=== PATIENT | male | born 1945 | race Caucasian/White ===

== ENCOUNTER → 2017-05-19 | Outpatient (CLI) | payer MEDICARE, OTHER ==
--- NOTE | 2017-05-19 13:42 | US ---
EXAMINATION TYPE: US liver DATE OF EXAM: 05/19/2017 COMPARISON: US CLINICAL HISTORY: B18.1 Chronic viral Hepatitis B w/o delta agent. Chronic Hep B EXAM MEASUREMENTS: Liver Length: 15.3 cm Gallbladder Wall: 0.3 cm CBD: 0.2 cm Right Kidney: 10.1 x 4.9 x 4.2 cm Morbidly obese pt, difficult exam Pancreas: Body wnl, head and tail obscured by bowel gas Liver: Difficult to visualize, heterogeneous, difficult to penetrate no discrete masses are identif ied Gallbladder: wall thickness upper limits of normal Evidence for sonographic Jovel's sign: No CBD: wnl Right Kidney: wnl, lower pole gassed out Incidental finding AAA distal AO, largest transverse measurement= 4.4 cm IMPRESSION: 1. Abdominal aortic aneurysm with transverse dimension of 4.4 cm. AP dimension is 4.0 cm. 2. Mild to moderate fatty infiltration liver 3. Mild wall thickening of the gallbladder. Normal less than 0.3 cm. This may be partially due to con traction of the gallbladder.
== END | disposition home or self-care (01) ==
LOC: RADUSWWP 06:46
PROVIDERS: ATTEND Internal Medicine Gastroenterology
DX: K76.0 Fatty (change of) liver, not elsewhere classified (principal); I71.4 Abdominal aortic aneurysm, without rupture; K82.8 Other specified diseases of gallbladder
CPT/HCPCS: 76705

== ENCOUNTER → 2019-07-11 | Outpatient (CLI) | payer MEDICARE ==
--- NOTE | 2019-07-11 07:34 | US ---
EXAMINATION TYPE: US abdomen limited DATE OF EXAM: 07/11/2019 COMPARISON: US 2018 CLINICAL HISTORY: B18.1 chronic viral hepatitis B w/o delta-agent. Chronic viral hepatitis B, patient states no other/new symptoms. EXAM MEASUREMENTS: Liver Length: 17.1 cm Gallbladder Wall: 0.2 cm CBD: 0.4 cm Right Kidney: 10.4 x 5.4 x 4.9 cm Difficult and limited study due to patient body habitus Pancreas: obscured by overlying midline bowel gas Liver: limited visualization, heterogeneous Gallbladder: limited visualization, appears wnl Evidence for sonographic Jovel's sign: no CBD: limited visualization, appears wnl Right Kidney: wnl IMPRESSION: Limited examination. Hepatic steatosis versus diffuse hepatocellular disease.
== END | disposition home or self-care (01) ==
LOC: RADUSWWP 06:49
PROVIDERS: ATTEND Internal Medicine
DX: B18.1 Chronic viral hepatitis B without delta-agent (principal)
CPT/HCPCS: 76705

== ENCOUNTER 2019-07-19 15:10 | Emergency (ER) | payer MEDICARE ==
[2019-07-19 15:14] VITALS: BP 184/73; PULSE 56; RESP 20; TEMP 98.1
--- NOTE | 2019-07-19 15:49 | XR ---
EXAMINATION TYPE: XR ankle complete LT DATE OF EXAM: 07/19/2019 COMPARISON: NONE HISTORY: Pain TECHNIQUE: 3 views of the left ankle are submitted for evaluation. FINDINGS: There is no evidence for fracture or dislocation. Ankle mortise is intact. Soft tissues are within normal limits. Large plantar calcaneal spur identified. IMPRESSION: 1. No evidence for acute fracture.
[2019-07-19] MEDS ORDERED: ACET/COD 300 MG/30 MG STARTER PACK 6 TAB BTL PO STA (16:06)
--- NOTE | 2019-07-19 16:06 | ED ---
Extremity Problem HPI - General Chief complaint: Extremity Problem,Nontraumatic Stated complaint: L foot pain Time Seen by Provider: 07/19/19 15:16 Source: patient Mode of arrival: ambulatory Limitations: no limitations - History of Present Illness Initial comments: 73-year-old male presenting today for chief complaint foot and ankle painx 3 weeks. Patient states that he has had ankle pain for quite some time now he states he's been following this for months with his primary care provider. Patient states he only known injury that he had stepped in a hole. Denies history of DVT or cancer. Denies recent surgeries travel or immobilization. He states he has on-and-off pain since then the pain has increased for the 3 weeks. Patient denies any swelling redness flulike symptoms. Patient denies any new trauma or injury. Patient denies any swelling of the calf or legs. Remaining review systems negative upon arrival patient. - Related Data Allergies Allergy/AdvReac Type Severity Reaction Status Date / Time No Known Allergies Allergy Verified 07/19/19 15:14 Review of Systems ROS Statement: Those systems with pertinent positive or pertinent negative responses have been documented in the HPI. ROS Other: All systems not noted in ROS Statement are negative. Past Medical History Past Medical History: Hypertension History of Any Multi-Drug Resistant Organisms: None Reported Past Surgical History: No Surgical Hx Reported Past Psychological History: Depression Smoking Status: Never smoker Past Alcohol Use History: None Reported Past Drug Use History: None Reported General Exam - General Exam Comments Initial Comments: General: The patient is awake and alert, in no distress, and does not appear acutely ill. Eye: Pupils are equal, round and reactive to light, extra-ocular movements are intact. No nystagmus. There is normal conjunctiva bilaterally. No signs of icterus. . Cardiovascular: There is a regular rate and rhythm. No murmur, rub or gallop is appreciated. Respiratory: Lungs are clear to auscultation, respirations are non-labored, breath sounds are equal. No wheezes, stridor, rales, or rhonchi. Musculoskeletal: No gross inspection of the legs bilaterally. No soft tissue swelling or edema. Patient is tender to palpation over the medial malleolus of the left ankle no tenderness to palpation of the forefoot slight tenderness to patient over the heel. No bruising over the plantar aspect. Normal ROM, with no tenderness at ankles b/l Strength 5/5. Sensation intact. Strong DP pulses equal bilaterally 2+. Negative Homans. No calf swelling or tenderness to palpation masses. Neurological: A&O x 3. CN II-XII intact grossly, There are no obvious motor or sensory deficits. Coordination appears grossly intact. Speech is normal. Skin: Skin is warm and dry and no rashes or lesions are noted. Psychiatric: Cooperative, appropriate mood & affect, normal judgment. Limitations: no limitations Course Vital Signs 07/19/19 15:12 Temperature 98.1 F Pulse Rate 56 L Respiratory 20 Rate Blood Pressure 184/73 O2 Sat by Pulse 99 Oximetry Medical Decision Making - Medical Decision Making 73-year-old male presenting for evaluation of acute on chronic left ankle pain. Distant history of injury. X-ray negative for acute osseous process. Patient neurovascularly intact. No swelling. At this time feel patient is stable for discharge with follow-up as scheduled on Monday with orthopedic surgery return parameters were discussed including immediate return for any swelling patient verbalized understanding and was discharged appearing well. Case discussed with Dr. Rolon Disposition Clinical Impression: Left foot pain, Heel spur, Ankle pain Disposition: HOME SELF-CARE Condition: Good Additional Instructions: Please use medication as discussed. Please follow-up with orthopedic surgery on monday, return for leg/calf swelling. Please return to emergency room if the symptoms increase or worsen or for any other concerns. Is patient prescribed a controlled substance at d/c from ED?: No Referrals: Foster Quevedo DO [Primary Care Provider] - 1-2 days Time of Disposition: 16:06
== END 2019-07-19 16:24 | disposition home or self-care (01) ==
LOC: EC 15:10
DX: M77.32 Calcaneal spur, left foot (principal); M25.572 Pain in left ankle and joints of left foot; G89.29 Other chronic pain; W18.42XA Slipping, tripping and stumbling without falling due to stepping into hole or opening, initial encounter
CPT/HCPCS: 99283

== ENCOUNTER → 2020-08-18 | Outpatient (CLI) | payer MEDICARE ==
--- NOTE | 2020-08-18 10:37 | US ---
EXAMINATION TYPE: US abdomen limited DATE OF EXAM: 08/18/2020 COMPARISON: US dated 07/11/2019 CLINICAL HISTORY: B18.1 Chronic viral hepatitis B. On medication for HTN. US exam is technically limi luiza due large body habitus. EXAM MEASUREMENTS: Liver Length: 14.9 cm Gallbladder Wall: 0.2 cm CBD: 0.2 cm Right Kidney: 9.5 x 6.5 x 4.7 cm Pancreas: Obscured by bowel gas Liver: limitedly seen, no masses seen, there is poor penetration of the ultrasound into the liver Gallbladder: limitedly seen due to scanning intercostally Evidence for sonographic Jovel's sign: no CBD: wnl Right Kidney: No hydronephrosis or masses seen No evident ascites. IMPRESSION: Exam is limited. Findings could be indicative of underlying hepatocellular disease
== END | disposition home or self-care (01) ==
LOC: RADUSWWP 07:00
PROVIDERS: ATTEND Internal Medicine
DX: B18.1 Chronic viral hepatitis B without delta-agent (principal)
CPT/HCPCS: 76705

== ENCOUNTER → 2021-08-02 | Outpatient (CLI) | payer MEDICARE ==
--- NOTE | 2021-08-02 10:07 | US ---
EXAMINATION TYPE: US liver DATE OF EXAM: 08/02/2021 COMPARISON: NONE CLINICAL HISTORY: B18.1 CHRONIC VIRAL HEPATITIS B. morbidly obese patient with no symptoms EXAM MEASUREMENTS: Liver Length: 17.8 cm Gallbladder Wall: 0.3 cm CBD: not seen Right Kidney: 10.1 x 3.7 x 5.3 cm very limited images due to obese and bowel gas Pancreas: not seen Liver: difficult to penetrate, limited intercostal imaging Gallbladder: wnl Evidence for sonographic Jovel's sign: no CBD: unable to discern due to reasons stated above Right Kidney: wnl IMPRESSION: Hepatic steatosis.
== END | disposition home or self-care (01) ==
LOC: RADUSWWP 09:17
PROVIDERS: ATTEND Internal Medicine Gastroenterology
DX: B18.1 Chronic viral hepatitis B without delta-agent (principal); K76.0 Fatty (change of) liver, not elsewhere classified
CPT/HCPCS: 76705

== ENCOUNTER → 2021-10-29 | Outpatient (CLI) | payer MEDICARE ==
--- NOTE | 2021-10-29 16:20 | MR ---
EXAMINATION TYPE: MR lumbar spine wo con DATE OF EXAM: 10/29/2021 COMPARISON: None. HISTORY: LBP with left leg radiculopathy x 1 year. TECHNIQUE: Multiplanar, multisequence imaging of the lumbar spine is performed without IV contrast. FINDINGS: There is levoconvex scoliosis centered at L2-L3 level. Sagittal images of the lumbar spine show vertebral body heights and alignment to appear satisfactory. Multilevel disc desiccation with mo derate to advanced multilevel disc space narrowing and multilevel vacuum disc phenomenon. Moderate t o severe multilevel anterior spurring. The conus medullaris is normal in position and signal ending a t T12-L1 disc space level. The bone marrow signal intensity is within normal limits. Axial images at T12-L1 level shows mild facet arthropathy. There is tiny right paracentral disc protr usion minimally effaces the anterior thecal sac. Patent bilateral neural foramina. Axial images at L1-L2 level show posterior spur disc complex mildly effacing anterior thecal sac. Pat ent bilateral neural foramina. Axial images at L2-L3 level show moderate broad disc bulge effacing the anterior thecal sac with mild to moderate bilateral anterior inferior neural foraminal narrowing. Axial images at L3-L4 level shows moderate facet arthropathy and ligament of flavum hypertrophy effac ing posterior lateral thecal sac. There is moderate broad disc bulge effacing anterior thecal sac. Th ere is mild to moderate bilateral neural foraminal narrowing. Axial images at L4-L5 level shows central disc protrusion and moderate facet arthropathy bilaterally. Spinal canal is preserved. There is mild to moderate right greater than left bilateral neural forami nal narrowing. Axial images at L5-S1 level show mild/moderate facet arthropathy bilaterally. There is mild to modera te broad disc bulge. Spinal canal is preserved as is increased epidural fat. There is mild to moderat e bilateral neural foraminal narrowing. There is AAA up to 4.7 cm transversely axial image 15. There is additional 2.3 cm left common iliac a rtery aneurysm axial image 1 IMPRESSION: Scoliosis with multilevel moderate to advanced degenerative changes as detailed above. Un derlying AAA is present. Advise further evaluation with CT to better evaluate and characterize.
== END | disposition home or self-care (01) ==
LOC: RADMRIMAIN 15:31
PROVIDERS: ATTEND Family Medicine
DX: M51.36 Other intervertebral disc degeneration, lumbar region (principal); I71.4 Abdominal aortic aneurysm, without rupture; M54.16 Radiculopathy, lumbar region; M41.86 Other forms of scoliosis, lumbar region
CPT/HCPCS: 72148

== ENCOUNTER → 2022-08-01 | Outpatient (CLI) | payer MEDICARE ==
--- NOTE | 2022-08-01 09:25 | US ---
EXAMINATION TYPE: US liver DATE OF EXAM: 08/01/2022 COMPARISON: CLINICAL HISTORY: B18.1 CHRONIC VIRAL HEPATITIS B. Patient states he gets this done once a year. TECHNIQUE: Multiple sonographic images of the right upper quadrant are obtained. FINDINGS: EXAM MEASUREMENTS: Liver Length: 18.7 cm Gallbladder Wall: 0.3 cm Right Kidney: 10.0 x 5.1 x 5.6 cm TENTERER NOTES: Limited due to bowel gas and patient body habitus Pancreas: Obscured by bowel gas Liver: Limited visualization Gallbladder: wnl as visualized Evidence for sonographic Jovel's sign: neg CBD: Obscured by overlying bowel gas Right Kidney: No hydronephrosis or masses seen, limited visualization IMPRESSION: No discrete abnormality appreciated.
== END | disposition home or self-care (01) ==
LOC: RADUSWWP 08:41
PROVIDERS: ATTEND Internal Medicine Gastroenterology
DX: B18.1 Chronic viral hepatitis B without delta-agent (principal)
CPT/HCPCS: 76705

== ENCOUNTER → 2023-07-28 | Outpatient (CLI) | payer MEDICARE ==
--- NOTE | 2023-07-28 08:35 | US ---
EXAMINATION TYPE: US liver DATE OF EXAM: 07/28/2023 COMPARISON: 08/01/2022 ultrasound CLINICAL INDICATION: Male, 77 years old with history of B18.1 CHR VIRAL HEPATITIS B WITHOUT DELTA AGE NT; Hepatitis TECHNIQUE: Multiple sonographic images of the right upper quadrant are obtained. FINDINGS: EXAM MEASUREMENTS: Liver Length: 17.3 cm Gallbladder Wall: 0.3 cm Right Kidney: 10.0 x 5.0 x 5.0 cm SEALANT MIXER NOTES: Technical limitations due to patient's body habitus and large amount of overlyin g bowel gas Pancreas: Obscured by bowel gas Liver: limited evaluation Gallbladder: no evidence of stones Evidence for sonographic Jovel's sign: no CBD: Obscured by overlying bowel gas Right Kidney: no evidence of hydronephrosis IMPRESSION: No evidence for acute abdominal process., Limited evaluation of liver. Consider MRI screening.
== END | disposition home or self-care (01) ==
LOC: RADUSWWP 07:01
PROVIDERS: ATTEND Internal Medicine Gastroenterology
DX: B18.1 Chronic viral hepatitis B without delta-agent (principal)
CPT/HCPCS: 76705

== ENCOUNTER 2023-08-31 10:49 | Emergency (ER) | payer MEDICARE ==
--- NOTE | 2023-08-31 11:16 | ED ---
SOB HPI <Evelyn Watters - Last Filed: 08/31/23 11:14> <Leandro Monroy - Last Filed: 08/31/23 14:44> - General Stated Complaint: flu/cold symptoms Time Seen by Provider: 08/31/23 11:15 - History of Present Illness Initial Comments: The patient's a 77-year-old gentleman with history of hyperlipidemia presents emergency room with complaints of cough and shortness breath. Patient states this started a week ago. He states it started without worse sore throat that has since slightly improved. He feels very congested in the chest. He has pain in the chest and abdomen with coughing only. Denies any vomiting, diarrhea or hemoptysis. (Evelyn Watters) - Related Data Previous Rx's Medication Instructions Recorded Albuterol Inhaler [Ventolin Hfa 1 - 2 puff INHALATION Q4HR PRN #1 08/31/23 Inhaler] each methylPREDNISolone Dose Pack 4 mg PO DIRECTED #21 packet 08/31/23 [Medrol Dose Pack] Allergies Allergy/AdvReac Type Severity Reaction Status Date / Time No Known Allergies Allergy Verified 08/31/23 12:50 Review of Systems ROS Other: All systems not noted in ROS Statement are negative. <Evelyn Watters - Last Filed: 08/31/23 11:14> ROS Other: All systems not noted in ROS Statement are negative. <Leandro Monroy - Last Filed: 08/31/23 14:44> ROS Statement: Those systems with pertinent positive or pertinent negative responses have been documented in the HPI. Past Medical History Past Medical History: Hypertension History of Any Multi-Drug Resistant Organisms: None Reported Past Surgical History: No Surgical Hx Reported Past Psychological History: Depression Past Alcohol Use History: None Reported Past Drug Use History: None Reported <Evelyn Watters - Last Filed: 08/31/23 11:14> General Exam <Evelyn Watters - Last Filed: 08/31/23 11:14> General appearance: alert, in no apparent distress Head exam: Present: atraumatic, normocephalic Eye exam: Present: normal appearance, PERRL ENT exam: Present: normal exam Neck exam: Present: normal inspection. Absent: tenderness, meningismus Respiratory exam: Present: wheezes. Absent: respiratory distress, rales, rhonchi Cardiovascular Exam: Present: regular rate, normal rhythm GI/Abdominal exam: Present: soft. Absent: distended, tenderness Extremities exam: Present: normal inspection, normal capillary refill Neurological exam: Present: alert, oriented X3, CN II-XII intact. Absent: motor sensory deficit Skin exam: Present: warm, dry, intact. Absent: cyanosis, diaphoretic <Leandro Monroy - Last Filed: 08/31/23 14:44> - General Exam Comments Initial Comments: Visual Physical Exam Vital signs reviewed General: Well-appearing, nontoxic, no acute distress. Head: Normocephalic, atraumatic Eyes: PERRLA, EOMI ENT: Airway patent Chest: Nonlabored breathing Skin: No visual rash, normal skin tone Neuro: Alert and oriented 3 Musculoskeletal: No gross abnormalities (Evelyn Watters) Course Vital Signs 08/31/23 12:45 Temperature 97.7 F Pulse Rate 55 L Respiratory 18 Rate Blood Pressure 144/77 O2 Sat by Pulse 93 L Oximetry Medical Decision Making <Evelyn Watters - Last Filed: 08/31/23 11:14> - Lab Data Result diagrams: 08/31/23 13:30 08/31/23 13:30 <Leandro Monroy - Last Filed: 08/31/23 14:44> - Medical Decision Making Quick note portion completed by myself, Evelyn Watters PAC. (Evelyn Watters) Was pt. sent in by a medical professional or institution (, PA, BLACKING WHEEL TENDER, urgent care, hospital, or senior living...) When possible be specific @ -No Did you speak to anyone other than the patient for history (EMS, parent, family, police, friend...)? What history was obtained from this source @ -No Did you review nursing and triage notes (agree or disagree)? Why? @ -I reviewed and agree with nursing and triage notes Were old charts reviewed (outside hosp., previous admission, EMS record, old EKG, old radiological studies, urgent care reports/EKG's, senior living records)? Report findings @ -No old charts were reviewed Differential Diagnosis (chest pain, altered mental status, abdominal pain women, abdominal pain men, vaginal bleeding, weakness, fever, dyspnea, syncope, headache, dizziness, GI bleed, back pain, seizure, CVA, palpatations, mental health, musculoskeletal)? @ Pneumonia, sinusitis, upper respiratory infection, bronchitis EKG interpreted by me (3pts min.). @ -As above X-rays interpreted by me (1pt min.). @ -Is x-ray clear without focal pneumonia, no acute findings CT interpreted by me (1pt min.). @ -None done U/S interpreted by me (1pt. min.). @ -None done What testing was considered but not performed or refused? (CT, X-rays, U/S, labs)? Why? @ -None What meds were considered but not given or refused? Why? @ -None Did you discuss the management of the patient with other professionals (professionals i.e. , PA, BLACKING WHEEL TENDER, lab, RT, psych nurse, social welfare research worker, ear machine operator, teacher, financial aid officer, case monitor)? Give summary @ -No Was smoking cessation discussed for >3mins.? @ -No Was critical care preformed (if so, how long)? @ -No Were there social determinants of health that impacted care today? How? (Homeles sness, low income, unemployed, alcoholism, drug addiction, transportation, low edu. Level, literacy, decrease access to med. care, snf, rehab)? @ -No Was there de-escalation of care discussed even if they declined (Discuss DNR or withdrawal of care, Hospice)? DNR status @ -No What co-morbidities impacted this encounter? (DM, HTN, Smoking, COPD, CAD, Cancer, CVA, ARF, Chemo, Hep., AIDS, mental health diagnosis, sleep apnea, morbid obesity)? @ -None Was patient admitted / discharged? Hospital course, mention meds given and route, prescriptions, significant lab abnormalities, going to OR and other pertinent info. @ -[69-year-old male with cough and congestion. Patient has positive for RSV. He has no focal pneumonia. He has normal laboratory testing. He is stable for discharge with symptomatic treatment at home. Undiagnosed new problem with uncertain prognosis? @ -No Drug Therapy requiring intensive monitoring for toxicity (Heparin, Nitro, Insulin, Cardizem)? @ -No Were any procedures done? @ -No Diagnosis/symptom? @ -RSV Acute, or Chronic, or Acute on Chronic? @ acute Uncomplicated (without systemic symptoms) or Complicated (systemic symptoms)? @ -default Side effects of treatment? @ -No Exacerbation, Progression, or Severe Exacerbation? @ -No Poses a threat to life or bodily function? How? (Chest pain, [place], [place], pneumonia, PE, COPD, DKA, ARF, appy, cholecystitis, CVA, Diverticulitis, Homicidal, Suicidal, threat to staff... and all critical care pts) @ Low Risk at this time (Leandro Monroy) - Lab Data Lab Results 08/31/23 08/31/23 08/31/23 Range/Units 12:53 13:30 13:30 WBC 5.6 (3.8-10.6) k/uL RBC 4.42 (4.30-5.90) m/uL Hgb 14.9 (13.0-17.5) gm/dL Hct 43.3 (39.0-53.0) % MCV 97.9 (80.0-100.0) fL MCH 33.7 (25.0-35.0) pg MCHC 34.4 (31.0-37.0) g/dL RDW 12.2 (11.5-15.5) % Plt Count 174 (150-450) k/uL MPV 7.5 Neutrophils % 61 % Lymphocytes % 21 % Monocytes % 5 % Eosinophils % 9 % Basophils % 1 % Neutrophils # 3.4 (1.3-7.7) k/uL Lymphocytes # 1.2 (1.0-4.8) k/uL Monocytes # 0.3 (0-1.0) k/uL Eosinophils # 0.5 (0-0.7) k/uL Basophils # 0.1 (0-0.2) k/uL Sodium 139 (137-145) mmol/L Potassium 4.3 (3.5-5.1) mmol/L Chloride 102 (98-107) mmol/L Carbon Dioxide 26 (22-30) mmol/L Anion Gap 11 mmol/L BUN 21 H (9-20) mg/dL Creatinine 0.98 (0.66-1.25) mg/dL Est GFR (CKD-EPI)AfAm 86 (>60 ml/min/1.73 sqM) Est GFR (CKD-EPI)NonAf 74 (>60 ml/min/1.73 sqM) Glucose 125 H (74-99) mg/dL Calcium 8.9 (8.4-10.2) mg/dL Total Bilirubin 0.7 (0.2-1.3) mg/dL AST 39 (17-59) U/L ALT 42 (4-49) U/L Alkaline Phosphatase 97 (38-126) U/L Troponin I (0.000-0.034) ng/mL NT-Pro-B Natriuret Pep 25 pg/mL Total Protein 7.0 (6.3-8.2) g/dL Albumin 4.0 (3.5-5.0) g/dL Influenza Type A (PCR) Not Detected (Not Detectd) Influenza Type B (PCR) Not Detected (Not Detectd) RSV (PCR) Detected A (Not Detectd) SARS-CoV-2 (PCR) Not Detected (Not Detectd) 08/31/23 Range/Units 13:30 WBC (3.8-10.6) k/uL RBC (4.30-5.90) m/uL Hgb (13.0-17.5) gm/dL Hct (39.0-53.0) % MCV (80.0-100.0) fL MCH (25.0-35.0) pg MCHC (31.0-37.0) g/dL RDW (11.5-15.5) % Plt Count (150-450) k/uL MPV Neutrophils % % Lymphocytes % % Monocytes % % Eosinophils % % Basophils % % Neutrophils # (1.3-7.7) k/uL Lymphocytes # (1.0-4.8) k/uL Monocytes # (0-1.0) k/uL Eosinophils # (0-0.7) k/uL Basophils # (0-0.2) k/uL Sodium (137-145) mmol/L Potassium (3.5-5.1) mmol/L Chloride (98-107) mmol/L Carbon Dioxide (22-30) mmol/L Anion Gap mmol/L BUN (9-20) mg/dL Creatinine (0.66-1.25) mg/dL Est GFR (CKD-EPI)AfAm (>60 ml/min/1.73 sqM) Est GFR (CKD-EPI)NonAf (>60 ml/min/1.73 sqM) Glucose (74-99) mg/dL Calcium (8.4-10.2) mg/dL Total Bilirubin (0.2-1.3) mg/dL AST (17-59) U/L ALT (4-49) U/L Alkaline Phosphatase (38-126) U/L Troponin I <0.012 (0.000-0.034) ng/mL NT-Pro-B Natriuret Pep pg/mL Total Protein (6.3-8.2) g/dL Albumin (3.5-5.0) g/dL Influenza Type A (PCR) (Not Detectd) Influenza Type B (PCR) (Not Detectd) RSV (PCR) (Not Detectd) SARS-CoV-2 (PCR) (Not Detectd) Disposition <Evelyn Watters - Last Filed: 08/31/23 11:14> Is patient prescribed a controlled substance at d/c from ED?: No Time of Disposition: 14:41 <Leandro Monroy - Last Filed: 08/31/23 14:44> Clinical Impression: Upper respiratory tract infection, RSV (respiratory syncytial virus infection) Disposition: HOME SELF-CARE Condition: Fair Instructions (If sedation given, give patient instructions): Respiratory Syncytial Virus (ED), Upper Respiratory Infection (ED) Prescriptions: methylPREDNISolone Dose Pack [Medrol Dose Pack] 4 mg PO DIRECTED #21 packet Albuterol Inhaler [Ventolin Hfa Inhaler] 1 - 2 puff INHALATION Q4HR PRN #1 each PRN Reason: Shortness Of Breath Referrals: Foster Quevedo DO [Primary Care Provider] - 1-2 days
[2023-08-31 13:45] LABS: Basophils # (A) 0.1 k/uL (0-0.2); Basophils % (A) 1 %; Eosinophils # (A) 0.5 k/uL (0-0.7); Eosinophils % (A) 9 %; HCT 43.3 % (39.0-53.0); HGB 14.9 gm/dL (13.0-17.5); Lymphocytes # (A) 1.2 k/uL (1.0-4.8); Lymphocytes % (A) 21 %; MCH 33.7 pg (25.0-35.0); MCHC 34.4 g/dL (31.0-37.0); MCV 97.9 fL (80.0-100.0); Mean Platelet Volume 7.5; Monocytes # (A) 0.3 k/uL (0-1.0); Monocytes % (A) 5 %; Neutrophils # (A) 3.4 k/uL (1.3-7.7); Neutrophils % (A) 61 %; Platelet Count 174 k/uL (150-450); RBC 4.42 m/uL (4.30-5.90); RDW 12.2 % (11.5-15.5); WBC 5.6 k/uL (3.8-10.6)
--- NOTE | 2023-08-31 13:47 | XR ---
EXAMINATION TYPE: XR chest 2V DATE OF EXAM: 08/31/2023 1:06 PM CLINICAL INDICATION:Male, 77 years old with history of cough, shortness of breath; [facility] COMPARISON: None TECHNIQUE: XR chest 2V Frontal and lateral views of the chest. FINDINGS: Lungs/Pleura: There is no evidence of pleural effusion, focal consolidation, or pneumothorax. Pulmonary vascularity: Unremarkable. Heart/mediastinum: Cardiomediastinal silhouette is unremarkable. Musculoskeletal: No acute osseous pathology. Other findings: None IMPRESSION: No acute cardiopulmonary disease/process.
[2023-08-31 14:07] LABS: ALT 42 U/L (4-49); AST 39 U/L (17-59); African American GFR (CKD) 86 (>60 ml/min/1.73 sqM); Alkaline Phosphatase 97 U/L (38-126); Anion Gap 11 mmol/L; Blood Urea Nitrogen 21 mg/dL (9-20); Calcium 8.9 mg/dL (8.4-10.2); Carbon Dioxide 26 mmol/L (22-30); Chloride 102 mmol/L (98-107); Glucose 125 mg/dL (74-99); Non-African American GFR(CKD) 74 (>60 ml/min/1.73 sqM); Potassium 4.3 mmol/L (3.5-5.1); Sodium 139 mmol/L (137-145); Total Bilirubin 0.7 mg/dL (0.2-1.3)
[2023-08-31 14:15] LABS: NT-Pro-B-Type Natriuretic Pept 25 pg/mL
[2023-08-31 15:00] VITALS: BP 136/76; PULSE 76; RESP 16; TEMP 97.9
== END 2023-08-31 14:56 | disposition home or self-care (01) ==
LOC: EC 10:49
DX: J06.9 Acute upper respiratory infection, unspecified (principal); B97.4 Respiratory syncytial virus as the cause of diseases classified elsewhere; I10 Essential (primary) hypertension; Z20.822 Contact with and (suspected) exposure to COVID-19
CPT/HCPCS: 36415; 71046; 80053; 83880; 84484; 85025; 87636; 99285

== ENCOUNTER → 2023-12-08 | Outpatient (CLI) | payer MEDICARE ==
[2023-12-08 16:05] LABS: HCT 43.2 % (39.6-50.0); HGB 14.9 g/dL (13.0-17.0); MCH 33.1 pg (27.0-32.0); MCHC 34.5 g/dL (32.0-37.0); Mean Platelet Volume 9.8 FL (9.5-12.2); NRBC Per 100 WBC 0 X 10*3/uL (0.00-0.01); Platelet Count 187 X 10*3/uL (140-440); RDW 12.9 % (11.5-14.5); WBC 5.86 X 10*3/uL (4.50-10.00)
[2023-12-08 18:37] LABS: Blood Urea Nitrogen 19.4 mg/dL (9.0-27.0); Carbon Dioxide 25.8 mmol/L (21.6-31.8); Chloride 103 mmol/L (96-109); Potassium 4.7 mmol/L (3.5-5.5); Sodium 140 mmol/L (135-145)
== END | disposition home or self-care (01) ==
LOC: LABPAT 11:41
PROVIDERS: ATTEND Internal Medicine Interventional Cardiology
DX: Z01.812 Encounter for preprocedural laboratory examination (principal); R94.39 Abnormal result of other cardiovascular function study
CPT/HCPCS: 36415; 80051; 82565; 84520; 85027

== ENCOUNTER 2023-12-27 11:07 | Day surgery (SDC) | payer MEDICARE ==
[2023-12-26 09:36] VITALS: BMI 43.5
[~2023-12-27 11:07] MED LIST: ALPRAZolam 0.25 MG TAB PO PRN; ALPRAZolam 0.5 MG TAB PO PRN; ASPIRIN 325 MG TAB PO STA; NITROGLYCERIN SL TABS 0.4 MG TAB SUBLINGUAL PRN; SODIUM CHLORIDE 0.9% 1,000 ML in EMPTY BAG 1 BAG IV SCH
[2023-12-27] MEDS: SODIUM CHLORIDE 0.9% 1,000 ML IV ONE (11:23)
[2023-12-27 11:37] VITALS: RESP 16; TEMP 98.6
[2023-12-27] MEDS: fentaNYL (PF) 50 MCG/1 ML VIAL IVP ONE (13:41)
[2023-12-27] MEDS: MIDAZOLAM 2 MG/2 ML VIAL IVP ONE (13:41)
[2023-12-27] MEDS: LIDOCAINE 2% (PF) 20 MG/ML 2 ML VIAL SQ ONE (13:41)
[2023-12-27] MEDS: IOPAMIDOL-370 100ML BTL INTRATHECA ONE (13:47)
[2023-12-27] MEDS: HEPARIN SODIUM 1,000 UN/ML (10ML VL) IVP ONE (13:47)
[2023-12-27] MEDS ORDERED: RX INFO: IV CONTRAST WAS GIVEN 1 EACH MISC MISCELLANE PRN (14:00)
[2023-12-27] MEDS ORDERED: SODIUM CHLORIDE 0.9% 1,000 ML IV SCH (14:00)
--- NOTE | 2023-12-27 14:03 | P.PCN ---
Date of Procedure: 12/27/23 Operative Findings: CARDIAC CATHETERIZATION PERFORMING PHYSICIAN: Rigoberto Moss MD, RPVI PROCEDURE PERFORMED: 1. Selective right and left coronary angiogram 2. Left heart catheterization 3. Ultrasound-guided access of the right radial artery INDICATION: Symptomatic 78-year-old gentleman with abnormal myocardial perfusion imaging stress test showing inferolateral ischemia COMPLICATION: None APPROACH: Right radial artery LEVEL OF SEDATION: Moderate with a sedation length of 14 minutes PROCEDURE DESCRIPTION: After obtaining an informed consent, the patient was brought to cardiac stores laborer. Local anesthesia was performed using lidocaine subcutaneously. The right radial artery was cannulated using Seldinger technique, the guidewire passed easily, following that we advanced a 5-Wolof sheath dilator assembly, the wire and dilator were removed and sheath was flushed. Following that, 2 mg of verapamil along with 5000 unit heparin were given. Selective right and left coronary angiogram using a 6-Wolof JR4 and JL 3.5 catheters. Following that we did left heart catheterization using 6-Wolof pigtail catheter. The procedure was completed there was no complication. SELECTIVE CORONARY ANGIOGRAM: The right coronary artery: Large-caliber vessel and a dominant vessel. The RCA is diffusely diseased up to about 80 to 90% in the midportion. Gives rise into a PDA and PLV branches and the PLV branch is a critically diseased. Left main: Calcified with mild disease only The left circumflex: Large-caliber vessel and a codominant vessel with severe disease involving the first and second obtuse marginal branches. The left anterior descending artery: Large-caliber vessel with critical disease involving the proximal portion. HEMODYNAMICS: The LVEDP was 14 mmHg with no significant gradient across aortic valve CONCLUSION: 1. Extremely calcified right and left coronary system with severe triple-vessel coronary artery disease as described above 2. Normal left-sided filling pressure POSTPROCEDURE MANAGEMENT: Evaluate the patient for coronary artery bypass grafting
[2023-12-27 17:40] VITALS: BP 150/75; PULSE 54
== END 2023-12-27 17:44 | disposition home or self-care (01) ==
LOC: CATHCVL 11:07
PROVIDERS: ATTEND Internal Medicine Interventional Cardiology
DX: I25.10 Atherosclerotic heart disease of native coronary artery without angina pectoris (principal); I10 Essential (primary) hypertension; E78.5 Hyperlipidemia, unspecified; F17.210 Nicotine dependence, cigarettes, uncomplicated; E66.9 Obesity, unspecified; Z68.41 Body mass index [BMI] 40.0-44.9, adult; Z79.899 Other long term (current) drug therapy
CPT/HCPCS: 93458; 76937; J2250; J1644; J2001; Q9967; J3010

== ENCOUNTER 2024-01-01 06:34 | Inpatient (IN) | payer MEDICARE ==
[2024-01-01 07:17] LABS: ALT 36 U/L (4-49); AST 38 U/L (17-59); African American GFR (CKD) >90 (>60 ml/min/1.73 sqM); Albumin 3.8 g/dL (3.5-5.0); Alkaline Phosphatase 89 U/L (38-126); Anion Gap 6 mmol/L; Blood Urea Nitrogen 18 mg/dL (9-20); Calcium 8.8 mg/dL (8.4-10.2); Carbon Dioxide 28 mmol/L (22-30); Chloride 106 mmol/L (98-107); Glucose 107 mg/dL (74-99); Magnesium 1.6 mg/dL (1.6-2.3); Non-African American GFR(CKD) 80 (>60 ml/min/1.73 sqM); Sodium 140 mmol/L (137-145); Total Bilirubin 0.6 mg/dL (0.2-1.3); Total Protein 6.6 g/dL (6.3-8.2)
[2024-01-01 07:18] LABS: Partial Thromboplastin Time 25.4 sec (22.0-30.0)
[2024-01-01 07:34] LABS: Basophils # (A) 0.1 k/uL (0-0.2); Basophils % (A) 1 %; Eosinophils # (A) 0.3 k/uL (0-0.7); Eosinophils % (A) 6 %; HCT 45.7 % (39.0-53.0); HGB 15.1 gm/dL (13.0-17.5); Lymphocytes # (A) 1.1 k/uL (1.0-4.8); Lymphocytes % (A) 23 %; MCH 32.6 pg (25.0-35.0); MCHC 33.1 g/dL (31.0-37.0); MCV 98.7 fL (80.0-100.0); Mean Platelet Volume 8.1; Monocytes # (A) 0.4 k/uL (0-1.0); Monocytes % (A) 9 %; Neutrophils # (A) 2.8 k/uL (1.3-7.7); Neutrophils % (A) 57 %; Platelet Count 168 k/uL (150-450); RBC 4.63 m/uL (4.30-5.90); RDW 12.6 % (11.5-15.5); WBC 4.9 k/uL (3.8-10.6)
--- NOTE | 2024-01-01 07:38 | XR ---
EXAMINATION TYPE: XR chest 2V DATE OF EXAM: 01/01/2024 COMPARISON: 08/31/2023 HISTORY: 78-year-old male with chest pain TECHNIQUE: PA and lateral views FINDINGS: The heart is upper limits of normal in size. Patchy interstitial density in the mid and lower lungs w ithout pleural effusion. [facility] mid and lower thoracic spine. IMPRESSION: Suspect interstitial infiltrate mid and lower lungs. Consider possibilities such as aspiration or an early or atypical pneumonia.
--- NOTE | 2024-01-01 07:56 | ED ---
General Adult HPI - General Chief complaint: Chest Pain Stated complaint: Chest pains, pain in left arm Time Seen by Provider: 01/01/24 07:28 Source: patient, RN notes reviewed, old records reviewed Mode of arrival: ambulatory Limitations: no limitations - History of Present Illness Initial comments: Patient is a 78-year-old male with past medical history of hypertension, hyperlipidemia, significant CAD and severe triple-vessel disease seen on cardiac cath on December 27, 2023 scheduled to follow-up for possible bypass surgery who presents emergency department with sudden onset of chest pain. States it began this morning upon awakening. Describes it as substernal left-sided with radiation to the left shoulder and arm. Denies any diaphoresis, nausea, vomiting. Is on water pills and states he has been having a somewhat nonproductive cough as well. May be mild worsening lower extremity edema but nothing significant. Denies any orthopnea or PND. Has no other acute complaints at this time. Presents for chest pain. - Related Data Home Medications Medication Instructions Recorded Confirmed Aspirin 81 mg PO DAILY 12/14/23 01/01/24 Cholecalciferol [Vitamin D3 (25 25 mcg PO DAILY 12/14/23 01/01/24 Mcg = 1000 Iu)] Entecavir [Baraclude] 0.5 mg PO DAILY 12/14/23 01/01/24 Escitalopram [Lexapro] 20 mg PO DAILY 12/14/23 01/01/24 Furosemide [Lasix] 20 mg PO DAILY 12/14/23 01/01/24 Gabapentin 300 mg PO BID 12/14/23 01/01/24 Mv-Min/Folic/K1/Lycopen/Lutein 1 tab PO DAILY 12/14/23 01/01/24 [Centrum Silver Men Tablet] [place]-3/Dha/Epa/Fish Oil [Fish Oil 1 cap PO DAILY 12/14/23 01/01/24 1,000 mg Softgel] Rosuvastatin Calcium 5 mg PO DAILY 12/14/23 01/01/24 amLODIPine [Norvasc] 5 mg PO DAILY 12/14/23 01/01/24 Benazepril HCl [Lotensin] 20 mg PO DAILY 01/01/24 01/01/24 busPIRone HCL 15 mg PO BID 01/01/24 01/01/24 Allergies Allergy/AdvReac Type Severity Reaction Status Date / Time Tzvegaj-IYI-QyO Reductase Allergy hives-"ok Verified 01/01/24 08:12 Inhibitor in low doses" Review of Systems ROS Statement: Those systems with pertinent positive or pertinent negative responses have been documented in the HPI. Review of Systems: CONST: Denies fever EYES: Denies blurry vision ENT: Denies nasal congestion C/V: Endorses chest pain RESP: Denies shortness of breath GI: Denies abdominal pain : Denies dysuria SKIN: Denies rash. MSK: Denies joint pain. NEURO: Denies headache ROS Other: All systems not noted in ROS Statement are negative. Past Medical History Past Medical History: GERD/Reflux, Hearing Disorder / Deafness, Hyperlipidemia, Hypertension, Liver Disease, Osteoarthritis (OA) Additional Past Medical History / Comment(s): Recent SOB with exertion. Bilateral hearing aid use, hx burst left eardrum. Hx Hepatitis B, completely resolved now. History of Any Multi-Drug Resistant Organisms: None Reported Past Surgical History: No Surgical Hx Reported Additional Past Surgical History / Comment(s): Vasectomy. Past Anesthesia/Blood Transfusion Reactions: No Reported Reaction Additional Past Anesthesia/Blood Transfusion Reaction / Comment(s): Has never had anesthesia. Past Psychological History: Depression Smoking Status: Former smoker Past Alcohol Use History: None Reported Past Drug Use History: None Reported - Past Family History Mother Family Medical History: No Reported History General Exam - General Exam Comments Initial Comments: General: Appears in no acute distress. HEAD: Normal with no signs of head trauma. EYES: PERRLA, EOMI, conjunctiva normal, no discharge. ENT: Hearing grossly intact, normal oropharynx. RESPIRATORY: Clear breath sounds bilaterally. No wheezes, rales, or rhonchi. C/V: Regular rate and rhythm. S1 and S2 auscultated, no edema, peripheral pulses 2+ and intact throughout ABD: Abd is soft, nontender, nondistended EXT: Normal range of motion, no obvious deformity SKIN: No rashes or lesions observed on exposed skin. NEURO: Alert and oriented x 4. Limitations: no limitations Course Vital Signs 01/01/24 01/01/24 01/01/24 06:48 08:12 09:29 Temperature 99.1 F Pulse Rate 62 56 L 53 L Pulse Rate [ 56 L [place] ] Respiratory 18 18 18 Rate Blood Pressure 178/76 139/80 126/94 O2 Sat by Pulse 96 94 L 93 L Oximetry Medical Decision Making - Medical Decision Making Was pt. sent in by a medical professional or institution (, [facility], [facility]IR[facility], urgent care, hospital, or retirement...) When possible be specific @ -No Did you speak to anyone other than the patient for history (EMS, parent, family, police, friend...)? What history was obtained from this source @ -No Did you review nursing and triage notes (agree or disagree)? Why? @ -I reviewed and agree with nursing and triage notes Were old charts reviewed (outside hosp., previous admission, EMS record, old EKG, old radiological studies, urgent care reports/EKG's, retirement records)? Report findings @ -Old charts reviewed Differential Diagnosis (chest pain, altered mental status, abdominal pain women, abdominal pain men, vaginal bleeding, weakness, fever, dyspnea, syncope, headache, dizziness, GI bleed, back pain, seizure, CVA, palpatations, mental health, musculoskeletal)? @ -Differential Chest Pain: Stable Angina, Unstable Angina, STEMI, NSTEMI Aortic Dissection, Pneumothorax, Musculoskeletal, Esophageal Spasm GERD, Cholecystitis, Pancreatitis, Zoster, this is not meant to be an all-inclusive list. EKG interpreted by me (3pts min.). @ -As above X-rays interpreted by me (1pt min.). @ -Chest x-ray reveals interstitial infiltrates versus pulmonary vascular congestion. BNP and cepheid will be obtained. CT interpreted by me (1pt min.). @ -None done U/S interpreted by me (1pt. min.). @ -None done What testing was considered but not performed or refused? (CT, X-rays, U/S, l abs)? Why? @ -None What meds were considered but not given or refused? Why? @ -Considered administering 324 mg of aspirin however patient has already taken it at home. Did you discuss the management of the patient with other professionals (professionals i.e. MARK Law, K[facility] GIRL, lab, RT, psych nurse, director of social services, vp publisher development, teacher, chief science officer, caser in)? Give summary @ -No Was smoking cessation discussed for >3mins.? @ -No Was critical care preformed (if so, how long)? @ -No Were there social determinants of health that impacted care today? How? (Homelessness, low income, unemployed, alcoholism, drug addiction, transportation, low edu. Level, literacy, decrease access to med. care, prison, rehab)? @ -No Was there de-escalation of care discussed even if they declined (Discuss DNR or withdrawal of care, Hospice)? DNR status @ -No What co-morbidities impacted this encounter? (DM, HTN, Smoking, COPD, CAD, Cancer, CVA, ARF, Chemo, Hep., AIDS, mental health diagnosis, sleep apnea, morbi d obesity)? @ -CAD Was patient admitted / discharged? Hospital course, mention meds given and route , prescriptions, significant lab abnormalities, going to OR and other pertinent info. @ -Based on the patient's presentation and physical exam, presents with chest pain. Patient took 324 mg of aspirin prior to arrival. Vital signs currently within acceptable limits. Patient will be administered a nitroglycerin tablet and assess for any improvement in symptoms. Patient was in agreement this plan. We will obtain a cardiac workup. EKG shows no signs of acute ischemia. Patient's laboratory studies remarkable for undetectable troponin. Remainder the labs unremarkable. Chest x-ray shows pulmonary vascular congestion versus possible atypical pneumonia. We will obtain BNP as well as Cepheid. Patient was in agreement this plan.patient's chest pain resolved prior to receiving nitroglycerin tablet. BNP within acceptable limits. Viral swab negative. On reevaluation, I did discuss with the patient, it does appear that he may have a viral upper respiratory infection in addition to his chest pain which is since resolved. Due to his significant history and heart score being moderate , I did recommend admission for evaluation by cardiology. He was in agreement this plan. We will trend the troponin. He remains asymptomatic. He already received aspirin. Patient was in agreement this plan. Cardiology consulted. I spoke with the admitting physician, Dr. Vázquez who is covering for Dr. Jones who accepted the admission. Undiagnosed new problem with uncertain prognosis? @ -No Drug Therapy requiring intensive monitoring for toxicity (Heparin, Nitro, Insulin, Cardizem)? @ -No Were any procedures done? @ -No Diagnosis/symptom? @ -Chest pain Acute, or Chronic, or Acute on Chronic? @ -Acute Uncomplicated (without systemic symptoms) or Complicated (systemic symptoms)? @ -Complicated Side effects of treatment? @ -None Exacerbation, Progression, or Severe Exacerbation] @ -No Poses a threat to life or bodily function? @ -Yes - Lab Data Result diagrams: 01/01/24 06:45 01/01/24 06:45 Lab Results 01/01/24 01/01/24 01/01/24 Range/Units 06:45 06:45 06:45 WBC 4.9 (3.8-10.6) k/uL RBC 4.63 (4.30-5.90) m/uL Hgb 15.1 (13.0-17.5) gm/dL Hct 45.7 (39.0-53.0) % MCV 98.7 (80.0-100.0) fL MCH 32.6 (25.0-35.0) pg MCHC 33.1 (31.0-37.0) g/dL RDW 12.6 (11.5-15.5) % Plt Count 168 (150-450) k/uL MPV 8.1 Neutrophils % 57 % Lymphocytes % 23 % Monocytes % 9 % Eosinophils % 6 % Basophils % 1 % Neutrophils # 2.8 (1.3-7.7) k/uL Lymphocytes # 1.1 (1.0-4.8) k/uL Monocytes # 0.4 (0-1.0) k/uL Eosinophils # 0.3 (0-0.7) k/uL Basophils # 0.1 (0-0.2) k/uL PT 11.0 (10.0-12.5) sec INR 1.0 (<1.2) APTT 25.4 (22.0-30.0) sec Sodium 140 (137-145) mmol/L Potassium 4.0 (3.5-5.1) mmol/L Chloride 106 (98-107) mmol/L Carbon Dioxide 28 (22-30) mmol/L Anion Gap 6 mmol/L BUN 18 (9-20) mg/dL Creatinine 0.91 (0.66-1.25) mg/dL Est GFR (CKD-EPI)AfAm >90 (>60 ml/min/1.73 sqM) Est GFR (CKD-EPI)NonAf 80 (>60 ml/min/1.73 sqM) Glucose 107 H (74-99) mg/dL Calcium 8.8 (8.4-10.2) mg/dL Magnesium 1.6 (1.6-2.3) mg/dL Total Bilirubin 0.6 (0.2-1.3) mg/dL AST 38 (17-59) U/L ALT 36 (4-49) U/L Alkaline Phosphatase 89 (38-126) U/L Troponin I (0.000-0.034) ng/mL NT-Pro-B Natriuret Pep pg/mL Total Protein 6.6 (6.3-8.2) g/dL Albumin 3.8 (3.5-5.0) g/dL Influenza Type A (PCR) (Not Detectd) Influenza Type B (PCR) (Not Detectd) RSV (PCR) (Not Detectd) SARS-CoV-2 (PCR) (Not Detectd) 01/01/24 01/01/24 01/01/24 Range/Units 06:45 06:45 08:19 WBC (3.8-10.6) k/uL RBC (4.30-5.90) m/uL Hgb (13.0-17.5) gm/dL Hct (39.0-53.0) % MCV (80.0-100.0) fL MCH (25.0-35.0) pg MCHC (31.0-37.0) g/dL RDW (11.5-15.5) % Plt Count (150-450) k/uL MPV Neutrophils % % Lymphocytes % % Monocytes % % Eosinophils % % Basophils % % Neutrophils # (1.3-7.7) k/uL Lymphocytes # (1.0-4.8) k/uL Monocytes # (0-1.0) k/uL Eosinophils # (0-0.7) k/uL Basophils # (0-0.2) k/uL PT (10.0-12.5) sec INR (<1.2) APTT (22.0-30.0) sec Sodium (137-145) mmol/L Potassium (3.5-5.1) mmol/L Chloride (98-107) mmol/L Carbon Dioxide (22-30) mmol/L Anion Gap mmol/L BUN (9-20) mg/dL Creatinine (0.66-1.25) mg/dL Est GFR (CKD-EPI)AfAm (>60 ml/min/1.73 sqM) Est GFR (CKD-EPI)NonAf (>60 ml/min/1.73 sqM) Glucose (74-99) mg/dL Calcium (8.4-10.2) mg/dL Magnesium (1.6-2.3) mg/dL Total Bilirubin (0.2-1.3) mg/dL AST (17-59) U/L ALT (4-49) U/L Alkaline Phosphatase (38-126) U/L Troponin I <0.012 (0.000-0.034) ng/mL NT-Pro-B Natriuret Pep 48 pg/mL Total Protein (6.3-8.2) g/dL Albumin (3.5-5.0) g/dL Influenza Type A (PCR) Not Detected (Not Detectd) Influenza Type B (PCR) Not Detected (Not Detectd) RSV (PCR) Not Detected (Not Detectd) SARS-CoV-2 (PCR) Not Detected (Not Detectd) - EKG Data -: EKG Interpreted by Me EKG Comments: 12-lead Electrocardiogram Interpretation Note EKG was reviewed and interpreted by myself. 12-lead ECG performed at 0645 is interpreted by me as revealing bradycardia at a rate of 59 beats per minute. Q RS durations 107 ms, QTc is 408 ms. There were no ST or T wave abnormalities to suggest myocardial ischemia or injury. R wave progression across the precordium was satisfactory. By my interpretation this EKG is non-diagnostic for acute ischemia. 12-lead Electrocardiogram Interpretation Note EKG was reviewed and interpreted by myself. 12-lead ECG performed at 0934 is int erpreted by me as revealing normal sinus rhythm at a rate of 89 beats per minute. [place] is normal. MO interval is 164 ms, QRS duration is 133 ms, QTc is 399 ms.. Patient has diffuse ST segment depressions, likely related to general ischemic changes. No loyda ST segment elevations.. R wave progression across the precordium was satisfactory. Generalized ischemic changes with diffuse ST segment depressions. Could be related to patient's anemia.. Disposition Clinical Impression: Chest pain Disposition: ADMITTED IP TO THIS HOSP Condition: Stable Time of Disposition: 09:01
[2024-01-01] MEDS ORDERED: ACETAMINOPHEN TAB 325 MG TAB PO PRN (09:19)
[2024-01-01] MEDS ORDERED: ONDANSETRON 4 MG/2 ML VIAL IVP PRN (09:19)
[2024-01-01] MEDS ORDERED: NALOXONE 0.4 MG/ML 1 ML VIAL IV PRN (09:19)
[2024-01-01] MEDS: NITROGLYCERIN SL TABS 0.4 MG TAB SUBLINGUAL STA (09:30)
[2024-01-01] MEDS: dexAMETHasone 4 MG TAB PO STA (09:33)
--- NOTE | 2024-01-01 11:52 | P.CRDCN ---
History of Present Illness Consult date: 01/01/24 Chief complaint: Chest pain History of present illness: The patient is a pleasant 78-year-old gentleman who is known to my service from before with a past medical history significant for coronary artery disease and known severe triple-vessel coronary artery disease documented on heart catheterization was performed in December 27, 2023 as well as hypertension and dyslipidemia. He was seen in the office recently for further evaluation of chest discomfort and he underwent myocardial perfusion imaging stress test came in to be abnormal and for that reason he underwent a heart catheterization and that revealed severe triple-vessel CAD with extremely calcified right and left coronary system. Coronary artery bypass grafting consult was advised but the patient states he would like to go home and have being seen as an outpatient. He presented back to the emergency department complaining of chest discomfort in the middle and left side of the chest as a dull feeling with no radiation and no associated symptoms. The discomfort lasted for few minutes only. Currently his chest pain-free. No shortness of breath and no dizziness or lightheadedness and no feeling of heart racing or fluttering and no presyncope or syncope. His vitals are stable. He is bradycardic. He is not on any AV alexandru marci agents. He is on low intensity statin which is going to increase to high intensity statin but he is on KERRIE inhibitor as well. The examination is remarkable for stable vital signs with regular rate and rhythm and distant heart sounds and soft systolic murmur and clear breathing sounds bilaterally and no edema was noted Assessment Coronary artery disease as described above with no severe triple-vessel CAD Multiple comorbid conditions including hypertension and dyslipidemia Plan Continue the current medical regimen The patient to be seen by the cardiothoracic surgical team for an evaluation of CABG Follow-up with the patient Past Medical History Past Medical History: GERD/Reflux, Hearing Disorder / Deafness, Hyperlipidemia, Hypertension, Liver Disease, Osteoarthritis (OA) Additional Past Medical History / Comment(s): Recent SOB with exertion. Bilateral hearing aid use, hx burst left eardrum. Hx Hepatitis B, completely resolved now. History of Any Multi-Drug Resistant Organisms: None Reported Past Surgical History: No Surgical Hx Reported Additional Past Surgical History / Comment(s): Vasectomy. Past Anesthesia/Blood Transfusion Reactions: No Reported Reaction Additional Past Anesthesia/Blood Transfusion Reaction / Comment(s): Has never had anesthesia. Past Psychological History: Depression Smoking Status: Former smoker Past Alcohol Use History: None Reported Past Drug Use History: None Reported - Past Family History Mother Family Medical History: No Reported History Medications and Allergies Home Medications Medication Instructions Recorded Confirmed Type Aspirin 81 mg PO DAILY 12/14/23 01/01/24 History Cholecalciferol [Vitamin D3 (25 25 mcg PO DAILY 12/14/23 01/01/24 History Mcg = 1000 Iu)] Entecavir [Baraclude] 0.5 mg PO DAILY 12/14/23 01/01/24 History Escitalopram [Lexapro] 20 mg PO DAILY 12/14/23 01/01/24 History Furosemide [Lasix] 20 mg PO DAILY 12/14/23 01/01/24 History Gabapentin 300 mg PO BID 12/14/23 01/01/24 History Mv-Min/Folic/K1/Lycopen/Lutein 1 tab PO DAILY 12/14/23 01/01/24 History [Centrum Silver Men Tablet] [place]-3/Dha/Epa/Fish Oil [Fish Oil 1 cap PO DAILY 12/14/23 01/01/24 History 1,000 mg Softgel] Rosuvastatin Calcium 5 mg PO DAILY 12/14/23 01/01/24 History amLODIPine [Norvasc] 5 mg PO DAILY 12/14/23 01/01/24 History Benazepril HCl [Lotensin] 20 mg PO DAILY 01/01/24 01/01/24 History busPIRone HCL 15 mg PO BID 01/01/24 01/01/24 History Allergies Allergy/AdvReac Type Severity Reaction Status Date / Time [place]-PSR-AaL Reductase Allergy hives-"ok Verified 01/01/24 08:12 Inhibitor in low doses" Physical Exam Vitals: Vital Signs Temp Pulse Pulse Resp BP Pulse Ox 01/01/24 09:29 53 L 18 126/94 93 L 01/01/24 08:12 56 L 56 L 18 139/80 94 L 01/01/24 06:48 99.1 F 62 18 178/76 96 Intake and Output 12/31/23 01/01/24 01/01/24 22:59 06:59 14:59 Other: Weight 122.47 kg Results 01/01/24 06:45 01/01/24 06:45 Cardiac Enzymes 01/01/24 01/01/24 01/01/24 Range/Units 06:45 06:45 09:40 AST 38 (17-59) U/L Troponin I <0.012 <0.012 (0.000-0.034) ng/mL Coagulation 01/01/24 Range/Units 06:45 PT 11.0 (10.0-12.5) sec APTT 25.4 (22.0-30.0) sec CBC 01/01/24 Range/Units 06:45 WBC 4.9 (3.8-10.6) k/uL RBC 4.63 (4.30-5.90) m/uL Hgb 15.1 (13.0-17.5) gm/dL Hct 45.7 (39.0-53.0) % Plt Count 168 (150-450) k/uL Comprehensive Metabolic Panel 01/01/24 Range/Units 06:45 Sodium 140 (137-145) mmol/L Potassium 4.0 (3.5-5.1) mmol/L Chloride 106 (98-107) mmol/L Carbon Dioxide 28 (22-30) mmol/L BUN 18 (9-20) mg/dL Creatinine 0.91 (0.66-1.25) mg/dL Glucose 107 H (74-99) mg/dL Calcium 8.8 (8.4-10.2) mg/dL AST 38 (17-59) U/L ALT 36 (4-49) U/L Alkaline Phosphatase 89 (38-126) U/L Total Protein 6.6 (6.3-8.2) g/dL Albumin 3.8 (3.5-5.0) g/dL Current Medications Generic Name Dose Route Start Last Admin Trade Name Freq PRN Reason Stop Dose Admin Acetaminophen 650 mg 01/01/24 09:19 Acetaminophen Tab 325 Mg Tab PO Q6HR PRN Mild Pain or Fever > 100.5 Amlodipine Besylate 5 mg 01/02/24 09:00 Amlodipine 5 Mg Tab PO DAILY [facility] Aspirin 81 mg 01/02/24 09:00 Aspirin 81 Mg PO DAILY [facility] Atorvastatin Calcium 80 mg 01/02/24 09:00 Atorvastatin 80 Mg Tab PO DAILY [facility] Buspirone HCl 15 mg 01/01/24 21:00 Buspirone Hcl 5 Mg Tab PO BID [facility] Escitalopram Oxalate 20 mg 01/02/24 09:00 Escitalopram 20 Mg Tab PO DAILY [facility] Furosemide 20 mg 01/02/24 09:00 Furosemide 20 Mg Tab PO DAILY [facility] Gabapentin 300 mg 01/01/24 21:00 Gabapentin 300 Mg Cap PO BID [facility] Heparin Sodium (Porcine) 5,000 unit 01/01/24 21:00 Heparin Sodium,Porcine 5,000 Unit/Ml 1 Ml Vial SQ Q12HR [facility] Lisinopril 20 mg 01/02/24 09:00 Lisinopril 20 Mg Tab PO DAILY [facility] Naloxone HCl 0.2 mg 01/01/24 09:19 Naloxone 0.4 Mg/Ml 1 Ml Vial IV Q2M PRN Opioid Reversal Non-Formulary Medication 0.5 mg 01/02/24 09:00 Entecavir [Baraclude] PO DAILY [facility] Ondansetron HCl 4 mg 01/01/24 09:19 Ondansetron 4 Mg/2 Ml Vial IVP Q8HR PRN Nausea And Vomiting Intake and Output 12/31/23 01/01/24 01/01/24 22:59 06:59 14:59 Other: Weight 122.47 kg 01/01/24 06:45 01/01/24 06:45
--- NOTE | 2024-01-01 14:37 | US ---
EXAMINATION TYPE: US vein mapping BILAT DATE OF EXAM: 01/01/2024 1:47 PM COMPARISON: NONE CLINICAL INDICATION: Male, 78 years old with history of preop cardiac surgery; open heart SIDE PERFORMED: Bilateral TECHNIQUE: Lower extremity saphenous vein is examined and measured utilizing real time linear array sonography. DUPLEX FINDINGS: Greater Saphenous: Color flow seen Lesser Saphenous: Color flow seen Measurements in mm: Right Greater Saphenous: Groin: 8.3 x 5.2 mm High Thigh: 4.9 x 5.0 mm Mid Thigh: 4.1 x 4.5 mm Above Knee: 4.5 x 3.3 mm Knee: 4.8 x 3.6 mm Below Knee: 4.3 x 2.7 mm Mid Calf: 2.9 x 2.2 mm At Ankle: 4.1 x 3.2 mm Left Greater Saphenous: Groin: 7.9 x 10.0 mm High Thigh: 3.7 x 4.4 mm Mid Thigh: 5.1 x 4.0 mm Above Knee: 3.7 x 4.1 mm Knee: 4.8 x 4.2 mm Below Knee: 4.5 x 3.5 mm Mid Calf: 3.5 x 3.3 mm At Ankle: 3.0 x 3.1 mm IMPRESSION: 1. Bilateral GSV measurements listed above. 2. Performing surgeon to determine viability as conduit.
--- NOTE | 2024-01-01 14:39 | US ---
EXAMINATION TYPE: US carotid duplex BILAT DATE OF EXAM: 01/01/2024 COMPARISON: NONE CLINICAL INDICATION: Male, 78 years old with history of preop cardiac surgery; open heart TECHNIQUE: Carotid duplex ultrasound examination. Indirect Doppler criteria was utilized. 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 No significant stenosis seen IMPRESSION: No significant stenosis. See details above for further information Criteria for Assigning % of Stenosis / Diameter reduction (Estimation based on the indirect measurements of the internal carotid artery velocities (ICA PSV). 1. Normal (no stenosis)=ICA PSV < 125 cm/s: ratio < 2.0: ICA EDV<40 cm/s. 2. Less than 50% stenosis=ICA PSV < 125 cm/s: ratio < 2.0: ICA EDV<40 cm/s. 3. 50 to 69% stenosis=ICA PSV of 125 to 230 cm/s: ration 2.0 ? 4.0: ICA EDV 40-100 cm/s. 4. Greater than 70% stenosis to near occlusion= ICA PSV > 230 cm/s: ratio > 4.0: ICA EDV > 100 cm/s. 5. Near occlusion= ICA PSV velocities may be low or undetectable: variable ratio and ICA EDV. 6. Total occlusion=unable to detect flow.
--- NOTE | 2024-01-01 14:42 | US ---
EXAMINATION TYPE: Pre-Operative Non-Invasive Evaluation of the hand for Potential Radial Artery Cookie julien, Measurements only DATE OF EXAM: 01/01/2024 1:47 PM CLINICAL INDICATION: Male, 78 years old with history of measurements only; open heart SIDE PERFORMED: Left TECHNIQUE: Radial artery is measured utilizing real time linear array sonography. Dominant hand: right Duplex Findings: Radial Artery: Color flow seen Measurements in mm, transverse view: Left Radial: Proximal: 2.4 x 2.5 mm Mid: 2.4 x 1.8 mm Distal: 2.4 x 2.2 mm IMPRESSION: 1. Left Radial artery measurements listed above. 2. Performing surgeon to determine viability as conduit.
[2024-01-01 18:32] LABS: Chol/HDL Ratio 3.98 Ratio; LDL Cholesterol,Calculated 98.6 mg/dL (0.0-131.0); VLDL Calculation 14.46 mg/dL (5.00-40.00)
--- NOTE | 2024-01-01 18:37 | US ---
EXAMINATION TYPE: US arterial LE single level DATE OF EXAM: 01/01/2024 6:14 PM CLINICAL INDICATION: Male, 78 years old with history of Ankle Brachial Index (DANIEL); Open heart pt History of: Smoker: Prev. Hypertension: Yes Diabetic: No Hyperlipidemia: Yes TIA/CVA: No Previous Vascular Surgery: No CAD: No UT: No Vascular Ulcers: No Claudication: Pt states left leg Gangrene: No Right Brachial Pressure: 133 Left Brachial Pressure: Deferred due to IV Ankle-Brachial Indices: Right: 1.2 Left: 1.0 (Vessel hardening > 1.4; Normal 0.9 - 1.4, Moderate 0.7 - 0.9, Severe 0.5-0.7) Toe Brachial Indices: Right: 0.8 Left: 0.68 IMPRESSION: No evidence of significant lower extremity peripheral arterial disease based on ankle br achial indices.
[2024-01-01 18:38] LABS: Hepatitis A Antibody IgM Nonreactive (Nonreactive); Hepatitis B Core IgM Nonreactive (Nonreactive); Hepatitis C IgG Antibody Nonreactive (Nonreactive)
--- NOTE | 2024-01-01 18:58 | CT ---
EXAMINATION TYPE: CT chest abdomen wo con CT DLP: 1319.70 mGycm, Automated exposure control for dose reduction was used. DATE OF EXAM: 01/01/2024 3:19 PM COMPARISON: None. CLINICAL INDICATION:Male, 78 years old with history of assess aorta, liver; PHH, assess aorta, liver. Pre surgical. Technique: CT chest abdomen wo con; Multiple axial images were obtained. Two-dimensional coronal and sagittal reconstructions were obtained. Contrast used: mL of , Oral contrast used: without Oral Contrast Findings: CHEST: LUNGS/ PLEURA: The lung parenchyma appears unremarkable. AIRWAY: Patent and unremarkable. HEART: Size within normal limits. MEDIASTINUM: No gross evidence of adenopathy. VASCULATURE: No aortic aneurysm. No calcific plaque identified in the descending aorta. Mild scatt ered calcific plaque in the aortic arch and the descending aorta and the visible portion of the abdom inal aorta. MUSCULOSKELETAL: No acute osseous abnormalities. SOFT TISSUES/LYMPH NODES: Unremarkable. LOWER NECK: No significant findings. ABDOMEN: ABDOMEN LIVER: Unremarkable GALLBLADDER AND BILE DUCTS: Unremarkable. PANCREAS: Unremarkable. SPLEEN: Unremarkable. ADRENAL GLANDS: Unremarkable. KIDNEYS AND URETERS: No evidence of hydronephrosis or renal calculus. The ureters are unremarkable. STOMACH AND BOWEL: Stomach and duodenum are unremarkable. No evidence of bowel obstruction. PERITONEUM: No evidence of pneumoperitoneum or free fluid. IMPRESSION: No calcific plaque identified in the ascending aorta. Mild scattered calcific plaque in the aortic ar ch and the descending aorta and the visible portion of the abdominal aorta. A 4.5 cm infrarenal abdominal aortic aneurysm is present.
[2024-01-01] MEDS: GABAPENTIN 300 MG CAP PO SCH (20:42)
[2024-01-01] MEDS: busPIRone HCl 5 MG TAB PO SCH (20:42)
[2024-01-01] MEDS: HEPARIN SODIUM,PORCINE 5,000 UNIT/ML 1 ML VIAL SQ SCH (22:03)
--- NOTE | 2024-01-01 22:43 | P.HPIM ---
History of Present Illness H&P Date: 01/01/24 Chief Complaint: Chest pain Patient is a 78-year-old male with a known history of coronary artery disease and recent cardiac catheterization due to abnormal perfusion stress test on 12/27/2023 showed a extremely calcified right and left coronary system with severe triple-vessel coronary artery disease, hypertension, hyperlipidemia, hearing disorder/deafness, osteoarthritis, depression and prior history of smoking. Patient presents to ER with complaints of chest pain left retrosternal and radiating to left upper arm associate with coughing and shortness of breath and worsens with deep breathing. Patient was brought to the hospital by his family. He did take aspirin x 4 before coming to ER. His symptoms resolved by the time he is in the ER currently denies any complaints of chest pain. No nausea vomiting abdominal pain or diarrhea. Denies any recent illnesses. He did have RSV infection September 2023 and status post course of steroids and antibiotics. Chest x-ray showed suspected interstitial infiltrative mid and lower lungs. Consider possible such as aspiration or an early or atypical pneumonia. EKG showed supraventricular bradycardia with heart rate 59 Laboratory data showed WBC 4.9 hemoglobin 15.1 and platelets 168 sodium 140 potassium 4.0 chloride 106 bicarb is 28 BUN 18 and creatinine 0.9 Blood sugar 10/26/2006 and A1c 5.5 lowering Elevated troponin x 3 negative and proBNP is 48 and TSH 3.58 Hepatitis panel and RSV COVID-19 and influenza not detected. Review of Systems Constitutional: Patient denies any fever or chills . No generalized weakness or weight loss. Abdomen: Patient denied nausea vomiting and diarrhea and abdominal pain. Cardiovascular: Patient denies any chest pain or short of breath no palpitatio ns. Respiratory: patient denied any cough is from production. No shortness of breath Neurologic: Patient denied any numbness or tingling headache. Musculoskeletal: Patient denies any complaints of joint swelling or deformity. Skin: Negative Psychiatric: Negative Endocrine: No heat or cold intolerance. No recent weight gain. Genitourinary: No dysuria or hematuria. All other 14 point ROS negative except the above Past Medical History Past Medical History: GERD/Reflux, Hearing Disorder / Deafness, Hyperlipidemia, Hypertension, Liver Disease, Osteoarthritis (OA) Additional Past Medical History / Comment(s): Recent SOB with exertion. Bilateral hearing aid use, hx burst left eardrum. Hx Hepatitis B, completely resolved now. History of Any Multi-Drug Resistant Organisms: None Reported Past Surgical History: No Surgical Hx Reported Additional Past Surgical History / Comment(s): Vasectomy. Past Anesthesia/Blood Transfusion Reactions: No Reported Reaction Additional Past Anesthesia/Blood Transfusion Reaction / Comment(s): Has never had anesthesia. Past Psychological History: Depression Smoking Status: Former smoker Past Alcohol Use History: None Reported Past Drug Use History: None Reported - Past Family History Mother Family Medical History: No Reported History Medications and Allergies Home Medications Medication Instructions Recorded Confirmed Type Aspirin 81 mg PO DAILY 12/14/23 01/01/24 History Cholecalciferol [Vitamin D3 (25 25 mcg PO DAILY 12/14/23 01/01/24 History Mcg = 1000 Iu)] Entecavir [Baraclude] 0.5 mg PO DAILY 12/14/23 01/01/24 History Escitalopram [Lexapro] 20 mg PO DAILY 12/14/23 01/01/24 History Furosemide [Lasix] 20 mg PO DAILY 12/14/23 01/01/24 History Gabapentin 300 mg PO BID 12/14/23 01/01/24 History Mv-Min/Folic/K1/Lycopen/Lutein 1 tab PO DAILY 12/14/23 01/01/24 History [Centrum Silver Men Tablet] [place]-3/Dha/Epa/Fish Oil [Fish Oil 1 cap PO DAILY 12/14/23 01/01/24 History 1,000 mg Softgel] Rosuvastatin Calcium 5 mg PO DAILY 12/14/23 01/01/24 History amLODIPine [Norvasc] 5 mg PO DAILY 12/14/23 01/01/24 History Benazepril HCl [Lotensin] 20 mg PO DAILY 01/01/24 01/01/24 History busPIRone HCL 15 mg PO BID 01/01/24 01/01/24 History Allergies Allergy/AdvReac Type Severity Reaction Status Date / Time [id number] Reductase Allergy hives-"ok Verified 01/01/24 08:12 Inhibitor in low doses" Physical Exam Vitals: Vital Signs Temp Pulse Pulse Resp BP Pulse Ox 01/01/24 09:29 53 L 18 126/94 93 L 01/01/24 08:12 56 L 56 L 18 139/80 94 L 01/01/24 06:48 99.1 F 62 18 178/76 96 Intake and Output 12/31/23 01/01/24 01/01/24 22:59 06:59 14:59 Other: Weight 122.47 kg PHYSICAL EXAMINATION: Patient is lying in the bed comfortably, no acute distress, awake alert and oriented.. HEENT: Normocephalic. Neck is supple. Pupils reactive. Nostrils clear. Oral cavity is moist. Neck reveals no JVD, carotid bruits, or thyromegaly. CHEST EXAMINATION: Trachea is central. Symmetrical expansion. Minimal right basilar coarse sounds. No wheezing or rhonchi.. CARDIAC: Normal S1, S2 with no gallops. ABDOMEN: Soft. Bowel sounds normal. No organomegaly. No abdominal bruits. Extremities: reveal no edema. No clubbing or cyanosis Neurologically awake, alert, oriented x3 with well-coordinated movements. No focal deficits noted Skin: No rash or skin lesions. Psychiatric: Coperative. Nonsuicidal Musculoskeletal: No joint swelling or deformity. Normal range of motion. Results CBC & Chem 7: 01/01/24 06:45 01/01/24 06:45 Labs: Abnormal Lab Results - Last 24 Hours (Table) 01/01/24 Range/Units 06:45 Glucose 107 H (74-99) mg/dL Thrombosis Risk Factor Assmnt - DVT/VTE Prophylaxis DVT/VTE Prophylaxis: Pharmacologic Prophylaxis ordered Assessment and Plan Assessment: Cardiac chest pain. Ruled out ACS Severe triple-vessel coronary artery disease status post cardiac catheterization on 12/27/2023 Hypertension Hyperlipidemia GERD Osteoarthritis Depression Prior history of smoking Hearing disorder/deafness History of hepatitis B Morbid obesity BMI 43.6 DVT prophylaxis with heparin subcu Plan: Patient will be continued on telemetry monitoring. Serial EKG and troponin x 3 negative. Due to severe triple-vessel coronary disease cardiology and cardiac surgery was consulted. Patient will be continued on aspirin, statins, lisinopril and other home medications. Encourage incentive spirometry and follow-up closely. Due to chest x-ray findings procalcitonin was ordered. Continue to follow closely. Discussed with the family at bedside in detail. Time with Patient: Greater than 30
[2024-01-02] MEDS: HEPARIN SODIUM,PORCINE 5,000 UNIT/ML 1 ML VIAL SQ SCH (01:19)
[2024-01-02 02:05] LABS: Hepatitis B Surface Antigen Conf_React
[2024-01-02] MEDS ORDERED: ATORVASTATIN 10 MG TAB PO SCH (09:00)
[2024-01-02] MEDS ORDERED: lisinopriL 20 MG TAB PO SCH (09:00)
--- NOTE | 2024-01-02 09:17 | P.GSCN ---
History of Present Illness Consult date: 01/02/24 Reason for Consult: Coronary artery disease, surgical revascularization Requesting physician: Rigoberto Moss History of present illness: This is a 78-year-old gentleman who follows outpatient with Dr. Quevedo for primary care and Dr. Moss for cardiology. He has a previous medical history of coronary artery disease, hypertension, hyperlipidemia, infrarenal abdominal aortic aneurysm per the patient, hepatitis B, depression, morbid obesity, and previous tobacco dependence. Apparently this gentleman had been experiencing chest discomfort and progressive shortness of breath. He was seen by Dr. Moss and underwent stress testing which was abnormal. Subsequently he was advised heart catheterization which was completed last week and which demonstrated severe triple-vessel coronary artery disease with calcified right left coronary systems. At that time he was recommended to see a cardiothoracic surgeon, however the patient did not wish to remain inpatient and wanted to be seen on an outpatient basis. Unfortunately he presented to [facility] emergency room with complaints of chest discomfort to the left side of his chest, shortness of breath and coughing. Troponins were drawn and were negative. EKG did not demonstrate any ischemic changes. He was seen by Dr. Moss and due to the recommendations for consultation for surgical revascularization the patient was agreeable to stay in the hospital. Dr. Morales from cardiothoracic surgery was consulted and did see the patient in the emergency room yesterday. Of note the patient had a echocardiogram completed in the cardiology office on December 07 demonstrating normal left ventricular systolic function with EF 50 to 55%, mild aortic/mitral/tricuspid regurgitation, and aneurysmal ascending aorta measuring 5.1 cm. Review of Systems Review of systems was completed and was negative except as noted - Cardiovascular Reports as per HPI, Reports chest pain, Reports dyspnea on exertion, Reports sukhdev rtness of breath - Respiratory Reports cough Past Medical History Past Medical History: Coronary Artery Disease (CAD), Chest Pain / Angina, COPD, GERD/Reflux, Hearing Disorder / Deafness, Hyperlipidemia, Hypertension, Liver Disease, Osteoarthritis (OA) Additional Past Medical History / Comment(s): Recent SOB with exertion. Bilateral hearing aid use, hx burst left eardrum. Hx Hepatitis B, completely resolved now. History of Any Multi-Drug Resistant Organisms: None Reported Past Surgical History: Heart Catheterization Additional Past Surgical History / Comment(s): Vasectomy. Past Anesthesia/Blood Transfusion Reactions: No Reported Reaction Additional Past Anesthesia/Blood Transfusion Reaction / Comm: Has never had anesthesia. Past Psychological History: Depression Smoking Status: Former smoker Past Alcohol Use History: None Reported Past Drug Use History: None Reported - Past Family History Mother Family Medical History: No Reported History Medications and Allergies Home Medications Medication Instructions Recorded Confirmed Type Aspirin 81 mg PO DAILY 12/14/23 01/01/24 History Cholecalciferol [Vitamin D3 (25 25 mcg PO DAILY 12/14/23 01/01/24 History Mcg = 1000 Iu)] Entecavir [Baraclude] 0.5 mg PO DAILY 12/14/23 01/01/24 History Escitalopram [Lexapro] 20 mg PO DAILY 12/14/23 01/01/24 History Furosemide [Lasix] 20 mg PO DAILY 12/14/23 01/01/24 History Gabapentin 300 mg PO BID 12/14/23 01/01/24 History Mv-Min/Folic/K1/Lycopen/Lutein 1 tab PO DAILY 12/14/23 01/01/24 History [Centrum Silver Men Tablet] [place]-3/Dha/Epa/Fish Oil [Fish Oil 1 cap PO DAILY 12/14/23 01/01/24 History 1,000 mg Softgel] Rosuvastatin Calcium 5 mg PO DAILY 12/14/23 01/01/24 History amLODIPine [Norvasc] 5 mg PO DAILY 12/14/23 01/01/24 History Benazepril HCl [Lotensin] 20 mg PO DAILY 01/01/24 01/01/24 History busPIRone HCL 15 mg PO BID 01/01/24 01/01/24 History Allergies Allergy/AdvReac Type Severity Reaction Status Date / Time [id number]-[id number] Reductase Allergy hives-"ok Verified 01/01/24 08:12 Inhibitor in low doses" Surgical - Exam Vital Signs Temp Pulse Resp BP Pulse Ox 99.1 F 62 18 178/76 96 01/01/24 06:48 01/01/24 06:48 01/01/24 06:48 01/01/24 06:48 01/01/24 06:48 CONSTITUTIONAL: Awake and alert, appears comfortable, cooperative, well- developed, well-nourished, no pain, no acute distress EYES: Pupils equal, round, reactive to light, normal ocular movement ENT: Moist mucous membranes without oral lesions present NECK: No masses, no bruits, trachea midline RESPIRATORY: Lungs sounds clear to auscultation bilaterally. Respirations even, nonlabored. Currently on room air with oxygen saturation 97%. Strong cough. No chest wall deformities. No clubbing or cyanosis present CARDIOVASCULAR: S1, S2 present. Regular rate and rhythm, sinus rhythm on telemetry. Palpable peripheral pulses bilaterally. No edema present. No calf pain or tenderness noted GASTROINTESTINAL: Abdomen soft, nontender, nondistended, obese. There is no rebound or guarding present. Active bowel sounds present 4 quadrants. GENITOURINARY: Deferred INTEGUMENTARY: Skin is warm and dry NEUROLOGIC: Cranial nerves II through XII intact, normal coordination, no obvious motor or sensory deficits, speech is normal MUSKULOSKELETAL: Able to move all extremities, strength equal bilaterally, normal posture PSYCHIATRIC: Alert and oriented to person place and time, appropriate affect, intact judgment and insight Results - Labs 01/01/24 06:45 01/01/24 06:45 Abnormal Lab Results - Last 24 Hours (Table) 01/01/24 Range/Units 06:45 HDL Cholesterol 37.90 L (40.00-60.00) mg/dL Diabetes panel 01/01/24 01/01/24 Range/Units 06:45 06:45 Hemoglobin A1c 5.5 (<=6.0) % Triglycerides 72.30 (0.00-149.00) mg/dL HDL Cholesterol 37.90 L (40.00-60.00) mg/dL Thyroid panel 01/01/24 Range/Units 06:45 TSH 3.580 (0.350-5.500) UIU/ML Pituitary panel 01/01/24 Range/Units 06:45 TSH 3.580 (0.350-5.500) UIU/ML - Imaging Chest x-ray: report reviewed, image reviewed EKG: image reviewed Additional studies: Heart catheterization films reviewed with Dr. Morales Assessment and Plan Assessment: Coronary artery disease Chest pain, shortness of breath, secondary to above Hypertension Hyperlipidemia, treated, cholesterol 151, LDL 98 Infrarenal abdominal aortic aneurysm per the patient Hepatitis B, resolved per patient, on chronic Entecavir Depression Morbid obesity Mild COPD, preoperative FEV1 59% of predicted Previous tobacco dependence Plan: The patient was seen and examined yesterday in the emergency room with Dr. Morales after reviewing heart catheterization films and discussing the case with Dr. Moss. Our recommendations are for surgical revascularization this admission. The usual perioperative course of open-heart surgery was discussed in detail with the patient and his family, risks and benefits were reviewed, all questions were answered. Preoperative testing was initiated. We would like MRI of the liver as has been suggested on previous ultrasounds to evaluate for cirrhosis or any pathology that would prohibit surgery. Otherwise we will plan tentatively for surgical revascularization with left internal mammary artery, endoscopic vein harvest, possible left radial artery harvest, and ligation of the left atrial appendage by Dr. Morales this , January 04, 2024. Consultation placed to pulmonology for clearance. Will complete 5 m walk test. STS risk score will be calculated and discussed with the patient. Recommend continuing aspirin, statin. Patient is not currently on beta-marci therapy per Dr. Moss as he has been bradycardic. Will continue Norvasc, will discontinue lisinopril to prevent vasoplegia intra and postoperatively. More recommendations to follow. Thank you Dr. Moss for this consult. I have personally seen and examined the patient, performed the documentation and the assessment and plan as written. Number of minutes spent on the visit: 30. CARLOS Lambert
--- NOTE | 2024-01-02 10:16 | P.PN ---
Subjective Progress Note Date: 01/02/24 Principal diagnosis: CAD The patient is a pleasant 78-year-old gentleman who is known to my service from before with a past medical history significant for coronary artery disease and known severe triple-vessel coronary artery disease documented on heart catheterization was performed in December 27, 2023 as well as hypertension and dyslipidemia. He was seen in the office recently for further evaluation of chest discomfort and he underwent myocardial perfusion imaging stress test came in to be abnormal and for that reason he underwent a heart catheterization and that revealed severe triple-vessel CAD with extremely calcified right and left coronary system. Coronary artery bypass grafting consult was advised but the patient states he would like to go home and have being seen as an outpatient. He presented back to the emergency department complaining of chest discomfort in the middle and left side of the chest as a dull feeling with no radiation and no associated symptoms. The discomfort lasted for few minutes only. Currently his chest pain-free. No shortness of breath and no dizziness or lightheadedness and no feeling of heart racing or fluttering and no presyncope or syncope. His vitals are stable. He is bradycardic. He is not on any AV alexandru marci agent s. He is on low intensity statin which is going to increase to high intensity statin but he is on KERRIE inhibitor as well. The examination is remarkable for stable vital signs with regular rate and rhythm and distant heart sounds and soft systolic murmur and clear breathing sounds bilaterally and no edema was noted January 02, 2024 The patient was seen and evaluated this morning. He is asymptomatic and he is hemodynamically stable as well. He is on aspirin and high intensity statin and anti-ischemic medications but he underwent carotid duplex study showed mild disease bilaterally and also he underwent lower extremities arterial duplex study came in to be unremarkable. There was some concern about the liver and he is in process of having an MRI. The examination overall is remarkable for sta ble vital signs with regular rate and rhythm and soft systolic murmur and clear breathing sounds bilaterally and no edema was noted in the lower extremities Assessment Coronary artery disease as described above with no severe triple-vessel CAD Multiple comorbid conditions including hypertension and dyslipidemia Plan Continue the current medical regimen Further investigation regarding the liver Hopefully open heart surgery in the next 24 to 48 hours Objective - Vital Signs Vital signs: Vital Signs Temp 97.6 F 01/02/24 07:00 Pulse 60 05/07/24 07:00 Resp 18 01/02/24 07:00 BP 144/77 01/02/24 07:00 Pulse Ox 97 01/02/24 07:00 FiO2 Intake & Output 01/01/24 01/02/24 01/02/24 18:59 06:59 18:59 Weight 122.47 kg Other: # Voids 1 - Labs CBC & Chem 7: 01/01/24 06:45 01/01/24 06:45 Labs: Abnormal Lab Results - Last 24 Hours (Table) 01/01/24 Range/Units 06:45 HDL Cholesterol 37.90 L (40.00-60.00) mg/dL
[2024-01-02] MEDS: ASPIRIN 81 MG PO SCH (10:23)
[2024-01-02] MEDS: FUROSEMIDE 20 MG TAB PO SCH (10:23)
[2024-01-02] MEDS: amLODIPine 5 MG TAB PO SCH (10:23)
[2024-01-02] MEDS: ATORVASTATIN 80 MG TAB PO SCH (10:24)
[2024-01-02] MEDS: hydrALAZINE HCL 25 MG TAB PO SCH (10:34)
[2024-01-02 11:40] LABS: ALT 29 U/L (10-49); AST 28 U/L (14-35); Albumin 3.9 g/dL (3.8-4.9); Albumin/Globulin Ratio 1.77 Ratio (1.60-3.17); Alkaline Phosphatase 78 U/L (41-126); BUN/Creat Ratio 19.33 Ratio (12.00-20.00); Blood Urea Nitrogen 17.4 mg/dL (9.0-27.0); Carbon Dioxide 21.7 mmol/L (21.6-31.8); Chloride 106 mmol/L (96-109); Globulin 2.2 g/dL (1.6-3.3); Glucose 134 mg/dL (70-110); Potassium 3.9 mmol/L (3.5-5.5); Sodium 141 mmol/L (135-145); Total Bilirubin 0.4 mg/dL (0.3-1.2); Total Protein 6.1 g/dL (6.2-8.2)
[2024-01-02] MEDS: ESCITALOPRAM 20 MG TAB PO SCH (11:41)
[2024-01-02] MEDS: MUPIROCIN 2% OINT 22 GM TUBE NASAL SCH (11:42)
[2024-01-02 11:48] LABS: Basophils # (A) 0.03 X 10*3/uL (0.00-0.10); Basophils % (A) 0.7 %; Eosinophils # (A) 0.02 X 10*3/uL (0.04-0.35); Eosinophils % (A) 0.5 %; HCT 41.7 % (39.6-50.0); HGB 14.2 g/dL (13.0-17.0); Lymphocytes # (A) 0.81 X 10*3/uL (0.90-5.00); Lymphocytes % (A) 19.7 %; MCH 32.6 pg (27.0-32.0); MCHC 34.1 g/dL (32.0-37.0); MCV 95.9 FL (80.0-97.0); Mean Platelet Volume 9.7 FL (9.5-12.2); Monocytes # (A) 0.49 X 10*3/uL (0.20-1.00); Monocytes % (A) 11.9 %; NRBC Per 100 WBC 0 X 10*3/uL (0.00-0.01); Neutrophils # (A) 2.76 X 10*3/uL (1.80-7.70); Platelet Count 174 X 10*3/uL (140-440); RBC 4.35 X 10*6/uL (4.40-5.60); RDW 12.7 % (11.5-14.5); WBC 4.12 X 10*3/uL (4.50-10.00)
--- NOTE | 2024-01-02 13:21 | P.CNPUL ---
History of Present Illness Consult date: 01/02/24 Requesting physician: Russ Aguilar Reason for consult: other (Pulmonary and critical care management) Chief complaint: Chest pain History of present illness: This is a very pleasant 78-year-old male patient with a known history of hyperlipidemia, hypertension, hearing disorder, hepatitis B infection, depression, former smoker for about 16 years at 1-1/2 packs/day. He also has a history of 4.5 cm infrarenal abdominal aortic aneurysm. He had recently undergone a cardiac catheterization on December 27, 2023 that revealed triple-vessel coronary artery disease and was planning to have possible bypass surgery. However on yesterday he developed a sudden onset of chest pain and presented to the ER for the same. Troponins were negative x 3. White count 4.1. Hemoglobin 14.2. Platelets 174. Sodium 141. Potassium 3.9. Bicarb 22. BUN 17. Creatinine 0.9. Glucose 134. The plan is for bypass surgery on 01/04/2024. FEV1 value was 59% of predicted. He is seen in consultation. He denies any known history of COPD/emphysema. No asthma. Not previously on inhalers or oxygen. The last couple of days he has been having some cough and congestion however. CT scan of the chest revealed lung parenchyma appears unremarkable. Airway is patent and unremarkable. He is currently resting comfortably in bed. Awake and alert in no acute distress. Denies any chest pain. No worsening shortness of breath. He is maintaining good O2 saturations in the 90s on room air. He is afebrile. Hemodynamically stable. Review of Systems REVIEW OF SYSTEMS: CONSTITUTIONAL: Denies any recent significant weight loss or weight gain. EYES: Denies change in vision. EARS, NOSE, MOUTH, THROAT: Denies headaches, denies sore throat. CARDIOVASCULAR: Positive for chest pain, no palpitations or syncopal episodes. RESPIRATORY: Positive for shortness of breath, cough, congestion no hemoptysis. GASTROINTESTINAL: Denies change in appetite, denies abdominal pain GENITOURINARY: Denies hematuria, denies infections. MUSKULOSKELETAL: Denies pain, denies swelling. INTEGUMENTARY: Denies rash, denies eczema. NEUROLOGICAL: Denies recent memory loss, no recent seizure activity. PSYCHIATRIC: Denies anxiety, denies depression. HEMATOLOGIC/LYMPHATIC: Denies anemia, denies enlarged lymph nodes. Past Medical History Past Medical History: Coronary Artery Disease (CAD), Chest Pain / Angina, COPD, GERD/Reflux, Hearing Disorder / Deafness, Hyperlipidemia, Hypertension, Liver Disease, Osteoarthritis (OA) Additional Past Medical History / Comment(s): Recent SOB with exertion. Bilateral hearing aid use, hx burst left eardrum. Hx Hepatitis B, completely resolved now. History of Any Multi-Drug Resistant Organisms: None Reported Past Surgical History: Heart Catheterization Additional Past Surgical History / Comment(s): Vasectomy. Past Anesthesia/Blood Transfusion Reactions: No Reported Reaction Additional Past Anesthesia/Blood Transfusion Reaction / Comment(s): Has never had anesthesia. Past Psychological History: Depression Smoking Status: Former smoker Past Alcohol Use History: None Reported Past Drug Use History: None Reported - Past Family History Mother Family Medical History: No Reported History Medications and Allergies Home Medications Medication Instructions Recorded Confirmed Type Aspirin 81 mg PO DAILY 12/14/23 01/01/24 History Cholecalciferol [Vitamin D3 (25 25 mcg PO DAILY 12/14/23 01/01/24 History Mcg = 1000 Iu)] Entecavir [Baraclude] 0.5 mg PO DAILY 12/14/23 01/01/24 History Escitalopram [Lexapro] 20 mg PO DAILY 12/14/23 01/01/24 History Furosemide [Lasix] 20 mg PO DAILY 12/14/23 01/01/24 History Gabapentin 300 mg PO BID 12/14/23 01/01/24 History Mv-Min/Folic/K1/Lycopen/Lutein 1 tab PO DAILY 12/14/23 01/01/24 History [Centrum Silver Men Tablet] [place]-3/Dha/Epa/Fish Oil [Fish Oil 1 cap PO DAILY 12/14/23 01/01/24 History 1,000 mg Softgel] Rosuvastatin Calcium 5 mg PO DAILY 12/14/23 01/01/24 History amLODIPine [Norvasc] 5 mg PO DAILY 12/14/23 01/01/24 History Benazepril HCl [Lotensin] 20 mg PO DAILY 01/01/24 01/01/24 History busPIRone HCL 15 mg PO BID 01/01/24 01/01/24 History Allergies Allergy/AdvReac Type Severity Reaction Status Date / Time [id number] Reductase Allergy hives-"ok Verified 01/01/24 08:12 Inhibitor in low doses" Physical Exam Vitals: Vital Signs Temp Pulse Pulse Pulse Resp BP BP 01/02/24 11:58 01/02/24 10:23 56 L 60 18 01/02/24 07:00 97.6 F 60 18 144/77 01/02/24 01:34 97.6 F 62 15 132/81 01/01/24 22:42 98.0 F 76 18 124/81 01/01/24 20:34 68 14 121/76 01/01/24 18:00 65 16 124/76 01/01/24 14:02 54 L 14 131/73 Pulse Ox 01/02/24 11:58 96 01/02/24 10:23 01/02/24 07:00 97 01/02/24 01:34 95 01/01/24 22:42 93 L 01/01/24 20:34 93 L 01/01/24 18:00 93 L 01/01/24 14:02 94 L Intake and Output 01/01/24 01/02/24 01/02/24 22:59 06:59 14:59 Other: Voiding Method Toilet # Voids 1 1 Weight 122.47 kg GENERAL EXAM: Alert, pleasant 78-year-old male, on room air, comfortable in no apparent distress. HEAD: Normocephalic. EYES: Normal reaction of pupils, equal size. NOSE: Clear with pink turbinates. THROAT: No erythema or exudates. NECK: No masses, no JVD. CHEST: No chest wall deformity. LUNGS: Equal air entry with no crackles, wheeze, rhonchi or dullness. CVS: S1 and S2 normal with no audible murmur, regular rhythm. ABDOMEN: No hepatosplenomegaly, normal bowel sounds, no guarding or rigidity. SPINE: No scoliosis or deformity SKIN: No rashes CENTRAL NERVOUS SYSTEM: No focal deficits, tone is normal in all 4 extremities. EXTREMITIES: There is no peripheral edema. No clubbing, no cyanosis. Peripheral pulses are intact. Results - Laboratory Findings CBC and BMP: 01/02/24 06:40 01/02/24 06:40 PT/INR, D-dimer PT 11.0 sec (10.0-12.5) 01/01/24 06:45 INR 1.0 (<1.2) 01/01/24 06:45 Abnormal lab findings: Abnormal Labs 01/01/24 01/01/24 01/02/24 06:45 06:45 06:40 WBC 4.12 L RBC 4.35 L MCH 32.6 H Lymphocytes # 0.81 L Eosinophils # 0.02 L Anion Gap Glucose 107 H Total Protein HDL Cholesterol 37.90 L 01/02/24 06:40 WBC RBC MCH Lymphocytes # Eosinophils # Anion Gap 13.30 H Glucose 134 H Total Protein 6.1 L HDL Cholesterol - Diagnostic Findings Chest x-ray: image reviewed CT scan - chest: image reviewed Assessment and Plan Assessment: Acute chest pain in a patient with a known history of triple-vessel coronary artery disease based on cardiac catheterization 12/27/2023. Troponins negative this admission Former smoker of 16 years at 1-1/2 packs/day. FEV1 value 59% of predicted History of abdominal aortic aneurysm currently measuring 4.5 cm Chronic hepatitis B infection, maintained on Baraclude. MRI of the liver is pending Hypertension Hyperlipidemia History of depression Hearing disorder Plan: The patient was seen and evaluated Currently stable and on room air CAT scan of the chest, chest x-ray, labs and medications reviewed Will add DuoNeb inhalations and Symbicort Educated regarding the importance of the incentive spirometer Plan is for coronary bypass surgery on 01/04/2024 We will continue to follow and make further recommendations based on his clinical status I have personally seen and examined the patient, performed the documentation and the assessment and plan as written. Number of minutes spent on the visit: 20.
[2024-01-02] MEDS: IPRATROPIUM-ALBUTEROL 3 ML NEB INHALATION SCH (15:31)
[2024-01-02] MEDS: SYMBICORT 160-4.5 MCG INHALER INHALATION SCH (18:19)
[2024-01-02] MEDS: ENTECAVIR 0.5 MG PO SCH (19:29)
[2024-01-03 08:52] LABS: HCT 45.3 % (39.0-53.0); HGB 15.1 gm/dL (13.0-17.5); MCH 33.1 pg (25.0-35.0); MCHC 33.3 g/dL (31.0-37.0); MCV 99.5 fL (80.0-100.0); Platelet Count 190 k/uL (150-450); RBC 4.55 m/uL (4.30-5.90); RDW 12.7 % (11.5-15.5); WBC 5.5 k/uL (3.8-10.6)
[2024-01-03 09:05] LABS: Partial Thromboplastin Time 23.7 sec (22.0-30.0); Prothrombin Time 10.7 sec (10.0-12.5)
[2024-01-03 09:10] LABS: African American GFR (CKD) >90 (>60 ml/min/1.73 sqM); Anion Gap 7 mmol/L; Blood Urea Nitrogen 17 mg/dL (9-20); Carbon Dioxide 25 mmol/L (22-30); Chloride 106 mmol/L (98-107); Glucose 101 mg/dL (74-99); Non-African American GFR(CKD) 82 (>60 ml/min/1.73 sqM); Potassium 3.9 mmol/L (3.5-5.1); Sodium 138 mmol/L (137-145)
[2024-01-03] MEDS: Entecavir [Baraclude] 0.5 MG Tablet PO SCH ×2 (09:26→12:07)
--- NOTE | 2024-01-03 10:44 | MR ---
EXAMINATION TYPE: MR liver wo/w con DATE OF EXAM: 01/03/2024 9:10 AM CLINICAL INDICATION:Male, 78 years old with history of rule out cirrhosis; , Abdominal pain, evaluate for cirrhosis. COMPARISON: CT scan abdomen from 01/01/2024. TECHNIQUE: Multiplanar multi-sequence imaging was performed without contrast. Post contrast imaging was performed. Post IV contrast subtraction images were also submitted for review. IV Contrast: 12 cc Gadavist FINDINGS: LOWER CHEST: Heart is mildly enlarged for size. ABDOMEN Liver: No evidence for hepatic steatosis or cirrhosis. Smooth contour to liver without evidence for c ortical hypertrophy changes. no suspicious observations. Gallbladder and Bile ducts: No evidence for ductal dilation, or biliary stricture or evidence of chol edocholithiasis. The gallbladder is within normal limits. Pancreas: No ductal dilation. No evidence for solid mass. Spleen: Normal for size. Adrenal glands: Unremarkable. Kidneys: No evidence for obstructive uropathy. No suspicious renal masses. Left renal cyst. Stomach and Bowel: No evidence for bowel wall thickening or evidence for obstruction. Small hiatal he rnia. Small epiphrenic diverticula suggested on series 701 image 41 Retroperitoneum/Peritoneum: No evidence of pneumoperitoneum or free fluid. Vasculature: Infrarenal abdominal aorta aneurysm measuring up to 4.6 cm. Musculoskeletal: The osseous structures appear intact. Lymph Nodes: No gross evidence for lymphadenopathy. Abdominal wall: Unremarkable. IMPRESSION: 1. Smooth contour to liver without caudate lobe hypertrophy. No apical imaging findings to suggest c irrhosis. Consider tissue sampling and clinical correlation 2. Small hiatal hernia with epiphrenic diverticula suggested. 3. Infrarenal abdominal aortic aneurysm measuring up to 4.6 cm.
--- NOTE | 2024-01-03 10:48 | P.PN ---
Subjective HISTORY OF PRESENT ILLNESS: The patient is a pleasant 78-year-old gentleman who is known to my service from before with a past medical history significant for coronary artery disease and known severe triple-vessel coronary artery disease documented on heart catheterization was performed in December 27, 2023 as well as hypertension and dyslipidemia. He was seen in the office recently for further evaluation of chest discomfort and he underwent myocardial perfusion imaging stress test came in to be abnormal and for that reason he underwent a heart catheterization and that revealed severe triple-vessel CAD with extremely calcified right and left c oronary system. Coronary artery bypass grafting consult was advised but the patient states he would like to go home and have being seen as an outpatient. He presented back to the emergency department complaining of chest discomfort in the middle and left side of the chest as a dull feeling with no radiation and no associated symptoms. The discomfort lasted for few minutes only. Currently his chest pain-free. No shortness of breath and no dizziness or lightheadedness and no feeling of heart racing or fluttering and no presyncope or syncope. His vitals are stable. He is bradycardic. He is not on any AV alexandru marci agents. He is on low intensity statin which is going to increase to high intensity statin but he is on KERRIE inhibitor as well. The examination is remarkable for stable vital signs with regular rate and rhythm and distant heart sounds and soft systolic murmur and clear breathing sounds bilaterally and no edema was noted January 02, 2024 The patient was seen and evaluated this morning. He is asymptomatic and he is hemodynamically stable as well. He is on aspirin and high intensity statin and anti-ischemic medications but he underwent carotid duplex study showed mild disease bilaterally and also he underwent lower extremities arterial duplex study came in to be unremarkable. There was some concern about the liver and he is in process of having an MRI. The examination overall is remarkable for stable vital signs with regular rate and rhythm and soft systolic murmur and clear breathing sounds bilaterally and no edema was noted in the lower extremities 01/03/2024 Patient examined this morning at the bedside. Patient denies any further episodes of chest pain or pressure. He denies shortness of breath. Patient underwent MRI of the liver today and results are currently pending. He is tentatively scheduled for CABG tomorrow. Vital signs are stable. PHYSICAL EXAM: VITAL SIGNS: Reviewed. GENERAL: Well-developed in no acute distress. NECK: Supple. No JVD or thyromegaly LUNGS: Respirations even and unlabored. Lungs essentially clear to auscultation bilaterally. HEART: Regular rate and rhythm. S1 and S2 heard. EXTREMITIES: Normal range of motion. No clubbing or cyanosis. Peripheral pulses intact. No lower extremity edema ASSESSMENT: Coronary artery disease as described above with no severe triple-vessel CAD Multiple comorbid conditions including hypertension and dyslipidemia PLAN: Continue current cardiac medications Await results of liver MRI Patient is tentatively scheduled for CABG tomorrow Further recommendations pending patient course Nurse practitioner note has been reviewed by physician. Signing provider agrees with the documented findings, assessment, and plan of care documented by CLINICAL CARE MANAGER as a scribe. Objective - Vital Signs Vital signs: Vital Signs Temp 98.2 F 01/03/24 07:00 Pulse 58 L 01/03/24 07:00 Resp 15 01/03/24 07:00 BP 150/76 01/03/24 07:00 Pulse Ox 96 01/03/24 07:00 FiO2 Intake & Output 01/02/24 01/03/24 01/03/24 18:59 06:59 18:59 Intake Total 236 Balance 236 Intake: Oral 236 Other: Voiding Method Toilet Toilet # Voids 3 1 - Labs CBC & Chem 7: 01/03/24 07:52 01/03/24 07:52 Labs: Abnormal Lab Results - Last 24 Hours (Table) 01/02/24 01/02/24 01/03/24 Range/Units 06:40 06:40 07:52 WBC 4.12 L (4.50-10.00) X 10*3/uL RBC 4.35 L (4.40-5.60) X 10*6/uL MCH 32.6 H (27.0-32.0) pg Lymphocytes # 0.81 L (0.90-5.00) X 10*3/uL Eosinophils # 0.02 L (0.04-0.35) X 10*3/uL Anion Gap 13.30 H (4.00-12.00) mmol/L Glucose 134 H (70-110) mg/dL Total Protein 6.1 L (6.2-8.2) g/dL Crossmatch See Detail 01/03/24 Range/Units 07:52 WBC (4.50-10.00) X 10*3/uL RBC (4.40-5.60) X 10*6/uL MCH (27.0-32.0) pg Lymphocytes # (0.90-5.00) X 10*3/uL Eosinophils # (0.04-0.35) X 10*3/uL Anion Gap (4.00-12.00) mmol/L Glucose 101 H (70-110) mg/dL Total Protein (6.2-8.2) g/dL Crossmatch
--- NOTE | 2024-01-03 11:27 | P.PN ---
Subjective Progress Note Date: 01/03/24 This is a very pleasant 78-year-old male patient with a known history of hyperlipidemia, hypertension, hearing disorder, hepatitis B infection, depression, former smoker for about 16 years at 1-1/2 packs/day. He also has a history of 4.5 cm infrarenal abdominal aortic aneurysm. He had recently undergone a cardiac catheterization on December 27, 2023 that revealed triple-vessel coronary artery disease and was planning to have possible bypass surgery. However on yesterday he developed a sudden onset of chest pain and presented to the ER for the same. Troponins were negative x 3. White count 4.1. Hemoglobin 14.2. Platelets 174. Sodium 141. Potassium 3.9. Bicarb 22. BUN 17. Creatinine 0.9. Glucose 134. The plan is for bypass surgery on 01/04/2024. FEV1 value was 59% of predicted. He is seen in consultation. He denies any known history of COPD/emphysema. No asthma. Not previously on inhalers or oxygen. The last couple of days he has been having some cough and congestion however. CT scan of the chest revealed lung parenchyma appears unremarkable. Airway is patent and unremarkable. He is currently resting comfortably in bed. Awake and alert in no acute distress. Denies any chest pain. No worsening shortness of breath. He is maintaining good O2 saturations in the 90s on room air. He is afebrile. Hemodynamically stable. The patient is seen today January 03, 2024 in follow-up on the regular medical floor. He is currently sitting up in a chair at the bedside. Awake and alert in no acute distress. Maintaining good O2 saturations in the 90s on room air. He is afebrile. Hemodynamically stable. He is working well with the incentive spirometer. He denies any chest pain. Improved shortness of breath, cough and congestion today. White count 5.5. Hemoglobin 15.1. Platelets 190. INR 1.0. Sodium 138. Potassium 3.9. Bicarb 25. BUN 17. Creatinine 0.87. Glucose 101. He remains on DuoNeb inhalations, Symbicort. Remains on oral diuretics. Remains on heparin for DVT prophylaxis. Objective - Vital Signs Vital signs: Vital Signs Temp 98.2 F 01/03/24 07:00 Pulse 58 L 01/03/24 07:00 Resp 15 01/03/24 07:00 BP 150/76 01/03/24 07:00 Pulse Ox 96 01/03/24 07:00 FiO2 Intake & Output 01/02/24 01/03/24 01/03/24 18:59 06:59 18:59 Intake Total 236 Balance 236 Intake: Oral 236 Other: Voiding Method Toilet Toilet # Voids 3 1 - Exam GENERAL EXAM: Alert, very pleasant 78-year-old male, up in a chair, on room air, comfortable in no apparent distress. HEAD: Normocephalic. EYES: Normal reaction of pupils, equal size. NOSE: Clear with pink turbinates. THROAT: No erythema or exudates. NECK: No masses, no JVD. CHEST: No chest wall deformity. LUNGS: Equal air entry with no crackles, wheeze, rhonchi or dullness. CVS: S1 and S2 normal with no audible murmur, regular rhythm. ABDOMEN: No hepatosplenomegaly, normal bowel sounds, no guarding or rigidity. SPINE: No scoliosis or deformity SKIN: No rashes CENTRAL NERVOUS SYSTEM: No focal deficits, tone is normal in all 4 extremities. EXTREMITIES: There is no peripheral edema. No clubbing, no cyanosis. Peripheral pulses are intact. - Labs CBC & Chem 7: 01/03/24 07:52 01/03/24 07:52 Labs: Abnormal Lab Results - Last 24 Hours (Table) 01/02/24 01/02/24 01/03/24 Range/Units 06:40 06:40 07:52 WBC 4.12 L (4.50-10.00) X 10*3/uL RBC 4.35 L (4.40-5.60) X 10*6/uL MCH 32.6 H (27.0-32.0) pg Lymphocytes # 0.81 L (0.90-5.00) X 10*3/uL Eosinophils # 0.02 L (0.04-0.35) X 10*3/uL Anion Gap 13.30 H (4.00-12.00) mmol/L Glucose 134 H (70-110) mg/dL Total Protein 6.1 L (6.2-8.2) g/dL Crossmatch See Detail 01/03/24 Range/Units 07:52 WBC (4.50-10.00) X 10*3/uL RBC (4.40-5.60) X 10*6/uL MCH (27.0-32.0) pg Lymphocytes # (0.90-5.00) X 10*3/uL Eosinophils # (0.04-0.35) X 10*3/uL Anion Gap (4.00-12.00) mmol/L Glucose 101 H (70-110) mg/dL Total Protein (6.2-8.2) g/dL Crossmatch Assessment and Plan Assessment: Acute chest pain in a patient with a known history of triple-vessel coronary artery disease based on cardiac catheterization 12/27/2023. Troponins negative this admission Former smoker of 16 years at 1-1/2 packs/day. FEV1 value 59% of predicted History of abdominal aortic aneurysm currently measuring 4.5 cm Chronic hepatitis B infection, maintained on Baraclude. MRI of the liver revealed no suspicious observations. No steatosis. No cirrhosis Hypertension Hyperlipidemia History of depression Hearing disorder Plan: The patient was seen and evaluated MRI of the liver, labs and medications reviewed Continue DuoNeb inhalations and Symbicort Continue the incentive spirometer Currently stable and on room air Plan is for coronary bypass surgery on 01/04/2024 This patient was seen independently by the pulmonary nurse practitioner addressing pulmonary issues I have personally seen and examined the patient, performed the documentation and the assessment and plan as written. Number of minutes spent on the visit: 24.
[2024-01-03] MEDS ORDERED: MD COMMUNICATION TO PHARMACY 1 EACH MISC PO ONE ×2 (13:52)
--- NOTE | 2024-01-03 16:00 | P.PN ---
Progress Note - Text Progress Note Date: 01/03/24 5 meter walk test completed without difficulty, patient did use walker for balance: #1 5.47 sec #2 5.87 sec #3 5.73 sec STS risk score calculated and discussed with the patient and family.
[2024-01-04] MEDS: ATORVASTATIN 10 MG TAB PO ONE (04:06)
[2024-01-04] MEDS: ASPIRIN 325 MG TAB PO ONE (04:06)
[2024-01-04] MEDS: METOPROLOL TARTRATE 12.5 MG TAB PO ONE (04:06)
[2024-01-04] MEDS ORDERED: CHLORHEXIDINE GLUCONATE 15 ML CUP MUCOUS MEM ONE (05:00)
[2024-01-04] MEDS ORDERED: MAGNESIUM SULFATE 16.24 MEQ in EMPTY SYRINGE 1 SYR IV ONE (05:00)
[2024-01-04] MEDS ORDERED: CARDIOPLEGIC SOLN (K+ 16 MEQ/L 1,000 ML with SOD BICARB SYR 8.4% (1 MEQ/ML) 20 ML, LIDO... PERFUSION NR (05:00)
[2024-01-04] MEDS ORDERED: NITROGLYCERIN-D5W PMX 50 MG in DEXTROSE/WATER 1 250ML.BAG IV SCH (05:00)
[2024-01-04] MEDS ORDERED: PHENYLEPHRINE 40 MG in SODIUM CHLORIDE 0.9% 250 ML IV ONE (05:00)
[2024-01-04] MEDS ORDERED: PROTAMINE SULFATE 10 MG/ML 25 ML VIAL IV ONE (05:00)
[2024-01-04] MEDS ORDERED: ALBUMIN HUMAN 5% 500 ML in EMPTY BAG 1 BAG IVPB ONE ×6 (05:00)
[2024-01-04] MEDS ORDERED: HEPARIN SODIUM,PORCINE (1 ML) 5,000 UNIT in SODIUM CHLORIDE 0.9% 500 ML 500 ML IV ONE (05:00)
[2024-01-04] MEDS ORDERED: CLEVIDIPINE BUTYRATE 25 MG in EMPTY BAG 1 BAG IV SCH (05:00)
[2024-01-04] MEDS ORDERED: HEPARIN SODIUM 1,000 UN/ML (10ML VL) IV ONE (05:00)
[2024-01-04] MEDS ORDERED: SODIUM BICARB 8.4% 50 ML SYR (1 MEQ/ML) IV ONE (05:00)
[2024-01-04] MEDS ORDERED: ceFAZolin 3 GM in SODIUM CHLORIDE 0.9% 100 ML IVPB ONE (05:00)
[2024-01-04] MEDS ORDERED: INSULIN REGULAR 100 UNIT in SODIUM CHLORIDE 0.9% 100 ML IV SCH (05:00)
[2024-01-04] MEDS ORDERED: NITROGLYCERIN-D5W PMX 25 MG/250 ML BTL IV ONE (05:00)
[2024-01-04] MEDS ORDERED: NOREPINEPHRINE 4 MG in SODIUM CHLORIDE 0.9% 250 ML IV SCH (05:00)
[2024-01-04] MEDS ORDERED: DILTIAZEM 125 MG in SODIUM CHLORIDE 0.9% 100 ML IV SCH (05:00)
[2024-01-04] MEDS ORDERED: ALBUMIN HUMAN 25% 50 ML in EMPTY BAG 1 BAG IVPB ONE (05:00)
[2024-01-04] MEDS ORDERED: PAPAVERINE 360 MG in SODIUM CHLORIDE 0.9% 90 ML IV ONE (05:00)
[2024-01-04] MEDS ORDERED: CALCIUM CHLORIDE 100 MG/ML 10 ML SYRINGE IVP ONE (05:00)
[2024-01-04] MEDS ORDERED: ceFAZolin 1,000 MG in SODIUM CHLORIDE 0.9% IRRIGATIO 1,000 ML IRRIGATION ONE (05:00)
[2024-01-04] MEDS ORDERED: MANNITOL 25% 12.5 GM/50 ML VIAL IV ONE ×2 (05:00)
[2024-01-04] MEDS ORDERED: TRANEXAMIC ACID 2,000 MG in SODIUM CHLORIDE 0.9% 80 ML IV ONE ×2 (05:00→06:00)
[2024-01-04] MEDS ORDERED: PHENYLEPHRINE 10 MG/ML VIAL IV ONE (05:00)
[2024-01-04] MEDS ORDERED: PROTAMINE SULFATE 250 MG in EMPTY BAG 1 BAG IV ONE (05:00)
--- NOTE | 2024-01-04 05:27 | P.PN ---
Subjective Progress Note Date: 01/03/24 Patient is a 78-year-old male with a known history of coronary artery disease and recent cardiac catheterization due to abnormal perfusion stress test on 12/27/2023 showed a extremely calcified right and left coronary system with severe triple-vessel coronary artery disease, hypertension, hyperlipidemia, hearing disorder/deafness, osteoarthritis, depression and prior history of smoking. Patient presents to ER with complaints of chest pain left retrosternal and radiating to left upper arm associate with coughing and shortness of breath and worsens with deep breathing. Patient was brought to the hospital by his family. He did take aspirin x 4 before coming to ER. His symptoms resolved by the time he is in the ER currently denies any complaints of chest pain. No nausea vomiting abdominal pain or diarrhea. Denies any recent illnesses. He did have RSV infection September 2023 and status post course of steroids and antibiotics. Chest x-ray showed suspected interstitial infiltrative mid and lower lungs. Consider possible such as aspiration or an early or atypical pneumonia. EKG showed supraventricular bradycardia with heart rate 59 Laboratory data showed WBC 4.9 hemoglobin 15.1 and platelets 168 sodium 140 potassium 4.0 chloride 106 bicarb is 28 BUN 18 and creatinine 0.9 Blood sugar 10/26/2006 and A1c 5.5 lowering Elevated troponin x 3 negative and proBNP is 48 and TSH 3.58 Hepatitis panel and RSV COVID-19 and influenza not detected. 01/03/2024 Patient is seen in follow-up today with family members present currently undergoing further workup for tentative CABG. Patient is afebrile with no reports of chest pain or shortness of breath. Patient does have incentive spirometer at the bedside and has been using and encouraged to continue at least 10 times every hour while awake. Patient currently tolerating diet and will be n.p.o. at midnight. Patient denies any nausea or vomiting. Patient has been up and walking and encouraged the patient to increase activity as tolerated. Q uestions and concerns were answered to the best of our ability. Review of systems: Constitutional: No reports of fatigue, fever, or chills Cardiovascular: No reports of chest pain or palpitations Respiratory: No reports of shortness of breath or cough GI: No reports of nausea, vomiting, or diarrhea : No reports of dysuria or retention Neurovascular: No reports of weakness or numbness All medications have been reviewed PHYSICAL EXAMINATION: Patient is sitting up in the bed comfortably, no acute distress, awake alert and oriented.. Elderly appearing, morbidly obese, well-developed HEENT: Normocephalic. Neck is supple. Pupils reactive. Nostrils clear. Oral cavity is moist. Neck reveals no JVD, carotid bruits, or thyromegaly. CHEST EXAMINATION: Trachea is central. Symmetrical expansion. Minimal right basilar coarse sounds. No wheezing or rhonchi.. CARDIAC: S1, S2 are muffled ABDOMEN: Soft. Obese. Bowel sounds normal. No organomegaly. No abdominal bruits. Extremities: reveal no edema. No clubbing or cyanosis Neurologically awake, alert, oriented x3 with well-coordinated movements. No focal deficits noted Skin: No rash or skin lesions. Psychiatric: Cooperative. Non-suicidal Musculoskeletal: No joint swelling or deformity. Normal range of motion. Assessment: Cardiac chest pain. Ruled out ACS Severe triple-vessel coronary artery disease status post cardiac catheterization on 12/27/2023 undergoing further workup for tentatively scheduled CABG on 01/04/2024 Hypertension Hyperlipidemia GERD Osteoarthritis Depression Prior history of smoking Hearing disorder/deafness History of hepatitis B Morbid obesity BMI 43.6 DVT prophylaxis with heparin subcu GI prophylaxis Full code Plan: Patient will be continued on telemetry monitoring. Serial EKG and troponin x 3 negative. Due to severe triple-vessel coronary disease cardiology following and cardiothoracic surgery was consulted. Patient undergoing workup for CABG which is tentatively scheduled for 01/04/2024 Patient will be continued on aspirin, statins, lisinopril and other home medications. Encourage incentive spirometry use at least 10 times every hour while awake. Patient will be n.p.o. at midnight and will follow-up with patient most likely in the ICU The impression and plan of care has been dictated by Melissa German, Nurse Practitioner as directed. Dr. Kathie MD I have performed a history and examination and MDM of this patient, discussed the same with the dictator, and agree with the dictator's assessment and plan as written ,documented as a scribe. Based on total visit time, I have performed more than 50% of the visit. Objective - Vital Signs Vital signs: Vital Signs Temp 98.2 F 01/03/24 07:00 Pulse 58 L 01/03/24 07:00 Resp 15 01/03/24 07:00 BP 150/76 01/03/24 07:00 Pulse Ox 96 01/03/24 07:00 FiO2 Intake & Output 01/02/24 01/03/24 01/03/24 18:59 06:59 18:59 Intake Total 236 Balance 236 Intake: Oral 236 Other: Voiding Method Toilet Toilet # Voids 3 1 - Labs CBC & Chem 7: 01/03/24 07:52 01/03/24 07:52 Labs: Abnormal Lab Results - Last 24 Hours (Table) 01/02/24 01/02/24 01/03/24 Range/Units 06:40 06:40 07:52 WBC 4.12 L (4.50-10.00) X 10*3/uL RBC 4.35 L (4.40-5.60) X 10*6/uL MCH 32.6 H (27.0-32.0) pg Lymphocytes # 0.81 L (0.90-5.00) X 10*3/uL Eosinophils # 0.02 L (0.04-0.35) X 10*3/uL Anion Gap 13.30 H (4.00-12.00) mmol/L Glucose 134 H (70-110) mg/dL Total Protein 6.1 L (6.2-8.2) g/dL Crossmatch See Detail 01/03/24 Range/Units 07:52 WBC (4.50-10.00) X 10*3/uL RBC (4.40-5.60) X 10*6/uL MCH (27.0-32.0) pg Lymphocytes # (0.90-5.00) X 10*3/uL Eosinophils # (0.04-0.35) X 10*3/uL Anion Gap (4.00-12.00) mmol/L Glucose 101 H (70-110) mg/dL Total Protein (6.2-8.2) g/dL Crossmatch
[2024-01-04] MEDS: LACTATED RINGERS 1,000 ML IV SCH ×2 (06:30→13:59)
[2024-01-04 06:32] LABS: Glucose,Whole Blood 117 mg/dL (70-110)
[2024-01-04] MEDS ORDERED: PROTAMINE SULFATE 10 MG/ML 5 ML VIAL ONE (07:36)
[2024-01-04] MEDS ORDERED: SODIUM CHLORIDE 0.9% IRRIG 1,000 ML BTL IRRIGATION ONE (07:36)
[2024-01-04] MEDS ORDERED: POTASSIUM CHLORIDE OPEN HEART 20 MEQ/50 ML BAG IVPB ONE (07:36)
[2024-01-04] MEDS ORDERED: NITROGLYCERIN-D5W PMX 50 MG/250 ML BOTTLE IV ONE (07:36)
[2024-01-04] MEDS ORDERED: ePHEDrine 50 MG/ML 1 ML VIAL ONE (07:36)
[2024-01-04] MEDS ORDERED: VECURONIUM 10 MG VIAL IV ONE (07:36)
[2024-01-04] MEDS ORDERED: MIDAZOLAM HCL 10 MG/10 ML VIAL ONE (07:36)
[2024-01-04] MEDS ORDERED: PROPOFOL 10 MG/ML 20 ML VIAL IV ONE (07:36)
[2024-01-04] MEDS ORDERED: fentaNYL (PF) 50 MCG/ML 50 ML VIAL ONE (07:36)
[2024-01-04 08:41] LABS: ABG Base Excess 1.6 mmol/L; ABG Glucose Whole Blood 109 mg/dL (75-99); ABG HCO3 26 mmol/L (21-25); ABG Hematocrit 39 % (34.0-46.0); ABG Ionized Calcium 4.6 mg/dL (4.5-5.3); ABG Oxygen Saturation >99.4 % (94-97); ABG PCO2 38 mmHg (35-45); ABG PH 7.44 (7.35-7.45); ABG PO2 327 mmHg (83-108); ABG Potassium Whole Blood 3.7 mmol/L (3.4-4.5); ABG Sodium Whole Blood 139 mmol/L (135-146); Allen Test Performed? Yes
--- NOTE | 2024-01-04 08:55 | P.ANPRN ---
Procedure Note - Anesthesia - Invasive Line Right Arterial Line Time Out Performed: Yes Date of Procedure: 01/04/24 Time of Procedure: 07:10 Location of Patient: PreOp Preparation: Sterile Prep Arterial Line Location: Radial Ultrasound Used: No Needle Guage: 20 Narrative: Invasive line placement per sterile protocol utilized by BUSINESS UNIT DIRECTOR. Right Central Line Time Out Performed: Yes Date of Procedure: 01/04/24 Time of Procedure: 06:50 Location of Patient: PreOp Preparation: Sterile Prep, Sterile Dressing Central Line Location: Internal Jugular Ultrasound Used: Yes Purpose - Visualization and Identification of Vasculature: Yes Needle Guage: 18 Image Stored and Saved: Yes Narrative: Right neck prepped and draped. 1% lidocaine 3 ml injected subq. 18 g needle advanced into IJ under u/s guidance. Venous blood obtained. Wire inserted to 20 cm and visualized in the IJ on u/s. Small viridiana made over the wire and the flushed cordis inserted over the wire using Seldinger technique. Line sutured in place. Biopatch and sterile dressing applied. Right Gobler Grover Time Out Performed: Yes Date of Procedure: 01/04/24 Time of Procedure: 07:05 Location of Patient: PreOp Preparation: Sterile Prep, Sterile Dressing Gobler Grover Line Location: Internal Jugular Ultrasound Used: No Narrative: SWAN had all ports flushed and balloon tested. Gobler advanced to 20 cm and balloon inflated. Line advanced until RV and then PA waveforms obtained. Balloon deflated and line secured at 43 cm. Line in good position on ALMA
[2024-01-04] MEDS: SODIUM CHLORIDE 0.9% 500 ML 500 ML with HEPARIN SODIUM,PORCINE (1 ML) 5,000 UNIT IV ONE (09:14)
[2024-01-04] MEDS: ceFAZolin 1,000 MG in SODIUM CHLORIDE 0.9% 1,000 ML IRRIGATION ONE (09:15)
[2024-01-04] MEDS: PAPAVERINE 360 MG in SODIUM CHLORIDE 0.9% 90 ML IV ONE (09:15)
[2024-01-04] MEDS: SODIUM CHLORIDE 0.9% 50 ML with ceFAZolin 3,000 MG IV ONE (09:15)
[2024-01-04 10:14] LABS: ABG Base Excess 0.9 mmol/L; ABG Glucose Whole Blood 121 mg/dL (75-99); ABG HCO3 26 mmol/L (21-25); ABG Hematocrit 33 % (34.0-46.0); ABG Ionized Calcium 4.4 mg/dL (4.5-5.3); ABG Lactic Acid Whole Blood 0.8 mmol/L (0.5-1.6); ABG PCO2 40 mmHg (35-45); ABG PH 7.41 (7.35-7.45); ABG PO2 199 mmHg (83-108); ABG Potassium Whole Blood 3.9 mmol/L (3.4-4.5); ABG Sodium Whole Blood 139 mmol/L (135-146); Allen Test Performed? Yes
[2024-01-04 12:24] LABS: ABG Base Excess -1.4 mmol/L; ABG Glucose Whole Blood 146 mg/dL (75-99); ABG HCO3 24 mmol/L (21-25); ABG Hematocrit 28 % (34.0-46.0); ABG Ionized Calcium 4.8 mg/dL (4.5-5.3); ABG Oxygen Saturation 98.6 % (94-97); ABG PCO2 45 mmHg (35-45); ABG PH 7.34 (7.35-7.45); ABG PO2 142 mmHg (83-108); ABG Potassium Whole Blood 3.6 mmol/L (3.4-4.5); ABG Sodium Whole Blood 138 mmol/L (135-146); Allen Test Performed? Yes
--- NOTE | 2024-01-04 12:35 | P.ANPRN ---
Procedure Note - Anesthesia - ALMA Intraop Pre Bypass ALMA Intraop - Anesthesia Indication: CAD Date of Procedure: 01/04/24 Pre-operative Diagnosis: CAD Post-operative Diagnosis: same Surgeon: Surendra Morales Left Ventricle: EF 50% Ejection Fraction: Normal Regional Wall Motion Abnormalities: None Left Ventricle Hypertrophy: No R. Ventricle Function: Normal Anatomy: Trileaflet Aortic Stenosis: None Aortic Regurgitation: None Mitral Stenosis: None Mitral Regurgitation: None Tricuspid Stenosis: None Tricuspid Regurgitation: None Pulmonic Stenosis: None Pulmonic Regurgitation: None R. Atrial Dilation: No R. Atrial PFO: No L. Atrial Dilation: No Aortic Dissection: No Aortic Calcification: None Plural Effusion: None - ALMA Intraop Post Bypass ALMA Intraop Post Bypass Procedure Performed: CABG OP, LA ligation Ejection Fraction: Normal Regional Wall Motion Abnormalities: None R. Ventricle Function: Normal Aortic Valve: Unchanged Mitral Valve: Unchanged Tricuspid: Unchanged Pulmonic: Unchanged Aortic Dissection: Yes (1.1 cm LA appendage remaining)
[2024-01-04] MEDS ORDERED: DEXMEDETOMIDINE/0.9% NACL(PMX) 400 MCG in EMPTY BAG 1 BAG IV SCH (12:55)
[2024-01-04] MEDS ORDERED: Potassium Replacement Protocol 1 EACH MISC MISCELLANE PRN ×2 (12:55→14:38)
[2024-01-04] MEDS ORDERED: Magnesium Replacement Protocol 1 EACH MISC MISCELLANE PRN (12:55)
[2024-01-04] MEDS ORDERED: DEXTROSE 50% SYRINGE 50 ML IVP PRN ×2 (12:55)
[2024-01-04] MEDS ORDERED: METOCLOPRAMIDE 5 MG/ML 2 ML VIAL IVP PRN (12:55)
[2024-01-04] MEDS ORDERED: IPRATROPIUM-ALBUTEROL 3 ML NEB INHALATION PRN (12:55)
[2024-01-04] MEDS ORDERED: hydrALAZINE HCL 20 MG/ML 1 ML VIAL IVP PRN (12:55)
--- NOTE | 2024-01-04 13:34 | P.OP ---
Date of Procedure: 01/04/24 Preoperative Diagnosis: Coronary artery disease, unstable angina Postoperative Diagnosis: Same Procedure(s) Performed: Off-pump CABG x 4 with sequential ARANA to the diagonal and LAD, saphenous vein graft to posterior descending coronary artery, saphenous vein graft to first obtuse marginal coronary artery, ligation of the left atrial appendage with 35mm AtriCure clip, endovascular vein harvest from the left leg extending from ankle to groin, epiaortic ultrasonography. Implants: 35 mm AtriCure clip Anesthesia: VINNIEA Surgeon: Surendra Morales Gopherman #1: Aaron Gates Estimated Blood Loss (ml): 350 IV fluids (ml): 1,500 Urine output (ml): 250 Pathology: none sent Condition: stable Disposition: ICU Indications for Procedure: 78-year-old male underwent catheterization last week demonstrated severe calcific three-vessel coronary artery disease. He was discharged home with instructions to follow-up in [facility] with the intention of referring for coronary bypass surgery. He we presented to the emergency room with unstable angina. It was decided to proceed with his coronary bypass surgery as an inpatient. Appropriate preoperative testing was obtained. Operative Findings: ALMA showed normal ventricular function with normal valvular function. Good coronary targets were noted in the first OM, first diagonal, LAD and PDA. HUDSON branches were small. Second obtuse marginal was small. Saphenous vein was of good quality and the ARANA was an excellent conduit. Patient had several episodes of bradycardia which responded to medical therapy with atropine. Description of Procedure: Patient was brought to the operating room placed supine on the operating table. General anesthesia was induced. ALMA probe was placed with findings as noted above. Anterior torso bilateral lower extremities and left upper extremity were sterilely prepped and draped. Left greater saphenous vein was harvested from the ankle to the groin using endoscopic harvest technique and was of the good quality. At that point it was decided not to harvest the left radial artery due to the presence of excellent vein. Simultaneous sternotomy had been performed and the left hemisternum retracted upwards. Left internal mammary artery was harvested on a vascularized pedicle, left intact and surgeon from the subclavian and divided distally. Left pleural space was drained with a 32 Indonesian chest tube brought out through separate stab incision and secured with 0 Ethibond suture. Standard sternal retractor was then placed and the pericardium was opened in the midline exposing the heart with pericardial sutures. Epiaortic ultrasonography was performed. There was moderate calcification of the distal ascending aorta as well as some calcification of the root. Patient was systemically heparinized. ACT's were maintained greater than 250 during grafting. The ARANA pedicle was tunneled into the pericardium and sequential graft was set up. Suction stabilization was used for all distal anastomoses. We began with [id number] anastomosis of the ARANA to the first diagonal. The first diagonal was a 1.75 mm vessel with proximal disease. It was opened in its midportion and easily excepted a 1.5 mm flow through. [id number] anastomosis between the ARANA and the first diagonal was performed with running 8-0 Prolene s uture. On completion of the anastomosis the flow through was removed effectively probing the proximal and distal portion of the anastomosis. Suture was tied with good result and hemostasis. Bleeding was noted at the end of the ARANA which augmented when we opened the ARANA flow. Bulldog was placed on the ARANA distal to the diagonal anastomosis. Next the distal anastomosis of the ARANA to the mid LAD was performed. The LAD was opened. It had some calcific plaque wall disease present. Was a 1.75 to 2 mm vessel. Blood flow was controlled with a 1.5 mm flow through. End-to-side anastomosis between the ARANA and the LAD was performed with running 8-0 Prolene suture. On completion anastomosis the flow through was removed ibuprofen the proximal distal portion of the anastomosis. Inflow was opened, good hemostasis was noted. The CINDY pedicle was tacked surrounding epicardium in both distal anastomoses using 6-0 silk suture. 35 mm AtriCure clip was now applied to the base of the left atrial appendage. Next the inferior wall of the heart was exposed and the PDA was stabilized. It was dissected out proximally where it was a 1.5 mm vessel. It was opened and blood flow controlled with a 1.5 mm flow through. End-to-side anastomosis between the saphenous vein and the PDA was performed with running 7- 0 Prolene suture. On completion anastomosis flow through was removed subcu probing the proximal distal portion of the anastomosis. Suture was tied with good result and hemostasis. Good backbleeding was noted into the vein to the first valve. The vein was cut to appropriate length to reach the ascending aorta. Next the lateral wall of the heart was exposed. First obtuse marginal coronary artery was stabilized as it exited the AV groove. It was a 1.75 mm vessel of good quality. It was opened and blood flow controlled 1.5 mm flow through. End-to-side anastomosis of the second piece of saphenous vein to the first obtuse marginal coronary artery was performed with running 7-0 Prolene suture. On completion anastomosis the flow through was removed 50 probing the proximal distal portion of the anastomosis. Suture was tied with good result and hemostasis. Good backbleeding was noted into the vein graft controlled with a bulldog clamp. The heart was lowered in anatomic position. Obtuse marginal vein was cut to appropriate length. Proximal anastomoses were constructed using running 5-0 Prolene suture using 2 Mercantila devices, 1 for each. On completion of the proximal anastomoses they were de-aired by needle holes in the inflow open. Distal anastomoses were checked for hemostasis. Heparin was reversed with protamine. Good hemostasis was taken throughout. Atrial pacing wires were placed due to several episodes of sinus bradycardia. Mediastinum was drained with a 36 Indonesian chest tube. After assuring good hemostasis and hemodynamic stability, the chest was closed with 8 sternal wires. We irrigated the mediastinum with antibiotic solution prior to closure. Fascia was closed with 0 Ethibond. Subcutaneous and subcuticular layers with layers of Vicryl suture in the leg and chest. Dry sterile dressings were applied the patient was transferred to ICU in stable condition
[2024-01-04 13:38] LABS: Glucose,Whole Blood 160 mg/dL (70-110)
[2024-01-04] MEDS: DEXTROSE 5% IN WATER 100 ML with AMIODARONE 150 MG IV PRN (13:46)
[2024-01-04 13:56] LABS: Basophils % (A) 0 %; Eosinophils # (A) 0.2 k/uL (0-0.7); Eosinophils % (A) 3 %; HCT 24.4 % (39.0-53.0); Lymphocytes # (A) 1.1 k/uL (1.0-4.8); Lymphocytes % (A) 17 %; MCH 33.3 pg (25.0-35.0); MCHC 33.4 g/dL (31.0-37.0); MCV 99.7 fL (80.0-100.0); Mean Platelet Volume 8.9; Monocytes # (A) 0.2 k/uL (0-1.0); Monocytes % (A) 4 %; Neutrophils # (A) 4.9 k/uL (1.3-7.7); Neutrophils % (A) 75 %; Platelet Count 121 k/uL (150-450); RBC 2.44 m/uL (4.30-5.90); RDW 12.7 % (11.5-15.5); WBC 6.5 k/uL (3.8-10.6)
[2024-01-04 13:58] LABS: INR 1.3 (<1.2); Partial Thromboplastin Time 27.3 sec (22.0-30.0); Prothrombin Time 13.6 sec (10.0-12.5)
[2024-01-04] MEDS: CLEVIDIPINE BUTYRATE 25 MG in EMPTY BAG 1 BAG IV SCH (13:59)
[2024-01-04] MEDS: NITROGLYCERIN-D5W PMX 50 MG in DEXTROSE/WATER 1 250ML.BAG IV SCH (13:59)
[2024-01-04] MEDS: INSULIN REGULAR 100 UNIT in SODIUM CHLORIDE 0.9% 100 ML IV SCH (14:01)
[2024-01-04] MEDS: IPRATROPIUM-ALBUTEROL 3 ML NEB INHALATION SCH ×2 (14:03→19:43)
[2024-01-04 14:05] LABS: Ionized Calcium 4.9 mg/dL (4.5-5.3)
[2024-01-04 14:07] LABS: ABG Base Excess -3.1 mmol/L; ABG HCO3 23 mmol/L (21-25); ABG Oxygen Saturation 99.6 % (94-97); ABG PCO2 43 mmHg (35-45); ABG PH 7.33 (7.35-7.45); ABG PO2 329 mmHg (83-108); ABG TCO2 24 mmol/L (19-24)
[2024-01-04] MEDS: ALBUMIN HUMAN 5% 250 ML in EMPTY BAG 1 BAG IVPB PRN (14:15)
[2024-01-04 14:16] LABS: ALT 15 U/L (4-49); AST 18 U/L (17-59); African American GFR (CKD) >90 (>60 ml/min/1.73 sqM); Albumin 2.7 g/dL (3.5-5.0); Alkaline Phosphatase 38 U/L (38-126); Anion Gap 5 mmol/L; Blood Urea Nitrogen 15 mg/dL (9-20); Calcium 8.1 mg/dL (8.4-10.2); Carbon Dioxide 22 mmol/L (22-30); Chloride 111 mmol/L (98-107); Glucose 144 mg/dL (74-99); Magnesium 1.3 mg/dL (1.6-2.3); Non-African American GFR(CKD) >90 (>60 ml/min/1.73 sqM); Potassium 3.6 mmol/L (3.5-5.1); Sodium 138 mmol/L (137-145); Total Bilirubin 0.5 mg/dL (0.2-1.3); Total Protein 4.4 g/dL (6.3-8.2)
[2024-01-04] MEDS: AMIODARONE 360 MG in DEXTROSE 5% IN WATER 200 ML IV ONE (14:31)
[2024-01-04] MEDS: MAGNESIUM SULFATE-D5W PMX 1 GM in DEXTROSE/WATER 1 100ML.BAG IVPB SCH (14:39)
[2024-01-04] MEDS: POTASSIUM CHLORIDE 10 MEQ in WATER FOR INJECTION 1 100ML.BAG IVPB SCH (14:55)
[2024-01-04 15:02] LABS: Glucose,Whole Blood 181 mg/dL (70-110)
--- NOTE | 2024-01-04 15:47 | P.PN ---
Subjective Progress Note Date: 01/04/24 Principal diagnosis: Coronary artery disease, status post CABG This is a very pleasant 78-year-old male patient with a known history of hyperlipidemia, hypertension, hearing disorder, hepatitis B infection, depression, former smoker for about 16 years at 1-1/2 packs/day. He also has a history of 4.5 cm infrarenal abdominal aortic aneurysm. He had recently undergone a cardiac catheterization on December 27, 2023 that revealed triple-vessel coronary artery disease and was planning to have possible bypass surgery. However on yesterday he developed a sudden onset of chest pain and presented to the ER for the same. Troponins were negative x 3. White count 4.1. Hemoglobin 14.2. Platelets 174. Sodium 141. Potassium 3.9. Bicarb 22. BUN 17. Creatinine 0.9. Glucose 134. The plan is for bypass surgery on 01/04/2024. FEV1 value was 59% of predicted. He is seen in consultation. He denies any known history of COPD/emphysema. No asthma. Not previously on inhalers or oxygen. The last couple of days he has been having some cough and congestion however. CT scan of the chest revealed lung parenchyma appears unremarkable. Airway is patent and unremarkable. He is currently resting comfortably in bed. Awake and alert in no acute distress. Denies any chest pain. No worsening shortness of breath. He is maintaining good O2 saturations in the 90s on room air. He is afebrile. Hemodynamically stable. The patient is seen today January 03, 2024 in follow-up on the regular medical floor. He is currently sitting up in a chair at the bedside. Awake and alert in no acute distress. Maintaining good O2 saturations in the 90s on room air. He is afebrile. Hemodynamically stable. He is working well with the incentive spirometer. He denies any chest pain. Improved shortness of breath, cough and congestion today. White count 5.5. Hemoglobin 15.1. Platelets 190. INR 1.0. Sodium 138. Potassium 3.9. Bicarb 25. BUN 17. Creatinine 0.87. Glucose 101. He remains on DuoNeb inhalations, Symbicort. Remains on oral diuretics. Remains on heparin for DVT prophylaxis. Patient was reevaluated today on 01/04/2024, presently in the ICU he is status post Off-pump CABG x 4 with sequential ARANA to the diagonal and LAD, saphenous vein graft to posterior descending coronary artery, saphenous vein graft to first obtuse marginal coronary artery, ligation of the left atrial appendage with 35mm AtriCure clip, endovascular vein harvest from the left leg extending f rom ankle to groin, epiaortic ultrasonography. Postoperative day #0. Patient is intubated mechanically ventilated, he is on assist-control rate of 14, tidal volume 450, FiO2 50%, and PEEP of 5. Earlier ABG on assist-control rate of 12 and FiO2 100% showed a pO2 of 329 pCO2 of 43 pH of 7.33. Patient had readjustment in his vent settings, he is now on assist-control rate of 12 tidal volume 500 FiO2 50% and PEEP of 5. Seems to be comfortable, sedated, he is on 15 mcg/kg/min of propofol. Patient is also receiving drips in the form of amiodarone 1 mg/min, he is on nitroglycerin 5 mcg/min, patient is on insulin drip, 4.5 units/h, patient is not requiring any pressors or any inotropes. Cardiac output is 4.5, and cardiac index is 2.1. Patient is calm sedated, and not in any distress. I have seen this patient prior to his surgery yesterday and the day before, he was cleared for surgery and felt to be low operative risk. Chest x-ray postoperatively showed mostly postoperative changes, no acute process is noted, minimal basilar atelectasis noted. Lines and tubes seem to be in proper position Objective - Vital Signs Vital signs: Vital Signs Temp 94.5 F L 01/04/24 14:30 Pulse 64 01/04/24 15:00 Resp 14 01/04/24 15:00 BP 169/76 01/04/24 06:15 Pulse Ox 100 01/04/24 15:00 FiO2 50 01/04/24 14:30 Intake & Output 01/03/24 01/04/24 01/04/24 18:59 06:59 18:59 Intake Total 100 407.826 Output Total 640 Balance 100 -232.174 Intake: IV 100 281 .9NS Cardiac Output 40 .9NS Pressure Bag 18 Lactated Ringers 1,000 ml 70 @ 50 mls/hr IV .Q20H [facility] Rx#:[id number] Magnesium Sulfate-D5w Pmx 100 1 gm In Dextrose/Water 1 100ml.bag @ 100 mls/hr IVPB Q1H [facility] Rx#: [id number] Intake, IV Titration 126.826 Amount Insulin Regular 100 unit 2.087 In Sodium Chloride 0.9% 100 ml @ Per Protocol IV .Q0M [facility] Rx#:[id number] Potassium Chloride 10 meq 100 In Water For Injection 1 100ml.bag @ 100 mls/hr IVPB Q1H [facility] Rx#: [id number] propofoL 1,000 mg In 24.739 Empty Bag 1 bag @ Titrate IV .Q0M [facility] Rx#: [id number] Output: Chest Tube Drainage 40 Left Pleural Chest Tube 25 Mediastinal Chest Tube 15 Urine 400 Estimated Blood Loss 200 Other: # Voids 3 1 ABP, PAP, CO, CI - Last Documented Arterial Blood Pressure 109/55 Pulmonary Artery Pressure 25/14 Cardiac Output 4.5 Cardiac Index 2.1 - Exam GENERAL EXAM: Reveals 78-year-old white male obese, sedated, intubated and mechanically ventilated, not in distress. HEAD: Normocephalic. Endotracheal tube and orogastric tube are intact. EYES: Normal reaction of pupils, equal size. NOSE: Clear with pink turbinates. THROAT: No erythema or exudates. NECK: No masses, no JVD. CHEST: No chest wall deformity. LUNGS: Clear bilaterally no rhonchi no wheezes CVS: Normal S1-S2, no S3 gallop, positive pericardial rub ABDOMEN: No hepatosplenomegaly, normal bowel sounds, no guarding or rigidity. SKIN: No rashes CENTRAL NERVOUS SYSTEM: Cannot assess, patient just came back from the OR, sedated on propofol. EXTREMITIES: No edema, no cyanosis. Pulses bilaterally.. - Labs CBC & Chem 7: 01/04/24 13:45 01/04/24 13:45 Labs: Abnormal Lab Results - Last 24 Hours (Table) 01/03/24 01/04/24 01/04/24 Range/Units 07:52 06:25 08:42 RBC (4.30-5.90) m/uL Hgb (13.0-17.5) gm/dL Hct (39.0-53.0) % Plt Count (150-450) k/uL PT (10.0-12.5) sec INR (<1.2) ABG pH (7.35-7.45) ABG pO2 327 H (83-108) mmHg ABG HCO3 26 H (21-25) mmol/L ABG O2 Saturation >99.4 H (94-97) % ABG Hematocrit (34.0-46.0) % ABG Ionized Calcium (4.5-5.3) mg/dL ABG Glucose 109 H (75-99) mg/dL Hemoglobin 12.6 L (13.0-17.5) gm/dL Chloride (98-107) mmol/L Creatinine (0.66-1.25) mg/dL Glucose (74-99) mg/dL POC Glucose (mg/dL) 117 H (70-110) mg/dL Calcium (8.4-10.2) mg/dL Magnesium (1.6-2.3) mg/dL Total Protein (6.3-8.2) g/dL Albumin (3.5-5.0) g/dL Arterial Blood Glucose 109 H (75-99) mg/dL Crossmatch See Detail 01/04/24 01/04/24 01/04/24 Range/Units 10:15 12:25 13:37 RBC (4.30-5.90) m/uL Hgb (13.0-17.5) gm/dL Hct (39.0-53.0) % Plt Count (150-450) k/uL PT (10.0-12.5) sec INR (<1.2) ABG pH 7.34 L (7.35-7.45) ABG pO2 199 H 142 H (83-108) mmHg ABG HCO3 26 H (21-25) mmol/L ABG O2 Saturation 99.0 H 98.6 H (94-97) % ABG Hematocrit 33 L 28 L (34.0-46.0) % ABG Ionized Calcium 4.4 L (4.5-5.3) mg/dL ABG Glucose 121 H 146 H (75-99) mg/dL Hemoglobin 10.9 L 9.2 L (13.0-17.5) gm/dL Chloride (98-107) mmol/L Creatinine (0.66-1.25) mg/dL Glucose (74-99) mg/dL POC Glucose (mg/dL) 160 H (70-110) mg/dL Calcium (8.4-10.2) mg/dL Magnesium (1.6-2.3) mg/dL Total Protein (6.3-8.2) g/dL Albumin (3.5-5.0) g/dL Arterial Blood Glucose 121 H 146 H (75-99) mg/dL Crossmatch 01/04/24 01/04/24 01/04/24 Range/Units 13:45 13:45 13:45 RBC 2.44 L (4.30-5.90) m/uL Hgb 8.1 L D (13.0-17.5) gm/dL Hct 24.4 L (39.0-53.0) % Plt Count 121 L (150-450) k/uL PT 13.6 H (10.0-12.5) sec INR 1.3 H (<1.2) ABG pH (7.35-7.45) ABG pO2 (83-108) mmHg ABG HCO3 (21-25) mmol/L ABG O2 Saturation (94-97) % ABG Hematocrit (34.0-46.0) % ABG Ionized Calcium (4.5-5.3) mg/dL ABG Glucose (75-99) mg/dL Hemoglobin (13.0-17.5) gm/dL Chloride 111 H (98-107) mmol/L Creatinine 0.64 L (0.66-1.25) mg/dL Glucose 144 H (74-99) mg/dL POC Glucose (mg/dL) (70-110) mg/dL Calcium 8.1 L (8.4-10.2) mg/dL Magnesium 1.3 L (1.6-2.3) mg/dL Total Protein 4.4 L (6.3-8.2) g/dL Albumin 2.7 L (3.5-5.0) g/dL Arterial Blood Glucose (75-99) mg/dL Crossmatch 01/04/24 01/04/24 Range/Units 14:02 15:00 RBC (4.30-5.90) m/uL Hgb (13.0-17.5) gm/dL Hct (39.0-53.0) % Plt Count (150-450) k/uL PT (10.0-12.5) sec INR (<1.2) ABG pH 7.33 L (7.35-7.45) ABG pO2 329 H (83-108) mmHg ABG HCO3 (21-25) mmol/L ABG O2 Saturation 99.6 H (94-97) % ABG Hematocrit (34.0-46.0) % ABG Ionized Calcium (4.5-5.3) mg/dL ABG Glucose (75-99) mg/dL Hemoglobin (13.0-17.5) gm/dL Chloride (98-107) mmol/L Creatinine (0.66-1.25) mg/dL Glucose (74-99) mg/dL POC Glucose (mg/dL) 181 H (70-110) mg/dL Calcium (8.4-10.2) mg/dL Magnesium (1.6-2.3) mg/dL Total Protein (6.3-8.2) g/dL Albumin (3.5-5.0) g/dL Arterial Blood Glucose (75-99) mg/dL Crossmatch Microbiology - Last 24 Hours (Table) 01/02/24 11:45 Nasal Screen MRSA/MSSA - Final Nasal Swab Assessment and Plan Assessment: Impression: Status postOff-pump CABG x 4 with sequential ARANA to the diagonal and LAD, saphenous vein graft to posterior descending coronary artery, saphenous vein graft to first obtuse marginal coronary artery, ligation of the left atrial appendage with 35mm AtriCure clip, endovascular vein harvest from the left leg extending from ankle to groin, epiaortic ultrasonography. Triple-vessel coronary artery disease Former smoker of 16 years at 1-1/2 packs/day. FEV1 value 59% of predicted History of abdominal aortic aneurysm currently measuring 4.5 cm Chronic hepatitis B infection, maintained on Baraclude. MRI of the liver revealed no suspicious observations. No steatosis. No cirrhosis Hypertension Hyperlipidemia History of depression Hearing disorder Recommendation: Continue ventilatory support, ventilator settings were changed Continue propofol and plan to wean further and possibly extubate later this evening. Continue nitroglycerin drip and amiodarone drip Maximal medical therapy Possible extubation in the next few hours Chest x-ray was reviewed, vent settings were reviewed and addressed accordingly GI and DVT prophylaxis Continue insulin drip and titrate accordingly Will plan for early extubation and post intubation incentive spirometry and ea rly ambulation if possible. Will continue to follow. critical care time more than 30 minutes Time with Patient: Greater than 30
--- NOTE | 2024-01-04 15:53 | XR ---
EXAMINATION TYPE: XR chest 1V portable DATE OF EXAM: 01/04/2024 Comparison: 01/01/2024 Clinical History: 78-year-old male Post Operative Cardiac Surgery Findings: ET and NG tubes are satisfactory. Right IJ [place] catheter tip in the expected proximal right main pulmonary artery. Median sternotomy wires with post-CABG clips. Mediastinal drain. Patient is rotate d toward the right altering the normal cardiomediastinal contours. Retained epicardial pacer leads fa intly seen. Left-sided chest tube. No appreciable pneumothorax. Mild interstitial density is present. No sizable pleural effusion. Heart borderline enlarged. Impression: Post-CABG changes. There may be mild pulmonary vascular congestion.
[2024-01-04 16:10] LABS: Glucose,Whole Blood 179 mg/dL (70-110)
[2024-01-04] MEDS: ceFAZolin 3 GM in SODIUM CHLORIDE 0.9% 100 ML IVPB SCH (16:46)
[2024-01-04] MEDS: HEPARIN SODIUM,PORCINE 5,000 UNIT/ML 1 ML VIAL SQ SCH (16:53)
[2024-01-04 16:57] LABS: Basophils % (A) 0 %; Eosinophils # (A) 0.1 k/uL (0-0.7); Eosinophils % (A) 2 %; HCT 23.8 % (39.0-53.0); HGB 7.9 gm/dL (13.0-17.5); Lymphocytes # (A) 1.1 k/uL (1.0-4.8); Lymphocytes % (A) 15 %; MCH 32.8 pg (25.0-35.0); MCHC 33.3 g/dL (31.0-37.0); MCV 98.5 fL (80.0-100.0); Mean Platelet Volume 9.7; Monocytes # (A) 0.2 k/uL (0-1.0); Monocytes % (A) 3 %; Neutrophils # (A) 6.1 k/uL (1.3-7.7); Neutrophils % (A) 80 %; Platelet Count 122 k/uL (150-450); RBC 2.42 m/uL (4.30-5.90); RDW 12.7 % (11.5-15.5); WBC 7.6 k/uL (3.8-10.6)
[2024-01-04 17:00] LABS: Glucose,Whole Blood 185 mg/dL (70-110)
[2024-01-04] MEDS: ACETAMINOPHEN IV (For NPO) 1,000 MG in EMPTY BAG 1 BAG IVPB SCH (17:45)
[2024-01-04 18:13] LABS: Glucose,Whole Blood 171 mg/dL (70-110)
[2024-01-04 18:43] LABS: ABG Base Excess -3.3 mmol/L; ABG HCO3 23 mmol/L (21-25); ABG Oxygen Saturation 98.9 % (94-97); ABG PCO2 48 mmHg (35-45); ABG PO2 130 mmHg (83-108); ABG TCO2 25 mmol/L (19-24)
[2024-01-04 19:49] LABS: Glucose,Whole Blood 156 mg/dL (70-110)
[2024-01-04 19:52] LABS: Glucose,Whole Blood 143 mg/dL (70-110)
[2024-01-04] MEDS: AMIODARONE 450 MG in DEXTROSE 5% IN WATER 250 ML IV SCH (19:56)
[2024-01-04 20:00] LABS: Basophils % (A) 0 %; Eosinophils % (A) 0 %; HCT 23.7 % (39.0-53.0); HGB 8.2 gm/dL (13.0-17.5); Lymphocytes # (A) 0.5 k/uL (1.0-4.8); Lymphocytes % (A) 7 %; MCH 33.9 pg (25.0-35.0); MCHC 34.7 g/dL (31.0-37.0); MCV 97.8 fL (80.0-100.0); Mean Platelet Volume 10.9; Monocytes # (A) 0.4 k/uL (0-1.0); Monocytes % (A) 5 %; Neutrophils # (A) 6.2 k/uL (1.3-7.7); Neutrophils % (A) 87 %; Platelet Count 109 k/uL (150-450); RBC 2.42 m/uL (4.30-5.90); RDW 12.9 % (11.5-15.5); WBC 7.2 k/uL (3.8-10.6)
[2024-01-04 20:55] LABS: Glucose,Whole Blood 133 mg/dL (70-110)
[2024-01-04 21:53] LABS: Glucose,Whole Blood 116 mg/dL (70-110)
[2024-01-04 23:00] LABS: Glucose,Whole Blood 100 mg/dL (70-110)
[2024-01-04 23:50] LABS: Glucose,Whole Blood 109 mg/dL (70-110)
[2024-01-05 00:58] LABS: Glucose,Whole Blood 118 mg/dL (70-110)
[2024-01-05 02:00] LABS: Glucose,Whole Blood 114 mg/dL (70-110)
[2024-01-05 03:02] LABS: Glucose,Whole Blood 118 mg/dL (70-110)
[2024-01-05 04:06] LABS: Glucose,Whole Blood 114 mg/dL (70-110)
[2024-01-05 04:20] LABS: Basophils % (A) 0 %; Eosinophils % (A) 0 %; HCT 24.3 % (39.0-53.0); HGB 8.2 gm/dL (13.0-17.5); Lymphocytes # (A) 0.5 k/uL (1.0-4.8); Lymphocytes % (A) 9 %; MCH 33.2 pg (25.0-35.0); MCHC 33.7 g/dL (31.0-37.0); MCV 98.6 fL (80.0-100.0); Mean Platelet Volume 8.6; Monocytes # (A) 0.3 k/uL (0-1.0); Monocytes % (A) 5 %; Neutrophils # (A) 5.4 k/uL (1.3-7.7); Neutrophils % (A) 85 %; Platelet Count 128 k/uL (150-450); RBC 2.46 m/uL (4.30-5.90); RDW 12.7 % (11.5-15.5); WBC 6.3 k/uL (3.8-10.6)
[2024-01-05 04:23] LABS: Ionized Calcium 4.7 mg/dL (4.5-5.3)
[2024-01-05 04:33] LABS: ALT 17 U/L (4-49); AST 34 U/L (17-59); African American GFR (CKD) >90 (>60 ml/min/1.73 sqM); Albumin 3.1 g/dL (3.5-5.0); Alkaline Phosphatase 40 U/L (38-126); Anion Gap 3 mmol/L; Blood Urea Nitrogen 16 mg/dL (9-20); Carbon Dioxide 23 mmol/L (22-30); Chloride 109 mmol/L (98-107); Glucose 103 mg/dL (74-99); Magnesium 2.2 mg/dL (1.6-2.3); Non-African American GFR(CKD) >90 (>60 ml/min/1.73 sqM); Potassium 4.1 mmol/L (3.5-5.1); Sodium 135 mmol/L (137-145); Total Bilirubin 0.7 mg/dL (0.2-1.3)
[2024-01-05 05:05] LABS: Glucose,Whole Blood 117 mg/dL (70-110)
[2024-01-05 06:08] LABS: Glucose,Whole Blood 121 mg/dL (70-110)
[2024-01-05] MEDS: DEXTROSE 5% IN WATER 100 ML with AMIODARONE 150 MG IV ONE (06:34)
[2024-01-05 06:58] LABS: Glucose,Whole Blood 125 mg/dL (70-110)
--- NOTE | 2024-01-05 07:28 | P.PN ---
Subjective Progress Note Date: 01/05/24 Principal diagnosis: Coronary artery disease, unstable angina. History of hypertension, hyperlipidemia, infrarenal abdominal aortic aneurysm, hepatitis B on chronic Entecavir, depression, morbid obesity, mild COPD, previous tobacco dependence POD#1 off-pump CABG x 4 with sequential ARANA to the diagonal and LAD, saphenous vein graft to posterior descending coronary artery, saphenous vein graft to first obtuse marginal coronary artery, ligation of the left atrial appendage wi th 35mm AtriCure clip, endovascular vein harvest from the left leg extending from ankle to groin, epiaortic ultrasonography Acute blood loss anemia and thrombocytopenia, expected given hemodilution Paroxysmal atrial fibrillation, currently controlled, known common occurrence after open heart surgery, not a complication The patient was seen and examined this morning sitting up in recliner in the intensive care unit in no acute distress. He was successfully extubated last night at 1900. Currently in controlled atrial fibrillation, hemodynamically stable, currently on IV nitro for vessel spasm prophylaxis as well as amiodarone for A-fib. Denies any current chest pain or shortness of breath, states expected postsurgical pain is well-controlled on current medication regimen. Right internal jugular Flint/Cordis, right radial arterial line, mediastinal/left pleural chest tubes all remain. Labs, chest x-ray reviewed. No other new concerns. Objective - Vital Signs Vital signs: Vital Signs Temp 97.0 F L 01/04/24 18:30 Pulse 77 01/05/24 07:00 Resp 12 01/05/24 07:00 BP 169/76 01/04/24 06:15 Pulse Ox 96 01/05/24 07:00 FiO2 40 01/04/24 20:00 Intake & Output 01/04/24 01/05/24 01/05/24 18:59 06:59 18:59 Intake Total 1863.010 736.111 Output Total 790 725 Balance 1073.010 11.111 Weight 128.6 kg Intake: IV 1208 697 .9NS Cardiac Output 80 190 .9NS Pressure Bag 45 117 Albumin Human 5% 250 ml 500 In Empty Bag 1 bag @ 250 mls/hr IVPB Q1HR PRN Rx#: [id number] Lactated Ringers 1,000 ml 130 390 @ 20 mls/hr IV .Q24H MARGARET Rx#:[id number] Magnesium Sulfate-D5w Pmx 400 1 gm In Dextrose/Water 1 100ml.bag @ 100 mls/hr IVPB Q1H MARGARET Rx#: [id number] Intake, IV Titration 655.010 39.111 Amount ACETAMINOPHEN IV (For NPO 200 ) 1,000 mg In Empty Bag 1 bag @ 400 mls/hr IVPB Q6HR MARGARET Rx#:[id number] Insulin Regular 100 unit 19.249 39.111 In Sodium Chloride 0.9% 100 ml @ Per Protocol IV .Q0M MARGARET Rx#:[id number] Potassium Chloride 10 meq 200 In Water For Injection 1 100ml.bag @ 100 mls/hr IVPB Q1H MARGARET Rx#: [id number] ceFAZolin 3 gm In Sodium 200 Chloride 0.9% 100 ml @ 100 mls/hr IVPB Q8HR MARGARET Rx#:[id number] propofoL 1,000 mg In 35.761 Empty Bag 1 bag @ Titrate IV .Q0M MARGARET Rx#: [id number] Output: Chest Tube Drainage 95 315 Left Pleural Chest Tube 40 180 Mediastinal Chest Tube 55 135 Drainage 30 Left Thigh 30 Urine 495 380 Estimated Blood Loss 200 Other: Voiding Method Indwelling Catheter Indwelling Catheter ABP, PAP, CO, CI - Last Documented Arterial Blood Pressure 105/54 Pulmonary Artery Pressure 23/7 Cardiac Output 6.2 Cardiac Index 2.9 - Exam CONSTITUTIONAL: Appears comfortable, cooperative, no acute distress RESPIRATORY: Lungs sounds diminished bilaterally. Respirations even, nonlabored. Currently on 4 L nasal cannula with oxygen saturation 95%. Able to achieve 1000 mL on incentive spirometry. Strong cough. CARDIOVASCULAR: S1, S2 present. Irregular rate and rhythm, controlled atrial fibrillation on telemetry. Sternum stable. Palpable peripheral pulses bilaterally. No edema present. No calf pain or tenderness noted. Heart hugger in place with patient demonstrating appropriate use. Antiembolism stockings, SCDs present. GASTROINTESTINAL: Abdomen soft, nontender, nondistended, obese. Hypoactive bowel sounds present 4 quadrants. Tolerating clear liquids. Positive flatus GENITOURINARY: Kaur present draining clear, yellow urine. Output overnight 20-45 mL per hour INTEGUMENTARY: Skin is warm and dry with evidence of good perfusion. Anterior chest incision well approximated and covered with dry intact dressing. Left lower extremity EVH site well approximated without redness, PETER drain present with minimal drainage NEUROLOGIC: Cranial nerves II through XII intact MUSKULOSKELETAL: Able to move all extremities, strength equal bilaterally PSYCHIATRIC: Alert and oriented to person place and time, appropriate affect, intact judgment and insight INVASIVE LINES AND TUBES: Mediastinal/left pleural chest tubes present and connected to wall suction, no air leaks present. Mediastinal tube with 90 mL serosanguineous drainage overnight, 210 mL since surgery. Left pleural chest tube with 135 mL serosanguineous drainage overnight, 210 mL since surgery. Atrial epicardial pacemaker wires present, grounded. Right internal jugular Flint/Cordis, right radial arterial line present. Last CO/CI 6.2/2.9, PA 25/9, CVP 9. - Allied health notes Allied health notes reviewed: nursing - Labs CBC & Chem 7: 01/05/24 04:05 01/05/24 04:05 Labs: Abnormal Lab Results - Last 24 Hours (Table) 01/03/24 01/04/24 01/04/24 Range/Units 07:52 08:42 10:15 RBC (4.30-5.90) m/uL Hgb (13.0-17.5) gm/dL Hct (39.0-53.0) % Plt Count (150-450) k/uL Lymphocytes # (1.0-4.8) k/uL PT (10.0-12.5) sec INR (<1.2) ABG pH (7.35-7.45) ABG pCO2 (35-45) mmHg ABG pO2 327 H 199 H (83-108) mmHg ABG HCO3 26 H 26 H (21-25) mmol/L ABG Total CO2 (19-24) mmol/L ABG O2 Saturation >99.4 H 99.0 H (94-97) % ABG Hematocrit 33 L (34.0-46.0) % ABG Ionized Calcium 4.4 L (4.5-5.3) mg/dL ABG Glucose 109 H 121 H (75-99) mg/dL Hemoglobin 12.6 L 10.9 L (13.0-17.5) gm/dL Sodium (137-145) mmol/L Chloride (98-107) mmol/L Creatinine (0.66-1.25) mg/dL Glucose (74-99) mg/dL POC Glucose (mg/dL) (70-110) mg/dL Calcium (8.4-10.2) mg/dL Magnesium (1.6-2.3) mg/dL Total Protein (6.3-8.2) g/dL Albumin (3.5-5.0) g/dL Arterial Blood Glucose 109 H 121 H (75-99) mg/dL Crossmatch See Detail 01/04/24 01/04/24 01/04/24 Range/Units 12:25 13:37 13:45 RBC 2.44 L (4.30-5.90) m/uL Hgb 8.1 L D (13.0-17.5) gm/dL Hct 24.4 L (39.0-53.0) % Plt Count 121 L (150-450) k/uL Lymphocytes # (1.0-4.8) k/uL PT (10.0-12.5) sec INR (<1.2) ABG pH 7.34 L (7.35-7.45) ABG pCO2 (35-45) mmHg ABG pO2 142 H (83-108) mmHg ABG HCO3 (21-25) mmol/L ABG Total CO2 (19-24) mmol/L ABG O2 Saturation 98.6 H (94-97) % ABG Hematocrit 28 L (34.0-46.0) % ABG Ionized Calcium (4.5-5.3) mg/dL ABG Glucose 146 H (75-99) mg/dL Hemoglobin 9.2 L (13.0-17.5) gm/dL Sodium (137-145) mmol/L Chloride (98-107) mmol/L Creatinine (0.66-1.25) mg/dL Glucose (74-99) mg/dL POC Glucose (mg/dL) 160 H (70-110) mg/dL Calcium (8.4-10.2) mg/dL Magnesium (1.6-2.3) mg/dL Total Protein (6.3-8.2) g/dL Albumin (3.5-5.0) g/dL Arterial Blood Glucose 146 H (75-99) mg/dL Crossmatch 01/04/24 01/04/24 01/04/24 Range/Units 13:45 13:45 14:02 RBC (4.30-5.90) m/uL Hgb (13.0-17.5) gm/dL Hct (39.0-53.0) % Plt Count (150-450) k/uL Lymphocytes # (1.0-4.8) k/uL PT 13.6 H (10.0-12.5) sec INR 1.3 H (<1.2) ABG pH 7.33 L (7.35-7.45) ABG pCO2 (35-45) mmHg ABG pO2 329 H (83-108) mmHg ABG HCO3 (21-25) mmol/L ABG Total CO2 (19-24) mmol/L ABG O2 Saturation 99.6 H (94-97) % ABG Hematocrit (34.0-46.0) % ABG Ionized Calcium (4.5-5.3) mg/dL ABG Glucose (75-99) mg/dL Hemoglobin (13.0-17.5) gm/dL Sodium (137-145) mmol/L Chloride 111 H (98-107) mmol/L Creatinine 0.64 L (0.66-1.25) mg/dL Glucose 144 H (74-99) mg/dL POC Glucose (mg/dL) (70-110) mg/dL Calcium 8.1 L (8.4-10.2) mg/dL Magnesium 1.3 L (1.6-2.3) mg/dL Total Protein 4.4 L (6.3-8.2) g/dL Albumin 2.7 L (3.5-5.0) g/dL Arterial Blood Glucose (75-99) mg/dL Crossmatch 01/04/24 01/04/24 01/04/24 Range/Units 15:00 16:06 16:45 RBC 2.42 L (4.30-5.90) m/uL Hgb 7.9 L (13.0-17.5) gm/dL Hct 23.8 L (39.0-53.0) % Plt Count 122 L (150-450) k/uL Lymphocytes # (1.0-4.8) k/uL PT (10.0-12.5) sec INR (<1.2) ABG pH (7.35-7.45) ABG pCO2 (35-45) mmHg ABG pO2 (83-108) mmHg ABG HCO3 (21-25) mmol/L ABG Total CO2 (19-24) mmol/L ABG O2 Saturation (94-97) % ABG Hematocrit (34.0-46.0) % ABG Ionized Calcium (4.5-5.3) mg/dL ABG Glucose (75-99) mg/dL Hemoglobin (13.0-17.5) gm/dL Sodium (137-145) mmol/L Chloride (98-107) mmol/L Creatinine (0.66-1.25) mg/dL Glucose (74-99) mg/dL POC Glucose (mg/dL) 181 H 179 H (70-110) mg/dL Calcium (8.4-10.2) mg/dL Magnesium (1.6-2.3) mg/dL Total Protein (6.3-8.2) g/dL Albumin (3.5-5.0) g/dL Arterial Blood Glucose (75-99) mg/dL Crossmatch 01/04/24 01/04/24 01/04/24 Range/Units 16:58 18:11 18:37 RBC (4.30-5.90) m/uL Hgb (13.0-17.5) gm/dL Hct (39.0-53.0) % Plt Count (150-450) k/uL Lymphocytes # (1.0-4.8) k/uL PT (10.0-12.5) sec INR (<1.2) ABG pH 7.30 L (7.35-7.45) ABG pCO2 48 H (35-45) mmHg ABG pO2 130 H (83-108) mmHg ABG HCO3 (21-25) mmol/L ABG Total CO2 25 H (19-24) mmol/L ABG O2 Saturation 98.9 H (94-97) % ABG Hematocrit (34.0-46.0) % ABG Ionized Calcium (4.5-5.3) mg/dL ABG Glucose (75-99) mg/dL Hemoglobin (13.0-17.5) gm/dL Sodium (137-145) mmol/L Chloride (98-107) mmol/L Creatinine (0.66-1.25) mg/dL Glucose (74-99) mg/dL POC Glucose (mg/dL) 185 H 171 H (70-110) mg/dL Calcium (8.4-10.2) mg/dL Magnesium (1.6-2.3) mg/dL Total Protein (6.3-8.2) g/dL Albumin (3.5-5.0) g/dL Arterial Blood Glucose (75-99) mg/dL Crossmatch 01/04/24 01/04/24 01/04/24 Range/Units 19:04 19:50 19:51 RBC 2.42 L (4.30-5.90) m/uL Hgb 8.2 L (13.0-17.5) gm/dL Hct 23.7 L (39.0-53.0) % Plt Count 109 L (150-450) k/uL Lymphocytes # 0.5 L (1.0-4.8) k/uL PT (10.0-12.5) sec INR (<1.2) ABG pH (7.35-7.45) ABG pCO2 (35-45) mmHg ABG pO2 (83-108) mmHg ABG HCO3 (21-25) mmol/L ABG Total CO2 (19-24) mmol/L ABG O2 Saturation (94-97) % ABG Hematocrit (34.0-46.0) % ABG Ionized Calcium (4.5-5.3) mg/dL ABG Glucose (75-99) mg/dL Hemoglobin (13.0-17.5) gm/dL Sodium (137-145) mmol/L Chloride (98-107) mmol/L Creatinine (0.66-1.25) mg/dL Glucose (74-99) mg/dL POC Glucose (mg/dL) 156 H 143 H (70-110) mg/dL Calcium (8.4-10.2) mg/dL Magnesium (1.6-2.3) mg/dL Total Protein (6.3-8.2) g/dL Albumin (3.5-5.0) g/dL Arterial Blood Glucose (75-99) mg/dL Crossmatch 01/04/24 01/04/24 01/05/24 Range/Units 20:53 21:51 00:57 RBC (4.30-5.90) m/uL Hgb (13.0-17.5) gm/dL Hct (39.0-53.0) % Plt Count (150-450) k/uL Lymphocytes # (1.0-4.8) k/uL PT (10.0-12.5) sec INR (<1.2) ABG pH (7.35-7.45) ABG pCO2 (35-45) mmHg ABG pO2 (83-108) mmHg ABG HCO3 (21-25) mmol/L ABG Total CO2 (19-24) mmol/L ABG O2 Saturation (94-97) % ABG Hematocrit (34.0-46.0) % ABG Ionized Calcium (4.5-5.3) mg/dL ABG Glucose (75-99) mg/dL Hemoglobin (13.0-17.5) gm/dL Sodium (137-145) mmol/L Chloride (98-107) mmol/L Creatinine (0.66-1.25) mg/dL Glucose (74-99) mg/dL POC Glucose (mg/dL) 133 H 116 H 118 H (70-110) mg/dL Calcium (8.4-10.2) mg/dL Magnesium (1.6-2.3) mg/dL Total Protein (6.3-8.2) g/dL Albumin (3.5-5.0) g/dL Arterial Blood Glucose (75-99) mg/dL Crossmatch 01/05/24 01/05/24 01/05/24 Range/Units 01:57 03:00 04:04 RBC (4.30-5.90) m/uL Hgb (13.0-17.5) gm/dL Hct (39.0-53.0) % Plt Count (150-450) k/uL Lymphocytes # (1.0-4.8) k/uL PT (10.0-12.5) sec INR (<1.2) ABG pH (7.35-7.45) ABG pCO2 (35-45) mmHg ABG pO2 (83-108) mmHg ABG HCO3 (21-25) mmol/L ABG Total CO2 (19-24) mmol/L ABG O2 Saturation (94-97) % ABG Hematocrit (34.0-46.0) % ABG Ionized Calcium (4.5-5.3) mg/dL ABG Glucose (75-99) mg/dL Hemoglobin (13.0-17.5) gm/dL Sodium (137-145) mmol/L Chloride (98-107) mmol/L Creatinine (0.66-1.25) mg/dL Glucose (74-99) mg/dL POC Glucose (mg/dL) 114 H 118 H 114 H (70-110) mg/dL Calcium (8.4-10.2) mg/dL Magnesium (1.6-2.3) mg/dL Total Protein (6.3-8.2) g/dL Albumin (3.5-5.0) g/dL Arterial Blood Glucose (75-99) mg/dL Crossmatch 01/05/24 01/05/24 01/05/24 Range/Units 04:05 04:05 05:03 RBC 2.46 L (4.30-5.90) m/uL Hgb 8.2 L (13.0-17.5) gm/dL Hct 24.3 L (39.0-53.0) % Plt Count 128 L (150-450) k/uL Lymphocytes # 0.5 L (1.0-4.8) k/uL PT (10.0-12.5) sec INR (<1.2) ABG pH (7.35-7.45) ABG pCO2 (35-45) mmHg ABG pO2 (83-108) mmHg ABG HCO3 (21-25) mmol/L ABG Total CO2 (19-24) mmol/L ABG O2 Saturation (94-97) % ABG Hematocrit (34.0-46.0) % ABG Ionized Calcium (4.5-5.3) mg/dL ABG Glucose (75-99) mg/dL Hemoglobin (13.0-17.5) gm/dL Sodium 135 L (137-145) mmol/L Chloride 109 H (98-107) mmol/L Creatinine 0.60 L (0.66-1.25) mg/dL Glucose 103 H (74-99) mg/dL POC Glucose (mg/dL) 117 H (70-110) mg/dL Calcium 8.0 L (8.4-10.2) mg/dL Magnesium (1.6-2.3) mg/dL Total Protein 5.0 L (6.3-8.2) g/dL Albumin 3.1 L (3.5-5.0) g/dL Arterial Blood Glucose (75-99) mg/dL Crossmatch 01/05/24 01/05/24 Range/Units 06:07 06:56 RBC (4.30-5.90) m/uL Hgb (13.0-17.5) gm/dL Hct (39.0-53.0) % Plt Count (150-450) k/uL Lymphocytes # (1.0-4.8) k/uL PT (10.0-12.5) sec INR (<1.2) ABG pH (7.35-7.45) ABG pCO2 (35-45) mmHg ABG pO2 (83-108) mmHg ABG HCO3 (21-25) mmol/L ABG Total CO2 (19-24) mmol/L ABG O2 Saturation (94-97) % ABG Hematocrit (34.0-46.0) % ABG Ionized Calcium (4.5-5.3) mg/dL ABG Glucose (75-99) mg/dL Hemoglobin (13.0-17.5) gm/dL Sodium (137-145) mmol/L Chloride (98-107) mmol/L Creatinine (0.66-1.25) mg/dL Glucose (74-99) mg/dL POC Glucose (mg/dL) 121 H 125 H (70-110) mg/dL Calcium (8.4-10.2) mg/dL Magnesium (1.6-2.3) mg/dL Total Protein (6.3-8.2) g/dL Albumin (3.5-5.0) g/dL Arterial Blood Glucose (75-99) mg/dL Crossmatch - Imaging and Cardiology Chest x-ray: image reviewed Assessment and Plan Assessment: Coronary artery disease, unstable angina, status post four-vessel off-pump CABG Chest pain, shortness of breath, secondary to above Hypertension Hyperlipidemia, treated, cholesterol 151, LDL 98 Infrarenal abdominal aortic aneurysm Hepatitis B, resolved, on chronic Entecavir Depression Morbid obesity Mild COPD, preoperative FEV1 59% of predicted Previous tobacco dependence Acute blood loss anemia and thrombocytopenia, expected given hemodilution Paroxysmal atrial fibrillation, currently controlled Plan: Continue to maximize medical therapy with aspirin, statin, Plavix, beta-marci. Will increase beta-marci therapy as tolerated Discontinue IV nitro. Will add an oral calcium channel marci as blood pressure tolerates. Wean O2 as tolerated. Encourage incentive spirometry use 10 times every hour while awake. Bronchodilators per pulmonology Increase activity, ambulate as tolerated. PT/OT/cardiac rehab consulted Will monitor daily labs and x-rays. Electrolyte replacement per protocol. GI/DVT prophylaxis Pain control per current medication regimen Insulin management per internal medicine, patient should remain on continuous IV insulin for 48 hours then may transition to subcutaneous per protocol Discontinue Flint. Connect Cordis to continuous CVP monitoring Continue chest tubes for another 24 hours, monitor and record output Continue Kaur catheter for another 24 hours, continue to monitor and record strict accurate intake and output More recommendations to follow
[2024-01-05] MEDS: ASPIRIN 325 MG TAB PO SCH (08:55)
[2024-01-05] MEDS: METOPROLOL TARTRATE 12.5 MG TAB PO SCH (08:55)
[2024-01-05] MEDS: CLOPIDOGREL 75 MG TAB PO SCH (08:55)
[2024-01-05] MEDS: PANTOPRAZOLE 40 MG/10 ML VIAL IVP SCH (08:56)
[2024-01-05 09:18] LABS: Glucose,Whole Blood 97 mg/dL (70-110)
[2024-01-05] MEDS: ONDANSETRON 4 MG/2 ML VIAL IVP PRN (09:53)
[2024-01-05 10:25] LABS: Glucose,Whole Blood 106 mg/dL (70-110)
[2024-01-05 11:17] LABS: Glucose,Whole Blood 157 mg/dL (70-110)
[2024-01-05] MEDS ORDERED: AMIODARONE 450 MG in DEXTROSE 5% IN WATER 250 ML IV SCH (12:00)
--- NOTE | 2024-01-05 12:08 | XR ---
EXAMINATION TYPE: XR chest 1V portable DATE OF EXAM: 01/05/2024 Comparison: 01/04/2024 Clinical History: 78-year-old male Post Operative Cardiac Surgery Findings: Interval extubation and removal of NG tube. Right IJ [place] catheter tip in the expected proximal right main pulmonary artery. Median sternotomy wires and post-CABG clips. Heart moderately enlarged. Diffuse interstitial density persists. Increasing patchy left basilar opacity. Possible trace effusio ns. No appreciable pneumothorax. Left-sided chest tube remains in place. Impression: Pulmonary vascular congestion with worsening aeration. Increasing left basilar opacity, probably atel ectasis.
[2024-01-05 12:26] LABS: Glucose,Whole Blood 137 mg/dL (70-110)
--- NOTE | 2024-01-05 12:43 | P.PN ---
Progress Note - Text Progress Note Date: 01/05/24 Patient is a 78-year-old male with a known history of coronary artery disease and recent cardiac catheterization due to abnormal perfusion stress test on 12/27/2023 showed a extremely calcified right and left coronary system with severe triple-vessel coronary artery disease, hypertension, hyperlipidemia, hearing disorder/deafness, osteoarthritis, depression and prior history of smoking. Patient presents to ER with complaints of chest pain left retrosternal and radiating to left upper arm associate with coughing and shortness of breath and worsens with deep breathing. Patient was brought to the hospital by his family. He did take aspirin x 4 before coming to ER. His symptoms resolved by the time he is in the ER currently denies any complaints of chest pain. No nausea vomiting abdominal pain or diarrhea. Denies any recent illnesses. He did have RSV infection September 2023 and status post course of steroids and antibiotics. Chest x-ray showed suspected interstitial infiltrative mid and lower lungs. Consider possible such as aspiration or an early or atypical pneumonia. EKG showed supraventricular bradycardia with heart rate 59 Laboratory data showed WBC 4.9 hemoglobin 15.1 and platelets 168 sodium 140 potassium 4.0 chloride 106 bicarb is 28 BUN 18 and creatinine 0.9 Blood sugar 10/26/2006 and A1c 5.5 lowering Elevated troponin x 3 negative and proBNP is 48 and TSH 3.58 Hepatitis panel and RSV COVID-19 and influenza not detected. 01/03/2024 Patient is seen in follow-up today with family members present currently undergoing further workup for tentative CABG. Patient is afebrile with no reports of chest pain or shortness of breath. Patient does have incentive spirometer at the bedside and has been using and encouraged to continue at least 10 times every hour while awake. Patient currently tolerating diet and will be n.p.o. at midnight. Patient denies any nausea or vomiting. Patient has been up and walking and encouraged the patient to increase activity as tolerated. Questions and concerns were answered to the best of our ability. January 05, 2024: Yesterday-December Diet came to see the patient twice. Had not return from operating room. Today patient. He is extubated. Sitting up in a chair. Chest tubes in place. On clear liquid diet. Family at the bedside. 4 L nasal cannula. Using incentive spirometry. Kaur catheter. Some shortness of breath. Active Medications Acetaminophen (Acetaminophen Tab 325 Mg Tab) 650 mg PO Q4HR PRN PRN Reason: Fever and/ or Mild Pain Albuterol/Ipratropium (Ipratropium-Albuterol 3 Ml Neb) 3 ml INHALATION RT-Q2H PRN PRN Reason: Shortness Of Breath Or Wheezing Albuterol/Ipratropium (Ipratropium-Albuterol 3 Ml Neb) 3 ml INHALATION RT-QID [facility] Last Admin: 01/05/24 11:59 Dose: 3 ml Aspirin (Aspirin 325 Mg Tab) 325 mg PO DAILY [facility] Last Admin: 01/05/24 08:55 Dose: 325 mg Atorvastatin Calcium (Atorvastatin 80 Mg Tab) 80 mg PO DAILY [facility] Last Admin: 01/05/24 08:55 Dose: 80 mg Bisacodyl (Bisacodyl 10 Mg Supp) 10 mg RECTAL DAILY PRN PRN Reason: Constipation Budesonide/Formoterol Fumarate (Symbicort 160-4.5 Mcg Inhaler) 2 puff INHALATION RT-BID [facility] Last Admin: 01/05/24 09:28 Dose: 2 puff Buspirone HCl (Buspirone Hcl 5 Mg Tab) 15 mg PO BID [facility] Last Admin: 01/05/24 08:54 Dose: 15 mg Clopidogrel Bisulfate (Clopidogrel 75 Mg Tab) 75 mg PO DAILY [facility] Last Admin: 01/05/24 08:55 Dose: 75 mg Dextrose/Water (Dextrose 50% Syringe 50 Ml) 25 ml IVP PER PROTOCOL PRN; Protocol PRN Reason: Hypoglycemia Dextrose/Water (Dextrose 50% Syringe 50 Ml) 50 ml IVP PER PROTOCOL PRN; Protocol PRN Reason: Hypoglycemia Escitalopram Oxalate (Escitalopram 20 Mg Tab) 20 mg PO DAILY [facility] Last Admin: 01/05/24 08:55 Dose: 20 mg Gabapentin (Gabapentin 300 Mg Cap) 300 mg PO BID [facility] Last Admin: 01/05/24 08:55 Dose: 300 mg Heparin Sodium (Porcine) (Heparin Sodium,Porcine 5,000 Unit/Ml 1 Ml Vial) 5,000 unit SQ Q8HR [facility] Last Admin: 01/05/24 08:55 Dose: 5,000 unit Amiodarone HCl 150 mg/ (Dextrose/Water) 103 mls @ 618 mls/hr IV .Q10M PRN PRN Reason: A.FIB/FLUTTER Last Admin: 01/04/24 13:46 Dose: 618 mls/hr Albumin Human 250 ml/ IV (Solution) 250 mls @ 250 mls/hr IVPB Q1HR PRN; Protocol PRN Reason: For Volume Stop: 01/06/24 12:56 Last Admin: 01/04/24 14:15 Dose: 250 mls/hr Cefazolin Sodium 3 gm/ Sodium (Chloride) 100 mls @ 100 mls/hr IVPB Q8HR MARGARET; Protocol Stop: 01/06/24 00:59 Last Admin: 01/05/24 08:53 Dose: 100 mls/hr Lactated Ringer's (Lactated Ringers) 1,000 mls @ 20 mls/hr IV .Q24H [facility] Last Admin: 01/04/24 13:59 Dose: 50 mls/hr Insulin Human Regular 100 unit (/ Sodium Chloride) 101 mls @ 0 mls/hr IV .Q0M [facility]; Protocol Last Titration: 01/05/24 11:22 Dose: 4.5 units/hr, 4.545 mls/hr Magnesium Hydroxide (Magnesium Hydroxide 2,400 Mg/30 Ml Cup) 2,400 mg PO BID PRN PRN Reason: Constipation Metoclopramide HCl (Metoclopramide 5 Mg/Ml 2 Ml Vial) 10 mg IVP Q4H PRN PRN Reason: Nausea And Vomiting Metoprolol Tartrate (Metoprolol Tartrate 12.5 Mg Tab) 12.5 mg PO BID [facility] Last Admin: 01/05/24 08:55 Dose: 12.5 mg Miscellaneous Information (Potassium Replacement Protocol 1 Each Misc) 1 each MISCELLANE DAILY PRN; Protocol PRN Reason: Per Protocol Miscellaneous Information (Magnesium Replacement Protocol 1 Each Misc) 1 each MISCELLANE DAILY PRN; Protocol PRN Reason: Per Protocol Miscellaneous Information (Potassium Replacement Protocol 1 Each Misc) 1 each MISCELLANE DAILY PRN; Protocol PRN Reason: Per Protocol Ondansetron HCl (Ondansetron 4 Mg/2 Ml Vial) 4 mg IVP Q6HR PRN PRN Reason: Nausea And Vomiting Last Admin: 01/05/24 09:53 Dose: 4 mg Oxycodone HCl (Oxycodone Hcl 5 Mg Tab) 5 mg PO Q4HR PRN PRN Reason: Moderate Pain (Scale 4 to 6) Last Admin: 01/05/24 08:53 Dose: 5 mg Oxycodone HCl (Oxycodone Hcl 5 Mg Tab) 10 mg PO Q4HR PRN PRN Reason: Severe Pain (Scale 7 to 10) Pantoprazole Sodium (Pantoprazole 40 Mg Tablet) 40 mg PO AC-[id number] [facility] Senna/Docusate Sodium (Sennosides-Docusate Sodium 1 Each Tab) 2 each PO HS [facility] Sodium Chloride (Sodium Chloride 0.9% Flush 10 Ml Syringe) 10 ml IV BID [facility] Last Admin: 01/05/24 08:55 Dose: 10 ml On examination: VITAL SIGNS: 61, 16, 103 x 46, 93% on 4 L GENERAL APPEARANCE: BMI 45.8, up in a recliner. Chest tubes in place. HEENT: Normal external appearance of nose and ear. Oral cavity normal EYES: Pupils equal. Conjunctiva normal. NECK: JVD able to assess. Mass not palpable. RESPIRATORY: Respiratory effort increased. Lungs creased breath sounds CARDIOVASCULAR: Heart sounds distant, minimal edema a. ABDOMEN: Soft. Liver and spleen not palpable. No tenderness. No mass palpable. PSYCHIATRY: Alert and oriented x3. Mood and affect normal. INVESTIGATIONS, reviewed in the clinical context: January 05, 2024: White count 6.3 hemoglobin 8.2 platelets 128 sodium 135 potassium 4.1 BUN 16 creatinine 0.6 albumin 3.1 Previous labs: January 03, 2024: Hemoglobin 15.1, platelets 190 Liver MRI: Smooth contour of the liver. Infrarenal abdominal aortic aneurysm 4.6 cm. Assessment and plan: Cardiac chest pain. Ruled out ACS Severe triple-vessel coronary artery disease status post cardiac catheterization on 12/27/2023 CABG on 01/04/2024 Essential hypertension Hyperlipidemia GERD Primary osteoarthritis Depression Morbid obesity BMI 45.8 Hearing disorder/deafness hepatitis B-history of resolved Morbid obesity BMI 43.6 Acute postprocedure blood loss anemia expected from surgery Dilutional thrombocytopenia Reactive hypoalbuminemia Full code Care was discussed with the patient and family at the bedside. Incentive spirometry. Chest tubes in place. Kaur catheter. Currently on liquid diet. Activity as tolerated. On insulin drip.
--- NOTE | 2024-01-05 12:50 | P.PN ---
Subjective Progress Note Date: 01/05/24 Principal diagnosis: Coronary artery disease, status post CABG This is a very pleasant 78-year-old male patient with a known history of hyperlipidemia, hypertension, hearing disorder, hepatitis B infection, depression, former smoker for about 16 years at 1-1/2 packs/day. He also has a history of 4.5 cm infrarenal abdominal aortic aneurysm. He had recently undergone a cardiac catheterization on December 27, 2023 that revealed triple-vessel coronary artery disease and was planning to have possible bypass surgery. However on yesterday he developed a sudden onset of chest pain and presented to the ER for the same. Troponins were negative x 3. White count 4.1. Hemoglobin 14.2. Platelets 174. Sodium 141. Potassium 3.9. Bicarb 22. BUN 17. Creatinine 0.9. Glucose 134. The plan is for bypass surgery on 01/04/2024. FEV1 value was 59% of predicted. He is seen in consultation. He denies any known history of COPD/emphysema. No asthma. Not previously on inhalers or oxygen. The last couple of days he has been having some cough and congestion however. CT scan of the chest revealed lung parenchyma appears unremarkable. Airway is patent and unremarkable. He is currently resting comfortably in bed. Awake and alert in no acute distress. Denies any chest pain. No worsening shortness of breath. He is maintaining good O2 saturations in the 90s on room air. He is afebrile. Hemodynamically stable. The patient is seen today January 03, 2024 in follow-up on the regular medical floor. He is currently sitting up in a chair at the bedside. Awake and alert in no acute distress. Maintaining good O2 saturations in the 90s on room air. He is afebrile. Hemodynamically stable. He is working well with the incentive spirometer. He denies any chest pain. Improved shortness of breath, cough and congestion today. White count 5.5. Hemoglobin 15.1. Platelets 190. INR 1.0. Sodium 138. Potassium 3.9. Bicarb 25. BUN 17. Creatinine 0.87. Glucose 101. He remains on DuoNeb inhalations, Symbicort. Remains on oral diuretics. Remains on heparin for DVT prophylaxis. Patient was reevaluated today on 01/04/2024, presently in the ICU he is status post Off-pump CABG x 4 with sequential ARANA to the diagonal and LAD, saphenous vein graft to posterior descending coronary artery, saphenous vein graft to first obtuse marginal coronary artery, ligation of the left atrial appendage with 35mm AtriCure clip, endovascular vein harvest from the left leg extending f rom ankle to groin, epiaortic ultrasonography. Postoperative day #0. Patient is intubated mechanically ventilated, he is on assist-control rate of 14, tidal volume 450, FiO2 50%, and PEEP of 5. Earlier ABG on assist-control rate of 12 and FiO2 100% showed a pO2 of 329 pCO2 of 43 pH of 7.33. Patient had readjustment in his vent settings, he is now on assist-control rate of 12 tidal volume 500 FiO2 50% and PEEP of 5. Seems to be comfortable, sedated, he is on 15 mcg/kg/min of propofol. Patient is also receiving drips in the form of amiodarone 1 mg/min, he is on nitroglycerin 5 mcg/min, patient is on insulin drip, 4.5 units/h, patient is not requiring any pressors or any inotropes. Cardiac output is 4.5, and cardiac index is 2.1. Patient is calm sedated, and not in any distress. I have seen this patient prior to his surgery yesterday and the day before, he was cleared for surgery and felt to be low operative risk. Chest x-ray postoperatively showed mostly postoperative changes, no acute process is noted, minimal basilar atelectasis noted. Lines and tubes seem to be in proper position Reevaluate today on 01/05/2024,POD#1 off-pump CABG x 4 with sequential ARANA to the diagonal and LAD, saphenous vein graft to posterior descending coronary artery, saphenous vein graft to first obtuse marginal coronary artery, ligation of the left atrial appendage with 35mm AtriCure clip, endovascular vein harvest from the left leg extending from ankle to groin, epiaortic ultrasonography, patient is sitting in the recliner, remains in the ICU, patient was extubated yesterday within a short time after arriving to the ICU, however I had to extubate him initially to BiPAP and within 2 hours transition to nasal cannula patient is doing well today, he is on few liters nasal cannula, not in any distress. Patient is not requiring any pressors or inotropes however he is on amiodarone at 0.5 mg/min mostly because of paroxysmal atrial fibrillation which is expected. Chest x-ray showed mild pulmonary vascular congestion and left basilar atelectasis Objective - Vital Signs Vital signs: Vital Signs Temp 97.0 F L 01/04/24 18:30 Pulse 60 01/05/24 12:13 Resp 18 01/05/24 12:13 BP 169/76 01/04/24 06:15 Pulse Ox 93 L 01/05/24 11:05 FiO2 40 01/04/24 20:00 Intake & Output 01/04/24 01/05/24 01/05/24 18:59 06:59 18:59 Intake Total 1863.010 736.111 126.024 Output Total 790 725 80 Balance 1073.010 11.111 46.024 Weight 128.6 kg 128.6 kg Intake: IV 1208 697 111 .9NS Cardiac Output 80 190 .9NS Pressure Bag 45 117 21 Albumin Human 5% 250 ml 500 In Empty Bag 1 bag @ 250 mls/hr IVPB Q1HR PRN Rx#: [id number] Lactated Ringers 1,000 ml 130 390 90 @ 20 mls/hr IV .Q24H MARGARET Rx#:[id number] Magnesium Sulfate-D5w Pmx 400 1 gm In Dextrose/Water 1 100ml.bag @ 100 mls/hr IVPB Q1H MARGARET Rx#: [id number] Intake, IV Titration 655.010 39.111 15.024 Amount ACETAMINOPHEN IV (For NPO 200 ) 1,000 mg In Empty Bag 1 bag @ 400 mls/hr IVPB Q6HR MARGARET Rx#:[id number] Insulin Regular 100 unit 19.249 39.111 15.024 In Sodium Chloride 0.9% 100 ml @ Per Protocol IV .Q0M MARGARET Rx#:[id number] Potassium Chloride 10 meq 200 In Water For Injection 1 100ml.bag @ 100 mls/hr IVPB Q1H MARGARET Rx#: [id number] ceFAZolin 3 gm In Sodium 200 Chloride 0.9% 100 ml @ 100 mls/hr IVPB Q8HR MARGARET Rx#:[id number] propofoL 1,000 mg In 35.761 Empty Bag 1 bag @ Titrate IV .Q0M MARGARET Rx#: [id number] Output: Chest Tube Drainage 95 315 Left Pleural Chest Tube 40 180 Mediastinal Chest Tube 55 135 Drainage 30 Left Thigh 30 Urine 495 380 80 Estimated Blood Loss 200 Other: Voiding Method Indwelling Catheter Indwelling Catheter Indwelling Catheter ABP, PAP, CO, CI - Last Documented Arterial Blood Pressure 103/46 Pulmonary Artery Pressure 24/8 Cardiac Output 6.2 Cardiac Index 2.9 - Exam GENERAL EXAM: Reveals 78-year-old white male obese, on nasal cannula, not in distress, sitting in a recliner HEAD: Normocephalic. Atraumatic EYES: Normal reaction of pupils, equal size. NOSE: Clear with pink turbinates. THROAT: No erythema or exudates. NECK: No masses, no JVD. CHEST: No chest wall deformity. LUNGS: Diminished breath sounds at the bases no crackles rhonchi or wheezes CVS: Normal S1-S2, no S3 gallop, positive pericardial rub ABDOMEN: No hepatosplenomegaly, normal bowel sounds, no guarding or rigidity. SKIN: No rashes CENTRAL NERVOUS SYSTEM: Alert and oriented x 3 no gross focal deficit EXTREMITIES: No edema, no cyanosis. Pulses bilaterally.. - Labs CBC & Chem 7: 01/05/24 04:05 01/05/24 04:05 Labs: Abnormal Lab Results - Last 24 Hours (Table) 01/03/24 01/04/24 01/04/24 Range/Units 07:52 13:37 13:45 RBC 2.44 L (4.30-5.90) m/uL Hgb 8.1 L D (13.0-17.5) gm/dL Hct 24.4 L (39.0-53.0) % Plt Count 121 L (150-450) k/uL Lymphocytes # (1.0-4.8) k/uL PT (10.0-12.5) sec INR (<1.2) ABG pH (7.35-7.45) ABG pCO2 (35-45) mmHg ABG pO2 (83-108) mmHg ABG Total CO2 (19-24) mmol/L ABG O2 Saturation (94-97) % Sodium (137-145) mmol/L Chloride (98-107) mmol/L Creatinine (0.66-1.25) mg/dL Glucose (74-99) mg/dL POC Glucose (mg/dL) 160 H (70-110) mg/dL Calcium (8.4-10.2) mg/dL Magnesium (1.6-2.3) mg/dL Total Protein (6.3-8.2) g/dL Albumin (3.5-5.0) g/dL Crossmatch See Detail 01/04/24 01/04/24 01/04/24 Range/Units 13:45 13:45 14:02 RBC (4.30-5.90) m/uL Hgb (13.0-17.5) gm/dL Hct (39.0-53.0) % Plt Count (150-450) k/uL Lymphocytes # (1.0-4.8) k/uL PT 13.6 H (10.0-12.5) sec INR 1.3 H (<1.2) ABG pH 7.33 L (7.35-7.45) ABG pCO2 (35-45) mmHg ABG pO2 329 H (83-108) mmHg ABG Total CO2 (19-24) mmol/L ABG O2 Saturation 99.6 H (94-97) % Sodium (137-145) mmol/L Chloride 111 H (98-107) mmol/L Creatinine 0.64 L (0.66-1.25) mg/dL Glucose 144 H (74-99) mg/dL POC Glucose (mg/dL) (70-110) mg/dL Calcium 8.1 L (8.4-10.2) mg/dL Magnesium 1.3 L (1.6-2.3) mg/dL Total Protein 4.4 L (6.3-8.2) g/dL Albumin 2.7 L (3.5-5.0) g/dL Crossmatch 01/04/24 01/04/24 01/04/24 Range/Units 15:00 16:06 16:45 RBC 2.42 L (4.30-5.90) m/uL Hgb 7.9 L (13.0-17.5) gm/dL Hct 23.8 L (39.0-53.0) % Plt Count 122 L (150-450) k/uL Lymphocytes # (1.0-4.8) k/uL PT (10.0-12.5) sec INR (<1.2) ABG pH (7.35-7.45) ABG pCO2 (35-45) mmHg ABG pO2 (83-108) mmHg ABG Total CO2 (19-24) mmol/L ABG O2 Saturation (94-97) % Sodium (137-145) mmol/L Chloride (98-107) mmol/L Creatinine (0.66-1.25) mg/dL Glucose (74-99) mg/dL POC Glucose (mg/dL) 181 H 179 H (70-110) mg/dL Calcium (8.4-10.2) mg/dL Magnesium (1.6-2.3) mg/dL Total Protein (6.3-8.2) g/dL Albumin (3.5-5.0) g/dL Crossmatch 01/04/24 01/04/24 01/04/24 Range/Units 16:58 18:11 18:37 RBC (4.30-5.90) m/uL Hgb (13.0-17.5) gm/dL Hct (39.0-53.0) % Plt Count (150-450) k/uL Lymphocytes # (1.0-4.8) k/uL PT (10.0-12.5) sec INR (<1.2) ABG pH 7.30 L (7.35-7.45) ABG pCO2 48 H (35-45) mmHg ABG pO2 130 H (83-108) mmHg ABG Total CO2 25 H (19-24) mmol/L ABG O2 Saturation 98.9 H (94-97) % Sodium (137-145) mmol/L Chloride (98-107) mmol/L Creatinine (0.66-1.25) mg/dL Glucose (74-99) mg/dL POC Glucose (mg/dL) 185 H 171 H (70-110) mg/dL Calcium (8.4-10.2) mg/dL Magnesium (1.6-2.3) mg/dL Total Protein (6.3-8.2) g/dL Albumin (3.5-5.0) g/dL Crossmatch 01/04/24 01/04/24 01/04/24 Range/Units 19:04 19:50 19:51 RBC 2.42 L (4.30-5.90) m/uL Hgb 8.2 L (13.0-17.5) gm/dL Hct 23.7 L (39.0-53.0) % Plt Count 109 L (150-450) k/uL Lymphocytes # 0.5 L (1.0-4.8) k/uL PT (10.0-12.5) sec INR (<1.2) ABG pH (7.35-7.45) ABG pCO2 (35-45) mmHg ABG pO2 (83-108) mmHg ABG Total CO2 (19-24) mmol/L ABG O2 Saturation (94-97) % Sodium (137-145) mmol/L Chloride (98-107) mmol/L Creatinine (0.66-1.25) mg/dL Glucose (74-99) mg/dL POC Glucose (mg/dL) 156 H 143 H (70-110) mg/dL Calcium (8.4-10.2) mg/dL Magnesium (1.6-2.3) mg/dL Total Protein (6.3-8.2) g/dL Albumin (3.5-5.0) g/dL Crossmatch 01/04/24 01/04/24 01/05/24 Range/Units 20:53 21:51 00:57 RBC (4.30-5.90) m/uL Hgb (13.0-17.5) gm/dL Hct (39.0-53.0) % Plt Count (150-450) k/uL Lymphocytes # (1.0-4.8) k/uL PT (10.0-12.5) sec INR (<1.2) ABG pH (7.35-7.45) ABG pCO2 (35-45) mmHg ABG pO2 (83-108) mmHg ABG Total CO2 (19-24) mmol/L ABG O2 Saturation (94-97) % Sodium (137-145) mmol/L Chloride (98-107) mmol/L Creatinine (0.66-1.25) mg/dL Glucose (74-99) mg/dL POC Glucose (mg/dL) 133 H 116 H 118 H (70-110) mg/dL Calcium (8.4-10.2) mg/dL Magnesium (1.6-2.3) mg/dL Total Protein (6.3-8.2) g/dL Albumin (3.5-5.0) g/dL Crossmatch 01/05/24 01/05/24 01/05/24 Range/Units 01:57 03:00 04:04 RBC (4.30-5.90) m/uL Hgb (13.0-17.5) gm/dL Hct (39.0-53.0) % Plt Count (150-450) k/uL Lymphocytes # (1.0-4.8) k/uL PT (10.0-12.5) sec INR (<1.2) ABG pH (7.35-7.45) ABG pCO2 (35-45) mmHg ABG pO2 (83-108) mmHg ABG Total CO2 (19-24) mmol/L ABG O2 Saturation (94-97) % Sodium (137-145) mmol/L Chloride (98-107) mmol/L Creatinine (0.66-1.25) mg/dL Glucose (74-99) mg/dL POC Glucose (mg/dL) 114 H 118 H 114 H (70-110) mg/dL Calcium (8.4-10.2) mg/dL Magnesium (1.6-2.3) mg/dL Total Protein (6.3-8.2) g/dL Albumin (3.5-5.0) g/dL Crossmatch 01/05/24 01/05/24 01/05/24 Range/Units 04:05 04:05 05:03 RBC 2.46 L (4.30-5.90) m/uL Hgb 8.2 L (13.0-17.5) gm/dL Hct 24.3 L (39.0-53.0) % Plt Count 128 L (150-450) k/uL Lymphocytes # 0.5 L (1.0-4.8) k/uL PT (10.0-12.5) sec INR (<1.2) ABG pH (7.35-7.45) ABG pCO2 (35-45) mmHg ABG pO2 (83-108) mmHg ABG Total CO2 (19-24) mmol/L ABG O2 Saturation (94-97) % Sodium 135 L (137-145) mmol/L Chloride 109 H (98-107) mmol/L Creatinine 0.60 L (0.66-1.25) mg/dL Glucose 103 H (74-99) mg/dL POC Glucose (mg/dL) 117 H (70-110) mg/dL Calcium 8.0 L (8.4-10.2) mg/dL Magnesium (1.6-2.3) mg/dL Total Protein 5.0 L (6.3-8.2) g/dL Albumin 3.1 L (3.5-5.0) g/dL Crossmatch 01/05/24 01/05/24 01/05/24 Range/Units 06:07 06:56 11:16 RBC (4.30-5.90) m/uL Hgb (13.0-17.5) gm/dL Hct (39.0-53.0) % Plt Count (150-450) k/uL Lymphocytes # (1.0-4.8) k/uL PT (10.0-12.5) sec INR (<1.2) ABG pH (7.35-7.45) ABG pCO2 (35-45) mmHg ABG pO2 (83-108) mmHg ABG Total CO2 (19-24) mmol/L ABG O2 Saturation (94-97) % Sodium (137-145) mmol/L Chloride (98-107) mmol/L Creatinine (0.66-1.25) mg/dL Glucose (74-99) mg/dL POC Glucose (mg/dL) 121 H 125 H 157 H (70-110) mg/dL Calcium (8.4-10.2) mg/dL Magnesium (1.6-2.3) mg/dL Total Protein (6.3-8.2) g/dL Albumin (3.5-5.0) g/dL Crossmatch 01/05/24 Range/Units 12:25 RBC (4.30-5.90) m/uL Hgb (13.0-17.5) gm/dL Hct (39.0-53.0) % Plt Count (150-450) k/uL Lymphocytes # (1.0-4.8) k/uL PT (10.0-12.5) sec INR (<1.2) ABG pH (7.35-7.45) ABG pCO2 (35-45) mmHg ABG pO2 (83-108) mmHg ABG Total CO2 (19-24) mmol/L ABG O2 Saturation (94-97) % Sodium (137-145) mmol/L Chloride (98-107) mmol/L Creatinine (0.66-1.25) mg/dL Glucose (74-99) mg/dL POC Glucose (mg/dL) 137 H (70-110) mg/dL Calcium (8.4-10.2) mg/dL Magnesium (1.6-2.3) mg/dL Total Protein (6.3-8.2) g/dL Albumin (3.5-5.0) g/dL Crossmatch Assessment and Plan Assessment: Impression: Status postOff-pump CABG x 4 with sequential ARANA to the diagonal and LAD, saphenous vein graft to posterior descending coronary artery, saphenous vein graft to first obtuse marginal coronary artery, postoperative day #1 Triple-vessel coronary artery disease Former smoker of 16 years at 1-1/2 packs/day. FEV1 value 59% of predicted History of abdominal aortic aneurysm currently measuring 4.5 cm Chronic hepatitis B infection, maintained on Baraclude. MRI of the liver revealed no suspicious observations. No steatosis. No cirrhosis Hypertension Hyperlipidemia History of depression Hearing disorder Recommendation: Continue to monitor in the ICU Titrate FiO2 accordingly Continue incentive spirometry GI and DVT prophylaxis Early ambulation Continue maximal medical therapy Continue amiodarone Chest x-ray was reviewed, minimal atelectasis noted GI and DVT prophylaxis Will continue to follow. Time with Patient: Less than 30
[2024-01-05 12:56] VITALS: BMI 45.7
[2024-01-05 13:14] LABS: Glucose,Whole Blood 122 mg/dL (70-110)
[2024-01-05 14:17] LABS: Glucose,Whole Blood 99 mg/dL (70-110)
[2024-01-05 15:17] LABS: Glucose,Whole Blood 118 mg/dL (70-110)
[2024-01-05 17:25] LABS: Glucose,Whole Blood 160 mg/dL (70-110)
--- NOTE | 2024-01-05 17:31 | P.PN ---
Subjective HISTORY OF PRESENT ILLNESS: The patient is a pleasant 78-year-old gentleman who is known to my service from before with a past medical history significant for coronary artery disease and known severe triple-vessel coronary artery disease documented on heart catheterization was performed in December 27, 2023 as well as hypertension and dyslipidemia. He was seen in the office recently for further evaluation of chest discomfort and he underwent myocardial perfusion imaging stress test came in to be abnormal and for that reason he underwent a heart catheterization and that revealed severe triple-vessel CAD with extremely calcified right and left c oronary system. Coronary artery bypass grafting consult was advised but the patient states he would like to go home and have being seen as an outpatient. He presented back to the emergency department complaining of chest discomfort in the middle and left side of the chest as a dull feeling with no radiation and no associated symptoms. The discomfort lasted for few minutes only. Currently his chest pain-free. No shortness of breath and no dizziness or lightheadedness and no feeling of heart racing or fluttering and no presyncope or syncope. His vitals are stable. He is bradycardic. He is not on any AV alexandru marci agents. He is on low intensity statin which is going to increase to high intensity statin but he is on KERRIE inhibitor as well. The examination is remarkable for stable vital signs with regular rate and rhythm and distant heart sounds and soft systolic murmur and clear breathing sounds bilaterally and no edema was noted January 02, 2024 The patient was seen and evaluated this morning. He is asymptomatic and he is hemodynamically stable as well. He is on aspirin and high intensity statin and anti-ischemic medications but he underwent carotid duplex study showed mild disease bilaterally and also he underwent lower extremities arterial duplex study came in to be unremarkable. There was some concern about the liver and he is in process of having an MRI. The examination overall is remarkable for stable vital signs with regular rate and rhythm and soft systolic murmur and clear breathing sounds bilaterally and no edema was noted in the lower extremities 01/03/2024 Patient examined this morning at the bedside. Patient denies any further episodes of chest pain or pressure. He denies shortness of breath. Patient underwent MRI of the liver today and results are currently pending. He is tentatively scheduled for CABG tomorrow. Vital signs are stable. 01/04 Patient underwent CABG with 4 vessel, ARANA to diagonal and LAD, SVG to PDA and SVG to OM, ligation of left atrial appendage 01/03. He was extubated last night and was weaned off of vasopressors. He did have brief episode of A. fib and placed on amiodarone. He has had some intermittent bradycardia and pacing wires pacemaker 80 currently. Denies any chest pain or pressure other than the incision. Hemoglobin today 8.2, creatinine 0.6. PHYSICAL EXAM: VITAL SIGNS: Reviewed. GENERAL: Well-developed in no acute distress. NECK: Supple. No JVD or thyromegaly LUNGS: Respirations even and unlabored. Lungs essentially clear to auscultation bilaterally. HEART: Regular rate and rhythm. S1 and S2 heard. EXTREMITIES: Normal range of motion. No clubbing or cyanosis. Peripheral pulses intact. No lower extremity edema ASSESSMENT: Coronary artery disease as described above with no severe triple-vessel CAD, s/p CABG x 4 01/03 Multiple comorbid conditions including hypertension and dyslipidemia Anemia Postoperative A. fib Bradycardia PLAN: Patient is postoperative and tolerating that well. He did have episode of postoperative A. fib and continue with amiodarone. Wean pacing wires as able and monitor bradycardia however at this time continue with the metoprolol and amiodarone. Continue with current supportive care. Further recommendations to follow. Objective - Vital Signs Vital signs: Vital Signs Temp 98.2 F 01/05/24 16:00 Pulse 80 01/05/24 17:00 Resp 17 01/05/24 17:00 BP 169/76 01/04/24 06:15 Pulse Ox 94 L 01/05/24 17:00 FiO2 40 01/04/24 20:00 Intake & Output 01/04/24 01/05/24 01/05/24 18:59 06:59 18:59 Intake Total 1863.010 736.111 391.205 Output Total 790 725 435 Balance 1073.010 11.111 -43.795 Weight 128.6 kg 128.6 kg Intake: IV 1208 697 363 .9NS Cardiac Output 80 190 .9NS Pressure Bag 45 117 63 Albumin Human 5% 250 ml 500 In Empty Bag 1 bag @ 250 mls/hr IVPB Q1HR PRN Rx#: [id number] Lactated Ringers 1,000 ml 130 390 300 @ 20 mls/hr IV .Q24H MARGARET Rx#:[id number] Magnesium Sulfate-D5w Pmx 400 1 gm In Dextrose/Water 1 100ml.bag @ 100 mls/hr IVPB Q1H MARGARET Rx#: [id number] Intake, IV Titration 655.010 39.111 28.205 Amount ACETAMINOPHEN IV (For NPO 200 ) 1,000 mg In Empty Bag 1 bag @ 400 mls/hr IVPB Q6HR MARGARET Rx#:[id number] Insulin Regular 100 unit 19.249 39.111 28.205 In Sodium Chloride 0.9% 100 ml @ Per Protocol IV .Q0M MARGARET Rx#:[id number] Potassium Chloride 10 meq 200 In Water For Injection 1 100ml.bag @ 100 mls/hr IVPB Q1H MARGARET Rx#: [id number] ceFAZolin 3 gm In Sodium 200 Chloride 0.9% 100 ml @ 100 mls/hr IVPB Q8HR MARGARET Rx#:[id number] propofoL 1,000 mg In 35.761 Empty Bag 1 bag @ Titrate IV .Q0M MARGARET Rx#: [id number] Output: Chest Tube Drainage 95 315 120 Left Pleural Chest Tube 40 180 80 Mediastinal Chest Tube 55 135 40 Drainage 30 Left Thigh 30 Urine 495 380 315 Estimated Blood Loss 200 Other: Voiding Method Indwelling Catheter Indwelling Catheter Indwelling Catheter ABP, PAP, CO, CI - Last Documented Arterial Blood Pressure 104/43 Pulmonary Artery Pressure 24/8 Cardiac Output 6.2 Cardiac Index 2.9 - Labs CBC & Chem 7: 01/05/24 04:05 01/05/24 04:05 Labs: Abnormal Lab Results - Last 24 Hours (Table) 01/03/24 01/04/24 01/04/24 Range/Units 07:52 18:11 18:37 RBC (4.30-5.90) m/uL Hgb (13.0-17.5) gm/dL Hct (39.0-53.0) % Plt Count (150-450) k/uL Lymphocytes # (1.0-4.8) k/uL ABG pH 7.30 L (7.35-7.45) ABG pCO2 48 H (35-45) mmHg ABG pO2 130 H (83-108) mmHg ABG Total CO2 25 H (19-24) mmol/L ABG O2 Saturation 98.9 H (94-97) % Sodium (137-145) mmol/L Chloride (98-107) mmol/L Creatinine (0.66-1.25) mg/dL Glucose (74-99) mg/dL POC Glucose (mg/dL) 171 H (70-110) mg/dL Calcium (8.4-10.2) mg/dL Total Protein (6.3-8.2) g/dL Albumin (3.5-5.0) g/dL Crossmatch See Detail 01/04/24 01/04/24 01/04/24 Range/Units 19:04 19:50 19:51 RBC 2.42 L (4.30-5.90) m/uL Hgb 8.2 L (13.0-17.5) gm/dL Hct 23.7 L (39.0-53.0) % Plt Count 109 L (150-450) k/uL Lymphocytes # 0.5 L (1.0-4.8) k/uL ABG pH (7.35-7.45) ABG pCO2 (35-45) mmHg ABG pO2 (83-108) mmHg ABG Total CO2 (19-24) mmol/L ABG O2 Saturation (94-97) % Sodium (137-145) mmol/L Chloride (98-107) mmol/L Creatinine (0.66-1.25) mg/dL Glucose (74-99) mg/dL POC Glucose (mg/dL) 156 H 143 H (70-110) mg/dL Calcium (8.4-10.2) mg/dL Total Protein (6.3-8.2) g/dL Albumin (3.5-5.0) g/dL Crossmatch 01/04/24 01/04/24 01/05/24 Range/Units 20:53 21:51 00:57 RBC (4.30-5.90) m/uL Hgb (13.0-17.5) gm/dL Hct (39.0-53.0) % Plt Count (150-450) k/uL Lymphocytes # (1.0-4.8) k/uL ABG pH (7.35-7.45) ABG pCO2 (35-45) mmHg ABG pO2 (83-108) mmHg ABG Total CO2 (19-24) mmol/L ABG O2 Saturation (94-97) % Sodium (137-145) mmol/L Chloride (98-107) mmol/L Creatinine (0.66-1.25) mg/dL Glucose (74-99) mg/dL POC Glucose (mg/dL) 133 H 116 H 118 H (70-110) mg/dL Calcium (8.4-10.2) mg/dL Total Protein (6.3-8.2) g/dL Albumin (3.5-5.0) g/dL Crossmatch 01/05/24 01/05/24 01/05/24 Range/Units 01:57 03:00 04:04 RBC (4.30-5.90) m/uL Hgb (13.0-17.5) gm/dL Hct (39.0-53.0) % Plt Count (150-450) k/uL Lymphocytes # (1.0-4.8) k/uL ABG pH (7.35-7.45) ABG pCO2 (35-45) mmHg ABG pO2 (83-108) mmHg ABG Total CO2 (19-24) mmol/L ABG O2 Saturation (94-97) % Sodium (137-145) mmol/L Chloride (98-107) mmol/L Creatinine (0.66-1.25) mg/dL Glucose (74-99) mg/dL POC Glucose (mg/dL) 114 H 118 H 114 H (70-110) mg/dL Calcium (8.4-10.2) mg/dL Total Protein (6.3-8.2) g/dL Albumin (3.5-5.0) g/dL Crossmatch 01/05/24 01/05/24 01/05/24 Range/Units 04:05 04:05 05:03 RBC 2.46 L (4.30-5.90) m/uL Hgb 8.2 L (13.0-17.5) gm/dL Hct 24.3 L (39.0-53.0) % Plt Count 128 L (150-450) k/uL Lymphocytes # 0.5 L (1.0-4.8) k/uL ABG pH (7.35-7.45) ABG pCO2 (35-45) mmHg ABG pO2 (83-108) mmHg ABG Total CO2 (19-24) mmol/L ABG O2 Saturation (94-97) % Sodium 135 L (137-145) mmol/L Chloride 109 H (98-107) mmol/L Creatinine 0.60 L (0.66-1.25) mg/dL Glucose 103 H (74-99) mg/dL POC Glucose (mg/dL) 117 H (70-110) mg/dL Calcium 8.0 L (8.4-10.2) mg/dL Total Protein 5.0 L (6.3-8.2) g/dL Albumin 3.1 L (3.5-5.0) g/dL Crossmatch 01/05/24 01/05/24 01/05/24 Range/Units 06:07 06:56 11:16 RBC (4.30-5.90) m/uL Hgb (13.0-17.5) gm/dL Hct (39.0-53.0) % Plt Count (150-450) k/uL Lymphocytes # (1.0-4.8) k/uL ABG pH (7.35-7.45) ABG pCO2 (35-45) mmHg ABG pO2 (83-108) mmHg ABG Total CO2 (19-24) mmol/L ABG O2 Saturation (94-97) % Sodium (137-145) mmol/L Chloride (98-107) mmol/L Creatinine (0.66-1.25) mg/dL Glucose (74-99) mg/dL POC Glucose (mg/dL) 121 H 125 H 157 H (70-110) mg/dL Calcium (8.4-10.2) mg/dL Total Protein (6.3-8.2) g/dL Albumin (3.5-5.0) g/dL Crossmatch 01/05/24 01/05/24 01/05/24 Range/Units 12:25 13:13 15:15 RBC (4.30-5.90) m/uL Hgb (13.0-17.5) gm/dL Hct (39.0-53.0) % Plt Count (150-450) k/uL Lymphocytes # (1.0-4.8) k/uL ABG pH (7.35-7.45) ABG pCO2 (35-45) mmHg ABG pO2 (83-108) mmHg ABG Total CO2 (19-24) mmol/L ABG O2 Saturation (94-97) % Sodium (137-145) mmol/L Chloride (98-107) mmol/L Creatinine (0.66-1.25) mg/dL Glucose (74-99) mg/dL POC Glucose (mg/dL) 137 H 122 H 118 H (70-110) mg/dL Calcium (8.4-10.2) mg/dL Total Protein (6.3-8.2) g/dL Albumin (3.5-5.0) g/dL Crossmatch 01/05/24 Range/Units 17:24 RBC (4.30-5.90) m/uL Hgb (13.0-17.5) gm/dL Hct (39.0-53.0) % Plt Count (150-450) k/uL Lymphocytes # (1.0-4.8) k/uL ABG pH (7.35-7.45) ABG pCO2 (35-45) mmHg ABG pO2 (83-108) mmHg ABG Total CO2 (19-24) mmol/L ABG O2 Saturation (94-97) % Sodium (137-145) mmol/L Chloride (98-107) mmol/L Creatinine (0.66-1.25) mg/dL Glucose (74-99) mg/dL POC Glucose (mg/dL) 160 H (70-110) mg/dL Calcium (8.4-10.2) mg/dL Total Protein (6.3-8.2) g/dL Albumin (3.5-5.0) g/dL Crossmatch
[2024-01-05 18:50] LABS: Glucose,Whole Blood 132 mg/dL (70-110)
[2024-01-05 20:01] LABS: Glucose,Whole Blood 107 mg/dL (70-110)
[2024-01-05] MEDS: AMIODARONE 200 MG TAB PO SCH (20:56)
[2024-01-05] MEDS: SENNOSIDES-DOCUSATE SODIUM 1 EACH TAB PO SCH (20:57)
[2024-01-05 21:05] LABS: Glucose,Whole Blood 97 mg/dL (70-110)
[2024-01-05] MEDS: ALBUMIN HUMAN 25% 50 ML in EMPTY BAG 1 BAG IVPB ONE (21:59)
[2024-01-05] MEDS: FUROSEMIDE 10 MG/ML 2 ML VIAL IV ONE (22:05)
[2024-01-05 22:15] LABS: Glucose,Whole Blood 114 mg/dL (70-110)
[2024-01-05 23:00] LABS: Glucose,Whole Blood 119 mg/dL (70-110)
[2024-01-06] LABS: Glucose,Whole Blood 123 mg/dL (70-110)
[2024-01-06 01:15] LABS: Glucose,Whole Blood 119 mg/dL (70-110)
[2024-01-06 01:57] LABS: Glucose,Whole Blood 117 mg/dL (70-110)
[2024-01-06 04:23] LABS: Glucose,Whole Blood 101 mg/dL (70-110)
[2024-01-06 04:52] LABS: Ionized Calcium 4.7 mg/dL (4.5-5.3)
[2024-01-06 05:00] LABS: ALT 11 U/L (4-49); AST 35 U/L (17-59); African American GFR (CKD) >90 (>60 ml/min/1.73 sqM); Albumin 3.3 g/dL (3.5-5.0); Alkaline Phosphatase 42 U/L (38-126); Anion Gap 5 mmol/L; Blood Urea Nitrogen 17 mg/dL (9-20); Carbon Dioxide 23 mmol/L (22-30); Chloride 105 mmol/L (98-107); Glucose 84 mg/dL (74-99); Non-African American GFR(CKD) 84 (>60 ml/min/1.73 sqM); Potassium 4.3 mmol/L (3.5-5.1); Sodium 133 mmol/L (137-145); Total Bilirubin 0.6 mg/dL (0.2-1.3); Total Protein 5.3 g/dL (6.3-8.2)
[2024-01-06 05:03] LABS: Basophils % (A) 0 %; Eosinophils # (A) 0.1 k/uL (0-0.7); Eosinophils % (A) 1 %; HCT 21.7 % (39.0-53.0); HGB 7.7 gm/dL (13.0-17.5); Lymphocytes # (A) 0.8 k/uL (1.0-4.8); Lymphocytes % (A) 10 %; MCHC 35.6 g/dL (31.0-37.0); MCV 98.2 fL (80.0-100.0); Mean Platelet Volume 8.9; Monocytes # (A) 0.5 k/uL (0-1.0); Monocytes % (A) 7 %; Neutrophils # (A) 6.2 k/uL (1.3-7.7); Neutrophils % (A) 81 %; Platelet Count 143 k/uL (150-450); RBC 2.21 m/uL (4.30-5.90); RDW 13.2 % (11.5-15.5); WBC 7.7 k/uL (3.8-10.6)
[2024-01-06 05:13] LABS: Glucose,Whole Blood 107 mg/dL (70-110)
[2024-01-06 06:22] LABS: Glucose,Whole Blood 134 mg/dL (70-110)
[2024-01-06] MEDS: FERROUS SULFATE 325 MG TAB PO SCH (07:06)
[2024-01-06] MEDS: PANTOPRAZOLE 40 MG TABLET PO SCH (07:07)
[2024-01-06] MEDS: ASCORBIC ACID 500 MG TAB PO SCH (07:07)
[2024-01-06 07:14] LABS: Glucose,Whole Blood 133 mg/dL (70-110)
--- NOTE | 2024-01-06 07:35 | P.PN ---
Subjective Progress Note Date: 01/06/24 Principal diagnosis: Coronary artery disease, unstable angina. History of hypertension, hyperlipidemia, infrarenal abdominal aortic aneurysm, hepatitis B on chronic Entecavir, depression, morbid obesity, mild COPD, previous tobacco dependence POD#2 off-pump CABG x 4 with sequential ARANA to the diagonal and LAD, saphenous vein graft to posterior descending coronary artery, saphenous vein graft to first obtuse marginal coronary artery, ligation of the left atrial appendage wi th 35mm AtriCure clip, endovascular vein harvest from the left leg extending from ankle to groin, epiaortic ultrasonography Acute blood loss anemia and thrombocytopenia, expected given hemodilution Paroxysmal atrial fibrillation, currently controlled, known common occurrence after open heart surgery, not a complication The patient was seen and examined this morning sitting up in recliner in the intensive care unit in no acute distress. Currently atrially paced on telemetry with rate 80 bpm for blood pressure support, underlying rhythm sinus in the low 70s. Blood pressure soft. Denies any current chest pain or shortness of breath, states expected postsurgical pain is well-controlled on current medication regimen. Currently on 4 L nasal cannula, achieving 1000 mL on his incentive spirometry. Patient does have some expiratory wheeze present in his upper airways. Right internal jugular cordis, right radial arterial line, left pleural chest tube remains. Labs, chest x-ray reviewed. No other new concerns. Objective - Vital Signs Vital signs: Vital Signs Temp 98.5 F 01/06/24 00:00 Pulse 80 01/06/24 06:40 Resp 18 01/06/24 06:10 BP 92/44 01/06/24 06:10 Pulse Ox 91 L 01/06/24 06:10 FiO2 3 01/06/24 04:00 Intake & Output 01/05/24 01/06/24 01/06/24 18:59 06:59 18:59 Intake Total 2804.863 4062.752 Output Total 470 655 Balance 709.764 495.752 Weight 128.6 kg 129.1 kg Intake: IV 399 982 .9NS Pressure Bag 69 72 Albumin Human 25% 50 ml 50 In Empty Bag 1 bag @ 50 mls/hr IVPB ONCE ONE Rx#: [id number] Albumin Human 5% 250 ml 500 In Empty Bag 1 bag @ 250 mls/hr IVPB Q1HR PRN Rx#: [id number] Lactated Ringers 1,000 ml 330 360 @ 20 mls/hr IV .Q24H MARGARET Rx#:[id number] Intake, IV Titration 30.764 18.752 Amount Insulin Regular 100 unit 30.764 18.752 In Sodium Chloride 0.9% 100 ml @ Per Protocol IV .Q0M MARGARET Rx#:[id number] Oral 750 150 Output: Chest Tube Drainage 120 120 Left Pleural Chest Tube 80 120 Mediastinal Chest Tube 40 Urine 350 535 Other: Voiding Method Indwelling Catheter Indwelling Catheter ABP, PAP, CO, CI - Last Documented Arterial Blood Pressure 93/40 Pulmonary Artery Pressure 24/8 Cardiac Output 6.2 Cardiac Index 2.9 - Exam CONSTITUTIONAL: Appears comfortable, cooperative, no acute distress RESPIRATORY: Lungs sounds diminished bilaterally, expiratory wheeze present to upper airways. Respirations even, nonlabored. Currently on 4 L nasal cannula with oxygen saturation 93%. Able to achieve 1000 mL on incentive spirometry. Strong loose cough. CARDIOVASCULAR: S1, S2 present. Regular rate and rhythm, atrially paced on telemetry with underlying rhythm sinus in the 70s. Sternum stable. Palpable peripheral pulses bilaterally. No edema present. No calf pain or tenderness noted. Heart hugger in place with patient demonstrating appropriate use. Antiembolism stockings, SCDs present. GASTROINTESTINAL: Abdomen soft, nontender, nondistended, obese. Active bowel sounds present 4 quadrants. Tolerating full liquids. Positive flatus GENITOURINARY: Kaur present draining clear, yellow urine. Output overnight 20-55 mL per hour with 130 mL out after IV Lasix given, 885 mL in the last 24 hours INTEGUMENTARY: Skin is warm and dry with evidence of good perfusion. Anterior chest incision well approximated and covered with dry intact dressing. Left lower extremity EVH site well approximated without redness NEUROLOGIC: Cranial nerves II through XII intact MUSKULOSKELETAL: Able to move all extremities, strength equal bilaterally PSYCHIATRIC: Alert and oriented to person place and time, appropriate affect, intact judgment and insight INVASIVE LINES AND TUBES: Left pleural chest tubes present and connected to wall suction, no air leak present, 80 mL serosanguineous drainage overnight, 200 mL in the last 24 hours. Atrial epicardial pacemaker wires present, AAI mode with rate 80 bpm. Right internal jugular cordis, right radial arterial line present - Allied health notes Allied health notes reviewed: nursing - Labs CBC & Chem 7: 01/06/24 04:20 01/06/24 04:20 Labs: Abnormal Lab Results - Last 24 Hours (Table) 01/05/24 01/05/24 01/05/24 Range/Units 11:16 12:25 13:13 RBC (4.30-5.90) m/uL Hgb (13.0-17.5) gm/dL Hct (39.0-53.0) % Plt Count (150-450) k/uL Lymphocytes # (1.0-4.8) k/uL Sodium (137-145) mmol/L POC Glucose (mg/dL) 157 H 137 H 122 H (70-110) mg/dL Calcium (8.4-10.2) mg/dL Total Protein (6.3-8.2) g/dL Albumin (3.5-5.0) g/dL 01/05/24 01/05/24 01/05/24 Range/Units 15:15 17:24 18:48 RBC (4.30-5.90) m/uL Hgb (13.0-17.5) gm/dL Hct (39.0-53.0) % Plt Count (150-450) k/uL Lymphocytes # (1.0-4.8) k/uL Sodium (137-145) mmol/L POC Glucose (mg/dL) 118 H 160 H 132 H (70-110) mg/dL Calcium (8.4-10.2) mg/dL Total Protein (6.3-8.2) g/dL Albumin (3.5-5.0) g/dL 01/05/24 01/05/24 01/05/24 Range/Units 22:13 22:58 23:58 RBC (4.30-5.90) m/uL Hgb (13.0-17.5) gm/dL Hct (39.0-53.0) % Plt Count (150-450) k/uL Lymphocytes # (1.0-4.8) k/uL Sodium (137-145) mmol/L POC Glucose (mg/dL) 114 H 119 H 123 H (70-110) mg/dL Calcium (8.4-10.2) mg/dL Total Protein (6.3-8.2) g/dL Albumin (3.5-5.0) g/dL 01/06/24 01/06/24 01/06/24 Range/Units 01:13 01:56 04:20 RBC 2.21 L (4.30-5.90) m/uL Hgb 7.7 L (13.0-17.5) gm/dL Hct 21.7 L (39.0-53.0) % Plt Count 143 L (150-450) k/uL Lymphocytes # 0.8 L (1.0-4.8) k/uL Sodium (137-145) mmol/L POC Glucose (mg/dL) 119 H 117 H (70-110) mg/dL Calcium (8.4-10.2) mg/dL Total Protein (6.3-8.2) g/dL Albumin (3.5-5.0) g/dL 01/06/24 01/06/24 01/06/24 Range/Units 04:20 06:20 07:13 RBC (4.30-5.90) m/uL Hgb (13.0-17.5) gm/dL Hct (39.0-53.0) % Plt Count (150-450) k/uL Lymphocytes # (1.0-4.8) k/uL Sodium 133 L (137-145) mmol/L POC Glucose (mg/dL) 134 H 133 H (70-110) mg/dL Calcium 8.0 L (8.4-10.2) mg/dL Total Protein 5.3 L (6.3-8.2) g/dL Albumin 3.3 L (3.5-5.0) g/dL - Imaging and Cardiology Chest x-ray: image reviewed Assessment and Plan Assessment: Coronary artery disease, unstable angina, status post four-vessel off-pump CABG Chest pain, shortness of breath, secondary to above Hypertension, currently blood pressure soft, not on pressors Hyperlipidemia, treated, cholesterol 151, LDL 98 Infrarenal abdominal aortic aneurysm Hepatitis B, resolved, on chronic Entecavir Depression Morbid obesity Mild COPD, preoperative FEV1 59% of predicted Previous tobacco dependence Acute blood loss anemia and thrombocytopenia, expected given hemodilution Paroxysmal atrial fibrillation, currently controlled, status post left atrial appendage ligation Plan: Continue to maximize medical therapy with aspirin, statin, Plavix, beta-marci. Will increase beta-marci therapy as tolerated. Will add midodrine for blood pressure Will add an oral calcium channel marci when blood pressure tolerates for radial artery spasm prophylaxis Continue amiodarone for A-fib prophylaxis. No anticoagulation at this point Wean O2 as tolerated. Encourage incentive spirometry use 10 times every hour while awake. Bronchodilators per pulmonology Increase activity, ambulate as tolerated. PT/OT/cardiac rehab consulted Will monitor daily labs and x-rays. Electrolyte replacement per protocol. GI/DVT prophylaxis Pain control per current medication regimen Insulin management per internal medicine Will discontinue left pleural chest tube Continue Kaur catheter Continue to monitor and record strict accurate intake and output Daily weights More recommendations to follow
[2024-01-06 08:08] LABS: Glucose,Whole Blood 155 mg/dL (70-110)
[2024-01-06] MEDS: ALBUMIN HUMAN 25% 50 ML in EMPTY BAG 1 BAG IVPB ONE (08:57)
[2024-01-06 09:10] LABS: Glucose,Whole Blood 143 mg/dL (70-110)
--- NOTE | 2024-01-06 09:38 | XR ---
EXAMINATION TYPE: XR chest 1V portable DATE OF EXAM: 01/06/2024 Comparison: 01/05/2024 Clinical History: 78-year-old male Post Operative Cardiac Surgery Findings: Sternotomy wires are present with post-CABG clips. Left sided tube in place. No appreciable pneumotho rax. Heart remains moderately enlarged. Diffuse interstitial opacities persist. Patchy bibasilar opac ities slightly increased. Fluid thickens the minor fissure now. Impression: Moderate cardiomegaly. There may be slight worsening in the pulmonary vascular congestion. Slight wor sening patchy bibasilar opacities.
[2024-01-06] MEDS: FUROSEMIDE 10 MG/ML 2 ML VIAL IV ONE (09:49)
[2024-01-06 10:12] LABS: Glucose,Whole Blood 139 mg/dL (70-110)
--- NOTE | 2024-01-06 10:29 | P.PN ---
Subjective Progress Note Date: 01/06/24 Principal diagnosis: Coronary artery disease, status post CABG This is a very pleasant 78-year-old male patient with a known history of hyperlipidemia, hypertension, hearing disorder, hepatitis B infection, depression, former smoker for about 16 years at 1-1/2 packs/day. He also has a history of 4.5 cm infrarenal abdominal aortic aneurysm. He had recently undergone a cardiac catheterization on December 27, 2023 that revealed triple-vessel coronary artery disease and was planning to have possible bypass surgery. However on yesterday he developed a sudden onset of chest pain and presented to the ER for the same. Troponins were negative x 3. White count 4.1. Hemoglobin 14.2. Platelets 174. Sodium 141. Potassium 3.9. Bicarb 22. BUN 17. Creatinine 0.9. Glucose 134. The plan is for bypass surgery on 01/04/2024. FEV1 value was 59% of predicted. He is seen in consultation. He denies any known history of COPD/emphysema. No asthma. Not previously on inhalers or oxygen. The last couple of days he has been having some cough and congestion however. CT scan of the chest revealed lung parenchyma appears unremarkable. Airway is patent and unremarkable. He is currently resting comfortably in bed. Awake and alert in no acute distress. Denies any chest pain. No worsening shortness of breath. He is maintaining good O2 saturations in the 90s on room air. He is afebrile. Hemodynamically stable. The patient is seen today January 03, 2024 in follow-up on the regular medical floor. He is currently sitting up in a chair at the bedside. Awake and alert in no acute distress. Maintaining good O2 saturations in the 90s on room air. He is afebrile. Hemodynamically stable. He is working well with the incentive spirometer. He denies any chest pain. Improved shortness of breath, cough and congestion today. White count 5.5. Hemoglobin 15.1. Platelets 190. INR 1.0. Sodium 138. Potassium 3.9. Bicarb 25. BUN 17. Creatinine 0.87. Glucose 101. He remains on DuoNeb inhalations, Symbicort. Remains on oral diuretics. Remains on heparin for DVT prophylaxis. Patient was reevaluated today on 01/04/2024, presently in the ICU he is status post Off-pump CABG x 4 with sequential ARANA to the diagonal and LAD, saphenous vein graft to posterior descending coronary artery, saphenous vein graft to first obtuse marginal coronary artery, ligation of the left atrial appendage with 35mm AtriCure clip, endovascular vein harvest from the left leg extending f rom ankle to groin, epiaortic ultrasonography. Postoperative day #0. Patient is intubated mechanically ventilated, he is on assist-control rate of 14, tidal volume 450, FiO2 50%, and PEEP of 5. Earlier ABG on assist-control rate of 12 and FiO2 100% showed a pO2 of 329 pCO2 of 43 pH of 7.33. Patient had readjustment in his vent settings, he is now on assist-control rate of 12 tidal volume 500 FiO2 50% and PEEP of 5. Seems to be comfortable, sedated, he is on 15 mcg/kg/min of propofol. Patient is also receiving drips in the form of amiodarone 1 mg/min, he is on nitroglycerin 5 mcg/min, patient is on insulin drip, 4.5 units/h, patient is not requiring any pressors or any inotropes. Cardiac output is 4.5, and cardiac index is 2.1. Patient is calm sedated, and not in any distress. I have seen this patient prior to his surgery yesterday and the day before, he was cleared for surgery and felt to be low operative risk. Chest x-ray postoperatively showed mostly postoperative changes, no acute process is noted, minimal basilar atelectasis noted. Lines and tubes seem to be in proper position Reevaluate today on 01/05/2024,POD#1 off-pump CABG x 4 with sequential ARANA to the diagonal and LAD, saphenous vein graft to posterior descending coronary artery, saphenous vein graft to first obtuse marginal coronary artery, ligation of the left atrial appendage with 35mm AtriCure clip, endovascular vein harvest from the left leg extending from ankle to groin, epiaortic ultrasonography, patient is sitting in the recliner, remains in the ICU, patient was extubated yesterday within a short time after arriving to the ICU, however I had to extubate him initially to BiPAP and within 2 hours transition to nasal cannula patient is doing well today, he is on few liters nasal cannula, not in any distress. Patient is not requiring any pressors or inotropes however he is on amiodarone at 0.5 mg/min mostly because of paroxysmal atrial fibrillation which is expected. Chest x-ray showed mild pulmonary vascular congestion and left basilar atelectasis Patient was reevaluated today on 01/06/2024, he is now postoperative day #2. Patient is in the ICU, he is sitting in the bedside recliner, currently he has no hemodynamic instability not requiring any pressors or any inotropes. Blood p ressure is marginal however, and the chest x-ray is showing evidence of mild interstitial edema. I did recommend Lasix to be given 20 mg IV push, patient did receive albumin and Lasix last night, with minimal response. On physical examination there is's have crackles and wheezing bilaterally. Patient is on updrafts, but I believe the patient will benefit from diuresis and I went ahead and recommended Lasix. WBC count today is 7.7 hemoglobin is 7.7. Basic metabolic profile is normal renal profile is normal, blood sugar is 146. Objective - Vital Signs Vital signs: Vital Signs Temp 98.5 F 01/06/24 00:00 Pulse 80 01/06/24 09:00 Resp 19 01/06/24 09:00 BP 97/62 01/06/24 09:00 Pulse Ox 95 01/06/24 09:00 FiO2 3 01/06/24 04:00 Intake & Output 01/05/24 01/06/24 01/06/24 18:59 06:59 18:59 Intake Total 4379.469 9153.752 166.997 Output Total 470 655 75 Balance 709.764 495.752 91.997 Weight 128.6 kg 129.1 kg Intake: IV 399 982 158 .9NS Pressure Bag 69 72 18 Albumin Human 25% 50 ml 50 50 In Empty Bag 1 bag @ 50 mls/hr IVPB ONCE ONE Rx#: [id number] Albumin Human 5% 250 ml 500 In Empty Bag 1 bag @ 250 mls/hr IVPB Q1HR PRN Rx#: [id number] Lactated Ringers 1,000 ml 330 360 90 @ 20 mls/hr IV .Q24H MARGARET Rx#:[id number] Intake, IV Titration 30.764 18.752 8.997 Amount Insulin Regular 100 unit 30.764 18.752 8.997 In Sodium Chloride 0.9% 100 ml @ Per Protocol IV .Q0M [facility] Rx#:[id number] Oral 750 150 Output: Chest Tube Drainage 120 120 10 Left Pleural Chest Tube 80 120 10 Mediastinal Chest Tube 40 Urine 350 535 65 Other: Voiding Method Indwelling Catheter Indwelling Catheter ABP, PAP, CO, CI - Last Documented Arterial Blood Pressure 97/54 Pulmonary Artery Pressure 24/8 Cardiac Output 6.2 Cardiac Index 2.9 - Exam GENERAL EXAM: Reveals 78-year-old white male obese, on nasal cannula, not in distress, sitting in a recliner HEAD: Normocephalic. Atraumatic EYES: Normal reaction of pupils, equal size. NOSE: Clear with pink turbinates. THROAT: No erythema or exudates. NECK: No masses, no JVD. CHEST: No chest wall deformity. LUNGS: Rhonchi and wheezes noted bilaterally. More so at the bases. CVS: Normal S1-S2, no S3 gallop, positive pericardial rub ABDOMEN: No hepatosplenomegaly, normal bowel sounds, no guarding or rigidity. SKIN: No rashes CENTRAL NERVOUS SYSTEM: Alert and oriented x 3 no gross focal deficit EXTREMITIES: No edema, no cyanosis. Pulses bilaterally.. - Labs CBC & Chem 7: 01/06/24 04:20 01/06/24 04:20 Labs: Abnormal Lab Results - Last 24 Hours (Table) 01/05/24 01/05/24 01/05/24 Range/Units 11:16 12:25 13:13 RBC (4.30-5.90) m/uL Hgb (13.0-17.5) gm/dL Hct (39.0-53.0) % Plt Count (150-450) k/uL Lymphocytes # (1.0-4.8) k/uL Sodium (137-145) mmol/L POC Glucose (mg/dL) 157 H 137 H 122 H (70-110) mg/dL Calcium (8.4-10.2) mg/dL Total Protein (6.3-8.2) g/dL Albumin (3.5-5.0) g/dL 01/05/24 01/05/24 01/05/24 Range/Units 15:15 17:24 18:48 RBC (4.30-5.90) m/uL Hgb (13.0-17.5) gm/dL Hct (39.0-53.0) % Plt Count (150-450) k/uL Lymphocytes # (1.0-4.8) k/uL Sodium (137-145) mmol/L POC Glucose (mg/dL) 118 H 160 H 132 H (70-110) mg/dL Calcium (8.4-10.2) mg/dL Total Protein (6.3-8.2) g/dL Albumin (3.5-5.0) g/dL 01/05/24 01/05/24 01/05/24 Range/Units 22:13 22:58 23:58 RBC (4.30-5.90) m/uL Hgb (13.0-17.5) gm/dL Hct (39.0-53.0) % Plt Count (150-450) k/uL Lymphocytes # (1.0-4.8) k/uL Sodium (137-145) mmol/L POC Glucose (mg/dL) 114 H 119 H 123 H (70-110) mg/dL Calcium (8.4-10.2) mg/dL Total Protein (6.3-8.2) g/dL Albumin (3.5-5.0) g/dL 01/06/24 01/06/24 01/06/24 Range/Units 01:13 01:56 04:20 RBC 2.21 L (4.30-5.90) m/uL Hgb 7.7 L (13.0-17.5) gm/dL Hct 21.7 L (39.0-53.0) % Plt Count 143 L (150-450) k/uL Lymphocytes # 0.8 L (1.0-4.8) k/uL Sodium (137-145) mmol/L POC Glucose (mg/dL) 119 H 117 H (70-110) mg/dL Calcium (8.4-10.2) mg/dL Total Protein (6.3-8.2) g/dL Albumin (3.5-5.0) g/dL 01/06/24 01/06/24 01/06/24 Range/Units 04:20 06:20 07:13 RBC (4.30-5.90) m/uL Hgb (13.0-17.5) gm/dL Hct (39.0-53.0) % Plt Count (150-450) k/uL Lymphocytes # (1.0-4.8) k/uL Sodium 133 L (137-145) mmol/L POC Glucose (mg/dL) 134 H 133 H (70-110) mg/dL Calcium 8.0 L (8.4-10.2) mg/dL Total Protein 5.3 L (6.3-8.2) g/dL Albumin 3.3 L (3.5-5.0) g/dL 01/06/24 01/06/24 01/06/24 Range/Units 08:07 09:08 10:09 RBC (4.30-5.90) m/uL Hgb (13.0-17.5) gm/dL Hct (39.0-53.0) % Plt Count (150-450) k/uL Lymphocytes # (1.0-4.8) k/uL Sodium (137-145) mmol/L POC Glucose (mg/dL) 155 H 143 H 139 H (70-110) mg/dL Calcium (8.4-10.2) mg/dL Total Protein (6.3-8.2) g/dL Albumin (3.5-5.0) g/dL Assessment and Plan Assessment: Impression: Status postOff-pump CABG x 4 with sequential ARANA to the diagonal and LAD, saphenous vein graft to posterior descending coronary artery, saphenous vein graft to first obtuse marginal coronary artery, postoperative day #2 Triple-vessel coronary artery disease Former smoker of 16 years at 1-1/2 packs/day. FEV1 value 59% of predicted, patient clearly has moderate COPD History of abdominal aortic aneurysm currently measuring 4.5 cm Chronic hepatitis B infection, maintained on Baraclude. MRI of the liver revealed no suspicious observations. No steatosis. No cirrhosis Hypertension Hyperlipidemia History of depression Hearing disorder Recommendation: Continue to monitor in the ICU Continue oxygen and titrate accordingly Gentle diuresis, and monitor blood pressure Continue incentive spirometry Bronchodilators in the form of DuoNeb 4 times daily and as needed, and the patient was placed on Symbicort. GI and DVT prophylaxis Early ambulation Continue maximal medical therapy Continue amiodarone for atrial fibrillation prophylaxis. Continue accurate I's and O's and daily weights GI and DVT prophylaxis Will continue to follow. Time with Patient: Less than 30
[2024-01-06] MEDS: MIDODRINE 5 MG TAB PO SCH (10:39)
[2024-01-06] MEDS ORDERED: DEXTROSE 50% SYRINGE 50 ML IVP PRN ×2 (11:39)
[2024-01-06 11:49] LABS: Glucose,Whole Blood 114 mg/dL (70-110)
[2024-01-06] MEDS: CALCIUM GLUCONATE IN NACL 1 GM in SALINE 1 100ML.BAG IVPB ONE (12:40)
[2024-01-06] MEDS: INSULIN ASPART (NovoLOG) 100 UNIT/ML VIAL SQ SCH (12:45)
[2024-01-06 13:01] LABS: HGB 8.1 gm/dL (13.0-17.5)
--- NOTE | 2024-01-06 13:45 | P.PN ---
Progress Note - Text Progress Note Date: 01/06/24 Patient is a 78-year-old male with a known history of coronary artery disease and recent cardiac catheterization due to abnormal perfusion stress test on 12/27/2023 showed a extremely calcified right and left coronary system with severe triple-vessel coronary artery disease, hypertension, hyperlipidemia, hearing disorder/deafness, osteoarthritis, depression and prior history of smoking. Patient presents to ER with complaints of chest pain left retrosternal and radiating to left upper arm associate with coughing and shortness of breath and worsens with deep breathing. Patient was brought to the hospital by his family. He did take aspirin x 4 before coming to ER. His symptoms resolved by the time he is in the ER currently denies any complaints of chest pain. No nausea vomiting abdominal pain or diarrhea. Denies any recent illnesses. He did have RSV infection September 2023 and status post course of steroids and antibiotics. Chest x-ray showed suspected interstitial infiltrative mid and lower lungs. Consider possible such as aspiration or an early or atypical pneumonia. EKG showed supraventricular bradycardia with heart rate 59 Laboratory data showed WBC 4.9 hemoglobin 15.1 and platelets 168 sodium 140 potassium 4.0 chloride 106 bicarb is 28 BUN 18 and creatinine 0.9 Blood sugar 10/26/2006 and A1c 5.5 lowering Elevated troponin x 3 negative and proBNP is 48 and TSH 3.58 Hepatitis panel and RSV COVID-19 and influenza not detected. 01/03/2024 Patient is seen in follow-up today with family members present currently undergoing further workup for tentative CABG. Patient is afebrile with no reports of chest pain or shortness of breath. Patient does have incentive spirometer at the bedside and has been using and encouraged to continue at least 10 times every hour while awake. Patient currently tolerating diet and will be n.p.o. at midnight. Patient denies any nausea or vomiting. Patient has been up and walking and encouraged the patient to increase activity as tolerated. Questions and concerns were answered to the best of our ability. January 05, 2024: Yesterday-December Diet came to see the patient twice. Had not return from operating room. Today patient. He is extubated. Sitting up in a chair. Chest tubes in place. On clear liquid diet. Family at the bedside. 4 L nasal cannula. Using incentive spirometry. Kaur catheter. Some shortness of breath. January 06, 2024: ICU. Up in a chair. Chest tubes are out. Kaur catheter in place. Did walk a bit. Slight short of breath. Tolerating diet. On 4 L nasal cannula. Using incentive spirometry. Patient taken off insulin drip. Accu-Cheks with sliding scale. Active Medications Acetaminophen (Acetaminophen Tab 325 Mg Tab) 650 mg PO Q4HR PRN PRN Reason: Fever and/ or Mild Pain Albuterol/Ipratropium (Ipratropium-Albuterol 3 Ml Neb) 3 ml INHALATION RT-Q2H PRN PRN Reason: Shortness Of Breath Or Wheezing Albuterol/Ipratropium (Ipratropium-Albuterol 3 Ml Neb) 3 ml INHALATION RT-QID [facility] Last Admin: 01/06/24 12:46 Dose: 3 ml Amiodarone HCl (Amiodarone 200 Mg Tab) 400 mg PO BID [facility] Last Admin: 01/05/24 20:56 Dose: 400 mg Ascorbic Acid (Ascorbic Acid 500 Mg Tab) 500 mg PO BID-W/MEALS [facility] Last Admin: 01/06/24 07:07 Dose: 500 mg Aspirin (Aspirin 325 Mg Tab) 325 mg PO DAILY [facility] Last Admin: 01/06/24 08:45 Dose: 325 mg Atorvastatin Calcium (Atorvastatin 80 Mg Tab) 80 mg PO DAILY [facility] Last Admin: 01/06/24 08:45 Dose: 80 mg Bisacodyl (Bisacodyl 10 Mg Supp) 10 mg RECTAL DAILY PRN PRN Reason: Constipation Budesonide/Formoterol Fumarate (Symbicort 160-4.5 Mcg Inhaler) 2 puff INHALATION RT-BID [facility] Last Admin: 01/06/24 06:28 Dose: 2 puff Buspirone HCl (Buspirone Hcl 5 Mg Tab) 15 mg PO BID [facility] Last Admin: 01/06/24 08:46 Dose: 15 mg Clopidogrel Bisulfate (Clopidogrel 75 Mg Tab) 75 mg PO DAILY [facility] Last Admin: 01/06/24 08:45 Dose: 75 mg Dextrose/Water (Dextrose 50% Syringe 50 Ml) 25 ml IVP PER PROTOCOL PRN; Protocol PRN Reason: Hypoglycemia Dextrose/Water (Dextrose 50% Syringe 50 Ml) 50 ml IVP PER PROTOCOL PRN; Protocol PRN Reason: Hypoglycemia Dextrose/Water (Dextrose 50% Syringe 50 Ml) 25 ml IVP PER PROTOCOL PRN; Protocol PRN Reason: Hypoglycemia Dextrose/Water (Dextrose 50% Syringe 50 Ml) 50 ml IVP PER PROTOCOL PRN; Pr otocol PRN Reason: Hypoglycemia Escitalopram Oxalate (Escitalopram 20 Mg Tab) 20 mg PO DAILY [facility] Last Admin: 01/06/24 08:46 Dose: 20 mg Ferrous Sulfate (Ferrous Sulfate 325 Mg Tab) 325 mg PO BID-W/MEALS [facility] Last Admin: 01/06/24 07:06 Dose: 325 mg Gabapentin (Gabapentin 300 Mg Cap) 300 mg PO BID [facility] Last Admin: 01/06/24 08:45 Dose: 300 mg Heparin Sodium (Porcine) (Heparin Sodium,Porcine 5,000 Unit/Ml 1 Ml Vial) 5,000 unit SQ Q8HR [facility] Last Admin: 01/06/24 08:45 Dose: 5,000 unit Amiodarone HCl 150 mg/ (Dextrose/Water) 103 mls @ 618 mls/hr IV .Q10M PRN PRN Reason: A.FIB/FLUTTER Last Admin: 01/04/24 13:46 Dose: 618 mls/hr Lactated Ringer's (Lactated Ringers) 1,000 mls @ 20 mls/hr IV .Q24H [facility] Last Admin: 01/05/24 16:41 Dose: 20 mls/hr Insulin Aspart (Insulin Aspart (Novolog) 100 Unit/Ml Vial) 0 unit SQ ACHS [facility]; Protocol Last Admin: 01/06/24 12:45 Dose: Not Given Magnesium Hydroxide (Magnesium Hydroxide 2,400 Mg/30 Ml Cup) 2,400 mg PO BID PRN PRN Reason: Constipation Metoclopramide HCl (Metoclopramide 5 Mg/Ml 2 Ml Vial) 10 mg IVP Q4H PRN PRN Reason: Nausea And Vomiting Metoprolol Tartrate (Metoprolol Tartrate 12.5 Mg Tab) 12.5 mg PO BID [facility] Last Admin: 01/05/24 20:57 Dose: 12.5 mg Midodrine (Midodrine 5 Mg Tab) 10 mg PO AC-BID [facility] Last Admin: 01/06/24 10:39 Dose: 10 mg Miscellaneous Information (Potassium Replacement Protocol 1 Each Misc) 1 each MISCELLANE DAILY PRN; Protocol PRN Reason: Per Protocol Miscellaneous Information (Magnesium Replacement Protocol 1 Each Misc) 1 each MISCELLANE DAILY PRN; Protocol PRN Reason: Per Protocol Miscellaneous Information (Potassium Replacement Protocol 1 Each Misc) 1 each MISCELLANE DAILY PRN; Protocol PRN Reason: Per Protocol Ondansetron HCl (Ondansetron 4 Mg/2 Ml Vial) 4 mg IVP Q6HR PRN PRN Reason: Nausea And Vomiting Last Admin: 01/05/24 09:53 Dose: 4 mg Oxycodone HCl (Oxycodone Hcl 5 Mg Tab) 5 mg PO Q4HR PRN PRN Reason: Breakthrough Pain Last Admin: 01/06/24 04:14 Dose: 5 mg Pantoprazole Sodium (Pantoprazole 40 Mg Tablet) 40 mg PO AC-BRKFST [facility] Last Admin: 01/06/24 07:07 Dose: 40 mg Senna/Docusate Sodium (Sennosides-Docusate Sodium 1 Each Tab) 2 each PO HS [facility] Last Admin: 01/05/24 20:57 Dose: 2 each Sodium Chloride (Sodium Chloride 0.9% Flush 10 Ml Syringe) 10 ml IV BID [facility] Last Admin: 01/06/24 08:46 Dose: 10 ml On examination: VITAL SIGNS: 98.5, 80, 21, 110 x 45, 92% on 3 L GENERAL APPEARANCE: Up in a recliner. Chest tubes are out HEENT: Normal external appearance of nose and ear. Oral cavity normal EYES: Pupils equal. Conjunctiva normal. NECK: JVD able to assess. Mass not palpable. RESPIRATORY: Respiratory effort increased. Lungs creased breath sounds CARDIOVASCULAR: Heart sounds distant, minimal edema ABDOMEN: Soft. Liver and spleen not palpable. No tenderness. No mass palpable. PSYCHIATRY: Alert and oriented x3. Mood and affect normal. INVESTIGATIONS, reviewed in the clinical context: January 05: White count 7.7 hemoglobin 7.7 platelets 143 potassium 4.3 creatinine 0.82 January 05, 2024: White count 6.3 hemoglobin 8.2 platelets 128 sodium 135 potassium 4.1 BUN 16 creatinine 0.6 albumin 3.1 Previous labs: January 03, 2024: Hemoglobin 15.1, platelets 190 Liver MRI: Smooth contour of the liver. Infrarenal abdominal aortic aneurysm 4.6 cm. Assessment and plan: Severe triple-vessel coronary artery disease status post cardiac catheterization on 12/27/2023 CABG on 01/04/2024 Essential hypertension Hyperlipidemia GERD Primary osteoarthritis Depression Morbid obesity BMI 45.8 Hearing disorder/deafness hepatitis B-history of resolved Morbid obesity BMI 43.6 Acute postprocedure blood loss anemia expected from surgery Dilutional thrombocytopenia Reactive hypoalbuminemia Full code Started to ambulate. Chest tubes are out. Eating fair. Discussed with patient.
--- NOTE | 2024-01-06 15:29 | P.PN ---
Subjective HISTORY OF PRESENT ILLNESS: The patient is a pleasant 78-year-old gentleman who is known to my service from before with a past medical history significant for coronary artery disease and known severe triple-vessel coronary artery disease documented on heart catheterization was performed in December 27, 2023 as well as hypertension and dyslipidemia. He was seen in the office recently for further evaluation of chest discomfort and he underwent myocardial perfusion imaging stress test came in to be abnormal and for that reason he underwent a heart catheterization and that revealed severe triple-vessel CAD with extremely calcified right and left c oronary system. Coronary artery bypass grafting consult was advised but the patient states he would like to go home and have being seen as an outpatient. He presented back to the emergency department complaining of chest discomfort in the middle and left side of the chest as a dull feeling with no radiation and no associated symptoms. The discomfort lasted for few minutes only. Currently his chest pain-free. No shortness of breath and no dizziness or lightheadedness and no feeling of heart racing or fluttering and no presyncope or syncope. His vitals are stable. He is bradycardic. He is not on any AV alexandru marci agents. He is on low intensity statin which is going to increase to high intensity statin but he is on KERRIE inhibitor as well. The examination is remarkable for stable vital signs with regular rate and rhythm and distant heart sounds and soft systolic murmur and clear breathing sounds bilaterally and no edema was noted January 02, 2024 The patient was seen and evaluated this morning. He is asymptomatic and he is hemodynamically stable as well. He is on aspirin and high intensity statin and anti-ischemic medications but he underwent carotid duplex study showed mild disease bilaterally and also he underwent lower extremities arterial duplex study came in to be unremarkable. There was some concern about the liver and he is in process of having an MRI. The examination overall is remarkable for stable vital signs with regular rate and rhythm and soft systolic murmur and clear breathing sounds bilaterally and no edema was noted in the lower extremities 01/03/2024 Patient examined this morning at the bedside. Patient denies any further episodes of chest pain or pressure. He denies shortness of breath. Patient underwent MRI of the liver today and results are currently pending. He is tentatively scheduled for CABG tomorrow. Vital signs are stable. 01/04 Patient underwent CABG with 4 vessel, ARANA to diagonal and LAD, SVG to PDA and SVG to OM, ligation of left atrial appendage 01/03. He was extubated last night and was weaned off of vasopressors. He did have brief episode of A. fib and placed on amiodarone. He has had some intermittent bradycardia and pacing wires pacemaker 80 currently. Denies any chest pain or pressure other than the incision. Hemoglobin today 8.2, creatinine 0.6. 01/05 patient seen and examined. Patient remains in sinus rhythm and atrial paced. Denies any chest pain or pressure. He was able in the halls twice. Blood pressures been borderline in the 80s to 90s in the 100s systolic with maps in the 60-70 range. Denies any significant shortness breath. No lightheadedness. He is on Midrin and his metoprolol as well as amiodarone were held this morning. Has had somewhat decreased urine output and therefore his been given albumin as well as Lasix. PHYSICAL EXAM: VITAL SIGNS: Reviewed. GENERAL: Well-developed in no acute distress. NECK: Supple. No JVD or thyromegaly LUNGS: Respirations even and unlabored. Lungs essentially clear to auscultation bilaterally. HEART: Regular rate and rhythm. S1 and S2 heard. EXTREMITIES: Normal range of motion. No clubbing or cyanosis. Peripheral pulses intact. No lower extremity edema ASSESSMENT: Coronary artery disease as described above with no severe triple-vessel CAD, s/p CABG x 4 01/03 Multiple comorbid conditions including hypertension and dyslipidemia Anemia Postoperative A. fib Bradycardia PLAN: patient does have lower blood pressures and agree with holding metoprolol with lower blood pressures noted. Patient did appear to respond to the albumin and Lasix with increased urine output. Monitor him symptomatically and overall appears to be slowly improving. Continue with amiodarone for A. fib prophylaxis Objective - Vital Signs Vital signs: Vital Signs Temp 98.5 F 01/06/24 13:00 Pulse 80 01/06/24 15:00 Resp 14 01/06/24 15:00 BP 87/58 01/06/24 13:20 Pulse Ox 92 L 01/06/24 15:00 FiO2 3 01/06/24 04:00 Intake & Output 01/05/24 01/06/24 01/06/24 18:59 06:59 18:59 Intake Total 9181.053 7235.752 352.997 Output Total 470 655 575 Balance 709.764 495.752 -222.003 Weight 128.6 kg 129.1 kg Intake: IV 399 982 344 .9NS Pressure Bag 69 72 54 Albumin Human 25% 50 ml 50 50 In Empty Bag 1 bag @ 50 mls/hr IVPB ONCE ONE Rx#: [id number] Albumin Human 5% 250 ml 500 In Empty Bag 1 bag @ 250 mls/hr IVPB Q1HR PRN Rx#: [id number] Lactated Ringers 1,000 ml 330 360 240 @ 20 mls/hr IV .Q24H [facility] Rx#:[id number] Intake, IV Titration 30.764 18.752 8.997 Amount Insulin Regular 100 unit 30.764 18.752 8.997 In Sodium Chloride 0.9% 100 ml @ Per Protocol IV .Q0M [facility] Rx#:[id number] Oral 750 150 Output: Chest Tube Drainage 120 120 10 Left Pleural Chest Tube 80 120 10 Mediastinal Chest Tube 40 Urine 350 535 565 Other: Voiding Method Indwelling Catheter Indwelling Catheter ABP, PAP, CO, CI - Last Documented Arterial Blood Pressure 123/48 Pulmonary Artery Pressure 24/8 Cardiac Output 6.2 Cardiac Index 2.9 - Labs CBC & Chem 7: 01/06/24 04:20 01/06/24 04:20 Labs: Abnormal Lab Results - Last 24 Hours (Table) 01/04/24 01/05/24 01/05/24 Range/Units 13:45 17:24 18:48 RBC (4.30-5.90) m/uL Hgb 8.1 L D (13.0-17.5) gm/dL Hct (39.0-53.0) % Plt Count (150-450) k/uL Lymphocytes # (1.0-4.8) k/uL Sodium (137-145) mmol/L POC Glucose (mg/dL) 160 H 132 H (70-110) mg/dL Calcium (8.4-10.2) mg/dL Total Protein (6.3-8.2) g/dL Albumin (3.5-5.0) g/dL 01/05/24 01/05/24 01/05/24 Range/Units 22:13 22:58 23:58 RBC (4.30-5.90) m/uL Hgb (13.0-17.5) gm/dL Hct (39.0-53.0) % Plt Count (150-450) k/uL Lymphocytes # (1.0-4.8) k/uL Sodium (137-145) mmol/L POC Glucose (mg/dL) 114 H 119 H 123 H (70-110) mg/dL Calcium (8.4-10.2) mg/dL Total Protein (6.3-8.2) g/dL Albumin (3.5-5.0) g/dL 01/06/24 01/06/24 01/06/24 Range/Units 01:13 01:56 04:20 RBC 2.21 L (4.30-5.90) m/uL Hgb 7.7 L (13.0-17.5) gm/dL Hct 21.7 L (39.0-53.0) % Plt Count 143 L (150-450) k/uL Lymphocytes # 0.8 L (1.0-4.8) k/uL Sodium (137-145) mmol/L POC Glucose (mg/dL) 119 H 117 H (70-110) mg/dL Calcium (8.4-10.2) mg/dL Total Protein (6.3-8.2) g/dL Albumin (3.5-5.0) g/dL 01/06/24 01/06/24 01/06/24 Range/Units 04:20 06:20 07:13 RBC (4.30-5.90) m/uL Hgb (13.0-17.5) gm/dL Hct (39.0-53.0) % Plt Count (150-450) k/uL Lymphocytes # (1.0-4.8) k/uL Sodium 133 L (137-145) mmol/L POC Glucose (mg/dL) 134 H 133 H (70-110) mg/dL Calcium 8.0 L (8.4-10.2) mg/dL Total Protein 5.3 L (6.3-8.2) g/dL Albumin 3.3 L (3.5-5.0) g/dL 01/06/24 01/06/24 01/06/24 Range/Units 08:07 09:08 10:09 RBC (4.30-5.90) m/uL Hgb (13.0-17.5) gm/dL Hct (39.0-53.0) % Plt Count (150-450) k/uL Lymphocytes # (1.0-4.8) k/uL Sodium (137-145) mmol/L POC Glucose (mg/dL) 155 H 143 H 139 H (70-110) mg/dL Calcium (8.4-10.2) mg/dL Total Protein (6.3-8.2) g/dL Albumin (3.5-5.0) g/dL 01/06/24 Range/Units 11:47 RBC (4.30-5.90) m/uL Hgb (13.0-17.5) gm/dL Hct (39.0-53.0) % Plt Count (150-450) k/uL Lymphocytes # (1.0-4.8) k/uL Sodium (137-145) mmol/L POC Glucose (mg/dL) 114 H (70-110) mg/dL Calcium (8.4-10.2) mg/dL Total Protein (6.3-8.2) g/dL Albumin (3.5-5.0) g/dL
[2024-01-06 16:59] LABS: Glucose,Whole Blood 152 mg/dL (70-110)
[2024-01-06 21:10] LABS: Glucose,Whole Blood 150 mg/dL (70-110)
[2024-01-07 04:09] LABS: Basophils % (A) 0 %; Eosinophils # (A) 0.1 k/uL (0-0.7); Eosinophils % (A) 1 %; HCT 20.4 % (39.0-53.0); Lymphocytes # (A) 0.8 k/uL (1.0-4.8); Lymphocytes % (A) 14 %; MCH 32.3 pg (25.0-35.0); MCHC 32.4 g/dL (31.0-37.0); MCV 99.4 fL (80.0-100.0); Mean Platelet Volume 9.8; Monocytes # (A) 0.5 k/uL (0-1.0); Monocytes % (A) 8 %; Neutrophils # (A) 4.7 k/uL (1.3-7.7); Neutrophils % (A) 76 %; Platelet Count 135 k/uL (150-450); RBC 2.06 m/uL (4.30-5.90); RDW 13.1 % (11.5-15.5); WBC 6.2 k/uL (3.8-10.6)
[2024-01-07 04:20] LABS: Chloride 104 mmol/L (98-107)
[2024-01-07 04:22] LABS: ALT 12 U/L (4-49); AST 72 U/L (17-59); African American GFR (CKD) >90 (>60 ml/min/1.73 sqM); Albumin 2.8 g/dL (3.5-5.0); Alkaline Phosphatase 48 U/L (38-126); Anion Gap 5 mmol/L; Blood Urea Nitrogen 18 mg/dL (9-20); Calcium 7.9 mg/dL (8.4-10.2); Carbon Dioxide 24 mmol/L (22-30); Glucose 109 mg/dL (74-99); Non-African American GFR(CKD) 84 (>60 ml/min/1.73 sqM); Sodium 133 mmol/L (137-145); Total Bilirubin 0.7 mg/dL (0.2-1.3); Total Protein 4.8 g/dL (6.3-8.2)
[2024-01-07 04:38] LABS: HGB 6.6 gm/dL (13.0-17.5)
[2024-01-07 05:22] LABS: Basophils % (A) 0 %; Eosinophils # (A) 0.1 k/uL (0-0.7); Eosinophils % (A) 2 %; HCT 20.5 % (39.0-53.0); Lymphocytes # (A) 0.8 k/uL (1.0-4.8); Lymphocytes % (A) 13 %; MCH 32.7 pg (25.0-35.0); MCHC 33.2 g/dL (31.0-37.0); MCV 98.3 fL (80.0-100.0); Mean Platelet Volume 8.7; Monocytes # (A) 0.4 k/uL (0-1.0); Monocytes % (A) 7 %; Neutrophils % (A) 77 %; Platelet Count 137 k/uL (150-450); RBC 2.09 m/uL (4.30-5.90); RDW 13.5 % (11.5-15.5); WBC 6.5 k/uL (3.8-10.6)
[2024-01-07 05:57] LABS: HGB 6.8 gm/dL (13.0-17.5)
[2024-01-07 06:54] LABS: Glucose,Whole Blood 138 mg/dL (70-110)
--- NOTE | 2024-01-07 07:56 | XR ---
EXAMINATION TYPE: XR chest 1V portable DATE OF EXAM: 01/07/2024 Comparison: 01/06/2024 Clinical History: 78-year-old male post cardiac surgery Findings: Median sternotomy wires and postsurgical clips. Heart is moderately enlarged. Diffuse interstitial de nsities remain. Suspect trace effusions. The previous patchy lower lung densities are improving. Impression: Ongoing moderate cardiomegaly and pulmonary vascular congestion. Some improving aeration at the lower lungs.
--- NOTE | 2024-01-07 08:11 | P.PN ---
Subjective Progress Note Date: 01/07/24 Principal diagnosis: Coronary artery disease, unstable angina. History of hypertension, hyperlipidemia, infrarenal abdominal aortic aneurysm, hepatitis B on chronic Entecavir, depression, morbid obesity, mild COPD, previous tobacco dependence POD#3 off-pump CABG x 4 with sequential ARANA to the diagonal and LAD, saphenous vein graft to posterior descending coronary artery, saphenous vein graft to first obtuse marginal coronary artery, ligation of the left atrial appendage wi th 35mm AtriCure clip, endovascular vein harvest from the left leg extending from ankle to groin, epiaortic ultrasonography Acute blood loss anemia and thrombocytopenia, expected given hemodilution Paroxysmal atrial fibrillation, currently controlled, known common occurrence after open heart surgery, not a complication The patient was seen and examined this morning sitting up in recliner in the intensive care unit in no acute distress. Currently atrially paced on telemetry with rate 80 bpm for blood pressure support, underlying rhythm sinus in the high 60s to low 70s. Blood pressure soft but better than yesterday since initiation of midodrine. Denies any current chest pain, does complain of mild shortness of breath with activity, states expected postsurgical pain is well-controlled on current medication regimen. Currently on 3 L nasal cannula, achieving 1000 mL on his incentive spirometry. Right internal jugular cordis, right radial arterial line remains. Labs, chest x-ray reviewed. Hbg 6.8 this am, will tranfuse 1 unit PRBCs followed by IV lasix. Patient ambulated in hallway yesterday and already this morning with walker. No other new concerns. Objective - Vital Signs Vital signs: Vital Signs Temp 98.6 F 01/07/24 04:00 Pulse 80 01/07/24 07:00 Resp 15 01/07/24 07:00 BP 98/47 01/07/24 07:00 Pulse Ox 94 L 01/07/24 07:00 FiO2 3 01/06/24 04:00 Intake & Output 01/06/24 01/07/24 01/07/24 18:59 06:59 18:59 Intake Total 460.997 718 Output Total 665 535 Balance -204.003 183 Weight 130.2 kg Intake: IV 452 468 .9NS Pressure Bag 72 78 Albumin Human 25% 50 ml 50 In Empty Bag 1 bag @ 50 mls/hr IVPB ONCE ONE Rx#: [id number] Lactated Ringers 1,000 ml 330 390 @ 20 mls/hr IV .Q24H [facility] Rx#:[id number] Intake, IV Titration 8.997 Amount Insulin Regular 100 unit 8.997 In Sodium Chloride 0.9% 100 ml @ Per Protocol IV .Q0M [facility] Rx#:[id number] Oral 250 Output: Chest Tube Drainage 10 Left Pleural Chest Tube 10 Urine 655 535 Other: Voiding Method Indwelling Catheter Indwelling Catheter ABP, PAP, CO, CI - Last Documented Arterial Blood Pressure 96/46 Pulmonary Artery Pressure 24/8 Cardiac Output 6.2 Cardiac Index 2.9 - Exam CONSTITUTIONAL: Appears comfortable, cooperative, no acute distress RESPIRATORY: Lungs sounds diminished bilaterally, expiratory wheeze present to upper airways. Respirations even, nonlabored. Currently on 3 L nasal cannula with oxygen saturation 93%. Able to achieve 1000 mL on incentive spirometry. Strong loose cough. CARDIOVASCULAR: S1, S2 present. Regular rate and rhythm, atrially paced on telemetry with underlying rhythm sinus in the 60-70s. Sternum stable. Palpable peripheral pulses bilaterally. No edema present. No calf pain or tenderness noted. Heart hugger in place with patient demonstrating appropriate use. Antiembolism stockings, SCDs present. GASTROINTESTINAL: Abdomen soft, nontender, nondistended, obese. Active bowel sounds present 4 quadrants. Tolerating diet. Positive flatus GENITOURINARY: Kaur present draining clear, yellow urine. Output overnight 15-65 mL per hour with 300 mL out after IV Lasix given, 1175 mL in the last 24 hours INTEGUMENTARY: Skin is warm and dry with evidence of good perfusion. Anterior chest incision well approximated and covered with dry intact dressing. Left lower extremity EVH site well approximated without redness NEUROLOGIC: Cranial nerves II through XII intact MUSKULOSKELETAL: Able to move all extremities, strength equal bilaterally PSYCHIATRIC: Alert and oriented to person place and time, appropriate affect, intact judgment and insight INVASIVE LINES AND TUBES: Atrial epicardial pacemaker wires present, AAI mode with rate 80 bpm. Right internal jugular cordis, right radial arterial line present - Allied health notes Allied health notes reviewed: nursing - Labs CBC & Chem 7: 01/07/24 05:09 01/07/24 03:50 Labs: Abnormal Lab Results - Last 24 Hours (Table) 01/04/24 01/06/24 01/06/24 Range/Units 13:45 08:07 09:08 RBC (4.30-5.90) m/uL Hgb 8.1 L D (13.0-17.5) gm/dL Hct (39.0-53.0) % Plt Count (150-450) k/uL Lymphocytes # (1.0-4.8) k/uL Sodium (137-145) mmol/L Glucose (74-99) mg/dL POC Glucose (mg/dL) 155 H 143 H (70-110) mg/dL Calcium (8.4-10.2) mg/dL AST (17-59) U/L Total Protein (6.3-8.2) g/dL Albumin (3.5-5.0) g/dL 01/06/24 01/06/24 01/06/24 Range/Units 10:09 11:47 16:57 RBC (4.30-5.90) m/uL Hgb (13.0-17.5) gm/dL Hct (39.0-53.0) % Plt Count (150-450) k/uL Lymphocytes # (1.0-4.8) k/uL Sodium (137-145) mmol/L Glucose (74-99) mg/dL POC Glucose (mg/dL) 139 H 114 H 152 H (70-110) mg/dL Calcium (8.4-10.2) mg/dL AST (17-59) U/L Total Protein (6.3-8.2) g/dL Albumin (3.5-5.0) g/dL 01/06/24 01/07/24 01/07/24 Range/Units 21:08 03:50 03:50 RBC 2.06 L (4.30-5.90) m/uL Hgb 6.6 L* (13.0-17.5) gm/dL Hct 20.4 L (39.0-53.0) % Plt Count 135 L (150-450) k/uL Lymphocytes # 0.8 L (1.0-4.8) k/uL Sodium 133 L (137-145) mmol/L Glucose 109 H (74-99) mg/dL POC Glucose (mg/dL) 150 H (70-110) mg/dL Calcium 7.9 L (8.4-10.2) mg/dL AST 72 H (17-59) U/L Total Protein 4.8 L (6.3-8.2) g/dL Albumin 2.8 L (3.5-5.0) g/dL 01/07/24 01/07/24 Range/Units 05:09 06:52 RBC 2.09 L (4.30-5.90) m/uL Hgb 6.8 L* (13.0-17.5) gm/dL Hct 20.5 L (39.0-53.0) % Plt Count 137 L (150-450) k/uL Lymphocytes # 0.8 L (1.0-4.8) k/uL Sodium (137-145) mmol/L Glucose (74-99) mg/dL POC Glucose (mg/dL) 138 H (70-110) mg/dL Calcium (8.4-10.2) mg/dL AST (17-59) U/L Total Protein (6.3-8.2) g/dL Albumin (3.5-5.0) g/dL - Imaging and Cardiology Chest x-ray: report reviewed, image reviewed Assessment and Plan Assessment: Coronary artery disease, unstable angina, status post four-vessel off-pump CABG Chest pain, shortness of breath, secondary to above Hypertension, currently blood pressure soft, not on pressors Hyperlipidemia, treated, cholesterol 151, LDL 98 Infrarenal abdominal aortic aneurysm Hepatitis B, resolved, on chronic Entecavir Depression Morbid obesity Mild COPD, preoperative FEV1 59% of predicted Previous tobacco dependence Acute blood loss anemia and thrombocytopenia, expected given hemodilution Paroxysmal atrial fibrillation, currently controlled, status post left atrial appendage ligation Plan: Continue to maximize medical therapy with aspirin, statin, Plavix, beta-marci. Will increase beta-marci therapy as tolerated. Continue midodrine for blood pressure Will add an oral calcium channel marci when blood pressure tolerates for radial artery spasm prophylaxis Continue amiodarone for A-fib prophylaxis. No anticoagulation at this point Wean O2 as tolerated. Encourage incentive spirometry use 10 times every hour while awake. Bronchodilators per pulmonology Increase activity, ambulate as tolerated. PT/OT/cardiac rehab consulted Will monitor daily labs and x-rays. Electrolyte replacement per protocol. Will give 1 unit PRBCs followed by 20 mg IVP lasix GI/DVT prophylaxis Pain control per current medication regimen Insulin management per internal medicine DC Cordis, arterial line Discontinue Kaur catheter after diuresis from Lasix, may bladder scan and straight cath for greater than 300 mL residual Continue to monitor and record strict accurate intake and output Daily weights More recommendations to follow
[2024-01-07] MEDS: CALCIUM GLUCONATE IN NACL 2 GM in SALINE 1 100ML.BAG IVPB ONE (08:30)
[2024-01-07] MEDS: MAGNESIUM HYDROXIDE 2,400 MG/30 ML CUP PO PRN (08:43)
[2024-01-07] MEDS: FUROSEMIDE 10 MG/ML 2 ML VIAL IV ONE (08:44)
[2024-01-07 11:04] LABS: Glucose,Whole Blood 143 mg/dL (70-110)
--- NOTE | 2024-01-07 11:57 | P.PN ---
Subjective HISTORY OF PRESENT ILLNESS: The patient is a pleasant 78-year-old gentleman who is known to my service from before with a past medical history significant for coronary artery disease and known severe triple-vessel coronary artery disease documented on heart catheterization was performed in December 27, 2023 as well as hypertension and dyslipidemia. He was seen in the office recently for further evaluation of chest discomfort and he underwent myocardial perfusion imaging stress test came in to be abnormal and for that reason he underwent a heart catheterization and that revealed severe triple-vessel CAD with extremely calcified right and left c oronary system. Coronary artery bypass grafting consult was advised but the patient states he would like to go home and have being seen as an outpatient. He presented back to the emergency department complaining of chest discomfort in the middle and left side of the chest as a dull feeling with no radiation and no associated symptoms. The discomfort lasted for few minutes only. Currently his chest pain-free. No shortness of breath and no dizziness or lightheadedness and no feeling of heart racing or fluttering and no presyncope or syncope. His vitals are stable. He is bradycardic. He is not on any AV alexandru marci agents. He is on low intensity statin which is going to increase to high intensity statin but he is on KERRIE inhibitor as well. The examination is remarkable for stable vital signs with regular rate and rhythm and distant heart sounds and soft systolic murmur and clear breathing sounds bilaterally and no edema was noted January 02, 2024 The patient was seen and evaluated this morning. He is asymptomatic and he is hemodynamically stable as well. He is on aspirin and high intensity statin and anti-ischemic medications but he underwent carotid duplex study showed mild disease bilaterally and also he underwent lower extremities arterial duplex study came in to be unremarkable. There was some concern about the liver and he is in process of having an MRI. The examination overall is remarkable for stable vital signs with regular rate and rhythm and soft systolic murmur and clear breathing sounds bilaterally and no edema was noted in the lower extremities 01/03/2024 Patient examined this morning at the bedside. Patient denies any further episodes of chest pain or pressure. He denies shortness of breath. Patient underwent MRI of the liver today and results are currently pending. He is tentatively scheduled for CABG tomorrow. Vital signs are stable. 01/04 Patient underwent CABG with 4 vessel, ARANA to diagonal and LAD, SVG to PDA and SVG to OM, ligation of left atrial appendage 01/03. He was extubated last night and was weaned off of vasopressors. He did have brief episode of A. fib and placed on amiodarone. He has had some intermittent bradycardia and pacing wires pacemaker 80 currently. Denies any chest pain or pressure other than the incision. Hemoglobin today 8.2, creatinine 0.6. 01/05 patient seen and examined. Patient remains in sinus rhythm and atrial paced. Denies any chest pain or pressure. He was able in the halls twice. Blood pressures been borderline in the 80s to 90s in the 100s systolic with maps in the 60-70 range. Denies any significant shortness breath. No lightheadedness. He is on Midrin and his metoprolol as well as amiodarone were held this morning. Has had somewhat decreased urine output and therefore his been given albumin as well as Lasix. 01/06 Patient seen and examined. Patient has mild shortness breath. Still has 1-2+ lower extremity edema. Did receive albumin and Lasix yesterday and hemoglobin low at 6.8 and therefore transfuse 1 unit packed red blood cells this morning as well as IV Lasix. Not having much of an appetite. PHYSICAL EXAM: VITAL SIGNS: Reviewed. GENERAL: Well-developed in no acute distress. NECK: Supple. No JVD or thyromegaly LUNGS: Respirations even and unlabored. Lungs essentially clear to auscultation bilaterally. HEART: Regular rate and rhythm. S1 and S2 heard. EXTREMITIES: Normal range of motion. No clubbing or cyanosis. Peripheral pulses intact. No lower extremity edema ASSESSMENT: Coronary artery disease as described above with no severe triple-vessel CAD, s/p CABG x 4 01/03 Multiple comorbid conditions including hypertension and dyslipidemia Anemia Postoperative A. fib Bradycardia PLAN: Blood pressure still borderline and as well as 88/58. He is asymptomatic however and creatinine stable. Continue with metoprolol as able with hold parameters. Okay to give amiodarone orally. Monitor responsive packed red blood cell transfusion. Agree with Lasix after transfusion. Monitor closely. Objective - Vital Signs Vital signs: Vital Signs Temp 98.6 F 01/07/24 11:22 Pulse 80 01/07/24 11:22 Resp 18 01/07/24 11:22 BP 84/59 05/12/24 11:22 Pulse Ox 94 L 01/07/24 11:22 FiO2 3 01/06/24 04:00 Intake & Output 01/06/24 01/07/24 01/07/24 18:59 06:59 18:59 Intake Total 460.997 718 524 Output Total 246 032 3722 Balance -204.003 183 -831 Weight 130.2 kg Intake: IV 452 468 114 .9NS Pressure Bag 72 78 24 Albumin Human 25% 50 ml 50 In Empty Bag 1 bag @ 50 mls/hr IVPB ONCE ONE Rx#: [id number] Lactated Ringers 1,000 ml 330 390 90 @ 20 mls/hr IV .Q24H [facility] Rx#:[id number] Intake, IV Titration 8.997 100 Amount Calcium Gluconate in NaCl 100 2 gm In Saline 1 100ml. bag @ 100 mls/hr IVPB ONCE ONE Rx#:[id number] Insulin Regular 100 unit 8.997 In Sodium Chloride 0.9% 100 ml @ Per Protocol IV .Q0M [facility] Rx#:[id number] Oral 250 Blood Product 310 Rc As-1 Unit 310 [id number] Output: Chest Tube Drainage 10 Left Pleural Chest Tube 10 Urine 415 000 1167 Other: Voiding Method Indwelling Catheter Indwelling Catheter ABP, PAP, CO, CI - Last Documented Arterial Blood Pressure 85/67 Pulmonary Artery Pressure 24 Cardiac Output 6.2 Cardiac Index 2.9 - Labs CBC & Chem 7: 01/07/24 05:09 01/07/24 03:50 Labs: Abnormal Lab Results - Last 24 Hours (Table) 01/04/24 01/06/24 01/06/24 Range/Units 13:45 16:57 21:08 RBC (4.30-5.90) m/uL Hgb 8.1 L D (13.0-17.5) gm/dL Hct (39.0-53.0) % Plt Count (150-450) k/uL Lymphocytes # (1.0-4.8) k/uL Sodium (137-145) mmol/L Glucose (74-99) mg/dL POC Glucose (mg/dL) 152 H 150 H (70-110) mg/dL Calcium (8.4-10.2) mg/dL AST (17-59) U/L Total Protein (6.3-8.2) g/dL Albumin (3.5-5.0) g/dL Crossmatch 01/07/24 01/07/24 01/07/24 Range/Units 03:50 03:50 05:09 RBC 2.06 L 2.09 L (4.30-5.90) m/uL Hgb 6.6 L* 6.8 L* (13.0-17.5) gm/dL Hct 20.4 L 20.5 L (39.0-53.0) % Plt Count 135 L 137 L (150-450) k/uL Lymphocytes # 0.8 L 0.8 L (1.0-4.8) k/uL Sodium 133 L (137-145) mmol/L Glucose 109 H (74-99) mg/dL POC Glucose (mg/dL) (70-110) mg/dL Calcium 7.9 L (8.4-10.2) mg/dL AST 72 H (17-59) U/L Total Protein 4.8 L (6.3-8.2) g/dL Albumin 2.8 L (3.5-5.0) g/dL Crossmatch 01/07/24 01/07/24 01/07/24 Range/Units 05:09 06:52 11:03 RBC (4.30-5.90) m/uL Hgb (13.0-17.5) gm/dL Hct (39.0-53.0) % Plt Count (150-450) k/uL Lymphocytes # (1.0-4.8) k/uL Sodium (137-145) mmol/L Glucose (74-99) mg/dL POC Glucose (mg/dL) 138 H 143 H (70-110) mg/dL Calcium (8.4-10.2) mg/dL AST (17-59) U/L Total Protein (6.3-8.2) g/dL Albumin (3.5-5.0) g/dL Crossmatch See Detail
--- NOTE | 2024-01-07 11:59 | P.PN ---
Subjective Progress Note Date: 01/07/24 Principal diagnosis: Coronary artery disease, status post CABG This is a very pleasant 78-year-old male patient with a known history of hyperlipidemia, hypertension, hearing disorder, hepatitis B infection, depression, former smoker for about 16 years at 1-1/2 packs/day. He also has a history of 4.5 cm infrarenal abdominal aortic aneurysm. He had recently undergone a cardiac catheterization on December 27, 2023 that revealed triple-vessel coronary artery disease and was planning to have possible bypass surgery. However on yesterday he developed a sudden onset of chest pain and presented to the ER for the same. Troponins were negative x 3. White count 4.1. Hemoglobin 14.2. Platelets 174. Sodium 141. Potassium 3.9. Bicarb 22. BUN 17. Creatinine 0.9. Glucose 134. The plan is for bypass surgery on 01/04/2024. FEV1 value was 59% of predicted. He is seen in consultation. He denies any known history of COPD/emphysema. No asthma. Not previously on inhalers or oxygen. The last couple of days he has been having some cough and congestion however. CT scan of the chest revealed lung parenchyma appears unremarkable. Airway is patent and unremarkable. He is currently resting comfortably in bed. Awake and alert in no acute distress. Denies any chest pain. No worsening shortness of breath. He is maintaining good O2 saturations in the 90s on room air. He is afebrile. Hemodynamically stable. The patient is seen today January 03, 2024 in follow-up on the regular medical floor. He is currently sitting up in a chair at the bedside. Awake and alert in no acute distress. Maintaining good O2 saturations in the 90s on room air. He is afebrile. Hemodynamically stable. He is working well with the incentive spirometer. He denies any chest pain. Improved shortness of breath, cough and congestion today. White count 5.5. Hemoglobin 15.1. Platelets 190. INR 1.0. Sodium 138. Potassium 3.9. Bicarb 25. BUN 17. Creatinine 0.87. Glucose 101. He remains on DuoNeb inhalations, Symbicort. Remains on oral diuretics. Remains on heparin for DVT prophylaxis. Patient was reevaluated today on 01/04/2024, presently in the ICU he is status post Off-pump CABG x 4 with sequential ARANA to the diagonal and LAD, saphenous vein graft to posterior descending coronary artery, saphenous vein graft to first obtuse marginal coronary artery, ligation of the left atrial appendage with 35mm AtriCure clip, endovascular vein harvest from the left leg extending f rom ankle to groin, epiaortic ultrasonography. Postoperative day #0. Patient is intubated mechanically ventilated, he is on assist-control rate of 14, tidal volume 450, FiO2 50%, and PEEP of 5. Earlier ABG on assist-control rate of 12 and FiO2 100% showed a pO2 of 329 pCO2 of 43 pH of 7.33. Patient had readjustment in his vent settings, he is now on assist-control rate of 12 tidal volume 500 FiO2 50% and PEEP of 5. Seems to be comfortable, sedated, he is on 15 mcg/kg/min of propofol. Patient is also receiving drips in the form of amiodarone 1 mg/min, he is on nitroglycerin 5 mcg/min, patient is on insulin drip, 4.5 units/h, patient is not requiring any pressors or any inotropes. Cardiac output is 4.5, and cardiac index is 2.1. Patient is calm sedated, and not in any distress. I have seen this patient prior to his surgery yesterday and the day before, he was cleared for surgery and felt to be low operative risk. Chest x-ray postoperatively showed mostly postoperative changes, no acute process is noted, minimal basilar atelectasis noted. Lines and tubes seem to be in proper position Reevaluate today on 01/05/2024,POD#1 off-pump CABG x 4 with sequential ARANA to the diagonal and LAD, saphenous vein graft to posterior descending coronary artery, saphenous vein graft to first obtuse marginal coronary artery, ligation of the left atrial appendage with 35mm AtriCure clip, endovascular vein harvest from the left leg extending from ankle to groin, epiaortic ultrasonography, patient is sitting in the recliner, remains in the ICU, patient was extubated yesterday within a short time after arriving to the ICU, however I had to extubate him initially to BiPAP and within 2 hours transition to nasal cannula patient is doing well today, he is on few liters nasal cannula, not in any distress. Patient is not requiring any pressors or inotropes however he is on amiodarone at 0.5 mg/min mostly because of paroxysmal atrial fibrillation which is expected. Chest x-ray showed mild pulmonary vascular congestion and left basilar atelectasis Patient was reevaluated today on 01/06/2024, he is now postoperative day #2. Patient is in the ICU, he is sitting in the bedside recliner, currently he has no hemodynamic instability not requiring any pressors or any inotropes. Blood p ressure is marginal however, and the chest x-ray is showing evidence of mild interstitial edema. I did recommend Lasix to be given 20 mg IV push, patient did receive albumin and Lasix last night, with minimal response. On physical examination there is's have crackles and wheezing bilaterally. Patient is on updrafts, but I believe the patient will benefit from diuresis and I went ahead and recommended Lasix. WBC count today is 7.7 hemoglobin is 7.7. Basic metabolic profile is normal renal profile is normal, blood sugar is 146. Patient was reevaluated today on 01/07/2024, he is now postoperative day #3. Remains in the ICU, patient is not in any distress, he did receive a unit of packed RBCs this morning, hemoglobin was noted to be low below 7, and the patient received a dose of Lasix 20 mg IV push x 1 early this morning. Patient denies shortness of breath, maintained on 3 L nasal cannula, chest x-ray showed mild interstitial edema. Patient is sitting in a recliner, atrially paced with a rate of 80 bpm for blood pressure support, underlying rhythm is in the high 60s and low 70s. Patient was placed on midodrine yesterday, his chest tubes have been removed but continues to have right internal jugular cordis and continues to have Kaur catheter in place. Hemoglobin today is 6.8 WBC count is 6.5 Objective - Vital Signs Vital signs: Vital Signs Temp 98.6 F 01/07/24 11: Pulse 80 01/07/24 11:22 Resp 18 01/07/24 11:22 BP 84/59 01/07/24 11:22 Pulse Ox 94 L 01/07/24 11: FiO2 3 01/06/24 04:00 Intake & Output 01/06/24 01/07/24 01/07/24 18:59 06:59 18:59 Intake Total 460.997 718 524 Output Total 168 712 7395 Balance -204.003 183 -556 Weight 130.2 kg Intake: IV 452 468 114 .9NS Pressure Bag 72 78 24 Albumin Human 25% 50 ml 50 In Empty Bag 1 bag @ 50 mls/hr IVPB ONCE ONE Rx#: [id number] Lactated Ringers 1,000 ml 330 390 90 @ 20 mls/hr IV .Q24H [facility] Rx#:[id number] Intake, IV Titration 8.997 100 Amount Calcium Gluconate in NaCl 100 2 gm In Saline 1 100ml. bag @ 100 mls/hr IVPB ONCE ONE Rx#:[id number] Insulin Regular 100 unit 8.997 In Sodium Chloride 0.9% 100 ml @ Per Protocol IV .Q0M [facility] Rx#:[id number] Oral 250 Blood Product 310 Rc As-1 Unit 310 [id number] Output: Chest Tube Drainage 10 Left Pleural Chest Tube 10 Urine 846 856 0174 Other: Voiding Method Indwelling Catheter Indwelling Catheter ABP, PAP, CO, CI - Last Documented Arterial Blood Pressure 85/67 Pulmonary Artery Pressure 24/8 Cardiac Output 6.2 Cardiac Index 2.9 - Exam GENERAL EXAM: Reveals 78-year-old white male obese, on nasal cannula, not in distress, sitting in a recliner HEAD: Normocephalic. Atraumatic EYES: Normal reaction of pupils, equal size. NOSE: Clear with pink turbinates. THROAT: No erythema or exudates. NECK: No masses, no JVD. CHEST: No chest wall deformity. LUNGS: Rhonchi and wheezes noted bilaterally. More so at the bases. CVS: Normal S1-S2, no S3 gallop, positive pericardial rub ABDOMEN: No hepatosplenomegaly, normal bowel sounds, no guarding or rigidity. SKIN: No rashes CENTRAL NERVOUS SYSTEM: Alert and oriented x 3 no gross focal deficit EXTREMITIES: No edema, no cyanosis. Pulses bilaterally.. - Labs CBC & Chem 7: 01/07/24 05:09 01/07/24 03:50 Labs: Abnormal Lab Results - Last 24 Hours (Table) 01/04/24 01/06/24 01/06/24 Range/Units 13:45 16:57 21:08 RBC (4.30-5.90) m/uL Hgb 8.1 L D (13.0-17.5) gm/dL Hct (39.0-53.0) % Plt Count (150-450) k/uL Lymphocytes # (1.0-4.8) k/uL Sodium (137-145) mmol/L Glucose (74-99) mg/dL POC Glucose (mg/dL) 152 H 150 H (70-110) mg/dL Calcium (8.4-10.2) mg/dL AST (17-59) U/L Total Protein (6.3-8.2) g/dL Albumin (3.5-5.0) g/dL Crossmatch 01/07/24 01/07/24 01/07/24 Range/Units 03:50 03:50 05:09 RBC 2.06 L 2.09 L (4.30-5.90) m/uL Hgb 6.6 L* 6.8 L* (13.0-17.5) gm/dL Hct 20.4 L 20.5 L (39.0-53.0) % Plt Count 135 L 137 L (150-450) k/uL Lymphocytes # 0.8 L 0.8 L (1.0-4.8) k/uL Sodium 133 L (137-145) mmol/L Glucose 109 H (74-99) mg/dL POC Glucose (mg/dL) (70-110) mg/dL Calcium 7.9 L (8.4-10.2) mg/dL AST 72 H (17-59) U/L Total Protein 4.8 L (6.3-8.2) g/dL Albumin 2.8 L (3.5-5.0) g/dL Crossmatch 01/07/24 01/07/24 01/07/24 Range/Units 05:09 06:52 11:03 RBC (4.30-5.90) m/uL Hgb (13.0-17.5) gm/dL Hct (39.0-53.0) % Plt Count (150-450) k/uL Lymphocytes # (1.0-4.8) k/uL Sodium (137-145) mmol/L Glucose (74-99) mg/dL POC Glucose (mg/dL) 138 H 143 H (70-110) mg/dL Calcium (8.4-10.2) mg/dL AST (17-59) U/L Total Protein (6.3-8.2) g/dL Albumin (3.5-5.0) g/dL Crossmatch See Detail Assessment and Plan Assessment: Impression: Status postOff-pump CABG x 4 with sequential ARANA to the diagonal and LAD, saphenous vein graft to posterior descending coronary artery, saphenous vein graft to first obtuse marginal coronary artery, postoperative day #3 Triple-vessel coronary artery disease Former smoker of 16 years at 1-1/2 packs/day. FEV1 value 59% of predicted, patient clearly has moderate COPD History of abdominal aortic aneurysm currently measuring 4.5 cm Chronic hepatitis B infection, maintained on Baraclude. MRI of the liver reveal ed no suspicious observations. No steatosis. No cirrhosis Hypertension Hyperlipidemia History of depression Hearing disorder Recommendation: Continue to monitor in the ICU Continue oxygen and titrate accordingly Agree with gentle diuresis Continue incentive spirometry Continue present bronchodilators GI and DVT prophylaxis Early ambulation Continue maximal medical therapy Continue amiodarone for atrial fibrillation prophylaxis. Continue midodrine GI and DVT prophylaxis Will continue to follow. Time with Patient: Less than 30
[2024-01-07 13:25] LABS: Basophils % (A) 0 %; Eosinophils # (A) 0.2 k/uL (0-0.7); Eosinophils % (A) 2 %; HCT 24.4 % (39.0-53.0); Lymphocytes # (A) 0.7 k/uL (1.0-4.8); Lymphocytes % (A) 9 %; MCH 34.2 pg (25.0-35.0); MCHC 34.9 g/dL (31.0-37.0); MCV 97.9 fL (80.0-100.0); Mean Platelet Volume 9.3; Monocytes # (A) 0.5 k/uL (0-1.0); Monocytes % (A) 7 %; Neutrophils # (A) 6.2 k/uL (1.3-7.7); Neutrophils % (A) 80 %; Platelet Count 160 k/uL (150-450); RBC 2.49 m/uL (4.30-5.90); RDW 13.8 % (11.5-15.5); WBC 7.8 k/uL (3.8-10.6)
[2024-01-07 13:26] LABS: HGB 8.5 gm/dL (13.0-17.5)
--- NOTE | 2024-01-07 14:45 | P.PN ---
Progress Note - Text Progress Note Date: 01/07/24 Patient is a 78-year-old male with a known history of coronary artery disease and recent cardiac catheterization due to abnormal perfusion stress test on 12/27/2023 showed a extremely calcified right and left coronary system with severe triple-vessel coronary artery disease, hypertension, hyperlipidemia, hearing disorder/deafness, osteoarthritis, depression and prior history of smoking. Patient presents to ER with complaints of chest pain left retrosternal and radiating to left upper arm associate with coughing and shortness of breath and worsens with deep breathing. Patient was brought to the hospital by his family. He did take aspirin x 4 before coming to ER. His symptoms resolved by the time he is in the ER currently denies any complaints of chest pain. No nausea vomiting abdominal pain or diarrhea. Denies any recent illnesses. He did have RSV infection September 2023 and status post course of steroids and antibiotics. Chest x-ray showed suspected interstitial infiltrative mid and lower lungs. Consider possible such as aspiration or an early or atypical pneumonia. EKG showed supraventricular bradycardia with heart rate 59 Laboratory data showed WBC 4.9 hemoglobin 15.1 and platelets 168 sodium 140 potassium 4.0 chloride 106 bicarb is 28 BUN 18 and creatinine 0.9 Blood sugar 10/26/2006 and A1c 5.5 lowering Elevated troponin x 3 negative and proBNP is 48 and TSH 3.58 Hepatitis panel and RSV COVID-19 and influenza not detected. 01/03/2024 Patient is seen in follow-up today with family members present currently undergoing further workup for tentative CABG. Patient is afebrile with no reports of chest pain or shortness of breath. Patient does have incentive spirometer at the bedside and has been using and encouraged to continue at least 10 times every hour while awake. Patient currently tolerating diet and will be n.p.o. at midnight. Patient denies any nausea or vomiting. Patient has been up and walking and encouraged the patient to increase activity as tolerated. Questions and concerns were answered to the best of our ability. January 05, 2024: Yesterday-December Diet came to see the patient twice. Had not return from operating room. Today patient. He is extubated. Sitting up in a chair. Chest tubes in place. On clear liquid diet. Family at the bedside. 4 L nasal cannula. Using incentive spirometry. Kaur catheter. Some shortness of breath. January 06, 2024: ICU. Up in a chair. Chest tubes are out. Kaur catheter in place. Did walk a bit. Slight short of breath. Tolerating diet. On 4 L nasal cannula. Using incentive spirometry. Patient taken off insulin drip. Accu-Cheks with sliding scale. January 07, 2024: ICU. In a recliner. Kaur catheter discontinued. Pending to make urine. Passing flatus. Oral intake good. Did ambulate. On 3 L nasal cannula. Eating well. Hemoglobin did drop to 6.6 this morning. Received a unit of blood Active Medications Acetaminophen (Acetaminophen Tab 325 Mg Tab) 650 mg PO Q4HR PRN PRN Reason: Fever and/ or Mild Pain Albuterol/Ipratropium (Ipratropium-Albuterol 3 Ml Neb) 3 ml INHALATION RT-Q2H PRN PRN Reason: Shortness Of Breath Or Wheezing Albuterol/Ipratropium (Ipratropium-Albuterol 3 Ml Neb) 3 ml INHALATION RT-QID [facility] Last Admin: 01/07/24 14:17 Dose: Not Given Amiodarone HCl (Amiodarone 200 Mg Tab) 400 mg PO BID [facility] Last Admin: 01/07/24 11:53 Dose: 400 mg Ascorbic Acid (Ascorbic Acid 500 Mg Tab) 500 mg PO BID-W/MEALS [facility] Last Admin: 01/07/24 05:24 Dose: 500 mg Aspirin (Aspirin 325 Mg Tab) 325 mg PO DAILY [facility] Last Admin: 01/07/24 08:44 Dose: 325 mg Atorvastatin Calcium (Atorvastatin 80 Mg Tab) 80 mg PO DAILY [facility] Last Admin: 01/07/24 08:44 Dose: 80 mg Bisacodyl (Bisacodyl 10 Mg Supp) 10 mg RECTAL DAILY PRN PRN Reason: Constipation Budesonide/Formoterol Fumarate (Symbicort 160-4.5 Mcg Inhaler) 2 puff INHALATION RT-BID [facility] Last Admin: 01/07/24 08:26 Dose: 2 puff Buspirone HCl (Buspirone Hcl 5 Mg Tab) 15 mg PO BID [facility] Last Admin: 01/07/24 08:59 Dose: 15 mg Clopidogrel Bisulfate (Clopidogrel 75 Mg Tab) 75 mg PO DAILY [facility] Last Admin: 01/07/24 08:59 Dose: 75 mg Dextrose/Water (Dextrose 50% Syringe 50 Ml) 25 ml IVP PER PROTOCOL PRN; Protocol PRN Reason: Hypoglycemia Dextrose/Water (Dextrose 50% Syringe 50 Ml) 50 ml IVP PER PROTOCOL PRN; Protocol PRN Reason: Hypoglycemia Escitalopram Oxalate (Escitalopram 20 Mg Tab) 20 mg PO DAILY [facility] Last Admin: 01/07/24 08:55 Dose: 20 mg Ferrous Sulfate (Ferrous Sulfate 325 Mg Tab) 325 mg PO BID-W/MEALS [facility] Last Admin: 01/07/24 05:24 Dose: 325 mg Gabapentin (Gabapentin 300 Mg Cap) 300 mg PO BID [facility] Last Admin: 01/07/24 08:44 Dose: 300 mg Heparin Sodium (Porcine) (Heparin Sodium,Porcine 5,000 Unit/Ml 1 Ml Vial) 5,000 unit SQ Q8HR [facility] Last Admin: 01/07/24 08:30 Dose: 5,000 unit Amiodarone HCl 150 mg/ (Dextrose/Water) 103 mls @ 618 mls/hr IV .Q10M PRN PRN Reason: A.FIB/FLUTTER Last Admin: 01/04/24 13:46 Dose: 618 mls/hr Insulin Aspart (Insulin Aspart (Novolog) 100 Unit/Ml Vial) 0 unit SQ ACHS [facility]; Protocol Last Admin: 01/07/24 12:51 Dose: Not Given Magnesium Hydroxide (Magnesium Hydroxide 2,400 Mg/30 Ml Cup) 2,400 mg PO BID PRN PRN Reason: Constipation Last Admin: 01/07/24 08:43 Dose: 2,400 mg Metoclopramide HCl (Metoclopramide 5 Mg/Ml 2 Ml Vial) 10 mg IVP Q4H PRN PRN Reason: Nausea And Vomiting Metoprolol Tartrate (Metoprolol Tartrate 12.5 Mg Tab) 12.5 mg PO BID [facility] Last Admin: 01/07/24 09:05 Dose: 12.5 mg Midodrine (Midodrine 5 Mg Tab) 10 mg PO AC-BID [facility] Last Admin: 01/07/24 05:24 Dose: 10 mg Miscellaneous Information (Potassium Replacement Protocol 1 Each Misc) 1 each MISCELLANE DAILY PRN; Protocol PRN Reason: Per Protocol Miscellaneous Information (Magnesium Replacement Protocol 1 Each Misc) 1 each MISCELLANE DAILY PRN; Protocol PRN Reason: Per Protocol Miscellaneous Information (Potassium Replacement Protocol 1 Each Misc) 1 each MISCELLANE DAILY PRN; Protocol PRN Reason: Per Protocol Ondansetron HCl (Ondansetron 4 Mg/2 Ml Vial) 4 mg IVP Q6HR PRN PRN Reason: Nausea And Vomiting Last Admin: 01/05/24 09:53 Dose: 4 mg Oxycodone HCl (Oxycodone Hcl 5 Mg Tab) 5 mg PO Q4HR PRN PRN Reason: Breakthrough Pain Last Admin: 01/07/24 03:59 Dose: 5 mg Pantoprazole Sodium (Pantoprazole 40 Mg Tablet) 40 mg PO AC-BRKFST [facility] Last Admin: 01/07/24 05:24 Dose: 40 mg Senna/Docusate Sodium (Sennosides-Docusate Sodium 1 Each Tab) 2 each PO HS [facility] Last Admin: 01/06/24 21:16 Dose: 2 each Sodium Chloride (Sodium Chloride 0.9% Flush 10 Ml Syringe) 10 ml IV BID [facility] Last Admin: 01/07/24 09:00 Dose: 10 ml Tamsulosin HCl (Tamsulosin 0.4 Mg Cap.Er.24h) 0.4 mg PO PC-SUPPER [facility] On examination: VITAL SIGNS: 98.6, 80, 19, 94/74, 96% on 3 L GENERAL APPEARANCE: Up in a recliner. HEENT: Normal external appearance of nose and ear. Oral cavity normal EYES: Pupils equal. Conjunctiva normal. NECK: JVD able to assess. Mass not palpable. RESPIRATORY: Respiratory effort increased. Lungs creased breath sounds CARDIOVASCULAR: Heart sounds distant, minimal edema ABDOMEN: Soft. Liver and spleen not palpable. No tenderness. No mass palpable. Kaur catheter discontinued PSYCHIATRY: Alert and oriented x3. Mood and affect normal. INVESTIGATIONS, reviewed in the clinical context: January 06: W White count 6.2 hemoglobin 6.6 platelets 135 January 05: White count 7.7 hemoglobin 7.7 platelets 143 potassium 4.3 creatinine 0.82 January 05, 2024: White count 6.3 hemoglobin 8.2 platelets 128 sodium 135 potassium 4.1 BUN 16 creatinine 0.6 albumin 3.1 Previous labs: January 03, 2024: Hemoglobin 15.1, platelets 190 Liver MRI: Smooth contour of the liver. Infrarenal abdominal aortic aneurysm 4.6 cm. Assessment and plan: Severe triple-vessel coronary artery disease status post cardiac catheterization on 12/27/2023 CABG on 01/04/2024 Essential hypertension Hyperlipidemia GERD Primary osteoarthritis Depression Morbid obesity BMI 45.8 Hearing disorder/deafness hepatitis B-history of resolved Morbid obesity BMI 43.6 Acute postprocedure blood loss anemia expected from surgery. Dropped hemoglobin down to 6.6. Received a unit of blood Dilutional thrombocytopenia-corrected Reactive hypoalbuminemia Full code Passing flatus. Received a unit of blood. Overall doing better.
[2024-01-07 16:13] LABS: Glucose,Whole Blood 148 mg/dL (70-110)
[2024-01-07] MEDS: TAMSULOSIN 0.4 MG CAP.ER.24H PO SCH (18:10)
[2024-01-07 19:59] LABS: Glucose,Whole Blood 148 mg/dL (70-110)
[2024-01-08] MEDS: ACETAMINOPHEN TAB 325 MG TAB PO PRN (04:47)
[2024-01-08] MEDS: bisacodyL 10 MG SUPP RECTAL PRN (05:58)
[2024-01-08 06:02] LABS: HCT 23.5 % (39.0-53.0); HGB 7.6 gm/dL (13.0-17.5); MCH 31.7 pg (25.0-35.0); MCHC 32.4 g/dL (31.0-37.0); MCV 97.8 fL (80.0-100.0); Mean Platelet Volume 9.1; Platelet Count 176 k/uL (150-450); RDW 14.3 % (11.5-15.5); WBC 6.3 k/uL (3.8-10.6)
[2024-01-08 06:34] LABS: Glucose,Whole Blood 152 mg/dL (70-110)
[2024-01-08 06:52] LABS: Ionized Calcium 4.6 mg/dL (4.5-5.3)
[2024-01-08 07:12] LABS: African American GFR (CKD) >90 (>60 ml/min/1.73 sqM); Anion Gap 3 mmol/L; Blood Urea Nitrogen 19 mg/dL (9-20); Calcium 8.1 mg/dL (8.4-10.2); Carbon Dioxide 27 mmol/L (22-30); Chloride 105 mmol/L (98-107); Glucose 124 mg/dL (74-99); Magnesium 1.9 mg/dL (1.6-2.3); Non-African American GFR(CKD) 85 (>60 ml/min/1.73 sqM); Potassium 3.6 mmol/L (3.5-5.1); Sodium 135 mmol/L (137-145)
--- NOTE | 2024-01-08 07:58 | XR ---
EXAMINATION TYPE: XR chest 1V portable DATE OF EXAM: 01/08/2024 Comparison: 01/07/2024 Clinical History: 78-year-old male post cardiac surgery Findings: Median sternotomy wires and post-CABG clips. Heart remains moderately enlarged. Diffuse interstitial opacities persist. Slight worsening aeration at the right base. Impression: Ongoing moderate cardiomegaly and pulmonary vascular congestion. Slight worsening aeration now at the right base.
--- NOTE | 2024-01-08 08:06 | P.PN ---
Subjective Progress Note Date: 01/08/24 Principal diagnosis: Coronary artery disease, unstable angina. History of hypertension, hyperlipidemia, infrarenal abdominal aortic aneurysm, hepatitis B on chronic Entecavir, depression, morbid obesity, mild COPD, previous tobacco dependence POD#4 off-pump CABG x 4 with sequential ARANA to the diagonal and LAD, saphenous vein graft to posterior descending coronary artery, saphenous vein graft to first obtuse marginal coronary artery, ligation of the left atrial appendage wi th 35mm AtriCure clip, endovascular vein harvest from the left leg extending from ankle to groin, epiaortic ultrasonography Acute blood loss anemia and thrombocytopenia, expected given hemodilution Paroxysmal atrial fibrillation, currently controlled, known common occurrence after open heart surgery, not a complication The patient was seen and examined this morning with Dr. Aguilar sitting up in recliner in the intensive care unit in no acute distress. Currently in atrial fibrillation, blood pressure soft. Denies any current chest pain, does complain of mild shortness of breath with activity, states expected postsurgical pain is well-controlled on current medication regimen. Currently on 4 L nasal cannula, achieving 1000 mL on his incentive spirometry. Labs, chest x-ray reviewed. Rec eived 1 unit PRBCs yesterday. Patient has been ambulating in hallway with walker. No other new concerns. Objective - Vital Signs Vital signs: Vital Signs Temp 98.7 F 01/08/24 04:00 Pulse 112 H 01/08/24 07:00 Resp 14 01/08/24 07:00 BP 91/65 01/08/24 07:00 Pulse Ox 95 01/08/24 07:00 FiO2 3 01/06/24 04:00 Intake & Output 01/07/24 01/08/24 01/08/24 18:59 06:59 18:59 Intake Total 774 650 Output Total 1530 600 Balance -756 50 Weight 128.9 kg Intake: IV 114 450 .9NS Pressure Bag 24 Dextrose 5% in Water 100 450 ml @ 618 mls/hr IV .Q10M PRN with Amiodarone 150 mg Rx#:[id number] Lactated Ringers 1,000 ml 90 @ 20 mls/hr IV .Q24H [facility] Rx#:[id number] Intake, IV Titration 100 Amount Calcium Gluconate in NaCl 100 2 gm In Saline 1 100ml. bag @ 100 mls/hr IVPB ONCE ONE Rx#:[id number] Oral 250 200 Blood Product 310 Rc As-1 Unit 310 [id number] Output: Urine 1530 600 Other: Voiding Method Urinal Urinal ABP, PAP, CO, CI - Last Documented Arterial Blood Pressure 85/67 Pulmonary Artery Pressure 24/8 Cardiac Output 6.2 Cardiac Index 2.9 - Exam CONSTITUTIONAL: Appears comfortable, cooperative, no acute distress RESPIRATORY: Lungs sounds diminished bilaterally, expiratory wheeze present to upper airways. Respirations even, nonlabored. Currently on L nasal cannula with oxygen saturation 94%. Able to achieve 1000 mL on incentive spirometry. Strong loose cough. CARDIOVASCULAR: S1, S2 present. Irregular rate and rhythm, atrial fibrillation on telemetry. Sternum stable. Palpable peripheral pulses bilaterally. No edema present. No calf pain or tenderness noted. Heart hugger in place with patient demonstrating appropriate use. Antiembolism stockings, SCDs present. GASTROINTESTINAL: Abdomen soft, nontender, nondistended, obese. Active bowel s ounds present 4 quadrants. Tolerating diet. Positive flatus GENITOURINARY: Kaur discontinued yesterday, patient has voided, 1930 mL in the last 24 hours INTEGUMENTARY: Skin is warm and dry with evidence of good perfusion. Anterior chest incision well approximated and covered with dry intact dressing. Left lower extremity EVH site well approximated without redness NEUROLOGIC: Cranial nerves II through XII intact MUSKULOSKELETAL: Able to move all extremities, strength equal bilaterally PSYCHIATRIC: Alert and oriented to person place and time, appropriate affect, intact judgment and insight INVASIVE LINES AND TUBES: Atrial epicardial pacemaker wires present, grounded - Allied health notes Allied health notes reviewed: nursing - Labs CBC & Chem 7: 01/08/24 05:36 01/08/24 05:36 Labs: Abnormal Lab Results - Last 24 Hours (Table) 01/07/24 01/07/24 01/07/24 Range/Units 05:09 11:03 12:56 RBC 2.49 L (4.30-5.90) m/uL Hgb 8.5 L D (13.0-17.5) gm/dL Hct 24.4 L (39.0-53.0) % Lymphocytes # 0.7 L (1.0-4.8) k/uL Sodium (137-145) mmol/L Glucose (74-99) mg/dL POC Glucose (mg/dL) 143 H (70-110) mg/dL Calcium (8.4-10.2) mg/dL Crossmatch See Detail 01/07/24 01/07/24 01/08/24 Range/Units 16:10 19:58 05:36 RBC 2.40 L (4.30-5.90) m/uL Hgb 7.6 L (13.0-17.5) gm/dL Hct 23.5 L (39.0-53.0) % Lymphocytes # (1.0-4.8) k/uL Sodium (137-145) mmol/L Glucose (74-99) mg/dL POC Glucose (mg/dL) 148 H 148 H (70-110) mg/dL Calcium (8.4-10.2) mg/dL Crossmatch 01/08/24 01/08/24 Range/Units 05:36 06:32 RBC (4.30-5.90) m/uL Hgb (13.0-17.5) gm/dL Hct (39.0-53.0) % Lymphocytes # (1.0-4.8) k/uL Sodium 135 L (137-145) mmol/L Glucose 124 H (74-99) mg/dL POC Glucose (mg/dL) 152 H (70-110) mg/dL Calcium 8.1 L (8.4-10.2) mg/dL Crossmatch - Imaging and Cardiology Chest x-ray: report reviewed, image reviewed Assessment and Plan Assessment: Coronary artery disease, unstable angina, status post four-vessel off-pump CABG Chest pain, shortness of breath, secondary to above Hypertension, currently blood pressure soft, not on pressors Hyperlipidemia, treated, cholesterol 151, LDL 98 Infrarenal abdominal aortic aneurysm Hepatitis B, resolved, on chronic Entecavir Depression Morbid obesity Mild COPD, preoperative FEV1 59% of predicted Previous tobacco dependence Acute blood loss anemia and thrombocytopenia, expected given hemodilution Paroxysmal atrial fibrillation, currently controlled, status post left atrial appendage ligation Plan: Continue to maximize medical therapy with aspirin, statin, Plavix, beta-marci. Will increase beta-marci therapy as tolerated. Continue midodrine for blood pressure Will add an oral calcium channel marci when blood pressure tolerates for radial artery spasm prophylaxis Continue amiodarone for A-fib prophylaxis. No anticoagulation until pacer wire removed Wean O2 as tolerated. Encourage incentive spirometry use 10 times every hour while awake. Bronchodilators per pulmonology Increase activity, ambulate as tolerated. PT/OT/cardiac rehab consulted Will monitor daily labs and x-rays. Electrolyte replacement per protocol. Will give 40 mg IVP lasix GI/DVT prophylaxis Pain control per current medication regimen Insulin management per internal medicine Continue to monitor and record strict accurate intake and output Daily weights More recommendations to follow
[2024-01-08] MEDS: POTASSIUM BICARBONATE/CIT AC 20 MEQ TABLET.EFF PO ONE ×2 (09:01→14:28)
[2024-01-08] MEDS: FUROSEMIDE 10 MG/ML 4 ML VIAL IV STA (09:02)
[2024-01-08] MEDS: MAGNESIUM SULFATE-D5W PMX 1 GM in DEXTROSE/WATER 1 100ML.BAG IVPB SCH (09:03)
[2024-01-08 11:07] LABS: Glucose,Whole Blood 177 mg/dL (70-110)
--- NOTE | 2024-01-08 11:25 | P.PN ---
Subjective Progress Note Date: 01/08/24 This is a very pleasant 78-year-old male patient with a known history of hyperlipidemia, hypertension, hearing disorder, hepatitis B infection, depression, former smoker for about 16 years at 1-1/2 packs/day. He also has a history of 4.5 cm infrarenal abdominal aortic aneurysm. He had recently undergone a cardiac catheterization on December 27, 2023 that revealed triple-vessel coronary artery disease and was planning to have possible bypass surgery. However on yesterday he developed a sudden onset of chest pain and presented to the ER for the same. Troponins were negative x 3. White count 4.1. Hemoglobin 14.2. Platelets 174. Sodium 141. Potassium 3.9. Bicarb 22. BUN 17. Creatinine 0.9. Glucose 134. The plan is for bypass surgery on 01/04/2024. FEV1 value was 59% of predicted. He is seen in consultation. He denies any known history of COPD/emphysema. No asthma. Not previously on inhalers or oxygen. The last couple of days he has been having some cough and congestion however. CT scan of the chest revealed lung parenchyma appears unremarkable. Airway is patent and unremarkable. He is currently resting comfortably in bed. Awake and alert in no acute distress. Denies any chest pain. No worsening shortness of breath. He is maintaining good O2 saturations in the 90s on room air. He is afebrile. Hemodynamically stable. The patient is seen today January 03, 2024 in follow-up on the regular medical floor. He is currently sitting up in a chair at the bedside. Awake and alert in no acute distress. Maintaining good O2 saturations in the 90s on room air. He is afebrile. Hemodynamically stable. He is working well with the incentive spirometer. He denies any chest pain. Improved shortness of breath, cough and congestion today. White count 5.5. Hemoglobin 15.1. Platelets 190. INR 1.0. Sodium 138. Potassium 3.9. Bicarb 25. BUN 17. Creatinine 0.87. Glucose 101. He remains on DuoNeb inhalations, Symbicort. Remains on oral diuretics. Remains on heparin for DVT prophylaxis. Patient was reevaluated today on 01/04/2024, presently in the ICU he is status pos t Off-pump CABG x 4 with sequential ARANA to the diagonal and LAD, saphenous vein graft to posterior descending coronary artery, saphenous vein graft to first obtuse marginal coronary artery, ligation of the left atrial appendage with 35mm AtriCure clip, endovascular vein harvest from the left leg extending from ankle to groin, epiaortic ultrasonography. Postoperative day #0. Patient is intubated mechanically ventilated, he is on assist-control rate of 14, tidal volume 450, FiO2 50%, and PEEP of 5. Earlier ABG on assist-control rate of 12 and FiO2 100% showed a pO2 of 329 pCO2 of 43 pH of 7.33. Patient had readjustment in his vent settings, he is now on assist-control rate of 12 tidal volume 500 FiO2 50% and PEEP of 5. Seems to be comfortable, sedated, he is on 15 mcg/kg/min of propofol. Patient is also receiving drips in the form of amiodarone 1 mg/min, he is on nitroglycerin 5 mcg/min, patient is on insulin drip, 4.5 units/h, patient is not requiring any pressors or any inotropes. Cardiac output is 4.5, and cardiac index is 2.1. Patient is calm sedated, and not in any distress. I have seen this patient prior to his surgery yesterday and the day before, he was cleared for surgery and felt to be low operative risk. Chest x-ray postoperatively showed mostly postoperative changes, no acute process is noted, minimal basilar atelectasis noted. Lines and tubes seem to be in proper position Reevaluate today on 01/05/2024,POD#1 off-pump CABG x 4 with sequential ARANA to th e diagonal and LAD, saphenous vein graft to posterior descending coronary artery, saphenous vein graft to first obtuse marginal coronary artery, ligation of the left atrial appendage with 35mm AtriCure clip, endovascular vein harvest from the left leg extending from ankle to groin, epiaortic ultrasonography, patient is sitting in the recliner, remains in the ICU, patient was extubated yesterday within a short time after arriving to the ICU, however I had to extubate him initially to BiPAP and within 2 hours transition to nasal cannula patient is doing well today, he is on few liters nasal cannula, not in any distress. Patient is not requiring any pressors or inotropes however he is on amiodarone at 0.5 mg/min mostly because of paroxysmal atrial fibrillation which is expected. Chest x-ray showed mild pulmonary vascular congestion and left basilar atelectasis Patient was reevaluated today on 01/06/2024, he is now postoperative day #2. Patient is in the ICU, he is sitting in the bedside recliner, currently he has no hemodynamic instability not requiring any pressors or any inotropes. Blood pressure is marginal however, and the chest x-ray is showing evidence of mild interstitial edema. I did recommend Lasix to be given 20 mg IV push, patient did receive albumin and Lasix last night, with minimal response. On physical examination there is's have crackles and wheezing bilaterally. Patient is on updrafts, but I believe the patient will benefit from diuresis and I went ahead and recommended Lasix. WBC count today is 7.7 hemoglobin is 7.7. Basic metabolic profile is normal renal profile is normal, blood sugar is 146. Patient was reevaluated today on 01/07/2024, he is now postoperative day #3. Remains in the ICU, patient is not in any distress, he did receive a unit of packed RBCs this morning, hemoglobin was noted to be low below 7, and the patient received a dose of Lasix 20 mg IV push x 1 early this morning. Patient denies shortness of breath, maintained on 3 L nasal cannula, chest x-ray showed mild interstitial edema. Patient is sitting in a recliner, atrially paced with a rate of 80 bpm for blood pressure support, underlying rhythm is in the high 60s and low 70s. Patient was placed on midodrine yesterday, his chest tubes have been removed but continues to have right internal jugular cordis and continues to have Kaur catheter in place. Hemoglobin today is 6.8 WBC count is 6.5 The patient is seen today January 08, 2024 in follow-up. This is postoperative day #4. He is currently sitting up in a chair. Awake and alert in no acute distress. He is maintaining O2 saturations in the 90s on 3 L/min per nasal cannula. No IV fluids. Current hemoglobin 7.3. Platelets 176. Sodium 135. Potassium 3.6. Bicarb 27. BUN 19. Creatinine 0.81. Glucose 124. He continues to work well with the incentive spirometer. Remains on DuoNeb inhalations, Symbicort. Heparin for DVT prophylaxis. X-ray reveals ongoing moderate cardiomegaly and pulmonary vascular congestion. Increased atelectasis of the right base Objective - Vital Signs Vital signs: Vital Signs Temp 98.7 F 01/08/24 04:00 Pulse 78 01/08/24 10:30 Resp 19 01/08/24 10:30 BP 97/63 01/08/24 10:30 Pulse Ox 95 01/08/24 10:30 FiO2 3 01/06/24 04:00 Intake & Output 01/07/24 01/08/24 01/08/24 18:59 06:59 18:59 Intake Total 774 650 680 Output Total 1530 600 425 Balance -756 50 255 Weight 128.9 kg Intake: IV 114 450 .9NS Pressure Bag 24 Dextrose 5% in Water 100 450 ml @ 618 mls/hr IV .Q10M PRN with Amiodarone 150 mg Rx#:[id number] Lactated Ringers 1,000 ml 90 @ 20 mls/hr IV .Q24H [facility] Rx#:[id number] Intake, IV Titration 100 200 Amount Calcium Gluconate in NaCl 100 2 gm In Saline 1 100ml. bag @ 100 mls/hr IVPB ONCE ONE Rx#:[id number] Magnesium Sulfate-D5w Pmx 200 1 gm In Dextrose/Water 1 100ml.bag @ 100 mls/hr IVPB Q1H [facility] Rx#: [id number] Oral 250 200 480 Blood Product 310 Rc As-1 Unit 310 [id number] Output: Urine 1530 600 425 Other: Voiding Method Urinal Urinal Urinal ABP, PAP, CO, CI - Last Documented Arterial Blood Pressure 85/67 Pulmonary Artery Pressure 24/8 Cardiac Output 6.2 Cardiac Index 2.9 - Exam GENERAL EXAM: Alert, pleasant 78-year-old male, up in a chair, on room air, in no apparent distress. HEAD: Normocephalic. EYES: Normal reaction of pupils, equal size. NOSE: Clear with pink turbinates. THROAT: No erythema or exudates. NECK: No masses, no JVD. CHEST: Sternum stable. Heart hugger in place. LUNGS: Equal air entry with crackles in the posterior bases. CVS: S1 and S2 normal with no audible murmur, regular rhythm. ABDOMEN: No hepatosplenomegaly, normal bowel sounds, no guarding or rigidity. SPINE: No scoliosis or deformity SKIN: No rashes CENTRAL NERVOUS SYSTEM: No focal deficits, tone is normal in all 4 extremities. EXTREMITIES: There is no peripheral edema. No clubbing, no cyanosis. Peripheral pulses are intact. - Labs CBC & Chem 7: 01/08/24 05:36 01/08/24 05:36 Labs: Abnormal Lab Results - Last 24 Hours (Table) 01/07/24 01/07/24 01/07/24 Range/Units 05:09 12:56 16:10 RBC 2.49 L (4.30-5.90) m/uL Hgb 8.5 L D (13.0-17.5) gm/dL Hct 24.4 L (39.0-53.0) % Lymphocytes # 0.7 L (1.0-4.8) k/uL Sodium (137-145) mmol/L Glucose (74-99) mg/dL POC Glucose (mg/dL) 148 H (70-110) mg/dL Calcium (8.4-10.2) mg/dL Crossmatch See Detail 01/07/24 01/08/24 01/08/24 Range/Units 19:58 05:36 05:36 RBC 2.40 L (4.30-5.90) m/uL Hgb 7.6 L (13.0-17.5) gm/dL Hct 23.5 L (39.0-53.0) % Lymphocytes # (1.0-4.8) k/uL Sodium 135 L (137-145) mmol/L Glucose 124 H (74-99) mg/dL POC Glucose (mg/dL) 148 H (70-110) mg/dL Calcium 8.1 L (8.4-10.2) mg/dL Crossmatch 01/08/24 01/08/24 Range/Units 06:32 11:06 RBC (4.30-5.90) m/uL Hgb (13.0-17.5) gm/dL Hct (39.0-53.0) % Lymphocytes # (1.0-4.8) k/uL Sodium (137-145) mmol/L Glucose (74-99) mg/dL POC Glucose (mg/dL) 152 H 177 H (70-110) mg/dL Calcium (8.4-10.2) mg/dL Crossmatch Assessment and Plan Assessment: Acute chest pain in a patient with a known history of triple-vessel coronary artery disease based on cardiac catheterization 12/27/2023. Status post off-pump CABG x 4 with sequential ARANA to the diagonal and LAD, saphenous vein graft to posterior descending coronary artery, saphenous vein graft to first obtuse marginal coronary artery, postoperative day #4 Former smoker of 16 years at 1-1/2 packs/day. FEV1 value 59% of predicted History of abdominal aortic aneurysm currently measuring 4.5 cm Chronic hepatitis B infection, maintained on Baraclude. MRI of the liver revealed no suspicious observations. No steatosis. No cirrhosis Hypertension Hyperlipidemia History of depression Hearing disorder Plan: The patient was seen and evaluated Chest x-ray, labs and medications reviewed Continue DuoNeb inhalations and Symbicort Continue the incentive spirometer Titrate down the FiO2 as tolerated Increase his activity as tolerated We will continue to follow I have personally seen and examined the patient, performed the documentation and the assessment and plan as written. Number of minutes spent on the visit: 10.
[2024-01-08] MEDS: MIDODRINE 5 MG TAB PO SCH (12:10)
--- NOTE | 2024-01-08 15:48 | P.PN ---
Progress Note - Text Progress Note Date: 01/08/24 Patient is a 78-year-old male with a known history of coronary artery disease and recent cardiac catheterization due to abnormal perfusion stress test on 12/27/2023 showed a extremely calcified right and left coronary system with severe triple-vessel coronary artery disease, hypertension, hyperlipidemia, hearing disorder/deafness, osteoarthritis, depression and prior history of smoking. Patient presents to ER with complaints of chest pain left retrosternal and radiating to left upper arm associate with coughing and shortness of breath and worsens with deep breathing. Patient was brought to the hospital by his family. He did take aspirin x 4 before coming to ER. His symptoms resolved by the time he is in the ER currently denies any complaints of chest pain. No nausea vomiting abdominal pain or diarrhea. Denies any recent illnesses. He did have RSV infection September 2023 and status post course of steroids and antibiotics. Chest x-ray showed suspected interstitial infiltrative mid and lower lungs. Consider possible such as aspiration or an early or atypical pneumonia. EKG showed supraventricular bradycardia with heart rate 59 Laboratory data showed WBC 4.9 hemoglobin 15.1 and platelets 168 sodium 140 potassium 4.0 chloride 106 bicarb is 28 BUN 18 and creatinine 0.9 Blood sugar 10/26/2006 and A1c 5.5 lowering Elevated troponin x 3 negative and proBNP is 48 and TSH 3.58 Hepatitis panel and RSV COVID-19 and influenza not detected. 01/03/2024 Patient is seen in follow-up today with family members present currently undergoing further workup for tentative CABG. Patient is afebrile with no reports of chest pain or shortness of breath. Patient does have incentive spirometer at the bedside and has been using and encouraged to continue at least 10 times every hour while awake. Patient currently tolerating diet and will be n.p.o. at midnight. Patient denies any nausea or vomiting. Patient has been up and walking and encouraged the patient to increase activity as tolerated. Questions and concerns were answered to the best of our ability. January 05, 2024: Yesterday-December Diet came to see the patient twice. Had not return from operating room. Today patient. He is extubated. Sitting up in a chair. Chest tubes in place. On clear liquid diet. Family at the bedside. 4 L nasal cannula. Using incentive spirometry. Kaur catheter. Some shortness of breath. January 06, 2024: ICU. Up in a chair. Chest tubes are out. Kaur catheter in place. Did walk a bit. Slight short of breath. Tolerating diet. On 4 L nasal cannula. Using incentive spirometry. Patient taken off insulin drip. Accu-Cheks with sliding scale. January 07, 2024: ICU. In a recliner. Kaur catheter discontinued. Pending to make urine. Passing flatus. Oral intake good. Did ambulate. On 3 L nasal cannula. Eating well. Hemoglobin did drop to 6.6 this morning. Received a unit of blood January 08, 2024: ICU. Sitting up in the recliner. Did ambulate in the hallway. Eating well. Had a small bowel movement. Breathing stable. Remains on 3 L nasal cannula. Family at the bedside. Hemoglobin 7.6 remains in atrial fibrillation. Active Medications Acetaminophen (Acetaminophen Tab 325 Mg Tab) 650 mg PO Q4HR PRN PRN Reason: Fever and/ or Mild Pain Last Admin: 01/08/24 04:47 Dose: 650 mg Albuterol/Ipratropium (Ipratropium-Albuterol 3 Ml Neb) 3 ml INHALATION RT-Q2H PRN PRN Reason: Shortness Of Breath Or Wheezing Albuterol/Ipratropium (Ipratropium-Albuterol 3 Ml Neb) 3 ml INHALATION RT-QID [facility] Last Admin: 01/08/24 11:56 Dose: Not Given Amiodarone HCl (Amiodarone 200 Mg Tab) 400 mg PO BID [facility] Last Admin: 01/08/24 09:02 Dose: 400 mg Ascorbic Acid (Ascorbic Acid 500 Mg Tab) 500 mg PO BID-W/MEALS [facility] Last Admin: 01/08/24 05:56 Dose: 500 mg Aspirin (Aspirin 325 Mg Tab) 325 mg PO DAILY [facility] Last Admin: 01/08/24 09:02 Dose: 325 mg Atorvastatin Calcium (Atorvastatin 80 Mg Tab) 80 mg PO DAILY [facility] Last Admin: 01/08/24 09:02 Dose: 80 mg Bisacodyl (Bisacodyl 10 Mg Supp) 10 mg RECTAL DAILY PRN PRN Reason: Constipation Last Admin: 01/08/24 05:58 Dose: 10 mg Budesonide/Formoterol Fumarate (Symbicort 160-4.5 Mcg Inhaler) 2 puff INHALATION RT-BID [facility] Last Admin: 01/08/24 08:35 Dose: 2 puff Buspirone HCl (Buspirone Hcl 5 Mg Tab) 15 mg PO BID [facility] Last Admin: 01/08/24 09:03 Dose: 15 mg Clopidogrel Bisulfate (Clopidogrel 75 Mg Tab) 75 mg PO DAILY [facility] Last Admin: 01/08/24 09:02 Dose: 75 mg Dextrose/Water (Dextrose 50% Syringe 50 Ml) 25 ml IVP PER PROTOCOL PRN; Protocol PRN Reason: Hypoglycemia Dextrose/Water (Dextrose 50% Syringe 50 Ml) 50 ml IVP PER PROTOCOL PRN; Protocol PRN Reason: Hypoglycemia Escitalopram Oxalate (Escitalopram 20 Mg Tab) 20 mg PO DAILY [facility] Last Admin: 01/08/24 09:03 Dose: 20 mg Ferrous Sulfate (Ferrous Sulfate 325 Mg Tab) 325 mg PO BID-W/MEALS [facility] Last Admin: 01/08/24 05:56 Dose: 325 mg Gabapentin (Gabapentin 300 Mg Cap) 300 mg PO BID [facility] Last Admin: 01/08/24 09:02 Dose: 300 mg Heparin Sodium (Porcine) (Heparin Sodium,Porcine 5,000 Unit/Ml 1 Ml Vial) 5,000 unit SQ Q8HR [facility] Last Admin: 01/08/24 09:02 Dose: 5,000 unit Amiodarone HCl 150 mg/ (Dextrose/Water) 103 mls @ 618 mls/hr IV .Q10M PRN PRN Reason: A.FIB/FLUTTER Last Admin: 01/08/24 05:55 Dose: 618 mls/hr Insulin Aspart (Insulin Aspart (Novolog) 100 Unit/Ml Vial) 0 unit SQ ACHS [facility]; Protocol Last Admin: 01/08/24 12:10 Dose: 2 unit Magnesium Hydroxide (Magnesium Hydroxide 2,400 Mg/30 Ml Cup) 2,400 mg PO BID PRN PRN Reason: Constipation Last Admin: 01/07/24 08:43 Dose: 2,400 mg Metoclopramide HCl (Metoclopramide 5 Mg/Ml 2 Ml Vial) 10 mg IVP Q4H PRN PRN Reason: Nausea And Vomiting Metoprolol Tartrate (Metoprolol Tartrate 12.5 Mg Tab) 12.5 mg PO BID [facility] Last Admin: 01/08/24 12:12 Dose: 12.5 mg Midodrine (Midodrine 5 Mg Tab) 10 mg PO AC-TID [facility] Last Admin: 01/08/24 12:10 Dose: 10 mg Miscellaneous Information (Magnesium Replacement Protocol 1 Each Misc) 1 each MISCELLANE DAILY PRN; Protocol PRN Reason: Per Protocol Miscellaneous Information (Potassium Replacement Protocol 1 Each Misc) 1 each MISCELLANE DAILY PRN; Protocol PRN Reason: Per Protocol Ondansetron HCl (Ondansetron 4 Mg/2 Ml Vial) 4 mg IVP Q6HR PRN PRN Reason: Nausea And Vomiting Last Admin: 01/05/24 09:53 Dose: 4 mg Pantoprazole Sodium (Pantoprazole 40 Mg Tablet) 40 mg PO AC-BRKFST [facility] Last Admin: 01/08/24 05:56 Dose: 40 mg Senna/Docusate Sodium (Sennosides-Docusate Sodium 1 Each Tab) 2 each PO HS [facility] Last Admin: 01/07/24 20:46 Dose: 2 each Sodium Chloride (Sodium Chloride 0.9% Flush 10 Ml Syringe) 10 ml IV BID [facility] Last Admin: 01/08/24 09:04 Dose: 10 ml Tamsulosin HCl (Tamsulosin 0.4 Mg Cap.Er.24h) 0.4 mg PO PC-SUPPER [facility] Last Admin: 01/07/24 18:10 Dose: 0.4 mg On examination: VITAL SIGNS: Afebrile, 61, 18, 93/65, 97% on 3 L GENERAL APPEARANCE: Up in a recliner. HEENT: Normal external appearance of nose and ear. Oral cavity normal EYES: Pupils equal. Conjunctiva normal. NECK: JVD able to assess. Mass not palpable. RESPIRATORY: Respiratory effort increased. Decreased breath sounds CARDIOVASCULAR: Heart sounds distant, minimal edema ABDOMEN: Soft. Liver and spleen not palpable. No tenderness. No mass palpable. Kaur catheter discontinued PSYCHIATRY: Alert and oriented x3. Mood and affect normal. INVESTIGATIONS, reviewed in the clinical context: January 07: White count 6.3 hemoglobin 7.6 potassium 3.6 creatinine 0.81 blood glucose 124 December 12: W White count 6.2 hemoglobin 6.6 platelets 135 December 11: White count 7.7 hemoglobin 7.7 platelets 143 potassium 4.3 creatinine 0.82 January 05, 2024: White count 6.3 hemoglobin 8.2 platelets 128 sodium 135 potassium 4.1 BUN 16 creatinine 0.6 albumin 3.1 Previous labs: January 03, 2024: Hemoglobin 15.1, platelets 190 Liver MRI: Smooth contour of the liver. Infrarenal abdominal aortic aneurysm 4. 6 cm. Assessment and plan: Severe triple-vessel coronary artery disease status post cardiac catheterization on 12/27/2023 CABG on 01/04/2024 Essential hypertension Hyperlipidemia Paroxysmal atrial fibrillation currently in atrial fibrillation though rate controlled. On Cordarone. Anticoagulation per surgery/cardiology GERD Primary osteoarthritis Depression Morbid obesity BMI 45.8 Hearing disorder/deafness hepatitis B-history of resolved Morbid obesity BMI 43.6 Acute postprocedure blood loss anemia expected from surgery. Dropped hemoglobin down to 6.6. Received a unit of blood Dilutional thrombocytopenia-corrected Reactive hypoalbuminemia Full code Anticoagulation when okay with surgery/cardiology. Improving /
[2024-01-08 16:17] LABS: Glucose,Whole Blood 123 mg/dL (70-110)
[2024-01-08 19:54] LABS: Glucose,Whole Blood 159 mg/dL (70-110)
[2024-01-08 21:36] LABS: Glucose,Whole Blood 156 mg/dL (70-110)
--- NOTE | 2024-01-09 03:36 | PN ---
PROGRESS NOTE SUBJECTIVE: Mr. Amrit Pastrana is a 78-year-old gentleman, who underwent aortocoronary bypass surgery. Clinically, he seems to be doing somewhat better. Blood pressure has always been low. He is currently on midodrine. I am recommending that we increase the midodrine to 10 mg 3 times a day. OBJECTIVE: VITAL SIGNS: His blood pressure is about 98 systolic, pulse rate is in the 80s. He is going in and out of atrial fibrillation, but currently is in sinus rhythm. Vitals are stable. NECK: JVD 1 cm. No carotid bruit. HEART: S1, S2 heard normally. Short systolic murmur noted. LUNGS: Reveal diminished air entry. ABDOMEN: Soft. EXTREMITIES: Lower extremities revealed diminished pulses. CENTRAL NERVOUS SYSTEM: Normal. ASSESSMENT AND PLAN: I am recommending that we increase midodrine and continue his other medications and see how he does. MMODL / IJN: [id number] /
[2024-01-09 06:37] LABS: Glucose,Whole Blood 126 mg/dL (70-110)
[2024-01-09 07:27] LABS: HCT 25.6 % (39.0-53.0); HGB 8.5 gm/dL (13.0-17.5); MCH 32.9 pg (25.0-35.0); MCHC 33.1 g/dL (31.0-37.0); MCV 99.4 fL (80.0-100.0); Macrocytosis Slight; Mean Platelet Volume 8.8; Platelet Count 218 k/uL (150-450); RBC 2.58 m/uL (4.30-5.90); RDW 14.6 % (11.5-15.5); WBC 6.4 k/uL (3.8-10.6)
--- NOTE | 2024-01-09 07:47 | P.PN ---
Subjective Progress Note Date: 01/09/24 Principal diagnosis: Coronary artery disease, unstable angina. History of hypertension, hyperlipidemia, infrarenal abdominal aortic aneurysm, hepatitis B on chronic Entecavir, depression, morbid obesity, mild COPD, previous tobacco dependence POD#5 off-pump CABG x 4 with sequential ARANA to the diagonal and LAD, saphenous vein graft to posterior descending coronary artery, saphenous vein graft to first obtuse marginal coronary artery, ligation of the left atrial appendage wi th 35mm AtriCure clip, endovascular vein harvest from the left leg extending from ankle to groin, epiaortic ultrasonography Acute blood loss anemia and thrombocytopenia, expected given hemodilution Paroxysmal atrial fibrillation, currently controlled, known common occurrence after open heart surgery, not a complication The patient was seen and examined this morning sitting up in recliner in the intensive care unit in no acute distress. Currently in atrial fibrillation, keeps going in and out of afib, blood pressure soft. Denies any current chest pain, does complain of mild shortness of breath with activity, states expected postsurgical pain is well-controlled on current medication regimen. Currently on 3 L nasal cannula, achieving 1000 mL on his incentive spirometry. Labs, chest x-ray reviewed. Patient has been ambulating in hallway with walker. No other new concerns. Objective - Vital Signs Vital signs: Vital Signs Temp 98.6 F 01/09/24 04:00 Pulse 66 01/09/24 05:00 Resp 14 01/09/24 05:00 BP 88/61 01/09/24 05:00 Pulse Ox 93 L 01/09/24 05:00 FiO2 3 01/06/24 04:00 Intake & Output 01/08/24 01/09/24 01/09/24 18:59 06:59 18:59 Intake Total 1400 Output Total 950 250 Balance 450 -250 Intake: Intake, IV Titration 200 Amount Magnesium Sulfate-D5w Pmx 200 1 gm In Dextrose/Water 1 100ml.bag @ 100 mls/hr IVPB Q1H [facility] Rx#: [id number] Oral 1200 Output: Urine 950 250 Other: Voiding Method Urinal Urinal # Voids 2 # Bowel Movements 1 ABP, PAP, CO, CI - Last Documented Arterial Blood Pressure 85/67 Pulmonary Artery Pressure 24/8 Cardiac Output 6.2 Cardiac Index 2.9 - Exam CONSTITUTIONAL: Appears comfortable, cooperative, no acute distress RESPIRATORY: Lungs sounds diminished bilaterally. Respirations even, non labored. Currently on 3L nasal cannula with oxygen saturation 97%. Able to achieve 1000 mL on incentive spirometry. Strong loose cough. CARDIOVASCULAR: S1, S2 present. Irregular rate and rhythm, atrial fibrillation on telemetry. Sternum stable. Palpable peripheral pulses bilaterally. No edema present. No calf pain or tenderness noted. Heart hugger in place with patient demonstrating appropriate use. Antiembolism stockings, SCDs present. GASTROINTESTINAL: Abdomen soft, nontender, nondistended, obese. Active bowel sounds present 4 quadrants. Tolerating diet. Positive bowel movement 01/07 GENITOURINARY: Continues to void, 1200 mL in the last 24 hours INTEGUMENTARY: Skin is warm and dry with evidence of good perfusion. Anterior chest incision well approximated. Left lower extremity EVH site well approximated without redness NEUROLOGIC: Cranial nerves II through XII intact MUSKULOSKELETAL: Able to move all extremities, strength equal bilaterally PSYCHIATRIC: Alert and oriented to person place and time, appropriate affect, intact judgment and insight INVASIVE LINES AND TUBES: Atrial epicardial pacemaker wires present, grounded - Allied health notes Allied health notes reviewed: nursing - Labs CBC & Chem 7: 01/09/24 06:21 01/09/24 06:21 Labs: Abnormal Lab Results - Last 24 Hours (Table) 01/08/24 01/08/24 01/08/24 Range/Units 11:06 16:15 19:52 RBC (4.30-5.90) m/uL Hgb (13.0-17.5) gm/dL Hct (39.0-53.0) % POC Glucose (mg/dL) 177 H 123 H 159 H (70-110) mg/dL 01/08/24 01/09/24 01/09/24 Range/Units 21:35 06:21 06:36 RBC 2.58 L (4.30-5.90) m/uL Hgb 8.5 L (13.0-17.5) gm/dL Hct 25.6 L (39.0-53.0) % POC Glucose (mg/dL) 156 H 126 H (70-110) mg/dL - Imaging and Cardiology Chest x-ray: image reviewed Assessment and Plan Assessment: Coronary artery disease, unstable angina, status post four-vessel off-pump CABG Chest pain, shortness of breath, secondary to above Hypertension, currently blood pressure soft, not on pressors Hyperlipidemia, treated, cholesterol 151, LDL 98 Infrarenal abdominal aortic aneurysm Hepatitis B, resolved, on chronic Entecavir Depression Morbid obesity Mild COPD, preoperative FEV1 59% of predicted Previous tobacco dependence Acute blood loss anemia and thrombocytopenia, expected given hemodilution Paroxysmal atrial fibrillation, currently controlled, status post left atrial appendage ligation Plan: Continue to maximize medical therapy with aspirin, statin, Plavix, beta-marci. Will increase beta-marci therapy as tolerated. Continue midodrine for blood pressure, increased yesterday by Dr. Alcala Continue amiodarone for A-fib prophylaxis. No anticoagulation until pacer wire removed Wean O2 as tolerated. Encourage incentive spirometry use 10 times every hour while awake. Bronchodilators per pulmonology Increase activity, ambulate as tolerated. PT/OT/cardiac rehab consulted Will monitor daily labs and x-rays. Electrolyte replacement per protocol. Will give IVP lasix GI/DVT prophylaxis Pain control per current medication regimen Insulin management per internal medicine Continue to monitor and record strict accurate intake and output Daily weights, shower daily More recommendations to follow
[2024-01-09 08:29] LABS: African American GFR (CKD) >90 (>60 ml/min/1.73 sqM); Anion Gap 6 mmol/L; Blood Urea Nitrogen 20 mg/dL (9-20); Calcium 8.1 mg/dL (8.4-10.2); Carbon Dioxide 28 mmol/L (22-30); Chloride 102 mmol/L (98-107); Glucose 109 mg/dL (74-99); Magnesium 2.1 mg/dL (1.6-2.3); Non-African American GFR(CKD) 82 (>60 ml/min/1.73 sqM); Potassium 3.9 mmol/L (3.5-5.1); Sodium 136 mmol/L (137-145)
--- NOTE | 2024-01-09 08:33 | XR ---
EXAMINATION TYPE: XR chest 2V DATE OF EXAM: 01/09/2024 COMPARISON: 01/08/2024 HISTORY: 78-year-old male postcardiac surgery follow-up TECHNIQUE: PA and lateral views FINDINGS: The heart is moderately enlarged. Median sternotomy wires are post-CABG clips. Diffuse interstitial o pacities persist but show some interval improvement. Trace pleural effusions with some patchy retroca rdiac opacity remains, also improving. IMPRESSION: Moderate cardiomegaly with improving CHF. Pulmonary vascular congestion along with trace effusions re main.
[2024-01-09] MEDS: FUROSEMIDE 10 MG/ML 4 ML VIAL IV STA (09:10)
[2024-01-09] MEDS: POTASSIUM BICARBONATE/CIT AC 20 MEQ TABLET.EFF PO ONE ×2 (09:10→15:03)
--- NOTE | 2024-01-09 11:17 | P.PN ---
Subjective Progress Note Date: 01/09/24 This is a very pleasant 78-year-old male patient with a known history of hyperlipidemia, hypertension, hearing disorder, hepatitis B infection, depression, former smoker for about 16 years at 1-1/2 packs/day. He also has a history of 4.5 cm infrarenal abdominal aortic aneurysm. He had recently undergone a cardiac catheterization on December 27, 2023 that revealed triple-vessel coronary artery disease and was planning to have possible bypass surgery. However on yesterday he developed a sudden onset of chest pain and presented to the ER for the same. Troponins were negative x 3. White count 4.1. Hemoglobin 14.2. Platelets 174. Sodium 141. Potassium 3.9. Bicarb 22. BUN 17. Creatinine 0.9. Glucose 134. The plan is for bypass surgery on 01/04/2024. FEV1 value was 59% of predicted. He is seen in consultation. He denies any known history of COPD/emphysema. No asthma. Not previously on inhalers or oxygen. The last couple of days he has been having some cough and congestion however. CT scan of the chest revealed lung parenchyma appears unremarkable. Airway is patent and unremarkable. He is currently resting comfortably in bed. Awake and alert in no acute distress. Denies any chest pain. No worsening shortness of breath. He is maintaining good O2 saturations in the 90s on room air. He is afebrile. Hemodynamically stable. The patient is seen today January 03, 2024 in follow-up on the regular medical floor. He is currently sitting up in a chair at the bedside. Awake and alert in no acute distress. Maintaining good O2 saturations in the 90s on room air. He is afebrile. Hemodynamically stable. He is working well with the incentive spirometer. He denies any chest pain. Improved shortness of breath, cough and congestion today. White count 5.5. Hemoglobin 15.1. Platelets 190. INR 1.0. Sodium 138. Potassium 3.9. Bicarb 25. BUN 17. Creatinine 0.87. Glucose 101. He remains on DuoNeb inhalations, Symbicort. Remains on oral diuretics. Remains on heparin for DVT prophylaxis. Patient was reevaluated today on 01/04/2024, presently in the ICU he is status pos t Off-pump CABG x 4 with sequential ARANA to the diagonal and LAD, saphenous vein graft to posterior descending coronary artery, saphenous vein graft to first obtuse marginal coronary artery, ligation of the left atrial appendage with 35mm AtriCure clip, endovascular vein harvest from the left leg extending from ankle to groin, epiaortic ultrasonography. Postoperative day #0. Patient is intubated mechanically ventilated, he is on assist-control rate of 14, tidal volume 450, FiO2 50%, and PEEP of 5. Earlier ABG on assist-control rate of 12 and FiO2 100% showed a pO2 of 329 pCO2 of 43 pH of 7.33. Patient had readjustment in his vent settings, he is now on assist-control rate of 12 tidal volume 500 FiO2 50% and PEEP of 5. Seems to be comfortable, sedated, he is on 15 mcg/kg/min of propofol. Patient is also receiving drips in the form of amiodarone 1 mg/min, he is on nitroglycerin 5 mcg/min, patient is on insulin drip, 4.5 units/h, patient is not requiring any pressors or any inotropes. Cardiac output is 4.5, and cardiac index is 2.1. Patient is calm sedated, and not in any distress. I have seen this patient prior to his surgery yesterday and the day before, he was cleared for surgery and felt to be low operative risk. Chest x-ray postoperatively showed mostly postoperative changes, no acute process is noted, minimal basilar atelectasis noted. Lines and tubes seem to be in proper position Reevaluate today on 01/05/2024,POD#1 off-pump CABG x 4 with sequential ARANA to th e diagonal and LAD, saphenous vein graft to posterior descending coronary artery, saphenous vein graft to first obtuse marginal coronary artery, ligation of the left atrial appendage with 35mm AtriCure clip, endovascular vein harvest from the left leg extending from ankle to groin, epiaortic ultrasonography, patient is sitting in the recliner, remains in the ICU, patient was extubated yesterday within a short time after arriving to the ICU, however I had to extubate him initially to BiPAP and within 2 hours transition to nasal cannula patient is doing well today, he is on few liters nasal cannula, not in any distress. Patient is not requiring any pressors or inotropes however he is on amiodarone at 0.5 mg/min mostly because of paroxysmal atrial fibrillation which is expected. Chest x-ray showed mild pulmonary vascular congestion and left basilar atelectasis Patient was reevaluated today on 01/06/2024, he is now postoperative day #2. Patient is in the ICU, he is sitting in the bedside recliner, currently he has no hemodynamic instability not requiring any pressors or any inotropes. Blood pressure is marginal however, and the chest x-ray is showing evidence of mild interstitial edema. I did recommend Lasix to be given 20 mg IV push, patient did receive albumin and Lasix last night, with minimal response. On physical examination there is's have crackles and wheezing bilaterally. Patient is on updrafts, but I believe the patient will benefit from diuresis and I went ahead and recommended Lasix. WBC count today is 7.7 hemoglobin is 7.7. Basic metabolic profile is normal renal profile is normal, blood sugar is 146. Patient was reevaluated today on 01/07/2024, he is now postoperative day #3. Remains in the ICU, patient is not in any distress, he did receive a unit of packed RBCs this morning, hemoglobin was noted to be low below 7, and the patient received a dose of Lasix 20 mg IV push x 1 early this morning. Patient denies shortness of breath, maintained on 3 L nasal cannula, chest x-ray showed mild interstitial edema. Patient is sitting in a recliner, atrially paced with a rate of 80 bpm for blood pressure support, underlying rhythm is in the high 60s and low 70s. Patient was placed on midodrine yesterday, his chest tubes have been removed but continues to have right internal jugular cordis and continues to have Kaur catheter in place. Hemoglobin today is 6.8 WBC count is 6.5 The patient is seen today January 08, 2024 in follow-up. This is postoperative day #4. He is currently sitting up in a chair. Awake and alert in no acute distress. He is maintaining O2 saturations in the 90s on 3 L/min per nasal cannula. No IV fluids. Current hemoglobin 7.3. Platelets 176. Sodium 135. Potassium 3.6. Bicarb 27. BUN 19. Creatinine 0.81. Glucose 124. He continues to work well with the incentive spirometer. Remains on DuoNeb inhalations, Symbicort. Heparin for DVT prophylaxis. X-ray reveals ongoing moderate cardiomegaly and pulmonary vascular congestion. Increased atelectasis of the right base The patient is seen today January 09, 2024 in follow-up in the intensive care unit. Postoperative day #5. He is awake and alert in no acute distress. Sitting up in a chair. Maintaining O2 saturations in the 90s on 2 L/min per nasal cannula. No IV fluids. He did have another episode of atrial fibrillation with a rapid ventricular response requiring amiodarone bolus. He is currently in sinus rhythm. Chest x-ray reveals moderate cardiomegaly with improving congestive heart failure. Pulmonary vascular congestion with trace effusions. He is status post 1 unit of packed red blood cells this admission. Current hemoglobin 8.5. White count 6.4. Platelets 218. Sodium 136. Potassium 3.9. Bicarb 28. BUN 20. Creatinine 0.82. Glucose 109. He continues to work well with the incentive spirometer. He remains on bronchodilators. Heparin for DVT prophylaxis. Objective - Vital Signs Vital signs: Vital Signs Temp 98.6 F 01/09/24 04:00 Pulse 64 01/09/24 10:00 Resp 19 01/09/24 10:00 BP 113/73 01/09/24 10:00 Pulse Ox 96 01/09/24 10:00 FiO2 3 01/06/24 04:00 Intake & Output 01/08/24 01/09/24 01/09/24 18:59 06:59 18:59 Intake Total 1400 580 Output Total 950 550 675 Balance 450 -550 -95 Weight 128.82 kg Intake: IV 100 Dextrose 5% in Water 100 100 ml @ 618 mls/hr IV .Q10M PRN with Amiodarone 150 mg Rx#:[id number] Intake, IV Titration 200 Amount Magnesium Sulfate-D5w Pmx 200 1 gm In Dextrose/Water 1 100ml.bag @ 100 mls/hr IVPB Q1H [facility] Rx#: [id number] Oral 1200 480 Output: Urine 950 550 675 Other: Voiding Method Urinal Urinal Urinal # Voids 2 # Bowel Movements 1 ABP, PAP, CO, CI - Last Documented Arterial Blood Pressure 85/67 Pulmonary Artery Pressure 24/8 Cardiac Output 6.2 Cardiac Index 2.9 - Exam GENERAL EXAM: Alert, obese, pleasant 78-year-old male, up in a chair, on 2 L nasal cannula, in no apparent distress. HEAD: Normocephalic. EYES: Normal reaction of pupils, equal size. NOSE: Clear with pink turbinates. THROAT: No erythema or exudates. NECK: No masses, no JVD. CHEST: Sternum stable. Heart hugger in place. LUNGS: Equal air entry with crackles in the posterior bases. CVS: S1 and S2 normal with no audible murmur, regular rhythm. ABDOMEN: No hepatosplenomegaly, normal bowel sounds, no guarding or rigidity. SPINE: No scoliosis or deformity SKIN: No rashes CENTRAL NERVOUS SYSTEM: No focal deficits, tone is normal in all 4 extremities. EXTREMITIES: There is no peripheral edema. No clubbing, no cyanosis. Peripheral pulses are intact. - Labs CBC & Chem 7: 01/09/24 06:21 01/09/24 06:21 Labs: Abnormal Lab Results - Last 24 Hours (Table) 01/08/24 01/08/24 01/08/24 Range/Units 16:15 19:52 21:35 RBC (4.30-5.90) m/uL Hgb (13.0-17.5) gm/dL Hct (39.0-53.0) % Sodium (137-145) mmol/L Glucose (74-99) mg/dL POC Glucose (mg/dL) 123 H 159 H 156 H (70-110) mg/dL Calcium (8.4-10.2) mg/dL 01/09/24 01/09/24 01/09/24 Range/Units 06:21 06:21 06:36 RBC 2.58 L (4.30-5.90) m/uL Hgb 8.5 L (13.0-17.5) gm/dL Hct 25.6 L (39.0-53.0) % Sodium 136 L (137-145) mmol/L Glucose 109 H (74-99) mg/dL POC Glucose (mg/dL) 126 H (70-110) mg/dL Calcium 8.1 L (8.4-10.2) mg/dL Assessment and Plan Assessment: Acute chest pain in a patient with a known history of triple-vessel coronary artery disease based on cardiac catheterization 12/27/2023. Status post off-pump CABG x 4 with sequential ARANA to the diagonal and LAD, saphenous vein graft to posterior descending coronary artery, saphenous vein graft to first obtuse marginal coronary artery, postoperative day #5 Former smoker of 16 years at 1-1/2 packs/day. FEV1 value 59% of predicted History of abdominal aortic aneurysm currently measuring 4.5 cm Chronic hepatitis B infection, maintained on Baraclude. MRI of the liver revealed no suspicious observations. No steatosis. No cirrhosis Hypertension Hyperlipidemia History of depression Hearing disorder Plan: The patient was seen and evaluated Chest x-ray, labs and medications reviewed Received Lasix 40 mg x 1 today Continue bronchodilators Continue the incentive spirometer Increase his activity as tolerated Heparin for DVT prophylaxis Home once cleared by CT services We will continue to follow I have personally seen and examined the patient, performed the documentation and the assessment and plan as written. Number of minutes spent on the visit: 10.
[2024-01-09 11:26] LABS: Glucose,Whole Blood 135 mg/dL (70-110)
[2024-01-09] MEDS: LACTULOSE 20 GM/30 ML CUP PO ONE (11:30)
--- NOTE | 2024-01-09 12:40 | PN ---
PROGRESS NOTE SUBJECTIVE: Mr. Pastrana is status post bypass surgery. He is going in and out of atrial fibrillation this morning, converted to AFib. Heart rate was about 120 beats per minute. Now the rate is about 105 to 110, irregular, hemodynamically stable. OBJECTIVE: VITALS: Stable. No JVD. HEART: S1, S2 heard normally, irregular rate and rhythm. Short systolic murmur. LUNGS: Revealed decent air entry. ABDOMEN: Soft. EXTREMITIES: Lower extremities reveal diminished pulses. NEUROLOGIC: Central nervous system is normal. I am recommending that we continue amiodarone and increase the metoprolol tartrate to 12.5 mg t.i.d. I recommended anticoagulation when okayed by cardiac surgery. We will try rate control and anticoagulation. Hopefully, he will convert to sinus rhythm. MMODL / IJN: [id number] /
--- NOTE | 2024-01-09 13:39 | P.PN ---
Progress Note - Text Progress Note Date: 01/09/24 Patient is a 78-year-old male with a known history of coronary artery disease and recent cardiac catheterization due to abnormal perfusion stress test on 12/27/2023 showed a extremely calcified right and left coronary system with severe triple-vessel coronary artery disease, hypertension, hyperlipidemia, hearing disorder/deafness, osteoarthritis, depression and prior history of smoking. Patient presents to ER with complaints of chest pain left retrosternal and radiating to left upper arm associate with coughing and shortness of breath and worsens with deep breathing. Patient was brought to the hospital by his family. He did take aspirin x 4 before coming to ER. His symptoms resolved by the time he is in the ER currently denies any complaints of chest pain. No nausea vomiting abdominal pain or diarrhea. Denies any recent illnesses. He did have RSV infection September 2023 and status post course of steroids and antibiotics. Chest x-ray showed suspected interstitial infiltrative mid and lower lungs. Consider possible such as aspiration or an early or atypical pneumonia. EKG showed supraventricular bradycardia with heart rate 59 Laboratory data showed WBC 4.9 hemoglobin 15.1 and platelets 168 sodium 140 potassium 4.0 chloride 106 bicarb is 28 BUN 18 and creatinine 0.9 Blood sugar 10/26/2006 and A1c 5.5 lowering Elevated troponin x 3 negative and proBNP is 48 and TSH 3.58 Hepatitis panel and RSV COVID-19 and influenza not detected. 01/03/2024 Patient is seen in follow-up today with family members present currently undergoing further workup for tentative CABG. Patient is afebrile with no reports of chest pain or shortness of breath. Patient does have incentive spirometer at the bedside and has been using and encouraged to continue at least 10 times every hour while awake. Patient currently tolerating diet and will be n.p.o. at midnight. Patient denies any nausea or vomiting. Patient has been up and walking and encouraged the patient to increase activity as tolerated. Questions and concerns were answered to the best of our ability. January 05, 2024: Yesterday-December Diet came to see the patient twice. Had not return from operating room. Today patient. He is extubated. Sitting up in a chair. Chest tubes in place. On clear liquid diet. Family at the bedside. 4 L nasal cannula. Using incentive spirometry. Kaur catheter. Some shortness of breath. January 06, 2024: ICU. Up in a chair. Chest tubes are out. Kaur catheter in place. Did walk a bit. Slight short of breath. Tolerating diet. On 4 L nasal cannula. Using incentive spirometry. Patient taken off insulin drip. Accu-Cheks with sliding scale. January 07, 2024: ICU. In a recliner. Kaur catheter discontinued. Pending to make urine. Passing flatus. Oral intake good. Did ambulate. On 3 L nasal cannula. Eating well. Hemoglobin did drop to 6.6 this morning. Received a unit of blood January 08, 2024: ICU. Sitting up in the recliner. Did ambulate in the hallway. Eating well. Had a small bowel movement. Breathing stable. Remains on 3 L nasal cannula. Family at the bedside. Hemoglobin 7.6 remains in atrial fibrillation. January 09, 2024: ICU. Comfortable. Ambulating. Ordered lactulose for BM. On nasal cannula. Has been in and out of A-fib. Went back at a rate about 1 teens. Metoprolol increased to 12.5 3 times daily. Anticoagulation when okay with surgery Active Medications Acetaminophen (Acetaminophen Tab 325 Mg Tab) 650 mg PO Q4HR PRN PRN Reason: Fever and/ or Mild Pain Last Admin: 01/08/24 04:47 Dose: 650 mg Albuterol/Ipratropium (Ipratropium-Albuterol 3 Ml Neb) 3 ml INHALATION RT-Q2H PRN PRN Reason: Shortness Of Breath Or Wheezing Albuterol/Ipratropium (Ipratropium-Albuterol 3 Ml Neb) 3 ml INHALATION RT-QID [facility] Last Admin: 01/09/24 11:14 Dose: 3 ml Amiodarone HCl (Amiodarone 200 Mg Tab) 400 mg PO BID [facility] Last Admin: 01/09/24 08:05 Dose: 400 mg Ascorbic Acid (Ascorbic Acid 500 Mg Tab) 500 mg PO BID-W/MEALS [facility] Last Admin: 01/09/24 07:54 Dose: 500 mg Aspirin (Aspirin 325 Mg Tab) 325 mg PO DAILY [facility] Last Admin: 01/09/24 08:05 Dose: 325 mg Atorvastatin Calcium (Atorvastatin 80 Mg Tab) 80 mg PO DAILY [facility] Last Admin: 01/09/24 08:05 Dose: 80 mg Bisacodyl (Bisacodyl 10 Mg Supp) 10 mg RECTAL DAILY PRN PRN Reason: Constipation Last Admin: 01/08/24 05:58 Dose: 10 mg Budesonide/Formoterol Fumarate (Symbicort 160-4.5 Mcg Inhaler) 2 puff INHALATION RT-BID [facility] Last Admin: 01/09/24 08:30 Dose: 2 puff Buspirone HCl (Buspirone Hcl 5 Mg Tab) 15 mg PO BID [facility] Last Admin: 01/09/24 08:05 Dose: 15 mg Clopidogrel Bisulfate (Clopidogrel 75 Mg Tab) 75 mg PO DAILY [facility] Last Admin: 01/09/24 08:05 Dose: 75 mg Dextrose/Water (Dextrose 50% Syringe 50 Ml) 25 ml IVP PER PROTOCOL PRN; Protocol PRN Reason: Hypoglycemia Dextrose/Water (Dextrose 50% Syringe 50 Ml) 50 ml IVP PER PROTOCOL PRN; Protocol PRN Reason: Hypoglycemia Escitalopram Oxalate (Escitalopram 20 Mg Tab) 20 mg PO DAILY [facility] Last Admin: 01/09/24 08:05 Dose: 20 mg Ferrous Sulfate (Ferrous Sulfate 325 Mg Tab) 325 mg PO BID-W/MEALS [facility] Last Admin: 01/09/24 07:54 Dose: 325 mg Gabapentin (Gabapentin 300 Mg Cap) 300 mg PO BID [facility] Last Admin: 01/09/24 08:05 Dose: 300 mg Heparin Sodium (Porcine) (Heparin Sodium,Porcine 5,000 Unit/Ml 1 Ml Vial) 5,000 unit SQ Q8HR [facility] Last Admin: 01/09/24 08:05 Dose: 5,000 unit Amiodarone HCl 150 mg/ (Dextrose/Water) 103 mls @ 618 mls/hr IV .Q10M PRN PRN Reason: A.FIB/FLUTTER Last Admin: 01/09/24 07:02 Dose: 618 mls/hr Insulin Aspart (Insulin Aspart (Novolog) 100 Unit/Ml Vial) 0 unit SQ ACHS [facility]; Protocol Last Admin: 01/09/24 11:31 Dose: Not Given Magnesium Hydroxide (Magnesium Hydroxide 2,400 Mg/30 Ml Cup) 2,400 mg PO BID PRN PRN Reason: Constipation Last Admin: 01/07/24 08:43 Dose: 2,400 mg Metoclopramide HCl (Metoclopramide 5 Mg/Ml 2 Ml Vial) 10 mg IVP Q4H PRN PRN Reason: Nausea And Vomiting Metoprolol Tartrate (Metoprolol Tartrate 12.5 Mg Tab) 12.5 mg PO Q8HR [facility] Midodrine (Midodrine 5 Mg Tab) 10 mg PO AC-TID [facility] Last Admin: 01/09/24 11:30 Dose: 10 mg Miscellaneous Information (Magnesium Replacement Protocol 1 Each Misc) 1 each MISCELLANE DAILY PRN; Protocol PRN Reason: Per Protocol Miscellaneous Information (Potassium Replacement Protocol 1 Each Misc) 1 each MISCELLANE DAILY PRN; Protocol PRN Reason: Per Protocol Ondansetron HCl (Ondansetron 4 Mg/2 Ml Vial) 4 mg IVP Q6HR PRN PRN Reason: Nausea And Vomiting Last Admin: 01/05/24 09:53 Dose: 4 mg Pantoprazole Sodium (Pantoprazole 40 Mg Tablet) 40 mg PO AC-BRKFST [facility] Last Admin: 01/09/24 07:54 Dose: 40 mg Potassium Bicarbonate (Potassium Bicarbonate/Cit Ac 20 Meq Tablet.Eff) 20 meq PO ONCE ONE Stop: 01/09/24 14:01 Senna/Docusate Sodium (Sennosides-Docusate Sodium 1 Each Tab) 2 each PO HS [facility] Last Admin: 01/08/24 21:30 Dose: 2 each Sodium Chloride (Sodium Chloride 0.9% Flush 10 Ml Syringe) 10 ml IV BID [facility] Last Admin: 01/09/24 08:14 Dose: 10 ml Tamsulosin HCl (Tamsulosin 0.4 Mg Cap.Er.24h) 0.4 mg PO PC-SUPPER [facility] Last Admin: 01/08/24 17:10 Dose: 0.4 mg On examination: VITAL SIGNS: Afebrile, 70, 18, 96/72, 96% on 3 L GENERAL APPEARANCE: Comfortable HEENT: Normal external appearance of nose and ear. Oral cavity normal EYES: Pupils equal. Conjunctiva normal. NECK: JVD able to assess. Mass not palpable. RESPIRATORY: Respiratory effort increased. Decreased breath sounds CARDIOVASCULAR: Heart sounds distant, minimal edema ABDOMEN: Soft. Liver and spleen not palpable. No tenderness. No mass palpable. Kaur catheter discontinued PSYCHIATRY: Alert and oriented x3. Mood and affect normal. INVESTIGATIONS, reviewed in the clinical context: January 08: White count 6.4 hemoglobin 8.5 platelets 218 potassium 3.9 creatinine 0.89. Blood glucose 109 May 13: White count 6.3 hemoglobin 7.6 potassium 3.6 creatinine 0.81 blood gl ucose 124 January 06: W White count 6.2 hemoglobin 6.6 platelets 135 January 05: White count 7.7 hemoglobin 7.7 platelets 143 potassium 4.3 creatinine 0.82 January 05, 2024: White count 6.3 hemoglobin 8.2 platelets 128 sodium 135 potassium 4.1 BUN 16 creatinine 0.6 albumin 3.1 Previous labs: January 03, 2024: Hemoglobin 15.1, platelets 190 Liver MRI: Smooth contour of the liver. Infrarenal abdominal aortic aneurysm 4.6 cm. Assessment and plan: Severe triple-vessel coronary artery disease status post cardiac catheterization on 12/27/2023 CABG on 01/04/2024 Essential hypertension Hyperlipidemia Paroxysmal atrial fibrillation currently in atrial fibrillation though rate controlled. On Cordarone. Anticoagulation per surgery/cardiology GERD Primary osteoarthritis Depression Morbid obesity BMI 45.8 Hearing disorder/deafness hepatitis B-history of resolved Morbid obesity BMI 43.6 Acute postprocedure blood loss anemia expected from surgery. Dropped hemoglobin down to 6.6. Received a unit of blood Dilutional thrombocytopenia-corrected Reactive hypoalbuminemia Full code Anticoagulation when okay with surgery/cardiology. Lopressor increased to 12.5 3 times daily /
[2024-01-09] MEDS: METOPROLOL TARTRATE 12.5 MG TAB PO SCH (15:03)
[2024-01-09] MEDS ORDERED: METOPROLOL TARTRATE 12.5 MG TAB PO SCH (16:00)
[2024-01-09 17:06] LABS: Glucose,Whole Blood 135 mg/dL (70-110)
[2024-01-09 21:10] LABS: Glucose,Whole Blood 127 mg/dL (70-110)
[2024-01-10 06:32] LABS: HCT 30.7 % (39.0-53.0); HGB 9.7 gm/dL (13.0-17.5); MCHC 31.7 g/dL (31.0-37.0); MCV 100.9 fL (80.0-100.0); Macrocytosis Slight; Mean Platelet Volume 8.3; Platelet Count 289 k/uL (150-450); RBC 3.05 m/uL (4.30-5.90); RDW 14.1 % (11.5-15.5); WBC 7.3 k/uL (3.8-10.6)
[2024-01-10 06:38] LABS: Glucose,Whole Blood 119 mg/dL (70-110)
[2024-01-10 06:50] LABS: African American GFR (CKD) 87 (>60 ml/min/1.73 sqM); Anion Gap 6 mmol/L; Blood Urea Nitrogen 19 mg/dL (9-20); Calcium 8.4 mg/dL (8.4-10.2); Carbon Dioxide 29 mmol/L (22-30); Chloride 100 mmol/L (98-107); Glucose 108 mg/dL (74-99); Non-African American GFR(CKD) 75 (>60 ml/min/1.73 sqM); Potassium 4.2 mmol/L (3.5-5.1); Sodium 135 mmol/L (137-145)
--- NOTE | 2024-01-10 08:15 | XR ---
EXAMINATION TYPE: XR chest 2V DATE OF EXAM: 01/10/2024 COMPARISON: 01/09/2024 HISTORY: 78-year-old male postcardiac surgery follow-up TECHNIQUE: PA and lateral views FINDINGS: Median sternotomy wires with post-CABG clips. Heart mildly enlarged. Small left pleural effusion with some patchy retrocardiac and left basilar opacity remains. Mild interstitial prominence is similar. IMPRESSION: Post-CABG changes. Similar mild pulmonary vascular congestion. Similar small effusions with adjacent atelectasis and/or consolidation especially on the left.
[2024-01-10] MEDS: METOPROLOL TARTRATE 25 MG TAB PO SCH (08:53)
[2024-01-10] MEDS: ASPIRIN 81 MG PO SCH (08:53)
[2024-01-10] MEDS: APIXABAN 5 MG TAB PO SCH (08:53)
[2024-01-10] MEDS: MIDODRINE 5 MG TAB PO SCH (09:03)
--- NOTE | 2024-01-10 09:32 | PN ---
PROGRESS NOTE SUBJECTIVE: This is a 78-year-old gentleman with a history of bypass surgery. He is doing well. He is in sinus rhythm this morning, hemodynamically stable. He is on oral amiodarone and metoprolol, maintaining sinus rhythm, feels better. OBJECTIVE: LUNGS: Improved air entry on lung examination. HEART: S1, S2 heard normally. ABDOMEN: Unchanged. EXTREMITIES: Lower extremity exam unchanged. PLAN: Is to continue current medical regimen and continue incentive spirometry, pulmonary toilet, and can be moved to telemetry. His Eliquis will be started today along with aspirin. MMODL / IJN: [id number] /
--- NOTE | 2024-01-10 09:47 | P.PN ---
Subjective Progress Note Date: 01/10/24 Principal diagnosis: Coronary artery disease, unstable angina. History of hypertension, hyperlipidemia, infrarenal abdominal aortic aneurysm, hepatitis B on chronic Entecavir, depression, morbid obesity, mild COPD, previous tobacco dependence POD#6 off-pump CABG x 4 with sequential ARANA to the diagonal and LAD, saphenous vein graft to posterior descending coronary artery, saphenous vein graft to first obtuse marginal coronary artery, ligation of the left atrial appendage wi th 35mm AtriCure clip, endovascular vein harvest from the left leg extending from ankle to groin, epiaortic ultrasonography Acute blood loss anemia and thrombocytopenia, expected given hemodilution Paroxysmal atrial fibrillation, currently controlled, known common occurrence after open heart surgery, not a complication The patient was seen and examined with Dr. Morales this morning sitting up in recliner in the intensive care unit in no acute distress. Currently in sinus rhythm, has been in sinus rhythm all night, blood pressure soft. Denies any current chest pain, shortness of breath, states expected postsurgical pain is well-controlled on current medication regimen. Currently on 2 L nasal cannula, achieving 1000 mL on his incentive spirometry. Labs, chest x-ray reviewed. Patient has been ambulating in hallway with walker, received postoperative shower yesterday. No other new concerns. Objective - Vital Signs Vital signs: Vital Signs Temp 98.7 F 01/10/24 04:00 Pulse 70 01/10/24 08:37 Resp 15 01/10/24 07:00 BP 92/59 01/10/24 07:00 Pulse Ox 96 01/10/24 07:00 FiO2 3 01/06/24 04:00 Intake & Output 01/09/24 01/10/24 01/10/24 18:59 06:59 18:59 Intake Total 1300 240 Output Total 1720 405 0 Balance -420 -165 0 Intake: IV 100 Dextrose 5% in Water 100 100 ml @ 618 mls/hr IV .Q10M PRN with Amiodarone 150 mg Rx#:[id number] Oral 1200 240 Output: Urine 1720 405 0 Other: Voiding Method Urinal Urinal # Bowel Movements 1 ABP, PAP, CO, CI - Last Documented Arterial Blood Pressure 85/67 Pulmonary Artery Pressure 24/8 Cardiac Output 6.2 Cardiac Index 2.9 - Exam CONSTITUTIONAL: Appears comfortable, cooperative, no acute distress RESPIRATORY: Lungs sounds diminished bilaterally. Respirations even, nonlabored. Currently on 2L nasal cannula with oxygen saturation 93%. Able to achieve 1000 mL on incentive spirometry. Strong loose cough. CARDIOVASCULAR: S1, S2 present. Regular rate and rhythm, sinus rhythm on telemetry. Sternum stable. Palpable peripheral pulses bilaterally. No edema present. No calf pain or tenderness noted. Heart hugger in place with patient demonstrating appropriate use. Antiembolism stockings, SCDs present. GASTROINTESTINAL: Abdomen soft, nontender, nondistended, obese. Active bowel sounds present 4 quadrants. Tolerating diet. Positive bowel movement 01/08 GENITOURINARY: Continues to void, 1795 mL in the last 24 hours INTEGUMENTARY: Skin is warm and dry with evidence of good perfusion. Anterior chest incision well approximated. Left lower extremity EVH site well approximated without redness NEUROLOGIC: Cranial nerves II through XII intact MUSKULOSKELETAL: Able to move all extremities, strength equal bilaterally PSYCHIATRIC: Alert and oriented to person place and time, appropriate affect, intact judgment and insight INVASIVE LINES AND TUBES: Atrial epicardial pacemaker wires present, grounded - Allied health notes Allied health notes reviewed: nursing - Labs CBC & Chem 7: 01/10/24 06:13 01/10/24 06:13 Labs: Abnormal Lab Results - Last 24 Hours (Table) 01/09/24 01/09/24 01/09/24 Range/Units 11:24 17:05 21:07 RBC (4.30-5.90) m/uL Hgb (13.0-17.5) gm/dL Hct (39.0-53.0) % MCV (80.0-100.0) fL Sodium (137-145) mmol/L Glucose (74-99) mg/dL POC Glucose (mg/dL) 135 H 135 H 127 H (70-110) mg/dL 01/10/24 01/10/24 01/10/24 Range/Units 06:13 06:13 06:37 RBC 3.05 L (4.30-5.90) m/uL Hgb 9.7 L (13.0-17.5) gm/dL Hct 30.7 L (39.0-53.0) % MCV 100.9 H (80.0-100.0) fL Sodium 135 L (137-145) mmol/L Glucose 108 H (74-99) mg/dL POC Glucose (mg/dL) 119 H (70-110) mg/dL - Imaging and Cardiology Chest x-ray: report reviewed, image reviewed Assessment and Plan Assessment: Coronary artery disease, unstable angina, status post four-vessel off-pump CABG Chest pain, shortness of breath, secondary to above Hypertension, currently blood pressure soft, not on pressors Hyperlipidemia, treated, cholesterol 151, LDL 98 Infrarenal abdominal aortic aneurysm Hepatitis B, resolved, on chronic Entecavir Depression Morbid obesity Mild COPD, preoperative FEV1 59% of predicted Previous tobacco dependence Acute blood loss anemia and thrombocytopenia, expected given hemodilution Paroxysmal atrial fibrillation, currently controlled, status post left atrial appendage ligation Plan: Continue to maximize medical therapy with low-dose aspirin, statin, beta-blo cker. Will increase beta-marci therapy as tolerated, increased to 25 mg twice daily today. Continue midodrine for blood pressure, increased to 20 mg twice daily today Continue amiodarone for A-fib prophylaxis. Will start anticoagulation with Eliquis today Wean O2 as tolerated. Encourage incentive spirometry use 10 times every hour while awake. Bronchodilators per pulmonology Increase activity, ambulate as tolerated. PT/OT/cardiac rehab consulted Will monitor daily labs and x-rays. Electrolyte replacement per protocol GI/DVT prophylaxis Pain control per current medication regimen Insulin management per internal medicine Continue to monitor and record strict accurate intake and output Daily weights, shower daily Pacemaker wire discontinued without incident, patient to remain on bedrest for 1 hour post wire removal Likely will discharge to home with home care later this afternoon versus tomorrow morning More recommendations to follow
--- NOTE | 2024-01-10 10:32 | P.PN ---
Subjective Progress Note Date: 01/10/24 This is a very pleasant 78-year-old male patient with a known history of hyperlipidemia, hypertension, hearing disorder, hepatitis B infection, depression, former smoker for about 16 years at 1-1/2 packs/day. He also has a history of 4.5 cm infrarenal abdominal aortic aneurysm. He had recently undergone a cardiac catheterization on December 27, 2023 that revealed triple-vessel coronary artery disease and was planning to have possible bypass surgery. However on yesterday he developed a sudden onset of chest pain and presented to the ER for the same. Troponins were negative x 3. White count 4.1. Hemoglobin 14.2. Platelets 174. Sodium 141. Potassium 3.9. Bicarb 22. BUN 17. Creatinine 0.9. Glucose 134. The plan is for bypass surgery on 01/04/2024. FEV1 value was 59% of predicted. He is seen in consultation. He denies any known history of COPD/emphysema. No asthma. Not previously on inhalers or oxygen. The last couple of days he has been having some cough and congestion however. CT scan of the chest revealed lung parenchyma appears unremarkable. Airway is patent and unremarkable. He is currently resting comfortably in bed. Awake and alert in no acute distress. Denies any chest pain. No worsening shortness of breath. He is maintaining good O2 saturations in the 90s on room air. He is afebrile. Hemodynamically stable. The patient is seen today January 03, 2024 in follow-up on the regular medical floor. He is currently sitting up in a chair at the bedside. Awake and alert in no acute distress. Maintaining good O2 saturations in the 90s on room air. He is afebrile. Hemodynamically stable. He is working well with the incentive spirometer. He denies any chest pain. Improved shortness of breath, cough and congestion today. White count 5.5. Hemoglobin 15.1. Platelets 190. INR 1.0. Sodium 138. Potassium 3.9. Bicarb 25. BUN 17. Creatinine 0.87. Glucose 101. He remains on DuoNeb inhalations, Symbicort. Remains on oral diuretics. Remains on heparin for DVT prophylaxis. Patient was reevaluated today on 01/04/2024, presently in the ICU he is status pos t Off-pump CABG x 4 with sequential ARANA to the diagonal and LAD, saphenous vein graft to posterior descending coronary artery, saphenous vein graft to first obtuse marginal coronary artery, ligation of the left atrial appendage with 35mm AtriCure clip, endovascular vein harvest from the left leg extending from ankle to groin, epiaortic ultrasonography. Postoperative day #0. Patient is intubated mechanically ventilated, he is on assist-control rate of 14, tidal volume 450, FiO2 50%, and PEEP of 5. Earlier ABG on assist-control rate of 12 and FiO2 100% showed a pO2 of 329 pCO2 of 43 pH of 7.33. Patient had readjustment in his vent settings, he is now on assist-control rate of 12 tidal volume 500 FiO2 50% and PEEP of 5. Seems to be comfortable, sedated, he is on 15 mcg/kg/min of propofol. Patient is also receiving drips in the form of amiodarone 1 mg/min, he is on nitroglycerin 5 mcg/min, patient is on insulin drip, 4.5 units/h, patient is not requiring any pressors or any inotropes. Cardiac output is 4.5, and cardiac index is 2.1. Patient is calm sedated, and not in any distress. I have seen this patient prior to his surgery yesterday and the day before, he was cleared for surgery and felt to be low operative risk. Chest x-ray postoperatively showed mostly postoperative changes, no acute process is noted, minimal basilar atelectasis noted. Lines and tubes seem to be in proper position Reevaluate today on 01/05/2024,POD#1 off-pump CABG x 4 with sequential ARANA to th e diagonal and LAD, saphenous vein graft to posterior descending coronary artery, saphenous vein graft to first obtuse marginal coronary artery, ligation of the left atrial appendage with 35mm AtriCure clip, endovascular vein harvest from the left leg extending from ankle to groin, epiaortic ultrasonography, patient is sitting in the recliner, remains in the ICU, patient was extubated yesterday within a short time after arriving to the ICU, however I had to extubate him initially to BiPAP and within 2 hours transition to nasal cannula patient is doing well today, he is on few liters nasal cannula, not in any distress. Patient is not requiring any pressors or inotropes however he is on amiodarone at 0.5 mg/min mostly because of paroxysmal atrial fibrillation which is expected. Chest x-ray showed mild pulmonary vascular congestion and left basilar atelectasis Patient was reevaluated today on 01/06/2024, he is now postoperative day #2. Patient is in the ICU, he is sitting in the bedside recliner, currently he has no hemodynamic instability not requiring any pressors or any inotropes. Blood pressure is marginal however, and the chest x-ray is showing evidence of mild interstitial edema. I did recommend Lasix to be given 20 mg IV push, patient did receive albumin and Lasix last night, with minimal response. On physical examination there is's have crackles and wheezing bilaterally. Patient is on updrafts, but I believe the patient will benefit from diuresis and I went ahead and recommended Lasix. WBC count today is 7.7 hemoglobin is 7.7. Basic metabolic profile is normal renal profile is normal, blood sugar is 146. Patient was reevaluated today on 01/07/2024, he is now postoperative day #3. Remains in the ICU, patient is not in any distress, he did receive a unit of packed RBCs this morning, hemoglobin was noted to be low below 7, and the patient received a dose of Lasix 20 mg IV push x 1 early this morning. Patient denies shortness of breath, maintained on 3 L nasal cannula, chest x-ray showed mild interstitial edema. Patient is sitting in a recliner, atrially paced with a rate of 80 bpm for blood pressure support, underlying rhythm is in the high 60s and low 70s. Patient was placed on midodrine yesterday, his chest tubes have been removed but continues to have right internal jugular cordis and continues to have Kaur catheter in place. Hemoglobin today is 6.8 WBC count is 6.5 The patient is seen today January 08, 2024 in follow-up. This is postoperative day #4. He is currently sitting up in a chair. Awake and alert in no acute distress. He is maintaining O2 saturations in the 90s on 3 L/min per nasal cannula. No IV fluids. Current hemoglobin 7.3. Platelets 176. Sodium 135. Potassium 3.6. Bicarb 27. BUN 19. Creatinine 0.81. Glucose 124. He continues to work well with the incentive spirometer. Remains on DuoNeb inhalations, Symbicort. Heparin for DVT prophylaxis. X-ray reveals ongoing moderate cardiomegaly and pulmonary vascular congestion. Increased atelectasis of the right base The patient is seen today January 09, 2024 in follow-up in the intensive care unit. Postoperative day #5. He is awake and alert in no acute distress. Sitting up in a chair. Maintaining O2 saturations in the 90s on 2 L/min per nasal cannula. No IV fluids. He did have another episode of atrial fibrillation with a rapid ventricular response requiring amiodarone bolus. He is currently in sinus rhythm. Chest x-ray reveals moderate cardiomegaly with improving congestive heart failure. Pulmonary vascular congestion with trace effusions. He is status post 1 unit of packed red blood cells this admission. Current hemoglobin 8.5. White count 6.4. Platelets 218. Sodium 136. Potassium 3.9. Bicarb 28. BUN 20. Creatinine 0.82. Glucose 109. He continues to work well with the incentive spirometer. He remains on bronchodilators. Heparin for DVT prophylaxis. The patient is seen today January 10, 2024 in follow-up in the intensive care unit. Postoperative day #6. He is sitting up in a chair. Awake and alert in no acute distress. Denies any worsening shortness of breath, cough or congestion. He is maintaining good O2 saturations in the 90s on 2 L nasal cannula. He continues to work well with the incentive spirometer. His pacer wires have been removed today. Chest x-ray shows similar mild pulmonary vascular congestion. Small effusions with adjacent atelectasis. He received 1 unit of packed red blood cells this admission. Current hemoglobin 9.7. Platelets 289. White count 7.3. Sodium 135. Potassium 4.2. Bicarb 29. BUN 19. Creatinine 0.96. Glucose 108. He is continued on DuoNeb inhalations, Symbicort. Anticoagulated with Eliquis. Remains on amiodarone and Lopressor. Remains in sinus rhythm. Objective - Vital Signs Vital signs: Vital Signs Temp 98.7 F 01/10/24 04:00 Pulse 70 01/10/24 08:37 Resp 15 01/10/24 07:00 BP 92/59 01/10/24 07:00 Pulse Ox 96 01/10/24 07:00 FiO2 3 01/06/24 04:00 Intake & Output 01/09/24 01/10/24 01/10/24 18:59 06:59 18:59 Intake Total 1300 240 Output Total 1720 405 0 Balance -420 -165 0 Weight 127.1 kg Intake: IV 100 Dextrose 5% in Water 100 100 ml @ 618 mls/hr IV .Q10M PRN with Amiodarone 150 mg Rx#:[id number] Oral 1200 240 Output: Urine 1720 405 0 Other: Voiding Method Urinal Urinal # Bowel Movements 1 ABP, PAP, CO, CI - Last Documented Arterial Blood Pressure 85/67 Pulmonary Artery Pressure 24/8 Cardiac Output 6.2 Cardiac Index 2.9 - Exam GENERAL EXAM: Alert, 78-year-old male, up in a chair, on 2 L nasal cannula, in no distress. HEAD: Normocephalic. EYES: Normal reaction of pupils, equal size. NOSE: Clear with pink turbinates. THROAT: No erythema or exudates. NECK: No masses, no JVD. CHEST: Sternum stable. Heart hugger in place. LUNGS: Equal air entry with crackles in the posterior bases. CVS: S1 and S2 normal with no audible murmur, regular rhythm. ABDOMEN: No hepatosplenomegaly, normal bowel sounds, no guarding or rigidity. SPINE: No scoliosis or deformity SKIN: No rashes CENTRAL NERVOUS SYSTEM: No focal deficits, tone is normal in all 4 extremities. EXTREMITIES: There is no peripheral edema. No clubbing, no cyanosis. Peripheral pulses are intact. - Labs CBC & Chem 7: 01/10/24 06:13 01/10/24 06:13 Labs: Abnormal Lab Results - Last 24 Hours (Table) 01/09/24 01/09/24 01/09/24 Range/Units 11:24 17:05 21:07 RBC (4.30-5.90) m/uL Hgb (13.0-17.5) gm/dL Hct (39.0-53.0) % MCV (80.0-100.0) fL Sodium (137-145) mmol/L Glucose (74-99) mg/dL POC Glucose (mg/dL) 135 H 135 H 127 H (70-110) mg/dL 01/10/24 01/10/24 01/10/24 Range/Units 06:13 06:13 06:37 RBC 3.05 L (4.30-5.90) m/uL Hgb 9.7 L (13.0-17.5) gm/dL Hct 30.7 L (39.0-53.0) % MCV 100.9 H (80.0-100.0) fL Sodium 135 L (137-145) mmol/L Glucose 108 H (74-99) mg/dL POC Glucose (mg/dL) 119 H (70-110) mg/dL Assessment and Plan Assessment: Acute chest pain in a patient with a known history of triple-vessel coronary a rtery disease based on cardiac catheterization 12/27/2023. Status post off-pump CABG x 4 with sequential ARANA to the diagonal and LAD, saphenous vein graft to posterior descending coronary artery, saphenous vein graft to first obtuse marginal coronary artery, postoperative day #6 Former smoker of 16 years at 1-1/2 packs/day. FEV1 value 59% of predicted History of abdominal aortic aneurysm currently measuring 4.5 cm Chronic hepatitis B infection, maintained on Baraclude. MRI of the liver revea led no suspicious observations. No steatosis. No cirrhosis Hypertension Hyperlipidemia History of depression Hearing disorder Plan: The patient was seen and evaluated Chest x-ray, labs and medications reviewed Continue bronchodilators Continue the incentive spirometer Increase his activity as tolerated Awaiting a bed on the stepdown unit We will continue to follow I have personally seen and examined the patient, performed the documentation and the assessment and plan as written. Number of minutes spent on the visit: 10.
[2024-01-10] MEDS ORDERED: SENNOSIDES-DOCUSATE SODIUM 1 EACH TAB PO PRN (10:43)
[2024-01-10 11:19] LABS: Glucose,Whole Blood 132 mg/dL (70-110)
--- NOTE | 2024-01-10 12:23 | P.PN ---
Subjective Progress Note Date: 01/02/24 Patient is a 78-year-old male with a known history of coronary artery disease and recent cardiac catheterization due to abnormal perfusion stress test on 12/27/2023 showed a extremely calcified right and left coronary system with severe triple-vessel coronary artery disease, hypertension, hyperlipidemia, hearing disorder/deafness, osteoarthritis, depression and prior history of smoking. Patient presents to ER with complaints of chest pain left retrosternal and radiating to left upper arm associate with coughing and shortness of breath and worsens with deep breathing. Patient was brought to the hospital by his family. He did take aspirin x 4 before coming to ER. His symptoms resolved by the time he is in the ER currently denies any complaints of chest pain. No nausea vomiting abdominal pain or diarrhea. Denies any recent illnesses. He did have RSV infection September 2023 and status post course of steroids and antibiotics. Chest x-ray showed suspected interstitial infiltrative mid and lower lungs. Consider possible such as aspiration or an early or atypical pneumonia. EKG showed supraventricular bradycardia with heart rate 59 Laboratory data showed WBC 4.9 hemoglobin 15.1 and platelets 168 sodium 140 potassium 4.0 chloride 106 bicarb is 28 BUN 18 and creatinine 0.9 Blood sugar 10/26/2006 and A1c 5.5 lowering Elevated troponin x 3 negative and proBNP is 48 and TSH 3.58 Hepatitis panel and RSV COVID-19 and influenza not detected. 01/02/2024 Patient is negative. Hemodynamically stable. No complaints of chest pain or shortness of breath. Currently on room air. Patient is s/p cardiac catheterization showed triple-vessel disease and cardiology recommends CT surgery evaluation. Patient is being followed by CT surgery and preoperative workup is being done. Patient had upper and lower extremity duplex scan and carotid duplex. Laboratory data showed WBC 4.1 hemoglobin 14.1 platelets 174 Sodium 141 potassium 3.9 chloride 106 bicarb is 21.7 BUN 17.4 and creatinine 0.9 and blood sugar 134. Liver radiographs are not elevated. Total protein 6.1 and albumin 3.9. MRI of the liver was ordered. Current medications reviewed. Objective - Vital Signs Vital signs: Vital Signs Temp 97.6 F 01/02/24 07:00 Pulse 60 01/02/24 07:00 Resp 18 01/02/24 07:00 BP 144/77 01/02/24 07:00 Pulse Ox 97 01/02/24 07:00 FiO2 Intake & Output 01/01/24 01/02/24 01/02/24 18:59 06:59 18:59 Weight 122.47 kg Other: # Voids 1 - Exam PHYSICAL EXAMINATION: Patient is lying in the bed comfortably, no acute distress, awake alert and oriented.. HEENT: Normocephalic. Neck is supple. Pupils reactive. Nostrils clear. Oral cavity is moist. Neck reveals no JVD, carotid bruits, or thyromegaly. CHEST EXAMINATION: Trachea is central. Symmetrical expansion. Minimal right basilar coarse sounds. No wheezing or rhonchi.. CARDIAC: Normal S1, S2 with no gallops. ABDOMEN: Soft. Bowel sounds normal. No organomegaly. No abdominal bruits. Extremities: reveal no edema. No clubbing or cyanosis Neurologically awake, alert, oriented x3 with well-coordinated movements. No focal deficits noted Skin: No rash or skin lesions. Psychiatric: Coperative. Nonsuicidal Musculoskeletal: No joint swelling or deformity. Normal range of motion. - Labs CBC & Chem 7: 01/10/24 06:13 01/10/24 06:13 Labs: Abnormal Lab Results - Last 24 Hours (Table) 01/01/24 Range/Units 06:45 HDL Cholesterol 37.90 L (40.00-60.00) mg/dL Assessment and Plan Assessment: Cardiac chest pain. Ruled out ACS Severe triple-vessel coronary artery disease status post recent cardiac catheterization on 12/27/2023 Hypertension Hyperlipidemia GERD Osteoarthritis Depression Prior history of smoking Hearing disorder/deafness History of hepatitis B Morbid obesity BMI 43.6 DVT prophylaxis with heparin subcu Plan: Patient will be continued on telemetry monitoring. Serial EKG and troponin x 3 negative. Due to severe triple-vessel coronary disease. Cardiology and CT surgery is on board. Patient will be continued on aspirin, statins, lisinopril and other home medications. Encourage incentive spirometry and follow-up closely. Due to chest x-ray findings procalcitonin was ordered. Procalcitonin level is not elevated. Preoperative workup as per CT surgery. MRI of the liver was ordered due to history of hepatitis B Discussed with the family at bedside in detail. Time with Patient: Greater than 30
--- NOTE | 2024-01-10 16:03 | P.PN ---
Progress Note - Text Progress Note Date: 01/10/24 Patient is a 78-year-old male with a known history of coronary artery disease and recent cardiac catheterization due to abnormal perfusion stress test on 12/27/2023 showed a extremely calcified right and left coronary system with severe triple-vessel coronary artery disease, hypertension, hyperlipidemia, hearing disorder/deafness, osteoarthritis, depression and prior history of smoking. Patient presents to ER with complaints of chest pain left retrosternal and radiating to left upper arm associate with coughing and shortness of breath and worsens with deep breathing. Patient was brought to the hospital by his family. He did take aspirin x 4 before coming to ER. His symptoms resolved by the time he is in the ER currently denies any complaints of chest pain. No nausea vomiting abdominal pain or diarrhea. Denies any recent illnesses. He did have RSV infection September 2023 and status post course of steroids and antibiotics. Chest x-ray showed suspected interstitial infiltrative mid and lower lungs. Consider possible such as aspiration or an early or atypical pneumonia. EKG showed supraventricular bradycardia with heart rate 59 Laboratory data showed WBC 4.9 hemoglobin 15.1 and platelets 168 sodium 140 potassium 4.0 chloride 106 bicarb is 28 BUN 18 and creatinine 0.9 Blood sugar 10/26/2006 and A1c 5.5 lowering Elevated troponin x 3 negative and proBNP is 48 and TSH 3.58 Hepatitis panel and RSV COVID-19 and influenza not detected. 01/03/2024 Patient is seen in follow-up today with family members present currently undergoing further workup for tentative CABG. Patient is afebrile with no reports of chest pain or shortness of breath. Patient does have incentive spirometer at the bedside and has been using and encouraged to continue at least 10 times every hour while awake. Patient currently tolerating diet and will be n.p.o. at midnight. Patient denies any nausea or vomiting. Patient has been up and walking and encouraged the patient to increase activity as tolerated. Questions and concerns were answered to the best of our ability. January 05, 2024: Yesterday-December Diet came to see the patient twice. Had not return from operating room. Today patient. He is extubated. Sitting up in a chair. Chest tubes in place. On clear liquid diet. Family at the bedside. 4 L nasal cannula. Using incentive spirometry. Kaur catheter. Some shortness of breath. January 06, 2024: ICU. Up in a chair. Chest tubes are out. Kaur catheter in place. Did walk a bit. Slight short of breath. Tolerating diet. On 4 L nasal cannula. Using incentive spirometry. Patient taken off insulin drip. Accu-Cheks with sliding scale. January 07, 2024: ICU. In a recliner. Kaur catheter discontinued. Pending to make urine. Passing flatus. Oral intake good. Did ambulate. On 3 L nasal cannula. Eating well. Hemoglobin did drop to 6.6 this morning. Received a unit of blood January 08, 2024: ICU. Sitting up in the recliner. Did ambulate in the hallway. Eating well. Had a small bowel movement. Breathing stable. Remains on 3 L nasal cannula. Family at the bedside. Hemoglobin 7.6 remains in atrial fibrillation. January 09, 2024: ICU. Comfortable. Ambulating. Ordered lactulose for BM. On nasal cannula. Has been in and out of A-fib. Went back at a rate about 1 teens. Metoprolol increased to 12.5 3 times daily. Anticoagulation when okay with surgery January 10, 2024: ICU. Ambulating with a walker. Being started on aspirin and Eliquis today. A-fib controlled. Metoprolol changed to 25 mg twice daily. Eating well. Had a good bowel movement. Active Medications Acetaminophen (Acetaminophen Tab 325 Mg Tab) 650 mg PO Q4HR PRN PRN Reason: Fever and/ or Mild Pain Last Admin: 01/08/24 04:47 Dose: 650 mg Albuterol/Ipratropium (Ipratropium-Albuterol 3 Ml Neb) 3 ml INHALATION RT-Q2H PRN PRN Reason: Shortness Of Breath Or Wheezing Albuterol/Ipratropium (Ipratropium-Albuterol 3 Ml Neb) 3 ml INHALATION RT-QID [facility] Last Admin: 01/10/24 11:33 Dose: 3 ml Amiodarone HCl (Amiodarone 200 Mg Tab) 400 mg PO BID [facility] Last Admin: 01/10/24 08:53 Dose: 400 mg Apixaban (Apixaban 5 Mg Tab) 5 mg PO BID [facility]; Protocol Last Admin: 01/10/24 08:53 Dose: 5 mg Ascorbic Acid (Ascorbic Acid 500 Mg Tab) 500 mg PO BID-W/MEALS [facility] Last Admin: 01/10/24 06:51 Dose: 500 mg Aspirin (Aspirin 81 Mg) 81 mg PO DAILY [facility] Last Admin: 01/10/24 08:53 Dose: 81 mg Atorvastatin Calcium (Atorvastatin 80 Mg Tab) 80 mg PO DAILY [facility] Last Admin: 01/10/24 08:53 Dose: 80 mg Bisacodyl (Bisacodyl 10 Mg Supp) 10 mg RECTAL DAILY PRN PRN Reason: Constipation Last Admin: 01/08/24 05:58 Dose: 10 mg Budesonide/Formoterol Fumarate (Symbicort 160-4.5 Mcg Inhaler) 2 puff INHALATION RT-BID [facility] Last Admin: 01/10/24 08:25 Dose: 2 puff Buspirone HCl (Buspirone Hcl 5 Mg Tab) 15 mg PO BID [facility] Last Admin: 01/10/24 08:53 Dose: 15 mg Dextrose/Water (Dextrose 50% Syringe 50 Ml) 25 ml IVP PER PROTOCOL PRN; Protocol PRN Reason: Hypoglycemia Dextrose/Water (Dextrose 50% Syringe 50 Ml) 50 ml IVP PER PROTOCOL PRN; Protocol PRN Reason: Hypoglycemia Escitalopram Oxalate (Escitalopram 20 Mg Tab) 20 mg PO DAILY [facility] Last Admin: 01/10/24 08:53 Dose: 20 mg Ferrous Sulfate (Ferrous Sulfate 325 Mg Tab) 325 mg PO BID-W/MEALS [facility] Last Admin: 01/10/24 06:51 Dose: 325 mg Gabapentin (Gabapentin 300 Mg Cap) 300 mg PO BID [facility] Last Admin: 01/10/24 08:53 Dose: 300 mg Insulin Aspart (Insulin Aspart (Novolog) 100 Unit/Ml Vial) 0 unit SQ ACHS [facility]; Protocol Last Admin: 01/10/24 11:26 Dose: Not Given Magnesium Hydroxide (Magnesium Hydroxide 2,400 Mg/30 Ml Cup) 2,400 mg PO BID PRN PRN Reason: Constipation Last Admin: 01/07/24 08:43 Dose: 2,400 mg Metoclopramide HCl (Metoclopramide 5 Mg/Ml 2 Ml Vial) 10 mg IVP Q4H PRN PRN Reason: Nausea And Vomiting Metoprolol Tartrate (Metoprolol Tartrate 25 Mg Tab) 25 mg PO BID [facility] Last Admin: 01/10/24 08:53 Dose: 25 mg Midodrine (Midodrine 5 Mg Tab) 20 mg PO BID-W/MEALS [facility] Last Admin: 01/10/24 09:03 Dose: 10 mg Miscellaneous Information (Magnesium Replacement Protocol 1 Each Misc) 1 each MISCELLANE DAILY PRN; Protocol PRN Reason: Per Protocol Miscellaneous Information (Potassium Replacement Protocol 1 Each Misc) 1 each MISCELLANE DAILY PRN; Protocol PRN Reason: Per Protocol Ondansetron HCl (Ondansetron 4 Mg/2 Ml Vial) 4 mg IVP Q6HR PRN PRN Reason: Nausea And Vomiting Last Admin: 01/05/24 09:53 Dose: 4 mg Pantoprazole Sodium (Pantoprazole 40 Mg Tablet) 40 mg PO AC-BRKFST [facility] Last Admin: 01/10/24 06:52 Dose: 40 mg Senna/Docusate Sodium (Sennosides-Docusate Sodium 1 Each Tab) 2 each PO HS PRN PRN Reason: Constipation Sodium Chloride (Sodium Chloride 0.9% Flush 10 Ml Syringe) 10 ml IV BID [facility] Last Admin: 01/10/24 09:07 Dose: 10 ml On examination: VITAL SIGNS: 98.3, 64, 16, 95/61, 94% on 2 L GENERAL APPEARANCE: Comfortable HEENT: Normal external appearance of nose and ear. Oral cavity normal EYES: Pupils equal. Conjunctiva normal. NECK: JVD able to assess. Mass not palpable. RESPIRATORY: Respiratory effort increased. Decreased breath sounds CARDIOVASCULAR: Heart sounds distant, minimal edema ABDOMEN: Soft. Liver and spleen not palpable. No tenderness. No mass palpable. Kaur catheter discontinued PSYCHIATRY: Alert and oriented x3. Mood and affect normal. INVESTIGATIONS, reviewed in the clinical context: January 09: White count 7.3 hemoglobin 9.7 potassium 4.2 creatinine 0.96 January 08: White count 6.4 hemoglobin 8.5 platelets 218 potassium 3.9 creatinine 0.89. Blood glucose 109 December 13: White count 6.3 hemoglobin 7.6 potassium 3.6 creatinine 0.81 blood glucose 124 December 12: W White count 6.2 hemoglobin 6.6 platelets 135 December 11: White count 7.7 hemoglobin 7.7 platelets 143 potassium 4.3 creatinine 0.82 January 05, 2024: White count 6.3 hemoglobin 8.2 platelets 128 sodium 135 potassium 4.1 BUN 16 creatinine 0.6 albumin 3.1 Previous labs: January 03, 2024: Hemoglobin 15.1, platelets 190 Liver MRI: Smooth contour of the liver. Infrarenal abdominal aortic aneurysm 4.6 cm. Assessment and plan: Severe triple-vessel coronary artery disease status post cardiac catheterization on 12/27/2023 CABG on 01/04/2024 Essential hypertension Hyperlipidemia Paroxysmal atrial fibrillation currently in atrial fibrillation though rate controlled. On Cordarone. Eliquis aspirin started GERD Primary osteoarthritis Depression Morbid obesity BMI 45.8 Hearing disorder/deafness hepatitis B-history of resolved Morbid obesity BMI 43.6 Acute postprocedure blood loss anemia expected from surgery. Dropped hemoglobin down to 6.6. Received a unit of blood Dilutional thrombocytopenia-corrected Reactive hypoalbuminemia Full code Lopressor changed to 25 mg twice daily. Eliquis aspirin added. Otherwise doing well. /
[2024-01-10 21:07] LABS: Glucose,Whole Blood 137 mg/dL (70-110)
[2024-01-11 05:06] LABS: HCT 27.1 % (39.0-53.0); HGB 8.6 gm/dL (13.0-17.5); MCH 31.9 pg (25.0-35.0); MCHC 31.9 g/dL (31.0-37.0); Macrocytosis Slight; Mean Platelet Volume 8.5; Platelet Count 280 k/uL (150-450); RBC 2.71 m/uL (4.30-5.90); RDW 14.5 % (11.5-15.5); WBC 7.3 k/uL (3.8-10.6)
[2024-01-11 05:25] LABS: African American GFR (CKD) >90 (>60 ml/min/1.73 sqM); Anion Gap 3 mmol/L; Blood Urea Nitrogen 22 mg/dL (9-20); Calcium 8.5 mg/dL (8.4-10.2); Carbon Dioxide 29 mmol/L (22-30); Chloride 102 mmol/L (98-107); Glucose 110 mg/dL (74-99); Non-African American GFR(CKD) 79 (>60 ml/min/1.73 sqM); Potassium 4.2 mmol/L (3.5-5.1); Sodium 134 mmol/L (137-145)
[2024-01-11 06:34] LABS: Glucose,Whole Blood 133 mg/dL (70-110)
--- NOTE | 2024-01-11 07:27 | P.PN ---
Progress Note - Text Progress Note Date: 01/11/24 HPI: [This gentleman is s/p aortocoronary bypass surgery. He is progressing slowly. He has been in sinus rhythm for over 24 hours. He is currently on Eliquis amiodarone and metoprolol tartrate. He is also hypotensive requiring high-dose of midodrine. I am recommending that we cut down the metoprolol to tartrate from 25 to 12.5 mg twice daily continue his other medications and also continue with incentive spirometry and pulmonary toilet and increased activity.]. PHYSICIAL EXAM: [Blood pressure is about 98/60 pulse rate is 64 JVD 1 cm no carotid bruit S1-S2 heard normally short systolic murmur lungs reveal improved air entry abdomen is soft Central nervous system grossly no focal deficits]. IMPRESSION: 1. [S/p aortocoronary bypass surgery making modest progress]. 2. [Paroxysmal atrial fibrillation on Eliquis maintaining sinus rhythm]. 3. [Orthostatic hypotension]. RECOMMENDATIONS: [Continue current medications except decrease metoprolol to tartrate from 25 to 12.5 mg twice daily and gradual increase in activity. Hopefully we can reduce the dose of midodrine.].
--- NOTE | 2024-01-11 07:33 | P.PN ---
Subjective Progress Note Date: 01/11/24 Principal diagnosis: Coronary artery disease, unstable angina. History of hypertension, hyperlipidemia, infrarenal abdominal aortic aneurysm, hepatitis B on chronic Entecavir, depression, morbid obesity, mild COPD, previous tobacco dependence POD#7 off-pump CABG x 4 with sequential ARANA to the diagonal and LAD, saphenous vein graft to posterior descending coronary artery, saphenous vein graft to first obtuse marginal coronary artery, ligation of the left atrial appendage wi th 35mm AtriCure clip, endovascular vein harvest from the left leg extending from ankle to groin, epiaortic ultrasonography Acute blood loss anemia and thrombocytopenia, expected given hemodilution Paroxysmal atrial fibrillation, currently controlled, known common occurrence after open heart surgery, not a complication The patient was seen and examined this morning sitting up in recliner in the intensive care unit in no acute distress. Currently in sinus rhythm, has been in sinus rhythm all night, blood pressure soft although mean arterial pressures have remained in the 70s to 80s indicating adequate perfusion. Denies any current chest pain, shortness of breath, states expected postsurgical pain is well-controlled on current medication regimen. Currently on room air, achieving 1000 mL on his incentive spirometry. Labs, chest x-ray reviewed. Patient has been ambulating in hallway with walker, showering daily and walking all the way to the shower and back to his room. Was started on anticoagulation yesterday after removal of epicardial pacer wire. Anticipates discharge to home today. No other new concerns. Objective - Vital Signs Vital signs: Vital Signs Temp 98.6 F 01/11/24 00:00 Pulse 60 01/11/24 05:00 Resp 20 01/11/24 05:00 BP 101/60 01/11/24 05:00 Pulse Ox 91 L 01/11/24 00:00 FiO2 3 01/06/24 04:00 Intake & Output 01/10/24 01/11/24 01/11/24 18:59 06:59 18:59 Intake Total 450 240 Output Total 400 450 Balance 50 -210 Weight 127.1 kg 125.8 kg Intake: Oral 450 240 Output: Urine 400 450 Other: Voiding Method Urinal Urinal # Voids 1 # Bowel Movements 1 1 ABP, PAP, CO, CI - Last Documented Arterial Blood Pressure 85/67 Pulmonary Artery Pressure 24/8 Cardiac Output 6.2 Cardiac Index 2.9 - Exam CONSTITUTIONAL: Appears comfortable, cooperative, no acute distress RESPIRATORY: Lungs sounds diminished bilaterally. Respirations even, nonlabored. Currently on room air with oxygen saturation 91%. Able to achieve 1000 mL on incentive spirometry. Strong loose cough. CARDIOVASCULAR: S1, S2 present. Regular rate and rhythm, sinus rhythm on telem etry. Sternum stable. Palpable peripheral pulses bilaterally. No edema present. No calf pain or tenderness noted. Heart hugger in place with patient demonstrating appropriate use. Antiembolism stockings, SCDs present. GASTROINTESTINAL: Abdomen soft, nontender, nondistended, obese. Active bowel sounds present 4 quadrants. Tolerating diet. Positive bowel movement 01/10 GENITOURINARY: Continues to void INTEGUMENTARY: Skin is warm and dry with evidence of good perfusion. Anterior chest incision well approximated. Left lower extremity EVH site well approximated without redness NEUROLOGIC: Cranial nerves II through XII intact MUSKULOSKELETAL: Able to move all extremities, strength equal bilaterally PSYCHIATRIC: Alert and oriented to person place and time, appropriate affect, intact judgment and insight - Allied health notes Allied health notes reviewed: nursing - Labs CBC & Chem 7: 01/11/24 04:11 01/11/24 04:11 Labs: Abnormal Lab Results - Last 24 Hours (Table) 01/10/24 01/10/24 01/11/24 Range/Units 11:17 21:05 04:11 RBC 2.71 L (4.30-5.90) m/uL Hgb 8.6 L (13.0-17.5) gm/dL Hct 27.1 L (39.0-53.0) % Sodium (137-145) mmol/L BUN (9-20) mg/dL Glucose (74-99) mg/dL POC Glucose (mg/dL) 132 H 137 H (70-110) mg/dL 01/11/24 01/11/24 Range/Units 04:11 06:32 RBC (4.30-5.90) m/uL Hgb (13.0-17.5) gm/dL Hct (39.0-53.0) % Sodium 134 L (137-145) mmol/L BUN 22 H (9-20) mg/dL Glucose 110 H (74-99) mg/dL POC Glucose (mg/dL) 133 H (70-110) mg/dL - Imaging and Cardiology Chest x-ray: image reviewed Assessment and Plan Assessment: Coronary artery disease, unstable angina, status post four-vessel off-pump CABG Chest pain, shortness of breath, secondary to above Hypertension, currently blood pressure soft, not on pressors Hyperlipidemia, treated, cholesterol 151, LDL 98 Infrarenal abdominal aortic aneurysm Hepatitis B, resolved, on chronic Entecavir Depression Morbid obesity Mild COPD, preoperative FEV1 59% of predicted Previous tobacco dependence Acute blood loss anemia and thrombocytopenia, expected given hemodilution Paroxysmal atrial fibrillation, currently controlled, status post left atrial appendage ligation Plan: Continue to maximize medical therapy with low-dose aspirin, statin, beta- marci. Lopressor decreased to 12.5 mg twice daily per Dr. Alcala's request. Continue midodrine for blood pressure support Continue amiodarone for A-fib prophylaxis, Eliquis for anticoagulation. Will taper amiodarone weekly Encourage incentive spirometry use 10 times every hour while awake. Bronchodilators per pulmonology Increase activity, ambulate as tolerated. PT/OT/cardiac rehab consulted Will monitor daily labs and x-rays. Electrolyte replacement per protocol GI/DVT prophylaxis Pain control per current medication regimen Insulin management per internal medicine Continue to monitor and record strict accurate intake and output Daily weights, shower daily Transfer orders for 3 S. cardiac stepdown unit were placed yesterday, no bed a vailability Will discharge to home with home care later this afternoon More recommendations to follow
[2024-01-11 08:22] VITALS: TEMP 98.3
--- NOTE | 2024-01-11 08:40 | XR ---
EXAMINATION TYPE: XR chest 2V DATE OF EXAM: 01/11/2024 COMPARISON: 01/10/2024 HISTORY: 78-year-old male postcardiac surgery, follow-up TECHNIQUE: PA and lateral views FINDINGS: Median sternotomy wires are present with post-CABG clips. Heart mildly enlarged. Interstitial densiti es. Small left pleural effusion slightly increased. Adjacent patchy left basilar opacity persists. IMPRESSION: Cardiomegaly with similar mild pulmonary vascular congestion. A small left pleural effusion with nando cent atelectasis and/or consolidation is slightly increased.
[2024-01-11] MEDS: METOPROLOL TARTRATE 12.5 MG TAB PO SCH (09:03)
--- NOTE | 2024-01-11 09:57 | P.PN ---
Subjective Progress Note Date: 01/11/24 This is a very pleasant 78-year-old male patient with a known history of hyperlipidemia, hypertension, hearing disorder, hepatitis B infection, depression, former smoker for about 16 years at 1-1/2 packs/day. He also has a history of 4.5 cm infrarenal abdominal aortic aneurysm. He had recently undergone a cardiac catheterization on December 27, 2023 that revealed triple-vessel coronary artery disease and was planning to have possible bypass surgery. However on yesterday he developed a sudden onset of chest pain and presented to the ER for the same. Troponins were negative x 3. White count 4.1. Hemoglobin 14.2. Platelets 174. Sodium 141. Potassium 3.9. Bicarb 22. BUN 17. Creatinine 0.9. Glucose 134. The plan is for bypass surgery on 01/04/2024. FEV1 value was 59% of predicted. He is seen in consultation. He denies any known history of COPD/emphysema. No asthma. Not previously on inhalers or oxygen. The last couple of days he has been having some cough and congestion however. CT scan of the chest revealed lung parenchyma appears unremarkable. Airway is patent and unremarkable. He is currently resting comfortably in bed. Awake and alert in no acute distress. Denies any chest pain. No worsening shortness of breath. He is maintaining good O2 saturations in the 90s on room air. He is afebrile. Hemodynamically stable. The patient is seen today January 03, 2024 in follow-up on the regular medical floor. He is currently sitting up in a chair at the bedside. Awake and alert in no acute distress. Maintaining good O2 saturations in the 90s on room air. He is afebrile. Hemodynamically stable. He is working well with the incentive spirometer. He denies any chest pain. Improved shortness of breath, cough and congestion today. White count 5.5. Hemoglobin 15.1. Platelets 190. INR 1.0. Sodium 138. Potassium 3.9. Bicarb 25. BUN 17. Creatinine 0.87. Glucose 101. He remains on DuoNeb inhalations, Symbicort. Remains on oral diuretics. Remains on heparin for DVT prophylaxis. Patient was reevaluated today on 01/04/2024, presently in the ICU he is status pos t Off-pump CABG x 4 with sequential ARANA to the diagonal and LAD, saphenous vein graft to posterior descending coronary artery, saphenous vein graft to first obtuse marginal coronary artery, ligation of the left atrial appendage with 35mm AtriCure clip, endovascular vein harvest from the left leg extending from ankle to groin, epiaortic ultrasonography. Postoperative day #0. Patient is intubated mechanically ventilated, he is on assist-control rate of 14, tidal volume 450, FiO2 50%, and PEEP of 5. Earlier ABG on assist-control rate of 12 and FiO2 100% showed a pO2 of 329 pCO2 of 43 pH of 7.33. Patient had readjustment in his vent settings, he is now on assist-control rate of 12 tidal volume 500 FiO2 50% and PEEP of 5. Seems to be comfortable, sedated, he is on 15 mcg/kg/min of propofol. Patient is also receiving drips in the form of amiodarone 1 mg/min, he is on nitroglycerin 5 mcg/min, patient is on insulin drip, 4.5 units/h, patient is not requiring any pressors or any inotropes. Cardiac output is 4.5, and cardiac index is 2.1. Patient is calm sedated, and not in any distress. I have seen this patient prior to his surgery yesterday and the day before, he was cleared for surgery and felt to be low operative risk. Chest x-ray postoperatively showed mostly postoperative changes, no acute process is noted, minimal basilar atelectasis noted. Lines and tubes seem to be in proper position Reevaluate today on 01/05/2024,POD#1 off-pump CABG x 4 with sequential ARANA to th e diagonal and LAD, saphenous vein graft to posterior descending coronary artery, saphenous vein graft to first obtuse marginal coronary artery, ligation of the left atrial appendage with 35mm AtriCure clip, endovascular vein harvest from the left leg extending from ankle to groin, epiaortic ultrasonography, patient is sitting in the recliner, remains in the ICU, patient was extubated yesterday within a short time after arriving to the ICU, however I had to extubate him initially to BiPAP and within 2 hours transition to nasal cannula patient is doing well today, he is on few liters nasal cannula, not in any distress. Patient is not requiring any pressors or inotropes however he is on amiodarone at 0.5 mg/min mostly because of paroxysmal atrial fibrillation which is expected. Chest x-ray showed mild pulmonary vascular congestion and left basilar atelectasis Patient was reevaluated today on 01/06/2024, he is now postoperative day #2. Patient is in the ICU, he is sitting in the bedside recliner, currently he has no hemodynamic instability not requiring any pressors or any inotropes. Blood pressure is marginal however, and the chest x-ray is showing evidence of mild interstitial edema. I did recommend Lasix to be given 20 mg IV push, patient did receive albumin and Lasix last night, with minimal response. On physical examination there is's have crackles and wheezing bilaterally. Patient is on updrafts, but I believe the patient will benefit from diuresis and I went ahead and recommended Lasix. WBC count today is 7.7 hemoglobin is 7.7. Basic metabolic profile is normal renal profile is normal, blood sugar is 146. Patient was reevaluated today on 01/07/2024, he is now postoperative day #3. Remains in the ICU, patient is not in any distress, he did receive a unit of packed RBCs this morning, hemoglobin was noted to be low below 7, and the patient received a dose of Lasix 20 mg IV push x 1 early this morning. Patient denies shortness of breath, maintained on 3 L nasal cannula, chest x-ray showed mild interstitial edema. Patient is sitting in a recliner, atrially paced with a rate of 80 bpm for blood pressure support, underlying rhythm is in the high 60s and low 70s. Patient was placed on midodrine yesterday, his chest tubes have been removed but continues to have right internal jugular cordis and continues to have Kaur catheter in place. Hemoglobin today is 6.8 WBC count is 6.5 The patient is seen today January 08, 2024 in follow-up. This is postoperative day #4. He is currently sitting up in a chair. Awake and alert in no acute distress. He is maintaining O2 saturations in the 90s on 3 L/min per nasal cannula. No IV fluids. Current hemoglobin 7.3. Platelets 176. Sodium 135. Potassium 3.6. Bicarb 27. BUN 19. Creatinine 0.81. Glucose 124. He continues to work well with the incentive spirometer. Remains on DuoNeb inhalations, Symbicort. Heparin for DVT prophylaxis. X-ray reveals ongoing moderate cardiomegaly and pulmonary vascular congestion. Increased atelectasis of the right base The patient is seen today January 09, 2024 in follow-up in the intensive care unit. Postoperative day #5. He is awake and alert in no acute distress. Sitting up in a chair. Maintaining O2 saturations in the 90s on 2 L/min per nasal cannula. No IV fluids. He did have another episode of atrial fibrillation with a rapid ventricular response requiring amiodarone bolus. He is currently in sinus rhythm. Chest x-ray reveals moderate cardiomegaly with improving congestive heart failure. Pulmonary vascular congestion with trace effusions. He is status post 1 unit of packed red blood cells this admission. Current hemoglobin 8.5. White count 6.4. Platelets 218. Sodium 136. Potassium 3.9. Bicarb 28. BUN 20. Creatinine 0.82. Glucose 109. He continues to work well with the incentive spirometer. He remains on bronchodilators. Heparin for DVT prophylaxis. The patient is seen today January 10, 2024 in follow-up in the intensive care unit. Postoperative day #6. He is sitting up in a chair. Awake and alert in no acute distress. Denies any worsening shortness of breath, cough or congestion. He is maintaining good O2 saturations in the 90s on 2 L nasal cannula. He continues to work well with the incentive spirometer. His pacer wires have been removed today. Chest x-ray shows similar mild pulmonary vascular congestion. Small effusions with adjacent atelectasis. He received 1 unit of packed red blood cells this admission. Current hemoglobin 9.7. Platelets 289. White count 7.3. Sodium 135. Potassium 4.2. Bicarb 29. BUN 19. Creatinine 0.96. Glucose 108. He is continued on DuoNeb inhalations, Symbicort. Anticoagulated with Eliquis. Remains on amiodarone and Lopressor. Remains in sinus rhythm. The patient is seen today January 11, 2024 in follow-up in the intensive care unit. Postoperative day #7. He remains a selective care unit overflow. He is currently sitting up in a chair. Awake and alert in no acute distress. Denies any significant pain. No shortness of breath, cough or congestion. Continues to work well with the incentive spirometer. Pacer wires are out. Chest x-ray reveals cardiomegaly was similar mild pulmonary vascular congestion. Small left pleural effusion with adjacent atelectasis. He is status post 1 unit of packed red blood cells this admission. Current hemoglobin 8.6. Platelets 280. White count 7.3. Sodium 134. Potassium 4.2. Bicarb 29. BUN 22. Creatinine 0.92. Glucose 110. He is continued on DuoNeb ventilations, Symbicort. Anticoagulated with Eliquis. Remains in sinus rhythm. Objective - Vital Signs Vital signs: Vital Signs Temp 98.3 F 01/11/24 08:00 Pulse 62 01/11/24 08:30 Resp 21 01/11/24 08:00 BP 95/70 01/11/24 08:00 Pulse Ox 91 L 01/11/24 08:00 FiO2 3 01/06/24 04:00 Intake & Output 01/10/24 01/11/24 01/11/24 18:59 06:59 18:59 Intake Total 450 240 Output Total 400 450 Balance 50 -210 Weight 127.1 kg 125.8 kg Intake: Oral 450 240 Output: Urine 400 450 Other: Voiding Method Urinal Urinal # Voids 1 # Bowel Movements 1 1 ABP, PAP, CO, CI - Last Documented Arterial Blood Pressure 85/67 Pulmonary Artery Pressure 24/8 Cardiac Output 6.2 Cardiac Index 2.9 - Exam GENERAL EXAM: Alert, very pleasant 78-year-old male, up in a chair, on room air, in no distress. HEAD: Normocephalic. EYES: Normal reaction of pupils, equal size. NOSE: Clear with pink turbinates. THROAT: No erythema or exudates. NECK: No masses, no JVD. CHEST: Sternum stable. Heart hugger in place. LUNGS: Equal air entry with crackles in the posterior bases. CVS: S1 and S2 normal with no audible murmur, regular rhythm. ABDOMEN: No hepatosplenomegaly, normal bowel sounds, no guarding or rigidity. SPINE: No scoliosis or deformity SKIN: No rashes CENTRAL NERVOUS SYSTEM: No focal deficits, tone is normal in all 4 extremities. EXTREMITIES: There is no peripheral edema. No clubbing, no cyanosis. Peripheral pulses are intact. - Labs CBC & Chem 7: 01/11/24 04:11 01/11/24 04:11 Labs: Abnormal Lab Results - Last 24 Hours (Table) 05/15/24 05/15/24 05/16/24 Range/Units 11:17 21:05 04:11 RBC 2.71 L (4.30-5.90) m/uL Hgb 8.6 L (13.0-17.5) gm/dL Hct 27.1 L (39.0-53.0) % Sodium (137-145) mmol/L BUN (9-20) mg/dL Glucose (74-99) mg/dL POC Glucose (mg/dL) 132 H 137 H (70-110) mg/dL 01/11/24 01/11/24 Range/Units 04:11 06:32 RBC (4.30-5.90) m/uL Hgb (13.0-17.5) gm/dL Hct (39.0-53.0) % Sodium 134 L (137-145) mmol/L BUN 22 H (9-20) mg/dL Glucose 110 H (74-99) mg/dL POC Glucose (mg/dL) 133 H (70-110) mg/dL Assessment and Plan Assessment: Acute chest pain in a patient with a known history of triple-vessel coronary artery disease based on cardiac catheterization 12/27/2023. Status post off-pump CABG x 4 with sequential ARANA to the diagonal and LAD, saphenous vein graft to posterior descending coronary artery, saphenous vein graft to first obtuse marginal coronary artery, postoperative day #7 Former smoker of 16 years at 1-1/2 packs/day. FEV1 value 59% of predicted History of abdominal aortic aneurysm currently measuring 4.5 cm Chronic hepatitis B infection, maintained on Baraclude. MRI of the liver revealed no suspicious observations. No steatosis. No cirrhosis Hypertension Hyperlipidemia History of depression Hearing disorder Plan: The patient was seen and evaluated Chest x-ray, labs and medications reviewed Continue bronchodilators Continue the incentive spirometer Home once cleared by CT services I have personally seen and examined the patient, performed the documentation and the assessment and plan as written. Number of minutes spent on the visit: 10.
[2024-01-11 12:07] LABS: Glucose,Whole Blood 111 mg/dL (70-110)
[2024-01-11 12:10] VITALS: BP 118/65; PULSE 59
[2024-01-11 13:09] VITALS: RESP 22
--- NOTE | 2024-01-11 13:44 | P.DS ---
Providers Date of admission: 01/01/24 09:21 Expected date of discharge: 01/11/24 Attending physician: Surendra Morales Consults: 01/01/24 09:19 Consult Physician Routine Consulting Provider: [facility] Consult Reason/Comments: chest pain Do you want consulting provider notified?: Yes 01/01/24 11:52 Consult Physician Routine Consulting Provider: Maeve Stahl Consult Reason/Comments: Eval. for CABG Do you want consulting provider notified?: Already Contacted 01/02/24 08:45 Consult Physician Routine Consulting Provider: Zelalem Quan Consult Reason/Comments: preop cabg Do you want consulting provider notified?: Already Contacted 01/03/24 13:52 Consult to Anesthesia Routine Consulting Provider: Anesthesia,Services Consult Reason/Comments: Cardiac Surgery Pre-Op 01/05/24 06:41 Consult Physician Routine Consulting Provider: Rl Jones Consult Reason/Comments: med mgmt Do you want consulting provider notified?: Yes Primary care physician: [facility] Course: FINAL DIAGNOSIS: Coronary artery disease, unstable angina Chest pain, shortness of breath, secondary to above Hypertension, currently blood pressure soft, not on pressors Hyperlipidemia, treated, cholesterol 151, LDL 98 Infrarenal abdominal aortic aneurysm Hepatitis B, resolved, on chronic Entecavir Depression Morbid obesity Mild COPD, preoperative FEV1 59% of predicted Previous tobacco dependence Acute blood loss anemia and thrombocytopenia, expected given hemodilution Paroxysmal atrial fibrillation, currently controlled, status post left atrial appendage ligation PRINCIPAL PROCEDURE: Off-pump CABG x 4 with sequential ARANA to the diagonal and LAD, saphenous vein graft to posterior descending coronary artery, saphenous vein graft to first obtuse marginal coronary artery Ligation of the left atrial appendage with 35mm AtriCure clip Endovascular vein harvest from the left leg extending from ankle to groin Epiaortic ultrasonography HISTORY OF PRESENT ILLNESS: This is a 78-year-old gentleman who follows outpatient with Dr. Quevedo for primary care and Dr. Moss for cardiology. Apparently this gentleman had been experiencing chest discomfort and progressive shortness of breath. He was seen by Dr. Moss and underwent stress testing which was abnormal. Subsequently he was advised heart catheterization which was completed last week and which demonstrated severe triple-vessel coronary artery disease with calcified right left coronary systems. At that time he was recommended to see a cardiothoracic surgeon, however the patient did not wish to remain inpatient and wanted to be seen on an outpatient basis. Unfortunately he presented to [facility] emergency room with complaints of chest discomfort to the left side of his chest, shortness of breath and coughing. Troponins were drawn and were negative. EKG did not demonstrate any ischemic changes. He was seen by Dr. Moss and due to the recommendations for consultation for surgical revascularization the patient was agreeable to stay in the hospital. Dr. Morales from cardiothoracic surgery was consulted and did see the patient in the emergency room. Of note the patient had a echocardiogram completed in the cardiology office on December 07 demonstrating normal left ventricular systolic function with EF 50 to 55%, mild aortic/mitral/tricuspid regurgitation, and aneurysmal ascending aorta measuring 5.1 cm. The patient was recommended to undergo surgical myocardial revascularization. The usual perioperative course was discussed in detail with the patient and his family, all risks and benefits were explained, all questions were answered, and consent was obtained to proceed with surgery. The patient was kept inpatient due to the nature of his disease process. HOSPITAL COURSE: The patient was brought to the preoperative area 01/04/24, prepared in the usual fashion, and subsequently taken to the operating room where Dr. Morales performed four vessel off pump CABG. Upon completion of surgery the patient was transferred to the cardiovascular intensive care unit where he was recovered and monitored hemodynamically. He was extubated, all lines, tubes, and drips were discontinued when appropriate, and transfer orders were placed for 3 S. cardiac stepdown unit, however there was no bed availability and the patient remained on ICU as a stepdown patient until discharge. He did experience paroxysmal atrial fibrillation treated with amiodarone and Eliquis. His oxygen was titrated down, he continued to work with physical and occupational therapy, he was tolerating oral diet, his pain was controlled, and he was ready to be discharged to home with [facility] on postoperative day #7. He received written and verbal instruction regarding his medications, activity restrictions, signs and symptoms requiring physician notification, and follow-up appointments. Patient Condition at Discharge: Stable Plan - Discharge Summary New Discharge Prescriptions: New Amiodarone [Cordarone] 200 mg PO BID #25 tab Midodrine [ProAmatine] 20 mg PO BID-W/MEALS #60 tab Acetaminophen Tab [Tylenol] 650 mg PO Q4HR PRN tab PRN Reason: Fever and/ or Mild Pain Apixaban [Eliquis] 5 mg PO BID #60 tab Metoprolol Tartrate [Lopressor] 12.5 mg PO BID #60 tab Pantoprazole [Protonix] 40 mg PO AC-BRKFST #30 tab Sennosides-Docusate Sodium [Senokot-S] 2 each PO HS PRN tab PRN Reason: Constipation Continue Gabapentin 300 mg PO BID Aspirin 81 mg PO DAILY Rosuvastatin Calcium 5 mg PO DAILY Mv-Min/Folic/K1/Lycopen/Lutein [Centrum Silver Men Tablet] 1 tab PO DAILY Cholecalciferol [Vitamin D3 (25 Mcg = 1000 Iu)] 25 mcg PO DAILY Leeds-3/Dha/Epa/Fish Oil [Fish Oil 1,000 mg Softgel] 1 cap PO DAILY Furosemide [Lasix] 20 mg PO DAILY Escitalopram [Lexapro] 20 mg PO DAILY Entecavir [Baraclude] 0.5 mg PO DAILY busPIRone HCL 15 mg PO BID Discontinued amLODIPine [Norvasc] 5 mg PO DAILY Benazepril HCl [Lotensin] 20 mg PO DAILY Discharge Medication List Aspirin 81 mg PO DAILY 12/14/23 [History] Cholecalciferol [Vitamin D3 (25 Mcg = 1000 Iu)] 25 mcg PO DAILY 12/14/23 [History] Entecavir [Baraclude] 0.5 mg PO DAILY 12/14/23 [History] Escitalopram [Lexapro] 20 mg PO DAILY 12/14/23 [History] Furosemide [Lasix] 20 mg PO DAILY 12/14/23 [History] Gabapentin 300 mg PO BID 12/14/23 [History] Mv-Min/Folic/K1/Lycopen/Lutein [Centrum Silver Men Tablet] 1 tab PO DAILY 12/14/23 [History] Leeds-3/Dha/Epa/Fish Oil [Fish Oil 1,000 mg Softgel] 1 cap PO DAILY 12/14/23 [History] Rosuvastatin Calcium 5 mg PO DAILY 12/14/23 [History] busPIRone HCL 15 mg PO BID 01/01/24 [History] Apixaban [Eliquis] 5 mg PO BID #60 tab 01/10/24 [Rx] Acetaminophen Tab [Tylenol] 650 mg PO Q4HR PRN tab 01/11/24 [Rx] Amiodarone [Cordarone] 200 mg PO BID #25 tab 01/11/24 [Rx] Metoprolol Tartrate [Lopressor] 12.5 mg PO BID #60 tab 01/11/24 [Rx] Midodrine [ProAmatine] 20 mg PO BID-W/MEALS #60 tab 01/11/24 [Rx] Pantoprazole [Protonix] 40 mg PO AC-BRKFST #30 tab 01/11/24 [Rx] Sennosides-Docusate Sodium [Senokot-S] 2 each PO HS PRN tab 01/11/24 [Rx] Follow up Appointment(s)/Referral(s): Zelalem Quan MD [STAFF PHYSICIAN] - 01/19/24 1:30 pm Ayaka Rivera NPC [Nurse Practitioner] - 01/17/24 10:00 am (You will be seen in the surgeon's office behind the hospital in [facility], [address]. Office phone number is ) Rehab Eugenia FORD,Cardiac [NON-STAFF] - 4 Weeks (You will receive a phone call in approximately 4-6 weeks for evaluation for cardiac rehab) Foster Quevedo DO [Primary Care Provider] - 1 Week (Office will call with appointment) Rigoberto Moss MD [STAFF PHYSICIAN] - 1 Week (Office will call with appointment) Surendra Morales MD [STAFF PHYSICIAN] - 02/02/24 2:15 pm [facility], [NON-STAFF] - As Needed (To be seen the day after discharge, then 2-3 times per week thereafter until you start cardiac rehab) Ambulatory/Diagnostic Orders: Complete Blood Count w/diff [LAB.AMB] Time Frame: 3 Days, Location: None Selected Comprehensive Metabolic Panel [LAB.AMB] Time Frame: 3 Days, Location: None Selected Activity/Diet/Wound Care/Special Instructions: DISCHARGE INSTRUCTIONS: 1. No driving for 4 weeks, or until physician gives their ok. 2. The patient should sleep in their own bed, no medical bed needed. 3. Stairs are not an issue. If the bedroom is upstairs, it is advised that the patient go up at night and down in the morning for the first week. Go slowly, using handrail and take 1 step at a time. 4. AYSHA hose are to be worn for 30 days post surgery or until physician discontinues. 5. Heart hugger is to be worn 100% of the time until physician discontinues.(except when showering) 6. No lifting, pushing, or pulling more than 10 pounds for 12 weeks. The ysician will advise of any restriction changes. 7. The patient is expected to continue the prescribed walking program. 8. Continue pain control per as needed orders. 9. Continue with incentive spirometry and splinting/heart hugger until otherwise directed by the physician. 10. Must shower daily using liquid antibacterial soap 11. Routine sternal incision care. No powders, lotions, ointments on incisions. No dressings are necessary on incisions unless they are draining. Dermabond tape is to remain on sternal incision until surgeon follow-up. 12. Please call surgeon/DROP COUNT ASSOCIATE for temp greater than 101 F or purulent drainage from incisions. 13. You should weigh yourself daily, record and bring log with you to follow up appointments. 14. All prescriptions given by surgeon for 30 days. Refills need to be filled through marine specialist/primary care physician. 15. A Red armband has been placed on the patient. It should be worn for 30 days post discharge from surgery and will be removed by the cardiac surgeons. If an ER visit is necessary, please make sure the number on the Red armband is called before going to ER. 16. You have been referred to and are expected to begin Cardiac Rehab in proximately 4-6 weeks. 17. Quitting smoking is the most important step you can take to improve your health. For additional information and assistance to quit smoking, please call the [place] tobacco quit line (3-707-RCSK-NOW/ ) or online: https://www.[place].gov/[facility]/lbjb-jj-vmjovtk/chronicdiseases/tobacco/how-to-qu it-tobacco HOME HEALTH SERVICES TO PROVIDE: RN SKILLED HOME CARE SERVICES FOR POST-OP SURGICAL PATIENTS WITH THE FOLLOWING: Coronary Artery Bypass Surgery (CABG), Mitral Valve Replacement/Repair ( MVR), Aortic Valve Replacement/Repair (AVR) RN TO CONTINUE EDUCATION FROM ``ROAD TO A HEALTH HEART PATIENT EDUCATION MANUAL (GIVEN TO PATIENT IN THE HOSPITAL) MEDICATION RECONCILIATION WITH EDUCATION NEEDED ON FIRST HOME VISIT EMPHASIZE IMPORTANCE OF WEARING BREAST SUPPORT/HEART HUGGER ENCOURAGE USE OF INCENTIVE SPIROMETER 10 X EVERY HOUR WHILE AWAKE ENCOURAGE UTILIZATION OF LOWER EXTREMITY COMPRESSION STOCKINGS/AYSHA HOSE and ELEVATE LEGS ABOVE LEVEL OF HEART WHILE AT REST. ENCOURAGE AMBULATION 3-5x/day INCREASING TOLERATES, WHILE AVOIDING EXTREMES IN TEMPERATURE FREQUENCY: RN TO OPEN THE PATIENT WITHIN 24 HOURS OF DISCHARGE FROM THE HOSPITAL WITH TELEHEALTH INSTALLED AT [facility] [place], RN TO VISIT 2-3 X A WEEK FOR 4 WEEKS ESTABLISHED BY PATIENT NEEDS. LABORATORY: CBC, CMP TO BE DRAWN ON THE THIRD DAY HOME, (RAN STAT) FAX RESULTS TO [phone]. TELEHEALTH PARAMETERS: WEIGHT: NOTIFY MD OF WEIGHT GAIN OF 2 LBS IN 24 HOURS OR 5 LBS IN ONE WEEK HR: NOTIFY MD OF HR <55 BPM OR HR>100 BPM BP: NOTIFY MD IF BP <90/55 OR BP>140/100 O2 SAT: NOTIFY MD IF PO2<93% ON ROOM AIR SEND TELEHEALTH REPORT TO CYLINDER GRINDER AND CARDIOVASCULAR SURGEON THE FIRST WEEK OF CARE AND THEN BI-WEEKLY. PLEASE ADDITIONALLY COMMUNICATE ANY ABNORMALS AND NEW FINDINGS TO THE SURGEONS OFFICE. Discharge Disposition: HOME WITH HOME HEALTH SERVICES
--- NOTE | 2024-01-11 17:09 | P.PN ---
Progress Note - Text Progress Note Date: 01/11/24 Patient is a 78-year-old male with a known history of coronary artery disease and recent cardiac catheterization due to abnormal perfusion stress test on 12/27/2023 showed a extremely calcified right and left coronary system with severe triple-vessel coronary artery disease, hypertension, hyperlipidemia, hearing disorder/deafness, osteoarthritis, depression and prior history of smoking. Patient presents to ER with complaints of chest pain left retrosternal and radiating to left upper arm associate with coughing and shortness of breath and worsens with deep breathing. Patient was brought to the hospital by his family. He did take aspirin x 4 before coming to ER. His symptoms resolved by the time he is in the ER currently denies any complaints of chest pain. No nausea vomiting abdominal pain or diarrhea. Denies any recent illnesses. He did have RSV infection September 2023 and status post course of steroids and antibiotics. Chest x-ray showed suspected interstitial infiltrative mid and lower lungs. Consider possible such as aspiration or an early or atypical pneumonia. EKG showed supraventricular bradycardia with heart rate 59 Laboratory data showed WBC 4.9 hemoglobin 15.1 and platelets 168 sodium 140 potassium 4.0 chloride 106 bicarb is 28 BUN 18 and creatinine 0.9 Blood sugar 10/26/2006 and A1c 5.5 lowering Elevated troponin x 3 negative and proBNP is 48 and TSH 3.58 Hepatitis panel and RSV COVID-19 and influenza not detected. 01/03/2024 Patient is seen in follow-up today with family members present currently undergoing further workup for tentative CABG. Patient is afebrile with no reports of chest pain or shortness of breath. Patient does have incentive spirometer at the bedside and has been using and encouraged to continue at least 10 times every hour while awake. Patient currently tolerating diet and will be n.p.o. at midnight. Patient denies any nausea or vomiting. Patient has been up and walking and encouraged the patient to increase activity as tolerated. Questions and concerns were answered to the best of our ability. January 05, 2024: Yesterday-December Diet came to see the patient twice. Had not return from operating room. Today patient. He is extubated. Sitting up in a chair. Chest tubes in place. On clear liquid diet. Family at the bedside. 4 L nasal cannula. Using incentive spirometry. Kaur catheter. Some shortness of breath. January 06, 2024: ICU. Up in a chair. Chest tubes are out. Kaur catheter in place. Did walk a bit. Slight short of breath. Tolerating diet. On 4 L nasal cannula. Using incentive spirometry. Patient taken off insulin drip. Accu-Cheks with sliding scale. January 07, 2024: ICU. In a recliner. Kaur catheter discontinued. Pending to make urine. Passing flatus. Oral intake good. Did ambulate. On 3 L nasal cannula. Eating well. Hemoglobin did drop to 6.6 this morning. Received a unit of blood January 08, 2024: ICU. Sitting up in the recliner. Did ambulate in the hallway. Eating well. Had a small bowel movement. Breathing stable. Remains on 3 L nasal cannula. Family at the bedside. Hemoglobin 7.6 remains in atrial fibrillation. January 09, 2024: ICU. Comfortable. Ambulating. Ordered lactulose for BM. On nasal cannula. Has been in and out of A-fib. Went back at a rate about 1 teens. Metoprolol increased to 12.5 3 times daily. Anticoagulation when okay with surgery January 10, 2024: ICU. Ambulating with a walker. Being started on aspirin and Eliquis today. A-fib controlled. Metoprolol changed to 25 mg twice daily. Eating well. Had a good bowel movement. January 10: Doing well. Breathing stable. Eating well. Had a bowel movement. On examination: VITAL SIGNS: 59, 22, 118/65, 95% room air GENERAL APPEARANCE: Comfortable HEENT: Normal external appearance of nose and ear. Oral cavity normal EYES: Pupils equal. Conjunctiva normal. NECK: JVD able to assess. Mass not palpable. RESPIRATORY: Respiratory effort increased. Decreased breath sounds CARDIOVASCULAR: Heart sounds distant, minimal edema ABDOMEN: Soft. Liver and spleen not palpable. No tenderness. No mass palpable. Kaur catheter discontinued PSYCHIATRY: Alert and oriented x3. Mood and affect normal. INVESTIGATIONS, reviewed in the clinical context: January 10: White count 7.3 hemoglobin 8.6 potassium 4.2 creatinine 0.92 January 06: W White count 6.2 hemoglobin 6.6 platelets 135 January 05: White count 7.7 hemoglobin 7.7 platelets 143 potassium 4.3 creatinine 0.82 January 05, 2024: White count 6.3 hemoglobin 8.2 platelets 128 sodium 135 potassium 4.1 BUN 16 creatinine 0.6 albumin 3.1 Previous labs: January 03, 2024: Hemoglobin 15.1, platelets 190 Liver MRI: Smooth contour of the liver. Infrarenal abdominal aortic aneurysm 4.6 cm. Assessment and plan: Severe triple-vessel coronary artery disease status post cardiac catheterization on 12/27/2023 CABG on 01/04/2024 Essential hypertension Hyperlipidemia Paroxysmal atrial fibrillation currently in atrial fibrillation though rate controlled. On Cordarone. Eliquis aspirin started GERD Primary osteoarthritis Depression Morbid obesity BMI 45.8 Hearing disorder/deafness hepatitis B-history of resolved Morbid obesity BMI 43.6 Acute postprocedure blood loss anemia expected from surgery. Dropped hemoglobin down to 6.6. Received a unit of blood Dilutional thrombocytopenia-corrected Reactive hypoalbuminemia Full code Doing better. Plan per cardiothoracic to discharge home. Patient to follow-up with his PCP. Questions answered. /
--- NOTE | 2024-01-12 19:00 | CDI ---
Documentation Clarification Form Date: 01/12/2024 06:41:27 PM From: Xenia Lopez Phone: Admit Date: 01/01/2024 09:21:00 AM Patient Name: Amrit Pastrana Visit Number: [id number] Discharge Date: 01/11/2024 01:39:00 PM ATTENTION: The Clinical Documentation Specialists (CDI) and [facility] Coding Staff appreciate your assistance in clarifying documentation. Please respond to the clarification below the line at the bottom and electronically sign. The CDI & [facility] Coding staff will review the response and follow-up if needed. Please note: Queries are made part of the Legal Health Record. If you have any questions, please contact the author of this message via ITS. Dr. Surendra Morales Your patient has the documented diagnosis of unspecified CHF Progress Notes 01/09 & 01/10. Additional information regarding the type of CHF is requested. History/Risk Factors: 78yo M, CAD w unstable angina, HTN, HLD, COPD, infrarenal AAA,, Hep B,depression, morbid obesity, COPD, former smoker, ABLA, thrombocytopenia, PAF, Clinical Indicators: VS/Pulse OX: 93-96 BNP: 48 Echo Results: per cardiology office on 12/07- normal LV systolic function with EF 50 to 55%, mild AR, MR, TR andAAA Chest x ray: reveals moderate cardiomegaly with improvingcongestive heart failure. Treatment: monitored In your professional opinion, can you please clarify the type of CHF if known? [ ] HTN with cardiomegaly only [ ] Acute Systolic Heart Failure (reduced EF) [ ] Acute Diastolic Heart Failure (preserved EF) [ ] Acute Systolic & Diastolic Heart Failure [x ] Other, please specify___Disagree that the patient had CHF, none documented in the [facility] or Cardiology notes [ ] Unable to determine (Template Last Revised: September 2020) MTDD
== END 2024-01-11 13:39 | disposition home health service (06) | DRG 236 ==
LOC: EC 06:34 → OBSVTOIN 09:21 → 6NMEDSUR 09:21 → 2SICU 01-04 09:04
PROVIDERS: ADMIT Thoracic Surgery (Cardiothoracic Vascular Surgery); ATTEND Thoracic Surgery (Cardiothoracic Vascular Surgery)
PROC: 02L70CK Occlusion of Left Atrial Appendage with Extraluminal Device, Open Approach (ICD-10-PCS; 2024-01-04)
PROC: B24BZZ4 Ultrasonography of Heart with Aorta, Transesophageal (ICD-10-PCS; 2024-01-04)
PROC: 3E033RZ Introduction of Antiarrhythmic into Peripheral Vein, Percutaneous Approach (ICD-10-PCS; 2024-01-04)
PROC: 30233J1 Transfusion of Nonautologous Serum Albumin into Peripheral Vein, Percutaneous Approach (ICD-10-PCS; 2024-01-04)
PROC: 021009W Bypass Coronary Artery, One Artery from Aorta with Autologous Venous Tissue, Open Approach (ICD-10-PCS; principal; 2024-01-04 08:00)
PROC: 02110Z9 Bypass Coronary Artery, Two Arteries from Left Internal Mammary, Open Approach (ICD-10-PCS; 2024-01-04 08:00)
PROC: 06BQ4ZZ Excision of Left Saphenous Vein, Percutaneous Endoscopic Approach (ICD-10-PCS; 2024-01-04 08:00)
PROC: 30233N1 Transfusion of Nonautologous Red Blood Cells into Peripheral Vein, Percutaneous Approach (ICD-10-PCS; 2024-01-07)
DX: I25.110 Atherosclerotic heart disease of native coronary artery with unstable angina pectoris (principal); D62 Acute posthemorrhagic anemia; B18.1 Chronic viral hepatitis B without delta-agent; Z68.42 Body mass index [BMI] 45.0-49.9, adult; I11.0 Hypertensive heart disease with heart failure; E66.01 Morbid (severe) obesity due to excess calories; J44.9 Chronic obstructive pulmonary disease, unspecified; I71.43 Infrarenal abdominal aortic aneurysm, without rupture; I70.0 Atherosclerosis of aorta; I48.0 Paroxysmal atrial fibrillation; E88.09 Other disorders of plasma-protein metabolism, not elsewhere classified; D69.59 Other secondary thrombocytopenia; F32.A Depression, unspecified; I08.3 Combined rheumatic disorders of mitral, aortic and tricuspid valves; M19.91 Primary osteoarthritis, unspecified site; K21.9 Gastro-esophageal reflux disease without esophagitis; I95.1 Orthostatic hypotension; E78.5 Hyperlipidemia, unspecified; H91.93 Unspecified hearing loss, bilateral; Z97.4 Presence of external hearing-aid; Z87.891 Personal history of nicotine dependence; Z79.82 Long term (current) use of aspirin; Z79.899 Other long term (current) drug therapy; Z88.8 Allergy status to other drugs, medicaments and biological substances; Z11.52 Encounter for screening for COVID-19
CPT/HCPCS: 36415; 71045; 71046; 71250; 74150; 74183; 80048; 80053; 80061; 80074; 82330; 82533; 82805; 83036; 83735; 83880; 84132; 84145; 84443; 84484; 85025; 85027; 85610; 85730; 86850; 86900; 86901; 86920; 87070; 87636; 93005; 93880; 93922; 93970; 94002; 94150; 94640; 94660; 94760; 96372; 99285

== ENCOUNTER → 2024-06-27 | Outpatient (CLI) | payer MEDICARE ==
--- NOTE | 2024-06-27 10:56 | US ---
EXAMINATION TYPE: US liver DATE OF EXAM: 06/27/2024 COMPARISON: MR liver 01/03/2024, CT chest abdomen 01/01/2024, liver ultrasound 07/28/2023, 08/01/2022 CLINICAL INDICATION: Male, 78 years old with history of B18.1 CHRONIC VIRAL HEPATITIS B; Hepatitis li mited due to bowel gas and body habitus. TECHNIQUE: Grayscale and color Doppler imaging of the right upper quadrant was performed. 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 Noncirrhotic appearance of the liver. No focal lesion. N o gallstones, wall thickening or surrounding fluid. Negative sonographic Jovel's sign. Common bile d uct is within normal limits. No hydronephrosis, shadowing calculi or solid renal masses involving the right kidney. IMPRESSION: 1. No ultrasound evidence for acute process. 2. Noncirrhotic appearance of liver without focal lesion. [facility], , 06/27/2024 10:54 AM
== END | disposition home or self-care (01) ==
LOC: RADUSWWP 07:09
PROVIDERS: ATTEND Internal Medicine Gastroenterology
DX: B18.1 Chronic viral hepatitis B without delta-agent (principal)
CPT/HCPCS: 76705

== ENCOUNTER → 2024-12-03 | Outpatient (CLI) | payer MEDICARE ==
--- NOTE | 2024-12-03 09:20 | US ---
EXAMINATION TYPE: US liver DATE OF EXAM: 12/03/2024 COMPARISON: CT abdomen January 01, 2024. MRI liver December 2023 CLINICAL INDICATION: Male, 78 years old with history of B18.1 CHRONIC VIRAL HEPATITIS B; TECHNIQUE: Grayscale and color Doppler imaging of the right upper quadrant. FINDINGS: EXAM MEASUREMENTS: Liver Length: 15.9 cm Gallbladder Wall: 0.2 cm CBD: 0.4 cm, color Doppler imaging was utilized to isolate the common bile duct for measurement. Right Kidney: 11.0x5.5x5.0 cm [employer] SUPERVISOR NOTES: very limited scan due to overlying bowel/pt body habitus Pancreas: Tail obscured by overlying bowel gas Liver: Increased attenuation, decreased visualization of vessels suggestive of fatty infiltrate, dif ficult to penetrate Left lobe obscured due to overlying bowel, limited visualization, best images obtained Gallbladder: limited visualization due to overlying bowel, wnl as best seen Evidence for sonographic Jovel's sign: No CBD: wnl Right Kidney: ?echogenic foci seen with posterior shadowin.0cm Suboptimal study. Heterogeneous hyperechoic appearance of liver is present. This limits evaluation fo r focal masses. No ascites. Cannot exclude nonobstructing right renal calculi but no distinct calculi seen on prior CT. IMPRESSION: Suboptimal study. Heterogeneous hyperechoic appearance of liver consistent with diffuse fatty infiltr ation and/or underlying hepatocellular disease. No biliary dilatation or ascites noted. \ [facility], , 12/03/2024 9:18 AM
== END | disposition home or self-care (01) ==
LOC: RADUSWWP 08:44
PROVIDERS: ATTEND Internal Medicine Gastroenterology
DX: B18.1 Chronic viral hepatitis B without delta-agent (principal)
CPT/HCPCS: 76705